=== PATIENT | male | born 1935 | race Caucasian/White ===

== ENCOUNTER 2018-09-03 15:44 | Inpatient (IN) ==
[2018-09-03] MEDS ORDERED: SODIUM CHLORIDE 0.9% 1000ML 1,000 ML IV SCH (16:30)
[2018-09-03 16:54] LABS: Albumin Level 2.4 gm/dl (3.4-5.0); Calcium 8.3 mg/dl (8.5-10.1); Creatinine Clr Calc Pharmacy 90.2 ml/min; Est GFR (African American) 100.7; Est GFR (Non-African American) 86.9; Potassium 3.5 mmol/L (3.5-5.1)
--- NOTE | 2018-09-03 16:54 | XRay Report ---
XR chest 1V portable CLINICAL HISTORY: Generalized weakness COMPARISON STUDY: 07/25/2014 FINDINGS: The heart is enlarged. There is elevation interstitium consistent with congestive failure/f luid overload. Small pleural effusions are suspected. Left basilar opacities while nonspecific are li adela atelectatic. The patient is listing to the right. There are old right-sided rib fractures.[ IMPRESSION: 1. Technically limited study 2. Radiographic evidence of congestive failure/fluid overload with suspected small pleural effusions. 3. Left basilar opacities, likely atelectatic Electronically signed by: Bridger Jerry M.D. 09/03/2018 4:53 PM
[2018-09-03 16:56] LABS: Hematocrit (blood only) 13.9 % (42-52); Hemoglobin 4.5 g/dL (14.0-18.0); Mean Corpuscular Hgb Conc 32.4 g/dL (32-36); Mean Corpuscular Volume 78.5 fL (80-100); Nucleated RBC # (auto) 0.11 K/uL (0-0); Nucleated RBC % (auto) 1.5 %; Platelet Count 20 K/uL (130-400); RDW Coefficient of Variation 19.5 % (11.5-14.5); RDW Standard Deviation 55.4 fL (36.4-46.3); Red Blood Count 1.77 M/uL (4.7-6.1); White Blood Count 7.32 K/uL (4.8-10.8)
[2018-09-03 17:00] LABS: Albumin Globulin Ratio 0.6 (0.9-2); Bilirubin,Total 0.4 mg/dl (0.2-1); Globulin 3.8 gm/dl (2.5-4.0); Total Protein 6.2 gm/dl (6.4-8.2); Troponin I 0.019 ng/ml (0-0.045)
[2018-09-03 17:04] LABS: Prothrombin Time 10.6 Seconds (9.0-12.0)
[2018-09-03] MEDS ORDERED: SODIUM CHLORIDE 0.9% 250 ML IV PRN ×3 (17:09→21:34)
[2018-09-03 17:10] LABS: ALC (manual) 1.17 K/uL (1.2-3.4); Lymphocytes # (manual) 1.17 K/uL (1.2-3.4); Monocytes # (manual) 0.44 K/uL (0.11-0.59)
[2018-09-03 17:14] LABS: Anisocytosis Present; Hypochromasia Present; Ovalocytes 1+; Polychromasia 1+
[2018-09-03 17:19] LABS: Magnesium 1.7 mg/dl (1.8-2.4)
[2018-09-03 17:25] LABS: Appearance Urine Clear (Clear); Bilirubin Urine Negative (Negative); Blood Urine Negative (Negative); Color Urine Yellow; Glucose Urine UA Negative (Negative); Ketones Urine Negative (Negative); Leukocyte Esterase Urine Negative (Negative); Nitrite Urine Negative (Negative); Protein Urine Negative (Negative); Specific Gravity Urine 1.024 (1.000-1.030); Urobilinogen Urine Negative (Negative)
[2018-09-03] MEDS ORDERED: PANTOprazole 80 MG in DEXTROSE 5% 100 ML IV ONE (17:30)
[2018-09-03] MEDS ORDERED: dilTIAZem HCl 125 MG in DEXTROSE 5% 100 ML IV SCH ×2 (18:00→18:35)
--- NOTE | 2018-09-03 18:21 | History & Physical Report ---
Date of Service September 03, 2018 Assessment & Plan (1) GI bleed: Stool is Hemoccult positive. Hemoglobin 4.5. Consult gastroenterology. Transfuse to get hemoglobin greater than 8. Serial H and H ordered. Protonix infusion ordered. Present on Admission?: Yes (2) Severe anemia: Hemoglobin 4.5. Transfuse to get hemoglobin greater than 8. Serial H&H Present on Admission?: Yes (3) Severe thrombocytopenia: Uncertain cause of the severe thrombocytopenia. We will transfuse platelets due to active GI bleeding. Consult hematology. Serial lab studies Present on Admission?: Yes (4) Atrial fibrillation with RVR: Diltiazem infusion will be started in the ED. Obtain cardiac echo. Consult cardiology. Telemetry Present on Admission?: Yes (5) Congestive heart failure: Administer intravenous Lasix. Yusuf catheter to monitor urine output. Cardiac echo. Cardiology consultation Present on Admission?: Yes (6) Dementia: Provide supportive care. Continue Aricept Present on Admission?: Yes History of Present Illness Chief Complaint: Weakness Primary Care Provider: Olvin Joseph III, [place] 82-year-old male who is brought to the ED by family members for weakness and inability to ambulate. He is markedly pale and very weak. Lab tests reveal hemoglobin of 4.5 and platelet count 20,000. The last lab that I could review was from 2016 and this severe anemia and thrombocytopenia appear to be new. He has Hemoccult positive stool and there may have been some recent melena. He also appears to be in congestive heart failure and has uncontrolled atrial fibrillation with rapid ventricular rate which appears to be new. He is acutely ill and will need to be admitted to the intensive care unit. Blood and platelet transfusion have been ordered. Yusuf catheter will be placed and intravenous Lasix administered. Diltiazem drip will be started. Consultation to gastro enterology, cardiology, hematology will be ordered. Lovenox and heparin will be avoided. SCDs have been ordered for DVT prophylaxis. The POA is not present and she will determine CODE STATUS. Allergies Allergy/AdvReac Type Severity Reaction Status Date / Time No Known Allergies Allergy Unknown Verified 09/03/18 17:19 Home Medications Home Medications Medication Instructions Recorded Confirmed Type donepezil 23 mg tablet 11.5 mg PO HS #15 tab 08/23/18 09/03/18 History acetaminophen [Tylenol Extra 1,000 mg PO TID 09/03/18 09/03/18 History Strength] food supplemt, lactose-reduced 1 ea PO BID 09/03/18 09/03/18 History [Boost] Past Med/Surg History Medical History Microhematuria (Acute) Iron deficiency anemia (Acute) Incontinence (Acute) Hearing loss (Acute) Dementia (Acute) Axillary neuropathy (Acute) Social History Feels Safe at Home: Yes Smoking Status: Never smoker Review of Systems Review of Systems: Unobtainable due to cognitive status Physical Exam Constitutional: Very pale. Very weak. Baseline dementia Eyes: PERRL, conjunctivae normal, anicteric sclerae ENMT: external ear and nose normal, oropharynx normal Neck: trachea midline, no thyromegaly Respiratory: Poor inspiratory effort but bibasilar inspiratory rales are audible. No rhonchi. No wheezing Cardiovascular: Uncontrolled rapid irregular rhythm consistent with atrial fibrillation. Grade 1/6 systolic murmur at the apex Gastrointestinal (Abdomen): normal bowel sounds, soft, nontender, no hepatosplenomegaly Musculoskeletal: No significant peripheral edema noted. He is markedly weak in a generalized fashion Skin: Market pallor noted Neurologic: Baseline dementia. No apparent focal motor deficits. Generalized weakness Results & Data Vital Signs (Past 12 Hours) Vital Signs Temp Pulse Pulse Resp BP BP Pulse Ox 09/03/18 17:12 130 H 22 95/61 L 94 09/03/18 16:03 37.0 C 102 H 20 98/65 L 94 Laboratory Results 09/03/18 16:14 09/03/18 16:44 (1) GI bleed GI bleed type/associated pathology: unspecified gastrointestinal hemorrhage type Qualified Code(s): K92.2 - Gastrointestinal hemorrhage, unspecified
[2018-09-03] MEDS: PANTOprazole 40 MG in DEXTROSE 5% 100 ML IV SCH ×2 (18:31→22:04)
[2018-09-03 18:59] LABS: Reticulocyte % 0.9 % (0.5-2.0); Reticulocytes # 0.02 10^6/uL (0.02-0.10)
[2018-09-03 19:28] LABS: Folate (Folic Acid) 19.11 ng/ml (>5.38)
[2018-09-03 19:29] LABS: Ferritin 649.8 ng/ml (8-388)
--- NOTE | 2018-09-03 19:58 | CT Scan Report ---
CT SCAN OF THE BRAIN WITHOUT IV CONTRAST CLINICAL HISTORY: Generalized weakness. COMPARISON STUDY: CT of the brain dated 06/06/2010. TECHNIQUE: Unenhanced axial CT scan of the brain is performed from the vertex to the skull base. A do se lowering technique was utilized adhering to the principles of ALARA. CT DOSE: 614.27 mGy.cm FINDINGS: Brain parenchyma: There are age-related involutional changes noting mild subcortical and periventric ular microangiopathic change. There is no hemorrhage, mass effect, or evidence of acute territorial i schemia by CT criteria. Miller-white matter differentiation is preserved. No extra-axial fluid collecti on is seen. Ventricles, sulci, cisterns: Prominent secondary to involutional change. Intracranial vasculature: There is mild atherosclerotic calcification of the cavernous carotid arteri es. Calvarium: Unremarkable. Sinuses and mastoids: There is trace mucosal thickening within the left maxillary antrum, the left sp henoid sinus, and the ethmoid sinuses. The mastoid air cells are well pneumatized. Orbits: The bony orbits are grossly intact. IMPRESSION: There is no hemorrhage, mass effect, or evidence of acute territorial ischemia by CT nick barrios. Electronically signed by: Demetrius Knox M.D. 09/03/2018 7:57 PM
[2018-09-03] MEDS ORDERED: ICU PROTOCOL FOR HYPERGLYCEMIA PRN (20:33)
--- NOTE | 2018-09-03 20:37 | Critical Care Consultation ---
Date of Consultation September 03, 2018 Assessment & Plan (1) Admitted to intensive care unit: Reason Critically Ill: 82-year-old male with acute severe symptomatic anemia with thrombocytopenia in the setting of questionable source of blood loss. Requiring aggressive transfusion and hemodynamic monitoring. NEURO - * CAM ICU: POSITIVE * Dementia: * Continue home medications as tolerated. CARDIAC/VASCULAR - * A. fib with RVR: * New diagnosis. Initially written for cardizem in the ED but held 2/2 BP lability. * Will hold on rate control at this time as the patient is likely more compensatory at this time in the setting of profound hypovolemia. * Will readdress after adequate transfusion. See Heme. * May consider Amio vs. Cardizem in the setting of persistent hypotension. * Consider addition of NeoSynephrine gtt if pressors necessary for reflexive bradycardia. * Hold on anticoagulation in the setting of profound anemia and ?? bleeding source. * Initial trop negative. Will repeat as anticipate rise in the setting of likely development of Type 2 IN. * CHF: * Initial CXR w/ co volume overload. * CTA w/o significant findings for pulmonary vascular congestion. * Initially received IV Lasix in the ED. * Will hold on further dosing as patient has diuresed well and we melanie need to attempt to keep up with volume in the form of blood products. * Will address need for further Lasix dosing. * Ascending Thoracic Aortic Aneurysm: * Initial CXR w/ c/o large amounts of pleural fluid and wide mediastinum. Will add CTA to assess all of the above. * ECHO (07/2014): EF 50-55%, Multiple wall motion abnormalities, MR, TR, Ascending Thoracic Aneurysm. * Monitor on telemetry. RESPIRATORY - * h/o PE - resolved. Not on anticoagulation. CT w/o findings of PE. * c/o CHF on CXR. No significant findings on CT. * Recently diuresed. * Will assess need for additional dosing. * Currently high 90s on room air. * Positive pressure as needed. GI/NUTRITION - * Hemoccult positive: * In the setting of profound anemia and thrombocytopenia, agree with continuing Protonix gtt at this juncture. * Monitor for any concerning GI bleeding. * w/ h/o Tubular Adenomas of the colon, anticipate some likely chronic GI losses. * Will add CT Abd/Pelvis to evaluate for possible source of blood losses. RENAL/LYTES - * No significant electrolyte abnormalities at this point. * Will monitor closely - replace as needed. * IVF: Hold on additional IVF while aggressive transfusion in process. - * Yusuf in place - Strict I&Os. ENDO - * No h/o DM or Thyroid Dz * BSGs per unit protocol. ISS --> gtt per unit policy. HEME - * Severe Symptomatic Anemia: * Only possible source currently was heme positive stools. * Will add CT Chest and Abd/Pelvis to evaluate for sources. * Will transfuse 4U PRBCs initially. * 2U Platelets ordered. * Transfuse to Hbg >8. * CT suggestive of LLE intramuscular hematoma as ?? source of bleeding. No intrathoracic or intraabdominal bleeding noted. ID - * No c/o infectious contribution at this time. * Trend fever curve. LINES/IV ACCESS - * PIVs x2 * LUE 18g Endurance catheter. * Yusuf DVT PROPHYLAXIS - * Will hold on chemoprophylaxis 2/2 above. * SCDs I have personally spent 80 minutes of critical care time in the direct management of this patient. This is a life/limb threatening event. This includes time spent evaluating patient, direct bedside care, chart review, placing orders, interpretation of diagnostic studies, discussion with consultants, patient, and family members, as well as other required patient management activities. This time is exclusive of all separately billable procedures, and teaching time and separate from and in addition to any other critical care service time. Thank you for allowing us to participate in the care of this patient. Please refer to my attending physician's documentation for any further recommendations. (2) Symptomatic anemia: (3) Severe thrombocytopenia: (4) Severe anemia: (5) Atrial fibrillation with RVR: (6) Dementia: (7) Thoracic aortic aneurysm without rupture: (8) Hematoma of left hip: (9) Intramuscular hematoma: History of Present Illness Attending Physician: Jose Angel Calderon MD History of present illness provided by family caretakers. Patient is an 82-year-old male with a significant past medical history of baseline dementia, prior pulmonary emboli treated with anticoagulation in the past, a sending aortic aneurysm, LEFT brachial plexus neuropathy, tubular adenoma of the colon, and prior history of GI bleeding who initially presented to the emergency department weak, lethargic and dyspneic over the past 3 to 4 days. Apparently, on Thursday the patient had increasing frequency of bowel movements. There is no report of blood or melanotic stools appreciated. He did seem to improve and on Thursday had a decrease in the amount of symptoms. On Thursday through Thursday, the patient had declining status with increasing weakness. Apparently, baseline, the patient does have some help with his activities of daily living, however this is been worsening over over the last 24 hours. He has had no recent falls. There is been no recent trauma otherwise. No vomiting or complaints of chest pain. Patient is currently not anticoagulated. On evaluation in the emergency department, the patient was found to be tachycardic and hypotensive. His hemoglobin was found to be 4.5 with a platelet count of 20. He received 1 unit PRBCs prior to arrival with an additional unit ordered. Patient was also ordered 2 units of platelets. He remained tachycardic, but blood pressures remained stable. Initially, he was ordered di ltiazem, however this was not provided secondary to lability of blood pressures. On arrival in the ICU, patient is awake and does answer simple questions with yes and no answers. He complains of pain to the LEFT upper extremity for which his caretakers reports is his normal. He denies any complaints of chest pain or abdominal pain. Allergies Allergy/AdvReac Type Severity Reaction Status Date / Time No Known Allergies Allergy Unknown Verified 09/03/18 17:19 Home Medications Home Medications Medication Instructions Recorded Confirmed Type donepezil 23 mg tablet 11.5 mg PO HS #15 tab 08/23/18 09/03/18 History acetaminophen [Tylenol Extra 1,000 mg PO TID 09/03/18 09/03/18 History Strength] food supplemt, lactose-reduced 1 ea PO BID 09/03/18 09/03/18 History [Boost] Patient History Medical History Congestive heart failure (Acute) Severe thrombocytopenia (Acute) Severe anemia (Acute) Microhematuria (Acute) Iron deficiency anemia (Acute) Incontinence (Acute) Hearing loss (Acute) Dementia (Acute) Axillary neuropathy (Acute) Social History Preferred Language: Dutch Communication Ability: Effective Composition Teacher Required: No Beliefs That Will Affect Care: None Current Living Situation: Family Other Information That Helps Us Care for You: No Feels Safe at Home: Yes Safety Concerns: Feels Safe At This Time Smoking Status: Never smoker Hx Alcohol Use: No Hx Substance Use: No Review of Systems Review of Systems: A complete 10 point review of systems was reviewed with the patient with pertinent positives and negatives as per history of present illness. All else were negative. Physical Exam Physical Exam: VITAL SIGNS - Vital signs and nursing notes were reviewed. GENERAL - 82-year-old male appearing his stated age who is in no acute distress. Pale appearing. SKIN - Pale appearing. Bruising noted to the LEFT lateral hip. HEAD - NC/AT. EYES - PERRL with EOMI bilaterally. Sclera anicteric. Palpebral conjunctiva pink and pale. EARS - No deformities of external structures noted on gross examination bilaterally. NOSE - Midline and without cyanosis. No epistaxis or purulent drainage noted. MOUTH/OROPHARYNX - Without perioral cyanosis. NECK - Neck with FROM. Supple to palpation. LUNGS - Chest wall symmetric without accessory muscle use, intercostals retractions, or central cyanosis. Normal vesicular breath sounds CTA B/L. No wheezes, rales, or rhonchi appreciated. CARDIAC - RRR with S1/S2. No murmur, rubs, or gallops appreciated. ABDOMEN - Abdominal contour flat without pulsations or visible masses. BS normoactive all four quadrants. No tenderness, palpable masses, hepatosplenomegaly, or ascites noted. EXTREMITIES - No clubbing or peripheral cyanosis. No pretibial edema present. +3/5 radial and dorsalis pedis pulses palpated throughout. Decreased strength with contracture noted of the LEFT upper extremity. NEUROLOGIC - Cranial nerves II through XII grossly intact. PSYCH -pleasantly demented. Results & Data Vital Signs (Past 12 Hours) Vital Signs Temp Pulse Pulse Resp BP BP Pulse Ox 09/03/18 19:54 36.4 C L 130 H 20 120/77 96 09/03/18 19:24 36.8 C 114 H 20 87/65 L 97 09/03/18 19:09 36.8 C 135 H 18 111/56 L 95 09/03/18 18:53 37.1 C 115 H 20 104/57 L 96 09/03/18 18:32 114 H 20 84/54 L 97 09/03/18 17:12 130 H 22 95/61 L 94 09/03/18 16:03 37.0 C 102 H 20 98/65 L 94
--- NOTE | 2018-09-03 20:38 | Procedure Note ---
Procedure Note Date of Service September 03, 2018 Procedure: Clinical Therapist Indwelling Peripherally Inserted IV Catheter Placement Attending: Dr. Greenfield APC: Ayaz Brar PA-C Indication: Need for IV Access, Poor Vascular Access Anesthesia: None A time-out was completed verifying correct patient, procedure, site, positioning, and implant(s) or special equipment if applicable. Utilizing bedside ultrasound, vascularity of the LEFT upper extremity was assessed. Vessel size was noted for appropriate catheter selection and skin was marked with gentle pressure. Patients LEFT upper extremity was prepped and draped in the usual sterile fashion utilizing chlorhexidine. Ultrasound guidance was used to aid needle placement. An 18 g Endurance Catheter was introduced into the LEFT Brachial vein under direct ultrasound guidance. Guide wire was easily deployed without resistance. Catheter was threaded over the guide wire without resistance and the entire apparatus was removed intact. Good venous blood return was noted in the catheter. The IV catheter was easily flushed with sterile saline flush. Sterile clave was attached to the end of the catheter and good blood return was again noted. Tourniquet was released. StatLock device and sterile dressing were applied. The patient tolerated the procedure well. Blood Loss: Minimal Complications: None Procedural Ultrasound Guidance: Procedure Date: 09/03/2018 Indication: Poor Vascular Access Attending: Dr. Greenfield APC: Ayaz Brar PA-C Artery/Veins Identified: YES Access confirmed in Vein with ultrasound: YES Complications: NONE Patient tolerated procedure: WELL Coding
[2018-09-03] MEDS ORDERED: OPTIRAY 320 125ml IV PRN (20:59)
[2018-09-03] MEDS ORDERED: FUROSEMIDE 40 MG in SYRINGE 0 ML IV SCH (21:00)
--- NOTE | 2018-09-03 21:41 | CT Scan Report ---
CT ANGIOGRAM OF THE CHEST COMBO; CT ANGIOGRAM OF THE ABDOMEN AND PELVIS CLINICAL HISTORY: Generalized weakness. Anemia. COMPARISON STUDY: Chest CT dated 07/25/2014. TECHNIQUE: Unenhanced CT scan of the chest is performed. Following the IV administration of 120 cc of Optiray 320, CT angiogram of the chest, abdomen, and pelvis was performed from the thoracic inlet to the proximal femora. Images are reviewed in the axial, sagittal, and coronal planes. 3-D MIPS images are created and assessed. IV contrast was administered without complication. A dose lowering techniq ue was utilized adhering to the principles of ALARA. The examination is degraded by streak artifact f rom the arms which could not be elevated above the chest or abdomen. There is also mild motion artifa ct. CT DOSE: 2390.25 mGy.cm FINDINGS: CHEST: Thyroid: Imaged portions of the thyroid gland are normal in size and attenuation. Thoracic aorta: No intramural hematoma is seen on the unenhanced series. There is aneurysmal dilatati on of the ascending thoracic aorta which measures up to 5.0 cm in diameter. The remainder of the thor acic aorta is normal in caliber. The mid arch measures up to 3.0 cm in diameter, and the descending t horacic aorta measures up to 3.1 cm. The aortic arch demonstrates standard 3-vessel anatomy. No aneur ysm or dissection is seen. Pulmonary vasculature: The pulmonary trunk is dilated measuring 3.9 cm in diameter. This suggests pul monary artery hypertension. There are no filling defects identified in the central pulmonary vessels to indicate pulmonary embolus. Note that this examination was not protocoled for evaluation of the pu lmonary arteries. Heart: The heart is enlarged and without pericardial effusion. There is diminished attenuation of the cardiac blood flow is compared to the myocardium suggesting anemia. Lungs and pleural spaces: Evaluation of lung parenchyma is degraded by motion artifact. There are sma ll pleural effusions with bibasilar atelectasis. No airspace consolidation is seen typical for pneumo cayetano. The trachea and central airways are clear. Mediastinum: There is no mediastinal lymphadenopathy. Caitlyn: Clear. Axillae: There is no axillary lymphadenopathy. Bony thorax: The skeletal structures are osteopenic. There is a moderate superior endplate compressio n deformity of T12. A large hemangioma seen in the body of T2. No lytic or blastic bony lesions are i dentified. Degenerative change is seen in the shoulders and thoracic spine. There are numerous healed bilateral rib fractures. ABDOMEN AND PELVIS: Liver: The contrast-enhanced liver is normal in size, contour, and attenuation. There is no intrahepa tic biliary ductal dilatation. A 2.1 cm cyst is noted in the left lobe. Gallbladder: There is a large calcified gallstone, with no CT evidence of acute cholecystitis. Spleen: Normal in size and attenuation comment noting heterogeneous arterial phase enhancement. Pancreas: The pancreas is atrophic. There is a 3.3 x 3.1 cm cystic lesion arising from the inferior a spect of the pancreatic head on image #[id number]. Adrenal glands: Unremarkable. Kidneys: The contrast enhanced kidneys are atrophic and without hydronephrosis. The kidneys enhance s ymmetrically. Numerous parapelvic cysts are seen bilaterally. Abdominal aorta and iliac arteries: The abdominal aorta is normal in course and caliber noting scatte red foci of atherosclerotic calcification. The iliac arteries are widely patent bilaterally. No disse ction is seen. Major branches of the abdominal aorta: The celiac trunk, superior mesenteric, and inferior mesenteric arteries are widely patent. Hepatic arterial anatomy is conventional. The splenic artery is patent. Single bilateral renal arteries are patent. Focal dissection is identified within the right renal ar benjamin, best seen on the coronal reformatted images. Stomach and bowel: There is a small hiatal hernia. The duodenum is normal in configuration. No bowel obstruction is seen. Mild colonic fecal retention is noted. The appendix is not identified. Peritoneum: There is no intraperitoneal free air or abdominal ascites. Lymphadenopathy: None. Pelvic viscera: The prostate gland is diminutive and heterogeneous. The bladder is decompressed aroun d a Yusuf catheter. Small foci of intraluminal gas are nonspecific and may be related to recent instr umentation. The bladder wall appears thickened and there is pericystic inflammation. Small bilateral fat-containing inguinal hernias are noted. The left adductor musculature appears thickened and hyperd ense and there are surrounding inflammatory stranding. This is only partially visualized and likely r epresents intramuscular hematoma within the left thigh. Skeletal structures: The skeletal structures are osteopenic. Moderate lumbosacral spondylosis is obse rved. Advanced arthritic change is seen in the hips. No lytic or blastic bony lesions are seen. IMPRESSION: 1. There is aneurysmal dilatation of the ascending thoracic aorta which measures up to 5 cm. This is unchanged from previous. 2. The remainder of the thoracic aorta and the abdominal aorta are normal in caliber. 3. There is no dissection seen involving the thoracic or abdominal aorta. 4. 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 5. Cardiomegaly with evidence of anemia and pulmonary artery hypertension. 6. Intramuscular hematoma is partially visualized within the left thigh involving the adductor muscul ature. 7. Small pleural effusions with bibasilar atelectasis. 8. Cholelithiasis. 9. There is a 3.3 cm ovoid cystic lesion identified in the pancreatic head. 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 Nonemergent GI follow-up is recommended. 10. Although decompressed around a Yusuf catheter, the bladder wall is thickened and there is pericys tic inflammation. Correlate clinically and with urinalysis for evidence of cystitis. 11. There is a moderate compression deformity of T12. This is age indeterminant but new from 2015. 12. Additional findings as above. Electronically signed by: Demetrius Knox M.D. 09/03/2018 9:39 PM
[2018-09-03] MEDS: SUCRALFATE 1 GM/10 ML UDC PO SCH (22:05)
--- NOTE | 2018-09-04 00:22 | Emergency Department Note ---
Entered by Gabby Rodriguez acting as a scribe for Mayco Green MD History of Present Illness General Chief complaint: Weakness Stated complaint: weakness Time Seen by Provider: 09/03/18 16:16 Source: family (son-in-law) History of Present Illness Onset (ago): day(s) (several) Location: left and right Pain Consistency: + other (worsening) Maximum Pain Intensity: 5 Quality: + other (weakness) Associated symptoms: + loss of appetite (now resolved) and + other (positive loose stool; positive right-sided rib pain); no nausea/vomiting The patient is a 82 year old white male w/ PMHx of dementia, PE, and CHF who presents to the ED w/ CC of worsening weakness beginning several days prior to arrival, per the patient's son-in-law. The patient's son-in-law states that the patient at the beginning of the week, the patient had a loss of appetite and several episodes of loose stool. The patient's son-in-law states that the patient's appetite has returned somewhat over past several days, but states that the patient is eating very little. The patient's son-in-law denies nausea and vomiting. The patient's son-in-law denies any recent travel and sick contacts at home. The patient's son-in-law states that the patient complained of right-sided rib pain today. The patient's son-in-law states that the patient was previously on Coumadin for PEs, but states that he is no longer taking this. Home Medications Home Medications Medication Instructions Recorded Confirmed Type donepezil 23 mg tablet 11.5 mg PO HS #15 tab 08/23/18 09/03/18 History acetaminophen [Tylenol Extra 1,000 mg PO TID 09/03/18 09/03/18 History Strength] food supplemt, lactose-reduced 1 ea PO BID 09/03/18 09/03/18 History [Boost] Allergies Allergy/AdvReac Type Severity Reaction Status Date / Time No Known Allergies Allergy Unknown Verified 09/03/18 17:19 Past Med/Surg History Medical History Congestive heart failure (Acute) Severe thrombocytopenia (Acute) Severe anemia (Acute) Microhematuria (Acute) Iron deficiency anemia (Acute) Incontinence (Acute) Hearing loss (Acute) Dementia (Acute) Axillary neuropathy (Acute) Social History Preferred Language: [place] Communication Ability: Effective Sales Program Coordinator Required: No Beliefs That Will Affect Care: None Current Living Situation: Family Other Information That Helps Us Care for You: No Feels Safe at Home: Yes Safety Concerns: Feels Safe At This Time Smoking Status: Never smoker Hx Alcohol Use: No Hx Substance Use: No Review of Systems See HPI for pertinent positives & negatives. and A total of 10 systems reviewed and were otherwise negative Physical Exam Vital Signs Vital Signs - 24 hr 09/03/18 16:03 09/03/18 17:12 Temperature 37.0 C Temperature Source Oral Sepsis Recent Fever Within 48 Hours No Sepsis New/Unexplained Change in Mental Status No Sepsis Action Taken by Nursing No Action Required Pulse Rate 102 H Pulse Rate [Apical] 130 H Pulse Rhythm Irregular Pulse Rhythm [Apical] Irregular Pulse Strength Normal Pulse Strength [Apical] Normal Respiratory Rate 20 22 Respiratory Effort / Characteristics Non-Labored Spontaneous Non-Labored Spontaneous Respiratory Depth Normal Normal Respiratory Pattern Regular Regular Blood Pressure 98/65 L Blood Pressure [Right Arm] 95/61 L Blood Pressure Mean 76 Blood Pressure Mean [Right Arm] 72 Blood Pressure Position Lying Blood Pressure Position [Right Arm] Lying Pulse Oximetry 94 94 Oxygen Delivery Method Room Air Room Air GENERAL: Well appearing, well nourished, NAD, non-toxic. EYE EXAM: Normal conjunctiva. PERRL, no anisocoria and EOM's grossly intact w/o pain. OROPHARYNX: Moist mucus membranes. Grossly normal dentition. NECK: Supple, no nuchal rigidity, no adenopathy, non-tender. no signs of meningismus. LUNGS: Clear to auscultation. Normal chest wall mechanics. HEART: NSR, no MRG. ABDOMEN: Abdomen soft, non-tender, normo-active bowel sounds, no masses, no rebound or guarding. RECTAL: No bright red blood. Heme positive stool. BACK: No CVA TTP. SKIN: No rashes and no bruising. UPPER EXTREMITIES: Upper extremities are grossly normal. LOWER EXTREMITIES: No pitting edema. No calf pain. Noted dryness to the bilateral feet. NEURO EXAM: A&O x3, cranial nerves II-XII grossly intact, normal speech. Does not move left upper extremity. Moves right upper and bilateral lower extremities. Course 1631: The patient was evaluated in room C12B, and a complete history and physical examination were performed. 1717: I checked on the patient and obtained his consent for a blood transfusion. 1738: [facility] for further evaluation. 1755: [facility] who states that the patient is now in Afib with RVR. He states that he wants to give the patient a Diltiazem drip and will talk to the ICU. 1805: I discussed the case with Dr. Amador GRIGGS who is aware of the patient and states that he will see the patient in the morning unless more aggressive interventions are required. 1947: I discussed the case with Ayaz Brar-Junior Linux Administrator ERIN Consultations Consultation #1: [facility] for further evaluation. Time: 17:38 Consultation #2: I discussed the case with Dr. Amador GRIGGS who is aware of the patient and states that he will see the patient in the morning unless more aggressive interventions are required. Time: 18:05 Administered Medications Pantoprazole Sodium 40 mg/ (Dextrose) 100 mls @ 20 mls/hr IV Q5H LORENA Stop: 10/03/18 17:44 Last Admin: 09/03/18 22:04 Dose: 20 mls/hr Documented by: [id number] Infusion: 09/03/18 22:04 Dose: 20 mls/hr Documented by: [id number] Admin: 09/03/18 18:31 Dose: 20 mls/hr Documented by: [id number] Furosemide 40 mg/ Syringe 4 mls @ 4 mls/min IV Q12H LORENA Stop: 10/03/18 20:59 Last Admin: 09/03/18 21:36 Dose: 4 mls/min Documented by: [id number] Ioversol (Optiray 320 125ml) 120 ml IV ONCE PRN PRN Reason: Interaction Checking Stop: 09/07/18 20:58 Last Admin: 09/03/18 21:00 Dose: 120 ml Documented by: [id number] Sucralfate (Carafate) 1 gm PO ACHS LORENA Stop: 10/03/18 20:59 Last Admin: 09/03/18 22:05 Dose: Not Given Documented by: [id number] Discontinued Medications Sodium Chloride (Nss 1000ml) 1,000 mls @ 999 mls/hr IV .Q1H1M LORENA Stop: 09/03/18 17:30 Last Infusion: 09/03/18 22:12 Dose: 0 mls/hr Documented by: [id number] Admin: 09/03/18 17:15 Dose: 999 mls/hr Documented by: [id number] Pantoprazole Sodium 80 mg/ (Dextrose) 120 mls @ 480 mls/hr IV ONE ONE Stop: 09/03/18 17:44 Last Infusion: 09/03/18 22:12 Dose: 0 mls/hr Documented by: [id number] Admin: 09/03/18 18:31 Dose: 480 mls/hr Documented by: [id number] Medical Decision Making Medical Records Attestation: I reviewed the patient's medical records. Home Medications Current Medication List: was personally reviewed by me Laboratory Data Attestation: I reviewed the patient's lab results. Result diagrams: 09/03/18 16:14 09/03/18 16:14 Lab Results 09/03/18 09/03/18 09/03/18 Range/Units 16:14 16:14 16:14 WBC 7.32 (4.8-10.8) K/uL RBC 1.77 L (4.7-6.1) M/uL Hgb 4.5 L* (14.0-18.0) g/dL Hct 13.9 L* (42-52) % MCV 78.5 L (80-100) fL MCH 25.4 (25-34) pg MCHC 32.4 (32-36) g/dL RDW Std Deviation 55.4 H (36.4-46.3) fL RDW Coeff of Eunice 19.5 H (11.5-14.5) % Plt Count 20 L* (130-400) K/uL Absolute Nucleated RBC 0.11 H (0-0) K/uL Nucleated RBC % (auto) 1.5 % Neutrophils % (Manual) 78.0 % Band Neutrophils % 0.0 % Lymphocytes % (Manual) 16.0 % Reactive Lymphs % (Man) 0.0 % Monocytes % (Manual) 6.0 % Neutrophils # (Manual) 5.71 (1.4-6.5) K/uL Total Absolute Neuts 5.71 (1.4-6.5) K/uL Lymphocytes # (Manual) 1.17 L (1.2-3.4) K/uL Total Abs Lymphocytes 1.17 L (1.2-3.4) K/uL Monocytes # (Manual) 0.44 (0.11-0.59) K/uL Large Granular Lymphs 0.0 % Polychromasia 1+ Hypochromasia Present Anisocytosis Present Ovalocytes 1+ PT 10.6 (9.0-12.0) Seconds INR 1.0 (0.9-1.1) Sodium 141 (136-145) mmol/L Potassium 3.5 (3.5-5.1) mmol/L Chloride 106 (98-107) mmol/L Carbon Dioxide 25 (21-32) mmol/L Anion Gap 9.0 (3-11) BUN 32 H (7-18) mg/dl Creatinine 0.72 (0.6-1.4) mg/dl Est Cr Clr Drug Dosing 90.2 ml/min Est GFR ( Amer) 100.7 Est GFR (Non-Af Amer) 86.9 BUN/Creatinine Ratio 44.0 H (10-20) Glucose 102 H (70-99) mg/dl Calcium 8.3 L (8.5-10.1) mg/dl Magnesium 1.7 L (1.8-2.4) mg/dl Total Bilirubin 0.4 (0.2-1) mg/dl AST 16 (15-37) U/L ALT 28 (12-78) U/L Alkaline Phosphatase 75 (45-117) U/L Troponin I 0.019 (0-0.045) ng/ml Total Protein 6.2 L (6.4-8.2) gm/dl Albumin 2.4 L (3.4-5.0) gm/dl Globulin 3.8 (2.5-4.0) gm/dl Albumin/Globulin Ratio 0.6 L (0.9-2) TSH 2.140 (0.300-4.500) uIu/ml Urine Color Urine Appearance (Clear) Urine pH (4.5-7.5) Ur Specific [place] (1.000-1.030) Urine Protein (Negative) Urine Glucose (UA) (Negative) Urine Ketones (Negative) Urine Blood (Negative) Urine Nitrite (Negative) Urine Bilirubin (Negative) Urine Urobilinogen (Negative) Ur Leukocyte Esterase (Negative) Blood Type Antibody Screen Crossmatch 09/03/18 09/03/18 09/03/18 Range/Units 16:44 17:17 17:29 WBC (4.8-10.8) K/uL RBC (4.7-6.1) M/uL Hgb (14.0-18.0) g/dL Hct (42-52) % MCV (80-100) fL MCH (25-34) pg MCHC (32-36) g/dL RDW Std Deviation (36.4-46.3) fL RDW Coeff of Eunice (11.5-14.5) % Plt Count (130-400) K/uL Absolute Nucleated RBC (0-0) K/uL Nucleated RBC % (auto) % Neutrophils % (Manual) % Band Neutrophils % % Lymphocytes % (Manual) % Reactive Lymphs % (Man) % Monocytes % (Manual) % Neutrophils # (Manual) (1.4-6.5) K/uL Total Absolute Neuts (1.4-6.5) K/uL Lymphocytes # (Manual) (1.2-3.4) K/uL Total Abs Lymphocytes (1.2-3.4) K/uL Monocytes # (Manual) (0.11-0.59) K/uL Large Granular Lymphs % Polychromasia Hypochromasia Anisocytosis Ovalocytes PT (9.0-12.0) Seconds INR (0.9-1.1) Sodium Cancelled (136-145) mmol/L Potassium Cancelled (3.5-5.1) mmol/L Chloride Cancelled (98-107) mmol/L Carbon Dioxide Cancelled (21-32) mmol/L Anion Gap Cancelled (3-11) BUN Cancelled (7-18) mg/dl Creatinine Cancelled (0.6-1.4) mg/dl Est Cr Clr Drug Dosing Cancelled ml/min Est GFR ( Amer) Cancelled Est GFR (Non-Af Amer) Cancelled BUN/Creatinine Ratio Cancelled (10-20) Glucose Cancelled (70-99) mg/dl Calcium Cancelled (8.5-10.1) mg/dl Magnesium Cancelled (1.8-2.4) mg/dl Total Bilirubin Cancelled (0.2-1) mg/dl AST Cancelled (15-37) U/L ALT Cancelled (12-78) U/L Alkaline Phosphatase Cancelled (45-117) U/L Troponin I (0-0.045) ng/ml Total Protein Cancelled (6.4-8.2) gm/dl Albumin Cancelled (3.4-5.0) gm/dl Globulin Cancelled (2.5-4.0) gm/dl Albumin/Globulin Ratio Cancelled (0.9-2) TSH Cancelled (0.300-4.500) uIu/ml Urine Color Yellow Urine Appearance Clear (Clear) Urine pH 5.0 (4.5-7.5) Ur Specific [place] 1.024 (1.000-1.030) Urine Protein Negative (Negative) Urine Glucose (UA) Negative (Negative) Urine Ketones Negative (Negative) Urine Blood Negative (Negative) Urine Nitrite Negative (Negative) Urine Bilirubin Negative (Negative) Urine Urobilinogen Negative (Negative) Ur Leukocyte Esterase Negative (Negative) Blood Type A Positive Antibody Screen NEGATIVE Crossmatch See Detail Imaging Data Radiologist's Impression: Radiology results as stated below per my review and the radiologist's interpretation: XR chest 1V portable CLINICAL HISTORY: Generalized weakness COMPARISON STUDY: 07/25/2014 FINDINGS: The heart is enlarged. There is elevation interstitium consistent with congestive failure/fluid overload. Small pleural effusions are suspected. Left basilar opacities while nonspecific are likely atelectatic. The patient is listing to the right. There are old right-sided rib fractures.[ IMPRESSION: 1. Technically limited study 2. Radiographic evidence of congestive failure/fluid overload with suspected small pleural effusions. 3. Left basilar opacities, likely atelectatic Electronically signed by: Bridger Jerry M.D. 09/03/2018 4:[address] SCAN OF THE BRAIN WITHOUT IV CONTRAST CLINICAL HISTORY: Generalized weakness. COMPARISON STUDY: CT of the brain dated 06/06/2010. TECHNIQUE: Unenhanced axial CT scan of the brain is performed from the vertex to the skull base. A dose lowering technique was utilized adhering to the principles of ALARA. CT DOSE: 614.27 mGy.cm FINDINGS: Brain parenchyma: There are age-related involutional changes noting mild subcortical and periventricular microangiopathic change. There is no hemorrhage, mass effect, or evidence of acute territorial ischemia by CT criteria. Miller- white matter differentiation is preserved. No extra-axial fluid collection is seen. Ventricles, sulci, cisterns: Prominent secondary to involutional change. Intracranial vasculature: There is mild atherosclerotic calcification of the cavernous carotid arteries. Calvarium: Unremarkable. Sinuses and mastoids: There is trace mucosal thickening within the left maxillary antrum, the left sphenoid sinus, and the ethmoid sinuses. The mastoid air cells are well pneumatized. Orbits: The bony orbits are grossly intact. IMPRESSION: There is no hemorrhage, mass effect, or evidence of acute territorial ischemia by CT criteria. Electronically signed by: Demetrius Knox M.D. 09/03/2018 7:[address] SCAN OF THE BRAIN WITHOUT IV CONTRAST CLINICAL HISTORY: Generalized weakness. COMPARISON STUDY: CT of the brain dated 06/06/2010. TECHNIQUE: Unenhanced axial CT scan of the brain is performed from the vertex to the skull base. A dose lowering technique was utilized adhering to the principles of ALARA. CT DOSE: 614.27 mGy.cm FINDINGS: Brain parenchyma: There are age-related involutional changes noting mild sub cortical and periventricular microangiopathic change. There is no hemorrhage, mass effect, or evidence of acute territorial ischemia by CT criteria. Miller- white matter differentiation is preserved. No extra-axial fluid collection is seen. Ventricles, sulci, cisterns: Prominent secondary to involutional change. Intracranial vasculature: There is mild atherosclerotic calcification of the cavernous carotid arteries. Calvarium: Unremarkable. Sinuses and mastoids: There is trace mucosal thickening within the left maxillary antrum, the left sphenoid sinus, and the ethmoid sinuses. The mastoid air cells are well pneumatized. Orbits: The bony orbits are grossly intact. IMPRESSION: There is no hemorrhage, mass effect, or evidence of acute territorial ischemia by CT criteria. Electronically signed by: Demetrius Konx M.D. 09/03/2018 7:57 PM ECG Data Attestation: I personally reviewed and interpreted this ECG as follows: Indication: weakness Rate (beats per minute): 125 Rhythm: atrial fibrillation (with RVR) Findings: + other (normal QRS duration; normal axis; slight depression in the lateral leads) and + PVC Comparison ECG Date: from (07/26/2014) Change: the following changes noted (Afib is new and the rate is faster) Blood Pressure Blood Pressure Findings: Low blood pressure Blood Pressure Disposition: further management by hospitalist MDM Narrative The patient is a 82 year old white male w/ PMHx of dementia, PE, and CHF who presents to the ED w/ CC of worsening weakness beginning several days prior to arrival, per the patient's son. Differential diagnosis: Etiologies such as metabolic, infection, hypo/hyperglycemia, electrolyte abnormalities, cardiac sources, intracerebral event, toxicologic, neurologic, as well as others were entertained. Patient was seen and evaluated the bedside. 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 Per the patient's son-in-law who is 1 of the primary caretakers the patient is to be more mobile active but has had an abrupt decompensation and generalized weakness over the last week. States it was probably the worst Thursday and it has only slightly improved but certainly not where it was last . The patient states that he feels okay with the son in law does relate that he will take this regardless given his history of dementia. Patient did have blood work completed EKG chest x-ray CT the brain and the patient did have IV fluids given. He was last given Tylenol at 130. The patient does suffer from some phantom pain of the left upper extremity. Patient does have v aracelis low hemoglobin. Hemoccult was positive. PPI bolus and drip ordered patient was consented at the bedside by the son-in-law as the patient is demented. 2 units were ordered. I did speak the on-call hospitalist. Will concern for A. fib with RVR after discussion with the hospitalist will start diltiazem drip to help with rate control and diastolic dysfunction which may help with her blood pressure. Patient was subsequently admitted to the ICU after the automation engineering technician spoke with the hospitalist. Impression & Plan GI bleed, Atrial fibrillation with RVR Critical Care Time I have personally spent 75 minutes of critical care time in the direct management of this patient. This includes bedside care, interpretation of diagnostic studies, and testing, discussion with consultants, patient, and family members, and other required patient management activities. This 75 minutes is in excess of all separately billable procedures. Critical Care Time: Yes Total Critical Care Time: 75 Discharge Plan Visit Data *Final* Discharge Date/Time: 09/03/18 19:27 Chief Complaint: Weakness Stated Complaint: weakness ED Provider: Mayco Green Discharge Problem: GI bleed, Atrial fibrillation with RVR Patient Disposition: Admitted As Inpatient Discharge Instructions Interventions: ED Discharge Assessment Last Done: 09/03/18 19:27 Discharge Problem: GI bleed Qualifiers: GI bleed type/associated pathology: unspecified gastrointestinal hemorrhage ty pe Qualified Code(s): K92.2 - Gastrointestinal hemorrhage, unspecified The scribe's documentation has been prepared under my direction and personally reviewed by me in its entirety. I confirm that the note above accurately reflects all work, treatment, procedures, and medical decision making performed by me.
[2018-09-04] MEDS: PANTOprazole 40 MG in DEXTROSE 5% 100 ML IV SCH ×5 (03:39→21:11)
[2018-09-04] MEDS ORDERED: AMIODARONE / D5W 150 MG/100 ML BAG IV STA (04:35)
[2018-09-04] MEDS ORDERED: AMIODARONE IV BOLUS / DRIP IV STA (04:35)
[2018-09-04] MEDS ORDERED: AMIODARONE / D5W 360 MG/200 ML BAG IV SCH (04:45)
[2018-09-04 05:19] LABS: BUN Creatinine Ratio 35.5 (10-20); Blood Urea Nitrogen 25 mg/dl (7-18); Calcium 7.9 mg/dl (8.5-10.1); Carbon Dioxide 26 mmol/L (21-32); Chloride 105 mmol/L (98-107); Est GFR (African American) 101.9; Est GFR (Non-African American) 87.9; Glucose 104 mg/dl (70-99); Phosphorus 3.3 mg/dl (2.5-4.9); Sodium 138 mmol/L (136-145); Troponin I < 0.015 ng/ml (0-0.045)
[2018-09-04 05:25] LABS: ALC (manual) 1.74 K/uL (1.2-3.4); Hematocrit (blood only) 27.1 % (42-52); Hemoglobin 8.8 g/dL (14.0-18.0); Hypochromasia Present; Hypogranular Neutrophils 1+; Lymphocytes # (manual) 1.74 K/uL (1.2-3.4); Lymphocytes % (manual) 18.4 %; Mean Corpuscular Hgb Conc 32.5 g/dL (32-36); Mean Corpuscular Volume 81.9 fL (80-100); Metamyelocytes # (manual) 0.83 K/uL (0-0); Metamyelocytes % (manual) 8.8 %; Monocytes # (manual) 0.25 K/uL (0.11-0.59); Monocytes % (manual) 2.6 %; Myelocytes # (manual) 0.09 K/uL (0-0); Myelocytes % (manual) 0.9 %; Neutrophils % (manual) 69.3 %; Nucleated RBC # (auto) 0.19 K/uL (0-0); Nucleated RBC % (auto) 2.1 %; Ovalocytes 1+; Platelet Count 72 K/uL (130-400); Platelet Estimate Decreased (Normal); RDW Coefficient of Variation 17.7 % (11.5-14.5); RDW Standard Deviation 52.6 fL (36.4-46.3); Red Blood Count 3.31 M/uL (4.7-6.1); Tear Drop Cells 1+; White Blood Count 9.45 K/uL (4.8-10.8)
[2018-09-04] MEDS ORDERED: CALCIUM GLUCONATE 10% 1,000 MG in SODIUM CHLORIDE 0.9% 50 ML IV STA (06:12)
[2018-09-04 06:20] LABS: Potassium 3.3 mmol/L (3.5-5.1)
[2018-09-04 06:28] LABS: Magnesium 1.4 mg/dl (1.8-2.4)
[2018-09-04] MEDS ORDERED: PERFLUTREN LIPID MICROSPHERE (DEFINITY) IV ONE (07:12)
[2018-09-04] MEDS: SUCRALFATE 1 GM/10 ML UDC PO SCH ×4 (07:27→21:12)
[2018-09-04] MEDS ORDERED: POTASSIUM CHLORIDE 20 MEQ TABCR PO STA (09:23)
[2018-09-04] MEDS: ACETAMINOPHEN 325 MG TAB PO PRN ×3 (09:44→21:12)
[2018-09-04] MEDS: AMIODARONE / D5W 360 MG/200 ML BAG IV SCH ×2 (09:53→22:01)
[2018-09-04] MEDS: MAGNESIUM SULFATE / D5W 1 GM/100 ML BAG IV SCH ×4 (10:23→16:02)
[2018-09-04] MEDS: POTASSIUM CHLORIDE / WTR 10 MEQ/100 ML PLCT IV SCH ×4 (10:23→13:25)
[2018-09-04 10:28] LABS: Hematocrit (blood only) 26.1 % (42-52); Hemoglobin 8.8 g/dL (14.0-18.0)
[2018-09-04] MEDS: METOPROLOL TARTRATE 1 MG/ML VIAL IV SCH ×3 (12:02→23:49)
--- NOTE | 2018-09-04 12:58 | Family Medicine Progress Note ---
Date of Service September 04, 2018 Assessment & Plan (1) Hematoma of left hip: (2) Thoracic aortic aneurysm without rupture: (3) Severe thrombocytopenia: (4) Severe anemia: 82-year-old male with history of dementia, ascending thoracic aortic aneurysm and previous PE presented with 4 days of lethargy and dyspnea. Found to have acute severe symptomatic anemia with thrombocytopenia. Severe anemia: Likely from acute on chronic GI bleed given history of recent diarrhea and heme positive melanotic stool in addition to intramuscular hematoma left thigh adductor muscles vs. possible bone marrow suppression Hemoglobin 4.5 on arrival --> improved to 8.9 this morning after receiving 4 units packed red blood cells Hemoccult-positive stool Coags wnl Iron studies: Iron 87, ferritin 649. Transferrin and TIBC ordered B12 503, folate 19.1 Corrected reticulocyte count 0.3 Per hematology: Pre-transfusion peripheral smear c/w hypochromasia, aniso and poikilocytosis and pencil forms which with MCV low MC consistent with iron def. anemia CT abdomen/CTA chest: Unchanged ascending thoracic aortic aneurysm 5 cm, cardiomegaly, focal dissection right renal artery, intramuscular hematoma left thigh adductor, cholelithiasis, possible cystitis, compression deformity T12 new from [address] negative On Protonix drip and Carafate Transfuse for Hgb < 8 GI consulted: no intervention at this time Thrombocytopenia likely consumptive given history of GI bleed versus possible bone marrow suppression from viral syndrome (given an history of diarrhea) On arrival 20 improved to 72 post 2 units of blood transfusion this morning; on repeat CBC this afternoon 58 Peripheral smear before transfusion no evidence of microangiopathy Responded well to transfusion unlikely to be ITP Peripheral smear today: Increased metamyelocytes and myelocytes with teardrop cells -consistent with increasing marrow activity Transfuse for platelets less than 20k or if concern for bleeding New onset A. fib with the RVR -improved rate control, normotensive now On amiodarone and metoprolol 2.5 IV every 6 hours Anticoagulation contraindicated in the setting of acute anemia Echo: EF 55 to 60%, dilated aortic root 3.9 cm and ascending aorta 4.5 cm, mild concentric left ventricular hypertrophy, mild mitral valve regurg, severe left atrial dilation, normal right atrial pressure Cardiology consulted: Recommended rate control to decrease heart rate and improve blood pressure by improving diastolic filling which should allow for additional AV blockers as blood pressure improves with hope of stopping amiodarone drip Stable ascending thoracic aortic aneurysm per chest CTA Hypomagnesemia Mag 1.4 Received 2 g mag sulfate Hypokalemia K3.3 Received 40 mEq IV KCl Dementia On home Aricept History of PE in the past - resolved Not on anticoagulation at baseline Code: DNR/DNI DVT prophylaxis: SCD only chemical contraindicated (5) Atrial fibrillation with RVR: (6) Dementia: Supervising Physician Co-Signing Physician Notes I personally examined the patient and verified all [place] points of history and exam, discussed case, and agree with decision making with Dr Engle. Patient has no complaints, wonders why he is here and was going on, but seems to be unable to comprehend the situation. He denies pain. Vitals noted, in general he is awake disoriented but no distress. Fatigue. Breathing unlabored no accessory muscle use cardio is regular no rubs murmurs gallops lungs are clear to auscultation no rales rhonchi or wheezes. Profound anemiaappears most likely to have been a GI bleed over the last week, his thigh hematoma likely contributes, but does not appear to be big enough or tender enough to account for all of the blood loss. He has no other areas that appear to be consistent with blood loss. Fortunately he is now stable and the bleeding appears to have stopped. Appreciate hematology, gastroenterology, and ICU input. Continue current care. Appears to be stabilizing. Subjective Limited due to patient's mental status (demented) oriented to person only. Denies any discomfort when asked if anything is bothering him. Per HPI presented with weakness, dyspnea and lethargy of 4 days duration. Patient was having frequent bowel movements on Thursday but was feeling better as of last Thursday. Thursday to Thursday was very fatigued Review of Systems Review of Systems: Limited due to patient's mental status Physical Exam Physical Exam: General: In no acute distress, resting in bed, very pale CV: Irregular rhythm regular rate no m/r/g appreciated Pulm: CTAB, equal breath sounds bilaterally Abdomen: +BS, nondistended, nontender to palpation all quadrants LE: No lower extremity edema, left thigh region bruising : Yusuf in place and draining yellow urine Results & Data Vital Signs (Past 12 Hours) Vital Signs Temp Pulse Resp BP Pulse Ox 09/04/18 12:06 36.8 C 102 H 31 H 106/69 98 09/04/18 11:01 108 H 25 H 110/67 97 09/04/18 10:01 36.7 C 116 H 29 H 117/78 97 09/04/18 09:01 129 H 24 117/78 87 L 09/04/18 08:01 36.7 C 110 H 26 H 105/71 95 09/04/18 07:01 127 H 26 H 126/70 96 09/04/18 06:00 118 H 20 123/61 96 09/04/18 05:00 130 H 29 H 124/73 94 09/04/18 04:00 126 H 20 142/92 H 94 09/04/18 03:25 36.7 C 119 H 24 107/72 93 09/04/18 02:56 36.9 C 121 H 24 126/66 95 09/04/18 02:45 37.0 C 125 H 20 124/84 96 09/04/18 02:32 36.3 C L 129 H 20 106/81 92 09/04/18 02:11 36.5 C 128 H 16 129/69 95 09/04/18 01:51 36.7 C 130 H 25 H 137/67 96 09/04/18 01:30 36.7 C 128 H 14 92/64 L 95 09/04/18 01:15 36.7 C 127 H 16 122/70 95 Laboratory Results Abnormal lab results 09/03/18 09/03/18 09/03/18 Range/Units 16:14 16:14 17:29 RBC 1.77 L (4.7-6.1) M/uL Hgb 4.5 L* (14.0-18.0) g/dL Hct 13.9 L* (42-52) % MCV 78.5 L (80-100) fL RDW Std Deviation 55.4 H (36.4-46.3) fL RDW Coeff of Eunice 19.5 H (11.5-14.5) % Plt Count 20 L* (130-400) K/uL Absolute Nucleated RBC 0.11 H (0-0) K/uL Neutrophils # (Manual) (1.4-6.5) K/uL Total Absolute Neuts (1.4-6.5) K/uL Lymphocytes # (Manual) 1.17 L (1.2-3.4) K/uL Total Abs Lymphocytes 1.17 L (1.2-3.4) K/uL Metamyelocytes # (Man) (0-0) K/uL Myelocytes # (Manual) (0-0) K/uL Platelet Estimate (Normal) Potassium (3.5-5.1) mmol/L BUN 32 H (7-18) mg/dl BUN/Creatinine Ratio 44.0 H (10-20) Glucose 102 H (70-99) mg/dl POC Glucose (70-99) Calcium 8.3 L (8.5-10.1) mg/dl Magnesium 1.7 L (1.8-2.4) mg/dl Ferritin (8-388) ng/ml Lactate Dehydrogenase (87-241) U/L Total Creatine Kinase (39-308) U/L Total Protein 6.2 L (6.4-8.2) gm/dl Albumin 2.4 L (3.4-5.0) gm/dl Albumin/Globulin Ratio 0.6 L (0.9-2) Crossmatch See Detail 09/03/18 09/03/18 09/04/18 Range/Units 18:39 18:39 04:10 RBC 3.31 L (4.7-6.1) M/uL Hgb 8.8 L D (14.0-18.0) g/dL Hct 27.1 L (42-52) % MCV (80-100) fL RDW Std Deviation 52.6 H (36.4-46.3) fL RDW Coeff of Eunice 17.7 H (11.5-14.5) % Plt Count 72 L D (130-400) K/uL Absolute Nucleated RBC 0.19 H (0-0) K/uL Neutrophils # (Manual) 6.55 H (1.4-6.5) K/uL Total Absolute Neuts 6.55 H (1.4-6.5) K/uL Lymphocytes # (Manual) (1.2-3.4) K/uL Total Abs Lymphocytes (1.2-3.4) K/uL Metamyelocytes # (Man) 0.83 H (0-0) K/uL Myelocytes # (Manual) 0.09 H (0-0) K/uL Platelet Estimate Decreased L (Normal) Potassium (3.5-5.1) mmol/L BUN (7-18) mg/dl BUN/Creatinine Ratio (10-20) Glucose (70-99) mg/dl POC Glucose (70-99) Calcium (8.5-10.1) mg/dl Magnesium (1.8-2.4) mg/dl Ferritin 649.8 H (8-388) ng/ml Lactate Dehydrogenase 347 H (87-241) U/L Total Creatine Kinase (39-308) U/L Total Protein (6.4-8.2) gm/dl Albumin (3.4-5.0) gm/dl Albumin/Globulin Ratio (0.9-2) Crossmatch 09/04/18 09/04/18 09/04/18 Range/Units 04:10 05:34 10:05 RBC (4.7-6.1) M/uL Hgb 8.8 L (14.0-18.0) g/dL Hct 26.1 L (42-52) % MCV (80-100) fL RDW Std Deviation (36.4-46.3) fL RDW Coeff of Eunice (11.5-14.5) % Plt Count (130-400) K/uL Absolute Nucleated RBC (0-0) K/uL Neutrophils # (Manual) (1.4-6.5) K/uL Total Absolute Neuts (1.4-6.5) K/uL Lymphocytes # (Manual) (1.2-3.4) K/uL Total Abs Lymphocytes (1.2-3.4) K/uL Metamyelocytes # (Man) (0-0) K/uL Myelocytes # (Manual) (0-0) K/uL Platelet Estimate (Normal) Potassium 3.3 L (3.5-5.1) mmol/L BUN 25 H (7-18) mg/dl BUN/Creatinine Ratio 35.5 H (10-20) Glucose 104 H (70-99) mg/dl POC Glucose (70-99) Calcium 7.9 L (8.5-10.1) mg/dl Magnesium 1.4 L (1.8-2.4) mg/dl Ferritin (8-388) ng/ml Lactate Dehydrogenase (87-241) U/L Total Creatine Kinase 328 H (39-308) U/L Total Protein (6.4-8.2) gm/dl Albumin (3.4-5.0) gm/dl Albumin/Globulin Ratio (0.9-2) Crossmatch 09/04/18 Range/Units 11:38 RBC (4.7-6.1) M/uL Hgb (14.0-18.0) g/dL Hct (42-52) % MCV (80-100) fL RDW Std Deviation (36.4-46.3) fL RDW Coeff of Eunice (11.5-14.5) % Plt Count (130-400) K/uL Absolute Nucleated RBC (0-0) K/uL Neutrophils # (Manual) (1.4-6.5) K/uL Total Absolute Neuts (1.4-6.5) K/uL Lymphocytes # (Manual) (1.2-3.4) K/uL Total Abs Lymphocytes (1.2-3.4) K/uL Metamyelocytes # (Man) (0-0) K/uL Myelocytes # (Manual) (0-0) K/uL Platelet Estimate (Normal) Potassium (3.5-5.1) mmol/L BUN (7-18) mg/dl BUN/Creatinine Ratio (10-20) Glucose (70-99) mg/dl POC Glucose 137 H (70-99) Calcium (8.5-10.1) mg/dl Magnesium (1.8-2.4) mg/dl Ferritin (8-388) ng/ml Lactate Dehydrogenase (87-241) U/L Total Creatine Kinase (39-308) U/L Total Protein (6.4-8.2) gm/dl Albumin (3.4-5.0) gm/dl Albumin/Globulin Ratio (0.9-2) Crossmatch Diagnostic Findings CT ANGIOGRAM OF THE CHEST COMBO; CT ANGIOGRAM OF THE ABDOMEN AND PELVIS CLINICAL HISTORY: Generalized weakness. Anemia. COMPARISON STUDY: Chest CT dated 07/25/2014. TECHNIQUE: Unenhanced CT scan of the chest is performed. Following the IV administration of 120 cc of Optiray 320, CT angiogram of the chest, abdomen, and pelvis was performed from the thoracic inlet to the proximal femora. Images are reviewed in the axial, sagittal, and coronal planes. 3-D MIPS images are created and assessed. IV contrast was administered without complication. A dose lowering technique was utilized adhering to the principles of ALARA. The examination is degraded by streak artifact from the arms which could not be elevated above the chest or abdomen. There is also mild motion artifact. CT DOSE: 2390.25 mGy.cm FINDINGS: CHEST: Thyroid: Imaged portions of the thyroid gland are normal in size and attenuation. Thoracic aorta: No intramural hematoma is seen on the unenhanced series. There is aneurysmal dilatation of the ascending thoracic aorta which measures up to 5.0 cm in diameter. The remainder of the thoracic aorta is normal in caliber. The mid arch measures up to 3.0 cm in diameter, and the descending thoracic aorta measures up to 3.1 cm. The aortic arch demonstrates standard 3-vessel anatomy. No aneurysm or dissection is seen. Pulmonary vasculature: The pulmonary trunk is dilated measuring 3.9 cm in diameter. This suggests pulmonary artery hypertension. There are no filling defects identified in the central pulmonary vessels to indicate pulmonary embolus. Note that this examination was not protocoled for evaluation of the pulmonary arteries. Heart: The heart is enlarged and without pericardial effusion. There is diminished attenuation of the cardiac blood flow is compared to the myocardium suggesting anemia. Lungs and pleural spaces: Evaluation of lung parenchyma is degraded by motion artifact. There are small pleural effusions with bibasilar atelectasis. No airspace consolidation is seen typical for pneumonia. The trachea and central airways are clear. Mediastinum: There is no mediastinal lymphadenopathy. Caitlyn: Clear. Axillae: There is no axillary lymphadenopathy. Bony thorax: The skeletal structures are osteopenic. There is a moderate superior endplate compression deformity of T12. A large hemangioma seen in the body of T2. No lytic or blastic bony lesions are identified. Degenerative change is seen in the shoulders and thoracic spine. There are numerous healed bilateral rib fractures. ABDOMEN AND PELVIS: Liver: The contrast-enhanced liver is normal in size, contour, and attenuation. There is no intrahepatic biliary ductal dilatation. A 2.1 cm cyst is noted in the left lobe. Gallbladder: There is a large calcified gallstone, with no CT evidence of acute cholecystitis. Spleen: Normal in size and attenuation comment noting heterogeneous arterial phase enhancement. Pancreas: The pancreas is atrophic. There is a 3.3 x 3.1 cm cystic lesion arising from the inferior aspect of the pancreatic head on image #186. Adrenal glands: Unremarkable. Kidneys: The contrast enhanced kidneys are atrophic and without hydronephrosis. The kidneys enhance symmetrically. Numerous parapelvic cysts are seen bilaterally. Abdominal aorta and iliac arteries: The abdominal aorta is normal in course and caliber noting scattered foci of atherosclerotic calcification. The iliac arteries are widely patent bilaterally. No dissection is seen. Major branches of the abdominal aorta: The celiac trunk, superior mesenteric, and inferior mesenteric arteries are widely patent. Hepatic arterial anatomy is conventional. The splenic artery is patent. Single bilateral renal arteries are patent. Focal dissection is identified within the right renal artery, best seen on the coronal reformatted images. Stomach and bowel: There is a small hiatal hernia. The duodenum is normal in configuration. No bowel obstruction is seen. Mild colonic fecal retention is noted. The appendix is not identified. Peritoneum: There is no intraperitoneal free air or abdominal ascites. Lymphadenopathy: None. Pelvic viscera: The prostate gland is diminutive and heterogeneous. The bladder is decompressed around a Yusuf catheter. Small foci of intraluminal gas are nonspecific and may be related to recent instrumentation. The bladder wall appears thickened and there is pericystic inflammation. Small bilateral fat- containing inguinal hernias are noted. The left adductor musculature appears thickened and hyperdense and there are surrounding inflammatory stranding. This is only partially visualized and likely represents intramuscular hematoma within the left thigh. Skeletal structures: The skeletal structures are osteopenic. Moderate lumbosacral spondylosis is observed. Advanced arthritic change is seen in the hips. No lytic or blastic bony lesions are seen. IMPRESSION: 1. There is aneurysmal dilatation of the ascending thoracic aorta which measures up to 5 cm. This is unchanged from previous. 2. The remainder of the thoracic aorta and the abdominal aorta are normal in caliber. 3. There is no dissection seen involving the thoracic or abdominal aorta. 4. 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 5. Cardiomegaly with evidence of anemia and pulmonary artery hypertension. 6. Intramuscular hematoma is partially visualized within the left thigh involving the adductor musculature. 7. Small pleural effusions with bibasilar atelectasis. 8. Cholelithiasis. 9. There is a 3.3 cm ovoid cystic lesion identified in the pancreatic head. 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 Nonemergent GI follow-up is recommended. 10. Although decompressed around a Yusuf catheter, the bladder wall is thickened and there is pericystic inflammation. Correlate clinically and with urinalysis for evidence of cystitis. 11. There is a moderate compression deformity of T12. This is age indeterminant but new from 2015. 12. Additional findings as above. CT SCAN OF THE BRAIN WITHOUT IV CONTRAST CLINICAL HISTORY: Generalized weakness. COMPARISON STUDY: CT of the brain dated 06/06/2010. TECHNIQUE: Unenhanced axial CT scan of the brain is performed from the vertex to the skull base. A dose lowering technique was utilized adhering to the principles of ALARA. CT DOSE: 614.27 mGy.cm FINDINGS: Brain parenchyma: There are age-related involutional changes noting mild subcortical and periventricular microangiopathic change. There is no hemorrhage, mass effect, or evidence of acute territorial ischemia by CT criteria. Miller- white matter differentiation is preserved. No extra-axial fluid collection is seen. Ventricles, sulci, cisterns: Prominent secondary to involutional change. Intracranial vasculature: There is mild atherosclerotic calcification of the cavernous carotid arteries. Calvarium: Unremarkable. Sinuses and mastoids: There is trace mucosal thickening within the left maxillary antrum, the left sphenoid sinus, and the ethmoid sinuses. The mastoid air cells are well pneumatized. Orbits: The bony orbits are grossly intact. IMPRESSION: There is no hemorrhage, mass effect, or evidence of acute territorial ischemia by CT criteria. Resident Activity Tracking Resident Involvement: Resident Care Provided Care Provided: Adult [facility] Medicine
--- NOTE | 2018-09-04 13:31 | Consultation Report ---
DATE OF CONSULTATION: 09/04/2018 GASTROENTEROLOGY CONSULT NOTE REFERRED BY: Jose Angel Calderon MD HISTORY OF PRESENT ILLNESS: I was asked by Dr. Jose Angel Calderon to consult on this gentleman for evaluation of severe anemia and GI bleeding. The patient is an 82-year-old gentleman who was brought in to the Emergency Room because of severe weakness. He was brought in by family members. He has a history of falling repeatedly at home. Upon presentation, he was found to be severely anemic and thrombocytopenic. Since admission, he was transfused, he has had no bowel movements today. He has had no hematemesis. Currently, he is slightly confused, though he is trying to communicate and is engaging, but not the best historian. His only complaint is leg pain. PAST MEDICAL HISTORY: I reviewed his medical records and his past medical history and his past medical history is significant for chronic iron deficiency anemia, incontinence, hearing loss, dementia. ALLERGIES: He denies any drug allergies. SOCIAL HISTORY: Not significant for smoking or drinking. OUTPATIENT MEDICATIONS: Only Include Tylenol, Boost and donepezil. FAMILY HISTORY: Negative for gastrointestinal disease by his report. REVIEW OF SYSTEMS: As above, otherwise he denies any change in vision or hearing. He has had some weakness. He has had some falls. He feels that he has trouble with balance. He denies any seizures. He denies any productive cough, though he states that he occasionally gets short of breath. He denies any acute chest pain. He denies any trouble urinating or pain urinating. He has had no nausea or vomiting. He states that he has soreness in his left and right leg. He does state he gets confused. He denies any heat or cold intolerance, rigors icterus, pruritus or jaundice. PHYSICAL EXAMINATION: GENERAL: Reveals an elderly gentleman in the intensive care unit, nurse at the bedside. VITAL SIGNS: Most recent vitals show a blood pressure of 117/78, pulse of 116, temperature is 36.7. SKIN: Anicteric. HEENT: Eyes show anicteric sclerae. Mouth has poor dentition. It is dry, but is otherwise clear of lesions. NECK: Supple. CHEST: Has scattered diffuse rhonchi, but no wheezing. HEART: Tachycardic, but regular. ABDOMEN: Soft with good bowel sounds. There is no organomegaly, masses, rebound tenderness noted. EXTREMITIES: Warm with fair distal pulses. He has a hematoma in the left side. NEUROLOGIC: He is alert, knows he is in the hospital, but has some confusion and is poor with details. LABORATORY DATA: Labs show a hemoglobin on presentation to the Emergency Room of 4.5 and with transfusion 8.8 this morning. Platelet count is 72,000. CAT scan of the abdomen and pelvis did not show any sinister gastrointestinal disease, but there was a large intramuscular hematoma in the left thigh. He had a colonoscopy by Dr. Soriano in 2006 and another one in 2009 and a repeat in 2011 because of his chronic anemia. He has also had upper endoscopies at that time as well for this chronic anemia. The last colonoscopy revealed no sinister pathology except for left-sided diverticular disease. IMPRESSION: An 82-year-old gentleman with dementia and anemia with some heme-positive stool noted, but no melena and no bowel movements since his time in the ICU. This does not appear to be an aggressive or high-risk GI bleed. I am sure he has some chronic low-grade GI bleeding and he has had that over the years. I see no indication for colonoscopy. I would keep him on a proton pump inhibitor. I would slowly advance his diet and follow him clinically from a GI perspective. I am sure some of this anemia is related to the hematoma in addition to his chronic iron deficiency anemia. I do not think he needs an upper endoscopy either at this point, but depending on how he does clinically, this could be readdressed during his hospitalization if things change. MARYAM
--- NOTE | 2018-09-04 14:26 | Oncology Consultation ---
Date of Consultation September 04, 2018 Assessment & Plan (1) Severe thrombocytopenia: Mr. Gale had a severe thrombocytopenia on admission. The explanation is not entirely clear at this time. He is not taking any new medications and did not take any in the last few weeks. His peripheral smear prior to the transfusion did not show any evidence of microangiopathy. The fact that he responded so dramatically to platelet transfusion makes ITP very unlikely, as patients with ITP are generally refractory to transfusion. Some of the thrombocytopenia is likely related to consumption from his bleeding, as below. He also may have had an infection of some sort early last week. The symptoms his son-in-law reports are a little non-specific, but a viral syndrome could definitely have suppressed his marrow some. He doesn't have any serious nutrient deficiencies. He doesn't take any platelet-toxic drugs. It is possible he has a primary marrow issue, but the immature WBCs, teardrop cells, and nucleated RBCs in his periphery on today's CBC weren't present on the CBC yesterday, prior to his transfusion. They most likely are the result of increased marrow activity in response to his bleeding. That being said, if his counts don't recover as expected, I would suspect some component of a marrow disorder. However, establishing such a diagnosis would be difficult, as it will be very hard to get a bone marrow biopsy on this patient. I would continue with supportive care and trend his counts daily, with a plan to transfuse platelets again for a count <20K or for bleeding. Present on Admission?: Yes (2) Severe anemia: He had a severe anemia on admission. He certainly has been bleeding, both in his GI tract (based on the heme positive stools) and into his left thigh. I don't really know what his recent baseline hemoglobin is, but prior to February,, he was mostly in the 10-12 range, with occasional values in the normal range. His peripheral smear prior to transfusion revealed some hypochromia, aniso- and poikilo-cytosis, and pencil forms, all of which point to iron deficiency. His MCV was slightly low as well. His ferritin is high, but it is an acute phase reactant and so could be misleading. I would check his TIBC and transferrin, along with the serum iron, to get a sense of his iron saturation. His vitamins and TSH are normal. His total protein and albumin are low, making symptomatic myeloma unlikely. His creatinine is normal. For now, I would continue management as per GI. He doesn't seem to have any evidence of compartment syndrome in his thigh, but if he keeps bleeding there, that could be an issue in the future. Otherwise, I would continue with supportive care. I would probably not transfuse him further unless he drops below 8. Present on Admission?: Yes History of Present Illness Reason for Consultation: Severe anemia and thrombocytopenia Attending Physician: Herve Shen DO History of Present Illness Mr. Gale is an 82 year old man with a history of dementia, CHF, and an aortic aneurysm. He is demented and can answer some questions appropriately, though he could not provide a history. His son-in-law, who cares for him, mostly provided the history. For the last week or so, he has not been himself. Last weekend, he was clammy and weak and began having diarrhea. His son-in-law noted that he had some chills but didn't check a temperature. Since then, he's been weak. He can normally assist with transfers, but has not been able to do so for the last few days. He also has been eating less than usual this week, showing little interest in food. Prior to this week, he was generally doing well. He sees a doctor twice a year and was due this month. He has not started any new medications or supplements. He has not had any sick contacts. I do not have any recent prior labs, though his counts were largely normal as recently as February,. In the ER, he had heme positive stools and a CT revealed an intramuscular hematoma in his left thigh. His son-in-law doesn't recall any specific trauma to his leg, though he notes he sometimes hits his leg during transfers. Allergies Allergy/AdvReac Type Severity Reaction Status Date / Time No Known Allergies Allergy Unknown Verified 09/03/18 17:19 Home Medications Home Medications Medication Instructions Recorded Confirmed Type acetaminophen [Tylenol Extra 1,000 mg PO TID 09/03/18 09/03/18 History Strength] food supplemt, lactose-reduced 1 ea PO BID 09/03/18 09/03/18 History [Boost] donepezil 10 mg PO HS 09/04/18 09/04/18 History Patient History Medical History Congestive heart failure (Acute) Severe thrombocytopenia (Acute) Severe anemia (Acute) Microhematuria (Acute) Iron deficiency anemia (Acute) Incontinence (Acute) Hearing loss (Acute) Dementia (Acute) Axillary neuropathy (Acute) Social History Preferred Language: Togolese Communication Ability: dementia [facility] Required: No Beliefs That Will Affect Care: None Current Living Situation: Family Other Information That Helps Us Care for You: No Feels Safe at Home: Yes Safety Concerns: Feels Safe At This Time Smoking Status: Never smoker Hx Alcohol Use: No Hx Substance Use: No Review of Systems Review of Systems: Unobtainable due to cognitive status (pleasantly demented) Physical Exam Constitutional: + obese and + frail appearing; no acute distress Eyes: + anicteric sclerae and + alignment abnormality (He 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, which is chronic) ENMT: external ear and nose normal, oropharynx normal Respiratory: normal respiratory effort, lungs clear to auscultation Cardiovascular: RRR, no murmur, no edema Gastrointestinal (Abdomen): normal bowel sounds, soft, nontender, no hepatosplenomegaly Skin: no rashes, warm and dry Lymphatic: no cervical or axillary lymphadenopathy Results & Data Vital Signs (Past 12 Hours) Vital Signs Temp Pulse Resp BP Pulse Ox 09/04/18 13:01 91 H 23 105/63 98 09/04/18 12:06 36.8 C 102 H 31 H 106/69 98 09/04/18 11:01 108 H 25 H 110/67 97 09/04/18 10:01 36.7 C 116 H 29 H 117/78 97 09/04/18 09:01 129 H 24 117/78 87 L 09/04/18 08:01 36.7 C 110 H 26 H 105/71 95 09/04/18 07:01 127 H 26 H 126/70 96 09/04/18 06:00 118 H 20 123/61 96 09/04/18 05:00 130 H 29 H 124/73 94 09/04/18 04:00 126 H 20 142/92 H 94 09/04/18 03:25 36.7 C 119 H 24 107/72 93 09/04/18 02:56 36.9 C 121 H 24 126/66 95 09/04/18 02:45 37.0 C 125 H 20 124/84 96 09/04/18 02:32 36.3 C L 129 H 20 106/81 92 Laboratory Results Abnormal lab results 09/03/18 09/03/18 09/03/18 Range/Units 16:14 16:14 17:29 RBC 1.77 L (4.7-6.1) M/uL Hgb 4.5 L* (14.0-18.0) g/dL Hct 13.9 L* (42-52) % MCV 78.5 L (80-100) fL RDW Std Deviation 55.4 H (36.4-46.3) fL RDW Coeff of Eunice 19.5 H (11.5-14.5) % Plt Count 20 L* (130-400) K/uL Absolute Nucleated RBC 0.11 H (0-0) K/uL Neutrophils # (Manual) (1.4-6.5) K/uL Total Absolute Neuts (1.4-6.5) K/uL Lymphocytes # (Manual) 1.17 L (1.2-3.4) K/uL Total Abs Lymphocytes 1.17 L (1.2-3.4) K/uL Metamyelocytes # (Man) (0-0) K/uL Myelocytes # (Manual) (0-0) K/uL Platelet Estimate (Normal) Potassium (3.5-5.1) mmol/L BUN 32 H (7-18) mg/dl BUN/Creatinine Ratio 44.0 H (10-20) Glucose 102 H (70-99) mg/dl POC Glucose (70-99) Calcium 8.3 L (8.5-10.1) mg/dl Magnesium 1.7 L (1.8-2.4) mg/dl Ferritin (8-388) ng/ml Lactate Dehydrogenase (87-241) U/L Total Creatine Kinase (39-308) U/L Total Protein 6.2 L (6.4-8.2) gm/dl Albumin 2.4 L (3.4-5.0) gm/dl Albumin/Globulin Ratio 0.6 L (0.9-2) Crossmatch See Detail 09/03/18 09/03/18 09/04/18 Range/Units 18:39 18:39 04:10 RBC 3.31 L (4.7-6.1) M/uL Hgb 8.8 L D (14.0-18.0) g/dL Hct 27.1 L (42-52) % MCV (80-100) fL RDW Std Deviation 52.6 H (36.4-46.3) fL RDW Coeff of Eunice 17.7 H (11.5-14.5) % Plt Count 72 L D (130-400) K/uL Absolute Nucleated RBC 0.19 H (0-0) K/uL Neutrophils # (Manual) 6.55 H (1.4-6.5) K/uL Total Absolute Neuts 6.55 H (1.4-6.5) K/uL Lymphocytes # (Manual) (1.2-3.4) K/uL Total Abs Lymphocytes (1.2-3.4) K/uL Metamyelocytes # (Man) 0.83 H (0-0) K/uL Myelocytes # (Manual) 0.09 H (0-0) K/uL Platelet Estimate Decreased L (Normal) Potassium (3.5-5.1) mmol/L BUN (7-18) mg/dl BUN/Creatinine Ratio (10-20) Glucose (70-99) mg/dl POC Glucose (70-99) Calcium (8.5-10.1) mg/dl Magnesium (1.8-2.4) mg/dl Ferritin 649.8 H (8-388) ng/ml Lactate Dehydrogenase 347 H (87-241) U/L Total Creatine Kinase (39-308) U/L Total Protein (6.4-8.2) gm/dl Albumin (3.4-5.0) gm/dl Albumin/Globulin Ratio (0.9-2) Crossmatch 09/04/18 09/04/18 09/04/18 Range/Units 04:10 05:34 10:05 RBC (4.7-6.1) M/uL Hgb 8.8 L (14.0-18.0) g/dL Hct 26.1 L (42-52) % MCV (80-100) fL RDW Std Deviation (36.4-46.3) fL RDW Coeff of Eunice (11.5-14.5) % Plt Count (130-400) K/uL Absolute Nucleated RBC (0-0) K/uL Neutrophils # (Manual) (1.4-6.5) K/uL Total Absolute Neuts (1.4-6.5) K/uL Lymphocytes # (Manual) (1.2-3.4) K/uL Total Abs Lymphocytes (1.2-3.4) K/uL Metamyelocytes # (Man) (0-0) K/uL Myelocytes # (Manual) (0-0) K/uL Platelet Estimate (Normal) Potassium 3.3 L (3.5-5.1) mmol/L BUN 25 H (7-18) mg/dl BUN/Creatinine Ratio 35.5 H (10-20) Glucose 104 H (70-99) mg/dl POC Glucose (70-99) Calcium 7.9 L (8.5-10.1) mg/dl Magnesium 1.4 L (1.8-2.4) mg/dl Ferritin (8-388) ng/ml Lactate Dehydrogenase (87-241) U/L Total Creatine Kinase 328 H (39-308) U/L Total Protein (6.4-8.2) gm/dl Albumin (3.4-5.0) gm/dl Albumin/Globulin Ratio (0.9-2) Crossmatch 09/04/18 Range/Units 11:38 RBC (4.7-6.1) M/uL Hgb (14.0-18.0) g/dL Hct (42-52) % MCV (80-100) fL RDW Std Deviation (36.4-46.3) fL RDW Coeff of Eunice (11.5-14.5) % Plt Count (130-400) K/uL Absolute Nucleated RBC (0-0) K/uL Neutrophils # (Manual) (1.4-6.5) K/uL Total Absolute Neuts (1.4-6.5) K/uL Lymphocytes # (Manual) (1.2-3.4) K/uL Total Abs Lymphocytes (1.2-3.4) K/uL Metamyelocytes # (Man) (0-0) K/uL Myelocytes # (Manual) (0-0) K/uL Platelet Estimate (Normal) Potassium (3.5-5.1) mmol/L BUN (7-18) mg/dl BUN/Creatinine Ratio (10-20) Glucose (70-99) mg/dl POC Glucose 137 H (70-99) Calcium (8.5-10.1) mg/dl Magnesium (1.8-2.4) mg/dl Ferritin (8-388) ng/ml Lactate Dehydrogenase (87-241) U/L Total Creatine Kinase (39-308) U/L Total Protein (6.4-8.2) gm/dl Albumin (3.4-5.0) gm/dl Albumin/Globulin Ratio (0.9-2) Crossmatch Diagnostic Findings CT CAP with contrast, 09/03/18: IMPRESSION: 1. There is aneurysmal dilatation of the ascending thoracic aorta which measures up to 5 cm. This is unchanged from previous. 2. The remainder of the thoracic aorta and the abdominal aorta are normal in caliber. 3. There is no dissection seen involving the thoracic or abdominal aorta. 4. 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 5. Cardiomegaly with evidence of anemia and pulmonary artery hypertension. 6. Intramuscular hematoma is partially visualized within the left thigh involving the adductor musculature. 7. Small pleural effusions with bibasilar atelectasis. 8. Cholelithiasis. 9. There is a 3.3 cm ovoid cystic lesion identified in the pancreatic head. 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 Nonemergent GI follow-up is recommended. 10. Although decompressed around a Yusuf catheter, the bladder wall is thickened and there is pericystic inflammation. Correlate clinically and with urinalysis for evidence of cystitis. 11. There is a moderate compression deformity of T12. This is age indeterminant but new from 2015. 12. Additional findings as above.
--- NOTE | 2018-09-04 14:31 | Consultation Report ---
DATE OF CONSULTATION: 09/04/2018 REQUESTING: Jose Angel Calderon MD PERSONAL SERVICE WORKERS: Fabian Quintanilla DO, [facility] for [facility]. REASON FOR CONSULTATION: Atrial fibrillation with rapid ventricular response, severe anemia and thrombocytopenia. The history is obtained from the chart as well as the nursing staff as the patient is severely demented and unable to give any assessment. He was brought to the hospital by his family due to worsening weakness. He had a loss of appetite and several episodes of loose stool. He denied any nausea or vomiting. He denied any sick contacts. He lives with his family and 3 young children. He has advanced dementia. The rest and complete review of systems is otherwise unobtainable. In the hospital, he was found to have severe anemia with a hemoglobin of 4.5 and platelet count of 20,000. He was hypokalemic. He was found to be in atrial fibrillation with a rapid ventricular response. He was initially placed on diltiazem, but due to hypotension was switched to amiodarone for rate control. He has received 4 units of blood and 2 units of platelets. His hemoglobin is now 8.8 and his platelet count is 72,000. With that, his heart rate is slowly improved and his blood pressure is stabilizing. PAST MEDICAL HISTORY: 1. Dilated aortic root and ascending aorta at [address] scan and unchanged. 2. Severe symptomatic anemia. 3. Severe thrombocytopenia: 4. Atrial fibrillation with rapid ventricular response, not on anticoagulation as an outpatient. 5. Severe dementia. 6. History of intramuscular hematoma. 7. 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 SOCIAL HISTORY: He lives with his family, who provide a total care for him. He is a lifetime nonsmoker. FAMILY HISTORY: Noncontributory. ALLERGIES: No known drug allergies. MEDICATIONS: Reviewed. PHYSICAL EXAMINATION: He is severely demented in the ICU. He has no idea where he is. VITAL SIGNS: His heart rate is 110. His blood pressure is in the one-teen systolic at 117/78, his respiratory rate is 29, his sats 97% on room air. HEENT: Mildly reduced carotid upstrokes. No evidence of carotid bruits. His sclerae was anicteric. LUNGS: Globally decreased breath sounds, but no rales, rhonchi or wheezing. HEART: Irregular rate and rhythm (tachycardic). No appreciable murmurs or rubs. ABDOMEN: Soft, nontender, nondistended. Positive bowel sounds. EXTREMITIES: Contracted. He has no significant lower extremity edema. DIAGNOSTIC STUDIES: As discussed above. IMPRESSION: 1. Atrial fibrillation with rapid ventricular response. 2. Severe symptomatic anemia which is now improved, status post 4 units of blood. 3. Advanced dementia. 4. Low normal left ventricular systolic function. 5. Dilated aortic root at 3.9 cm with an ascending aorta measuring 5 cm. I would continue with the amiodarone for now for rate control with no intent of converting him back to sinus rhythm. He cannot be on anticoagulation as His stools were heme positive and due to his thrombocytopenia and severe anemia on admission. I would start to add beta blockers to his medical regimen hopefully by slowing his heart rate down we improve his diastolic filling. This will allow his blood pressure will come up which will allow us to give him additional AV samia blockers and eventually stop his amiodarone. The other option would be digoxin, but given his risk of acute renal failure, given all of his comorbidities, I would try to avoid this if at all possible snf. This was all discussed with the nursing staff. Thank you for allowing us to participate in his care. MARYAM
[2018-09-04 14:54] LABS: Hematocrit (blood only) 26.3 % (42-52); Hemoglobin 8.9 g/dL (14.0-18.0); Mean Corpuscular Hgb Conc 33.8 g/dL (32-36); Mean Corpuscular Volume 80.9 fL (80-100); Nucleated RBC # (auto) 0.09 K/uL (0-0); RDW Coefficient of Variation 17.3 % (11.5-14.5); RDW Standard Deviation 51.1 fL (36.4-46.3); Red Blood Count 3.25 M/uL (4.7-6.1); White Blood Count 8.46 K/uL (4.8-10.8)
[2018-09-04 15:05] LABS: Partial Thromboplastin Ratio 1.1; Prothrombin Time 10.5 Seconds (9.0-12.0)
[2018-09-04 15:38] LABS: Mean Platelet Volume 8.9 fL (7.4-10.4); Platelet Count 58 K/uL (130-400)
[2018-09-04 15:39] LABS: ALC (manual) 1.68 K/uL (1.2-3.4); Basophils # (manual) 0.08 K/uL (0-0.2); Basophils % (manual) 0.9 %; Lymphocytes # (manual) 1.68 K/uL (1.2-3.4); Lymphocytes % (manual) 19.8 %; Metamyelocytes # (manual) 0.29 K/uL (0-0); Metamyelocytes % (manual) 3.4 %; Monocytes # (manual) 0.14 K/uL (0.11-0.59); Monocytes % (manual) 1.7 %; Neutrophils % (manual) 74.2 %; Ovalocytes 1+; Platelet Estimate Decreased (Normal); Schistocytes 1+
--- NOTE | 2018-09-04 15:40 | Critical Care Progress Note ---
Date of Service September 04, 2018 Assessment & Plan (1) Admitted to intensive care unit: Reason Critically Ill: 82-year-old male with acute severe symptomatic anemia with thrombocytopenia. The differential includes GI bleed given the color or the stools and the guaiac + test. In addition there is apartially visualized L THIGH HEMATOMA. CT thigh ordered NEURO - * Dementia: * Continue home medications as tolerated. CARDIAC/VASCULAR - * A. fib with RVR: * Started amiodarone instead of cardizem for better hemodynamics. Currently Rate 100s * Hold anticoagulation. * CHF: * Initial CXR w/ co volume overload. But no eema on CTA chest. He received 4 U PRBC will repeat CXR * Ascending Thoracic Aortic Aneurysm: * CTA no bleed no significant effusions * ECHO (07/2014): EF 50-55%, Multiple wall motion abnormalities, MR, TR, Ascending Thoracic Aneurysm. * Monitor on telemetry. RESPIRATORY - * h/o PE - resolved. Not on anticoagulation. CT w/o findings of PE. * Saturates well on RA. GI/NUTRITION - * Hemoccult positive: * Protonix gtt for 24 hours then shift to BID for 3 days. Hb is stable on 3 reads * Monitor for any concerning GI bleeding. * w/ h/o Tubular Adenomas of the colon, possible chronic GI losses. Appreciate GI input RENAL/LYTES - * Urine output adequate. FU lyes and replete * Tiday he got K and Mg - * Yusuf in place - Strict I&Os. ENDO - * No h/o DM or Thyroid Dz * BSGs per unit protocol. ISS --> gtt per unit policy. HEME - * Severe Symptomatic Anemia: * transfused 4U PRBCs with adequate Hb response to 8-9 range. 2 platelets units transfused with adequate response. Hb stable Platelets fluctate a bit. ID - * No c/o infectious contribution at this time. * Trend fever curve. LINES/IV ACCESS - * PIVs x2 * LUE 18g Endurance catheter. * Yusuf DVT PROPHYLAXIS - * Will hold on chemoprophylaxis 2/2 above. If Hb is stable for 48-72 hours will start chemical DVT prophylaxis * SCDs I have personally spent 50 minutes of critical care time in the direct management of this patient.. (2) Symptomatic anemia: (3) Severe thrombocytopenia: (4) Severe anemia: (5) Atrial fibrillation with RVR: (6) Dementia: (7) Thoracic aortic aneurysm without rupture: (8) Hematoma of left hip: (9) Intramuscular hematoma: Subjective Patient is more alert today and conversive denies pain except in the LUE. Appreciate GI and oncology consults. Hb so far stable and he does not report pain the left extremity. There seems to be no obvious swelling and peripheral pulses are palpable +1. However, feet are cold with poor hygiene Hid platelets remain >50. His stools were dark this am maroon color and consistency. Physical Exam Constitutional: Not in acute distress Eyes: PERRL, conjunctivae normal, anicteric sclerae Neck: trachea midline, no thyromegaly Poor oral hygeine Respiratory: normal respiratory effort, lungs clear to auscultation Cardiovascular: Rate/Rhythm: + irregularly irregular Heart Sounds: no murmur and no cardiac rub Gastrointestinal (Abdomen): normal bowel sounds, soft, nontender, no hepatosplenomegaly scaphoid abdomen Musculoskeletal: Poor hygiene both LE. but pulses felt no edema. LUE fracture malaligne chronic RUE no clubbing cyanosis Results & Data Vital Signs (Past 12 Hours) Vital Signs Temp Pulse Resp BP Pulse Ox 09/04/18 15:35 96 H 09/04/18 15:01 106 H 17 133/96 97 09/04/18 14:01 36.8 C 100 H 17 129/90 95 09/04/18 13:01 91 H 23 105/63 98 09/04/18 12:06 36.8 C 102 H 31 H 106/69 98 09/04/18 11:01 108 H 25 H 110/67 97 09/04/18 10:01 36.7 C 116 H 29 H 117/78 97 09/04/18 09:01 129 H 24 117/78 87 L 09/04/18 08:01 36.7 C 110 H 26 H 105/71 95 09/04/18 07:01 127 H 26 H 126/70 96 09/04/18 06:00 118 H 20 123/61 96 09/04/18 05:00 130 H 29 H 124/73 94 09/04/18 04:00 126 H 20 142/92 H 94 Critical Care Time Total Critical Care Time: 50 50 minutes
--- NOTE | 2018-09-04 16:38 | XRay Report ---
XR chest 1V portable CLINICAL HISTORY: pulm edema COMPARISON STUDY: 09/03/2018 FINDINGS: The heart remains enlarged. The study is rotated. There is mild mediastinal widening. There is persistent but improving pulmonary vascular congestion.[ There is a small left pleural effusion. There are basilar atelectatic changes. IMPRESSION: 1. Cardiomegaly and improving pulmonary vascular congestion 2. Small left pleural effusion with basilar atelectatic change 3. Mediastinal widening, likely secondary to the patient's thoracic aortic aneurysm Electronically signed by: Bridger Jerry M.D. 09/04/2018 4:37 PM
--- NOTE | 2018-09-04 17:20 | CT Scan Report ---
CT femur LT wo con CT DOSE: 454.88 mGy.cm CLINICAL HISTORY: Anemia. Intramuscular hematoma. TECHNIQUE: Helical images were acquired from the level of the inferior SI joint through the knee with out intravenous contrast. Soft tissue and bone windows were reviewed. Axial and coronal reformatted i mages were acquired. A dose lowering technique was utilized adhering to the principles of ALARA. COMPARISON STUDY: CT angiography dated 09/03/2018 FINDINGS: No acute fractures are visualized. There is indwelling Yusuf catheter. There is a moderate amount of stool present within the rectum and sigmoid. No bony destructive lesions are delineated. There are osteoarthritic changes present within the knee. There is enlargement and increased density of the left abductor longus and brevis muscles. The findin gs are consistent with intramuscular hematoma. This measures 4 x 4 x 10 cm. IMPRESSION: 1. 10 x 10 x 4 cm intramuscular hematoma involving the left abductor musculature 2. No evidence of fracture 3. Osteoarthritic changes within the knee Electronically signed by: Bridger Jerry M.D. 09/04/2018 5:18 PM
--- NOTE | 2018-09-04 17:40 | Family Medicine Progress Note ---
Date of Service September 04, 2018 Subjective Please see separate documentation from the same date for actual clinical information. Today the EMR was changed to allow for in-EMR coding entry, and unfortunately residency documentation was on the older notes. This note was generated simply to allow entry of the proper codes, but the separate note/same date contains the actual clinical information. This should be a one-time issue, and I apologize for any confusion. Results & Data Vital Signs (Past 12 Hours) Vital Signs Temp Pulse Resp BP Pulse Ox 09/04/18 17:15 94 H 109/82 09/04/18 15:35 96 H 09/04/18 15:01 106 H 17 133/96 97 09/04/18 14:01 36.8 C 100 H 17 129/90 95 09/04/18 13:01 91 H 23 105/63 98 09/04/18 12:06 36.8 C 102 H 31 H 106/69 98 09/04/18 11:01 108 H 25 H 110/67 97 09/04/18 10:01 36.7 C 116 H 29 H 117/78 97 09/04/18 09:01 129 H 24 117/78 87 L 09/04/18 08:01 36.7 C 110 H 26 H 105/71 95 09/04/18 07:01 127 H 26 H 126/70 96 09/04/18 06:00 118 H 20 123/61 96
[2018-09-04] MEDS: DONEPEZIL HCL 10 MG TAB PO SCH (21:12)
[2018-09-04 21:59] LABS: Hematocrit (blood only) 25.7 % (42-52); Hemoglobin 8.6 g/dL (14.0-18.0)
[2018-09-05] MEDS: PANTOprazole 40 MG in DEXTROSE 5% 100 ML IV SCH ×2 (02:39→07:45)
[2018-09-05] MEDS: ACETAMINOPHEN 325 MG TAB PO PRN (03:46)
[2018-09-05 04:32] LABS: Hematocrit (blood only) 25.8 % (42-52); Hemoglobin 8.7 g/dL (14.0-18.0); Mean Corpuscular Hgb Conc 33.7 g/dL (32-36); Mean Corpuscular Volume 80.6 fL (80-100); Nucleated RBC # (auto) 0.06 K/uL (0-0); Nucleated RBC % (auto) 0.9 %; RDW Coefficient of Variation 17.5 % (11.5-14.5); RDW Standard Deviation 51.5 fL (36.4-46.3); White Blood Count 6.52 K/uL (4.8-10.8)
[2018-09-05 04:52] LABS: BUN Creatinine Ratio 34.2 (10-20); Calcium 7.6 mg/dl (8.5-10.1); Creatinine Clr Calc Pharmacy 117.1 ml/min; Est GFR (African American) 111.6; Est GFR (Non-African American) 96.3; Magnesium 2.2 mg/dl (1.8-2.4); Potassium 3.5 mmol/L (3.5-5.1)
[2018-09-05 04:55] LABS: Phosphorus 3.3 mg/dl (2.5-4.9)
[2018-09-05 05:09] LABS: Mean Platelet Volume 9.5 fL (7.4-10.4); Platelet Count 51 K/uL (130-400)
[2018-09-05 05:10] LABS: ALC (manual) 0.96 K/uL (1.2-3.4); Basophils # (manual) 0.06 K/uL (0-0.2); Basophils % (manual) 0.9 %; Lymphocytes # (manual) 0.96 K/uL (1.2-3.4); Lymphocytes % (manual) 14.8 %; Metamyelocytes # (manual) 0.23 K/uL (0-0); Metamyelocytes % (manual) 3.5 %; Monocytes # (manual) 0.23 K/uL (0.11-0.59); Monocytes % (manual) 3.5 %; Myelocytes # (manual) 0.23 K/uL (0-0); Myelocytes % (manual) 3.5 %; Neutrophils % (manual) 73.8 %; Platelet Estimate Decreased (Normal)
[2018-09-05] MEDS: METOPROLOL TARTRATE 1 MG/ML VIAL IV SCH ×3 (05:34→17:46)
[2018-09-05] MEDS: SUCRALFATE 1 GM/10 ML UDC PO SCH ×4 (07:14→22:02)
[2018-09-05] MEDS: AMIODARONE / D5W 360 MG/200 ML BAG IV SCH (10:10)
--- NOTE | 2018-09-05 10:53 | Cardiology Progress Note ---
Date of Service September 05, 2018 Subjective He is sleeping comfortably and pleasantly demented. He is unable to answer questions appropriately. Results & Data Vital Signs (Past 12 Hours) Vital Signs Temp Pulse Pulse Resp BP BP Pulse Ox 09/05/18 10:00 107 H 31 H 124/88 96 09/05/18 08:00 36.7 C 103 H 103 H 24 115/82 09/05/18 06:00 107 H 18 105/82 96 09/05/18 05:00 107 H 28 H 125/82 96 09/05/18 04:00 36.5 C 100 H 24 95 09/05/18 03:00 102 H 29 H 117/80 96 09/05/18 02:00 103 H 26 H 122/75 96 09/05/18 01:00 104 H 24 127/87 97 09/05/18 00:00 36.7 C 97 H 28 H 105/73 96 09/04/18 23:49 100 H 103/69 09/04/18 23:00 102 H 20 107/65 95 PHYSICAL EXAMINATION: He is severely demented in the ICU. He has no idea where he is. HEENT: Mildly reduced carotid upstrokes. No evidence of carotid bruits. His sclerae was anicteric. LUNGS: Globally decreased breath sounds, but no rales, rhonchi or wheezing. HEART: Irregular rate and rhythm (tachycardic). No appreciable murmurs or rubs. ABDOMEN: Soft, nontender, nondistended. Positive bowel sounds. EXTREMITIES:. He has no significant lower extremity edema. IMPRESSION: 1. Atrial fibrillation with rapid ventricular response. 2. Severe symptomatic anemia which is now improved, status post 4 units of blood. 3. Advanced dementia. 4. Low normal left ventricular systolic function. 5. Dilated aortic root at 3.9 cm with an ascending aorta measuring 5 cm. Discussed with the hospitalist service this morning. His metoprolol been increased to 5 mg IV every 6 hours. He has no blood pressure room to continue to increase his beta-blockers. The plan will be to switch him over to oral beta-blockers. As far as we know he should be able to absorb oral medications. I agree that his amiodarone can be stopped later this evening or tomorrow morning. There is no plan for a rhythm control strategy and amiodarone was used acutely to try to control his rate while he was hypotensive.. He cannot be anticoagulated due to his GI bleed. I would avoid digoxin if at all possible given the fact that he is at high risk for acute kidney injury which would lead to dig toxicity.
--- NOTE | 2018-09-05 11:28 | Critical Care Progress Note ---
Date of Service September 05, 2018 Assessment & Plan (1) Admitted to intensive care unit: Reason Critically Ill: 82-year-old male with acute severe symptomatic anemia with thrombocytopenia. The differential includes GI bleed given the color or the stools and the guaiac + test. No further drop in Hb and Hct. Thigh hematoma on the left stable no compromize of distal limb. The only problem is platelets not rising. He may have a bone marrow problem. NEURO - * Dementia: * Continue home medications as tolerated. CARDIAC/VASCULAR - * A. fib and RVR resolved * Amiodarone changed to PO. Currently Rate 100s * Hold anticoagulation for 24 more hours * Ascending Thoracic Aortic Aneurysm: * CTA no bleed no significant effusions * ECHO (07/2014): EF 50-55%, Multiple wall motion abnormalities, MR, TR, Ascending Thoracic Aneurysm. * Monitor on telemetry. RESPIRATORY - * h/o PE - resolved. Not on anticoagulation. CT w/o findings of PE. * Saturates well on RA. GI/NUTRITION - * Hemoccult positive: * Pantoprazole PO BID at this point * Monitor for any concerning GI bleeding. * w/ h/o Tubular Adenomas of the colon, possible chronic GI losses. Appreciate GI input RENAL/LYTES - * Urine output adequate. FU lyes and replete - * Yusuf in place - Strict I&Os. ENDO - * No h/o DM or Thyroid Dz * BSGs per unit protocol. ISS --> gtt per unit policy. HEME - * Severe Symptomatic Anemia: * transfused 4U PRBCs with adequate Hb response to 8-9 range. 2 platelets units transfused with adequate response. Hb stable Platelets fluctate a bit. ID - * No c/o infectious contribution at this time. * Trend fever curve. LINES/IV ACCESS - * PIVs x2 * LUE 18g Endurance catheter. * Yusuf DVT PROPHYLAXIS - * Will start SC heparin 5000 Q12 tomorrow. * SCDs I have personally spent 35 minutes of critical care time in the direct management of this patient. He is ready to move to [facility] (2) Symptomatic anemia: (3) Severe thrombocytopenia: (4) Severe anemia: (5) Atrial fibrillation with RVR: (6) Dementia: (7) Thoracic aortic aneurysm without rupture: (8) Hematoma of left hip: (9) Intramuscular hematoma: Subjective Patient is sleeping comfortably and has no complaints when aroused.He has no increase in the LLLE hematoma (it is not palpable) pulses distally are OK. His iron studies reveal no deficiency but he has received transfusion for 1/2 of his blood volume. His Hb and HCt are stable. Will transition his meds to PO. His HR is controlled 90-100 with amiodarone PO and metoprolol now. Review of Systems Review of Systems: All systems reviewed & are unremarkable except as noted in HPI & below Physical Exam Eyes: PERRL, conjunctivae normal, anicteric sclerae Neck: trachea midline, no thyromegaly Respiratory: normal respiratory effort, lungs clear to auscultation Cardiovascular: Rate/Rhythm: + irregularly irregular Heart Sounds: no murmur and no cardiac rub Gastrointestinal (Abdomen): normal bowel sounds, soft, nontender, no hepatosplenomegaly Results & Data Vital Signs (Past 12 Hours) Vital Signs Temp Pulse Pulse Resp BP BP Pulse Ox 09/05/18 10:00 107 H 31 H 124/88 96 09/05/18 08:00 36.7 C 103 H 103 H 24 115/82 09/05/18 06:00 107 H 18 105/82 96 09/05/18 05:00 107 H 28 H 125/82 96 09/05/18 04:00 36.5 C 100 H 24 95 09/05/18 03:00 102 H 29 H 117/80 96 09/05/18 02:00 103 H 26 H 122/75 96 09/05/18 01:00 104 H 24 127/87 97 09/05/18 00:00 36.7 C 97 H 28 H 105/73 96 09/04/18 23:49 100 H 103/69 Critical Care Time Critical Care Time: Yes Total Critical Care Time: 35 35 min
[2018-09-05] MEDS: AMIODARONE 200 MG TAB PO SCH ×2 (12:00→22:01)
[2018-09-05] MEDS: PANTOprazole 40 MG TAB PO SCH ×2 (12:00→22:01)
[2018-09-05] MEDS: FERROUS SULFATE 325 MG/7.4 ML UDP PO SCH (12:01)
--- NOTE | 2018-09-05 13:08 | Family Medicine Progress Note ---
Date of Service September 05, 2018 Assessment & Plan (1) Hematoma of left hip: (2) Thoracic aortic aneurysm without rupture: (3) Severe thrombocytopenia: (4) Severe anemia: 82-year-old male with history of dementia, ascending thoracic aortic aneurysm and previous PE presented with 4 days of lethargy and dyspnea. Found to have acute severe symptomatic anemia with thrombocytopenia. Severe anemia: Likely from acute on chronic GI bleed given history of recent diarrhea and heme positive melanotic stool in addition to intramuscular hematoma left thigh abductor muscles vs. possible bone marrow suppression Hemoglobin 4.5 on arrival --> stable at 8.7 this morning after receiving 4 units packed red blood cells on admission Hemoccult-positive stool Coags wnl Iron studies: Iron 87, ferritin 649. Transferrin 192 and TIBC 304 B12 503, folate 19.1 Corrected reticulocyte count 0.3 Per hematology: Pre-transfusion peripheral smear c/w hypochromasia, aniso and poikilocytosis and pencil forms which with MCV consistent with iron def. anemia CT abdomen/CTA chest: Unchanged ascending thoracic aortic aneurysm 5 cm, cardiomegaly, focal dissection right renal artery, intramuscular hematoma left thigh adductor, cholelithiasis, possible cystitis, compression deformity T12 new from [address] negative On Protonix p.o. and Carafate Started on ferrous sulfate 325 mg every morning Transfuse for Hgb < 8 GI consulted: no intervention at this time Thrombocytopenia likely consumptive given history of GI bleed versus possible bone marrow suppression from viral syndrome (given an history of diarrhea) On arrival 20 improved to 72 post 2 units of blood transfusion, this morning 50 Peripheral smear before transfusion no evidence of microangiopathy Peripheral smear today: Increased metamyelocytes and myelocytes with teardrop cells -consistent with increasing marrow activity Transfuse for platelets less than 20k or if concern for bleeding New onset A. fib with the RVR -improved rate control, normotensive now Transition to amiodarone p.o. 200 mg twice daily and metoprolol increased to 5 from 2.5 IV every 6 hours then transition to p.o. metoprolol Anticoagulation contraindicated in the setting of acute anemia Echo: EF 55 to 60%, dilated aortic root 3.9 cm and ascending aorta 4.5 cm, mild concentric left ventricular hypertrophy, mild mitral valve regurg, severe left atrial dilation, normal right atrial pressure Cardiology consulted: Increase beta-sandra and transition to p.o. once rate better controlled stop amiodarone. Avoid digoxin as at risk for renal injury Stable ascending thoracic aortic aneurysm per chest CTA Hypomagnesemia, related- improved Mag 2.2 Hypokalemia, repleted-improved K3.5 Dementia On home Aricept History of PE in the past - resolved Not on anticoagulation at baseline Code: DNR/DNI DVT prophylaxis: SCD only chemical contraindicated (5) Atrial fibrillation with RVR: (6) Dementia: Supervising Physician Co-Signing Physician Notes I personally examined the patient and verified all [place] points of history and exam, discussed case, and agree with decision making with Dr Engle. No pain no chest pain no shortness of breath no abdominal pain no further bleeding. Vitals noted, in general he is awake disoriented but no distress. Appears fatigued. Breathing unlabored no accessory muscle use good effort. Abdomen is soft nondistended nontender no masses organomegaly. Skin shows no rashes no pallor or icterus. Profound anemiaappears most likely to have been a GI bleed over the last week, his thigh hematoma likely contributes, but does not appear to be big enough or tender enough to account for all of the blood loss. He has no other areas that appear to be consistent with blood loss. Now stable for transfer to telemetry. Bleeding apperas to have stopped. otherwise as above Subjective Patient is resting comfortably and has no complaints when aroused. Wondering when he can go home. A. fib with RVR improved rate now in the 90s to 100s on metoprolol IV and amiodarone. Amiodarone switched to p.o.. Hemoglobin stable at 8.7. Transition from Protonix gtt. to p.o. platelet count dropped from 58-50. Left extremity hematoma stable and still not palpable. Review of Systems Review of Systems: Admitted due to patient's mental status (demented) Physical Exam Physical Exam: General: In no acute distress, resting in bed, very pale CV: Irregular rhythm regular rate no m/r/g appreciated Pulm: CTAB, equal breath sounds bilaterally Abdomen: +BS, nondistended, nontender to palpation all quadrants LE: No lower extremity edema, left thigh region bruising but no palpable hematoma in the left upper thigh : Yusuf in place and draining yellow urine Results & Data Vital Signs (Past 12 Hours) Vital Signs Temp Pulse Pulse Resp BP BP Pulse Ox 09/05/18 12:02 111 H 103/82 09/05/18 10:00 107 H 31 H 124/88 96 09/05/18 08:00 36.7 C 103 H 103 H 24 115/82 09/05/18 06:00 107 H 18 105/82 96 09/05/18 05:00 107 H 28 H 125/82 96 09/05/18 04:00 36.5 C 100 H 24 95 09/05/18 03:00 102 H 29 H 117/80 96 09/05/18 02:00 103 H 26 H 122/75 96 Laboratory Results Abnormal lab results 09/03/18 09/04/18 09/04/18 Range/Units 17:29 14:47 17:23 RBC 3.25 L (4.7-6.1) M/uL Hgb 8.9 L (14.0-18.0) g/dL Hct 26.3 L (42-52) % RDW Std Deviation 51.1 H (36.4-46.3) fL RDW Coeff of Eunice 17.3 H (11.5-14.5) % Plt Count 58 L (130-400) K/uL Absolute Nucleated RBC 0.09 H (0-0) K/uL Lymphocytes # (Manual) (1.2-3.4) K/uL Total Abs Lymphocytes (1.2-3.4) K/uL Metamyelocytes # (Man) 0.29 H (0-0) K/uL Myelocytes # (Manual) (0-0) K/uL Platelet Estimate Decreased L (Normal) Sodium (136-145) mmol/L BUN (7-18) mg/dl Creatinine (0.6-1.4) mg/dl BUN/Creatinine Ratio (10-20) Glucose (70-99) mg/dl POC Glucose 145 H (70-99) Calcium (8.5-10.1) mg/dl Transferrin (200-360) mg/dl Crossmatch See Detail 09/04/18 09/04/18 09/05/18 Range/Units 21:53 23:57 04:06 RBC 3.20 L (4.7-6.1) M/uL Hgb 8.6 L 8.7 L (14.0-18.0) g/dL Hct 25.7 L 25.8 L (42-52) % RDW Std Deviation 51.5 H (36.4-46.3) fL RDW Coeff of Eunice 17.5 H (11.5-14.5) % Plt Count 51 L (130-400) K/uL Absolute Nucleated RBC 0.06 H (0-0) K/uL Lymphocytes # (Manual) 0.96 L (1.2-3.4) K/uL Total Abs Lymphocytes 0.96 L (1.2-3.4) K/uL Metamyelocytes # (Man) 0.23 H (0-0) K/uL Myelocytes # (Manual) 0.23 H (0-0) K/uL Platelet Estimate Decreased L (Normal) Sodium (136-145) mmol/L BUN (7-18) mg/dl Creatinine (0.6-1.4) mg/dl BUN/Creatinine Ratio (10-20) Glucose (70-99) mg/dl POC Glucose 127 H (70-99) Calcium (8.5-10.1) mg/dl Transferrin (200-360) mg/dl Crossmatch 09/05/18 Range/Units 04:06 RBC (4.7-6.1) M/uL Hgb (14.0-18.0) g/dL Hct (42-52) % RDW Std Deviation (36.4-46.3) fL RDW Coeff of Eunice (11.5-14.5) % Plt Count (130-400) K/uL Absolute Nucleated RBC (0-0) K/uL Lymphocytes # (Manual) (1.2-3.4) K/uL Total Abs Lymphocytes (1.2-3.4) K/uL Metamyelocytes # (Man) (0-0) K/uL Myelocytes # (Manual) (0-0) K/uL Platelet Estimate (Normal) Sodium 135 L (136-145) mmol/L BUN 19 H (7-18) mg/dl Creatinine 0.56 L (0.6-1.4) mg/dl BUN/Creatinine Ratio 34.2 H (10-20) Glucose 109 H (70-99) mg/dl POC Glucose (70-99) Calcium 7.6 L (8.5-10.1) mg/dl Transferrin 192 L (200-360) mg/dl Crossmatch Diagnostic Findings CT femur LT wo con CT DOSE: 454.88 mGy.cm CLINICAL HISTORY: Anemia. Intramuscular hematoma. TECHNIQUE: Helical images were acquired from the level of the inferior SI joint through the knee without intravenous contrast. Soft tissue and bone windows were reviewed. Axial and coronal reformatted images were acquired. A dose lowering technique was utilized adhering to the principles of ALARA. COMPARISON STUDY: CT angiography dated 09/03/2018 FINDINGS: No acute fractures are visualized. There is indwelling Yusuf catheter. There is a moderate amount of stool present within the rectum and sigmoid. No bony destructive lesions are delineated. There are osteoarthritic changes present within the knee. There is enlargement and increased density of the left abductor longus and brevis muscles. The findings are consistent with intramuscular hematoma. This measures 4 x 4 x 10 cm. IMPRESSION: 1. 10 x 10 x 4 cm intramuscular hematoma involving the left abductor musculature 2. No evidence of fracture 3. Osteoarthritic changes within the knee Medications Administered Current Inpatient Medications Acetaminophen (Tylenol) 650 mg PO Q4H PRN PRN Reason: Pain Stop: 10/04/18 09:22 Last Admin: 09/05/18 03:46 Dose: 650 mg Documented by: Amiodarone HCl (Cordarone) 200 mg PO BID [facility] Stop: 10/05/18 10:59 Last Admin: 09/05/18 12:00 Dose: 200 mg Documented by: Donepezil HCl (Aricept) 10 mg PO HS [facility]; Protocol Stop: 10/04/18 20:59 Last Admin: 09/04/18 21:12 Dose: 10 mg Documented by: Ferrous Sulfate (Feosol) 325 mg PO QAM [facility] Stop: 10/05/18 11:14 Last Admin: 09/05/18 12:01 Dose: 325 mg Documented by: Sodium Chloride (Nss) 250 mls @ 15 mls/hr IV .[id number] PRN PRN Reason: For Transfusion Stop: 10/03/18 20:32 Furosemide 40 mg/ Syringe 4 mls @ 4 mls/min IV Q12H [facility] Stop: 10/03/18 20:59 Last Admin: 09/03/18 21:36 Dose: 4 mls/min Documented by: Sodium Chloride (Nss) 250 mls @ 15 mls/hr IV .[id number] PRN PRN Reason: For Transfusion Stop: 10/03/18 21:33 Ioversol (Optiray 320 125ml) 120 ml IV ONCE PRN PRN Reason: Interaction Checking Stop: 09/07/18 20:58 Last Admin: 09/03/18 21:00 Dose: 120 ml Documented by: Metoprolol Tartrate (Lopressor) 5 mg IV Q6 [facility] Stop: 10/05/18 11:59 Last Admin: 09/05/18 12:02 Dose: 5 mg Documented by: Miscellaneous (Icu Protocol For Hyperglycemia) 1 ea N/A PRN PRN; Protocol PRN Reason: Hyperglycemia Protocol Stop: 09/05/18 20:32 Pantoprazole Sodium (Protonix) 40 mg PO BID [facility] Stop: 10/05/18 11:14 Last Admin: 09/05/18 12:00 Dose: 40 mg Documented by: Sucralfate (Carafate) 1 gm PO ACHS [facility] Stop: 10/03/18 20:59 Last Admin: 09/05/18 11:46 Dose: 1 gm Documented by: Resident Activity Tracking Resident Involvement: Resident Care Provided Care Provided: Adult Hospital Medicine
[2018-09-05] MEDS ORDERED: NON-FORMULARY MEDICATION (Food Supplemt, Lactose-Reduced [Boost] 1 EA) PO SCH (13:52)
--- NOTE | 2018-09-05 18:25 | Hospitalist Progress Note ---
Date of Service September 05, 2018 Subjective Please see separate documentation from the same date for actual clinical information. Today the EMR was changed to allow for in-EMR coding entry, and unfortunately residency documentation was on the older notes. This note was generated simply to allow entry of the proper codes, but the separate note/same date contains the actual clinical information. I apologize for any confusion. Results & Data Vital Signs (Past 12 Hours) Vital Signs Temp Pulse Pulse Resp BP BP Pulse Ox 09/05/18 17:46 79 126/81 09/05/18 15:16 36.8 C 121 H 20 124/90 95 09/05/18 14:53 107 H 09/05/18 13:53 37 C 111 H 18 114/79 96 09/05/18 13:50 119 H 09/05/18 12:02 111 H 103/82 09/05/18 10:00 107 H 31 H 124/88 96 09/05/18 08:00 36.7 C 103 H 103 H 24 115/82
[2018-09-05] MEDS: DONEPEZIL HCL 10 MG TAB PO SCH (22:02)
[2018-09-06] MEDS: METOPROLOL TARTRATE 1 MG/ML VIAL IV SCH ×2 (00:13→05:57)
[2018-09-06 05:53] LABS: Mean Corpuscular Hgb Conc 33.5 g/dL (32-36); Nucleated RBC # (auto) 0.04 K/uL (0-0); Nucleated RBC % (auto) 0.7 %
[2018-09-06 06:01] LABS: Hematocrit (blood only) 26.3 % (42-52); Hemoglobin 8.8 g/dL (14.0-18.0); Mean Corpuscular Volume 81.4 fL (80-100); RDW Coefficient of Variation 17.8 % (11.5-14.5); RDW Standard Deviation 53.5 fL (36.4-46.3); Red Blood Count 3.23 M/uL (4.7-6.1); White Blood Count 5.96 K/uL (4.8-10.8)
[2018-09-06 06:27] LABS: BUN Creatinine Ratio 34.6 (10-20); Calcium 7.9 mg/dl (8.5-10.1); Creatinine Clr Calc Pharmacy 106.4 ml/min; Est GFR (African American) 110.8; Est GFR (Non-African American) 95.6; Magnesium 2.1 mg/dl (1.8-2.4); Potassium 3.5 mmol/L (3.5-5.1)
[2018-09-06 06:28] LABS: Platelet Count 41 K/uL (130-400)
[2018-09-06 06:34] LABS: ALC (manual) 1.29 K/uL (1.2-3.4); Lymphocytes # (manual) 1.29 K/uL (1.2-3.4); Lymphocytes % (manual) 21.7 %; Metamyelocytes # (manual) 0.21 K/uL (0-0); Metamyelocytes % (manual) 3.5 %; Monocytes # (manual) 0.15 K/uL (0.11-0.59); Monocytes % (manual) 2.6 %; Neutrophils % (manual) 72.2 %; Ovalocytes 1+; Platelet Estimate SIGNIFIC DECREASED (Normal)
[2018-09-06 07:45] LABS: Hypogranular Neutrophils 1+
[2018-09-06] MEDS ORDERED: METOPROLOL TARTRATE 25 MG TAB PO SCH (08:55)
--- NOTE | 2018-09-06 08:56 | Cardiology Progress Note ---
Date of Service September 06, 2018 Subjective He is pleasantly demented. He is in no acute distress. He denies any complaints. He was actually sleeping and when aroused had no complaints. And immediately went back to sleep. Results & Data Vital Signs (Past 12 Hours) Vital Signs Temp Pulse Pulse Pulse Resp BP Pulse Ox 09/06/18 07:34 36.5 C 83 19 106/70 96 09/06/18 04:14 36.6 C 83 16 128/84 93 09/05/18 23:32 36.5 C 75 18 118/81 94 09/05/18 23:03 93 H PHYSICAL EXAMINATION: He is severely demented HEENT: Normal carotid upstrokes. No evidence of carotid bruits. His sclerae was anicteric. LUNGS: Globally decreased breath sounds, but no rales, rhonchi or wheezing. HEART: Irregular rate and rhythm. No appreciable murmurs or rubs. ABDOMEN: Soft, nontender, nondistended. Positive bowel sounds. EXTREMITIES:. He has no significant lower extremity edema. IMPRESSION: 1. Atrial fibrillation with rapid ventricular response. 2. Severe symptomatic anemia which is now improved, status post 4 units of blood. 3. Advanced dementia. 4. Low normal left ventricular systolic function. 5. Dilated aortic root at 3.9 cm with an ascending aorta measuring 5 cm. 6. Leg hematoma I would switch his metoprolol to 25 mg p.o. every 6 hours and discontinue his IV metoprolol. My hope is that we can increase his beta-blockers enough that he does not need amiodarone just for rate. There is no plan to get him back into sinus rhythm with the use of amiodarone as he cannot be anticoagulated. In addition he is asymptomatic with his atrial fibrillation is unaware that he is in A. fib. Given his advanced dementia and hematoma and profound anemia on admission he is not an anticoagulation candidate. Clinically he does not appear to be in heart failure at this time.
[2018-09-06] MEDS ORDERED: HEPARIN SOD 5,000 UNIT/0.5 ML VIAL SQ SCH (09:00)
[2018-09-06] MEDS: PANTOprazole 40 MG TAB PO SCH ×2 (10:34→21:11)
[2018-09-06] MEDS: METOPROLOL TARTRATE 25 MG TAB PO SCH ×3 (10:35→21:11)
[2018-09-06] MEDS: FERROUS SULFATE 325 MG/7.4 ML UDP PO SCH (10:35)
[2018-09-06] MEDS: AMIODARONE 200 MG TAB PO SCH ×2 (10:35→21:11)
[2018-09-06] MEDS: SUCRALFATE 1 GM/10 ML UDC PO SCH ×4 (10:35→21:41)
--- NOTE | 2018-09-06 10:39 | Gastroenterology Progress Note ---
Date of Service September 06, 2018 Assessment & Plan (1) Severe anemia: 82 year old male w/ history of dementia, afib w/ RVR, w/ history of anemia w/o obvious GI etiology. There has been no report of [place] bloody emesis/bowel movements. He does not wish to undergo endoscopic evaluation, which I find reasonable. His HGB has remained stable s/p transfusion. GI to sign off. No current indication/plan for endoscopy. Would recommend to follow his HGB, transfuse PRN and monitor his stools. Thank you for allowing us to participate in the care of this patient. Please call with any acute changes, questions or concerns. Please see addendum below with additional recommendation from my supervising physician. Present on Admission?: Yes Supervising Physician Co-Signing Physician Notes I have seen and examined the patient with PEYTON Stevenson whose note reflects our findings and plan. Subjective Pt was seen and evaluated, chart reviewed. Pleasantly confused. Awoken to name. Reports a headache this AM. Denies any abd symptoms. No abdominal pain. No appetite. No nausea, vomiting. Moving bowels. Review of Systems Review of Systems: Unobtainable due to cognitive status Physical Exam Constitutional: no acute distress Neck: trachea midline Respiratory: normal respiratory effort; no respiratory distress Cardiovascular: Rate/Rhythm: regular rate; + abnormal rhythm Heart Sounds: no murmur Gastrointestinal (Abdomen): normal bowel sounds, soft, nontender, no hepatosplenomegaly Results & Data Vital Signs (Past 12 Hours) Vital Signs Temp Pulse Pulse Pulse Resp BP Pulse Ox 09/06/18 07:34 36.5 C 83 19 106/70 96 09/06/18 04:14 36.6 C 83 16 128/84 93 09/05/18 23:32 36.5 C 75 18 118/81 94 09/05/18 23:03 93 H Laboratory Results 09/06/18 09/06/18 Range/Units 05:27 05:27 WBC 5.96 (4.8-10.8) K/uL RBC 3.23 L (4.7-6.1) M/uL Hgb 8.8 L (14.0-18.0) g/dL Hct 26.3 L (42-52) % MCV 81.4 (80-100) fL MCH 27.2 (25-34) pg MCHC 33.5 (32-36) g/dL RDW Std Deviation 53.5 H (36.4-46.3) fL RDW Coeff of Eunice 17.8 H (11.5-14.5) % Plt Count 41 L (130-400) K/uL Absolute Nucleated RBC 0.04 H (0-0) K/uL Nucleated RBC % (auto) 0.7 % Neutrophils % (Manual) 72.2 % Lymphocytes % (Manual) 21.7 % Monocytes % (Manual) 2.6 % Metamyelocytes % (Man) 3.5 % Neutrophils # (Manual) 4.30 (1.4-6.5) K/uL Total Absolute Neuts 4.30 (1.4-6.5) K/uL Lymphocytes # (Manual) 1.29 (1.2-3.4) K/uL Total Abs Lymphocytes 1.29 (1.2-3.4) K/uL Monocytes # (Manual) 0.15 (0.11-0.59) K/uL Metamyelocytes # (Man) 0.21 H (0-0) K/uL Hypogranular Neuts 1+ Platelet Estimate SIGNIFIC DECREASED (Normal) Ovalocytes 1+ Sodium 137 (136-145) mmol/L Potassium 3.5 (3.5-5.1) mmol/L Chloride 103 (98-107) mmol/L Carbon Dioxide 27 (21-32) mmol/L Anion Gap 7.0 (3-11) BUN 20 H (7-18) mg/dl Creatinine 0.57 L (0.6-1.4) mg/dl Est Cr Clr Drug Dosing 106.4 ml/min Est GFR ( Amer) 110.8 Est GFR (Non-Af Amer) 95.6 BUN/Creatinine Ratio 34.6 H (10-20) Glucose 95 (70-99) mg/dl Calcium 7.9 L (8.5-10.1) mg/dl Magnesium 2.1 (1.8-2.4) mg/dl
[2018-09-06] MEDS ORDERED: ACETAMINOPHEN 325 MG TAB PO ONE (11:26)
[2018-09-06] MEDS: ACETAMINOPHEN 325 MG TAB PO PRN (11:40)
--- NOTE | 2018-09-06 14:44 | Family Medicine Progress Note ---
Date of Service September 06, 2018 Assessment & Plan (1) Severe anemia: Mr. Gale is an 82-year-old male with a past medical history of dementia, ascending thoracic aortic aneurysm, left brachial plexus neuropathy, prior GI bleeding, hx of tubular adenoma of colon, and previous PE (not currently on anticoagulation), who presented with 4 days of lethargy and dyspnea. He was found to have acute severe symptomatic anemia with thrombocytopenia. Acute blood loss anemia anemia: - Likely from chronic GI bleed given heme positive melanotic stool in addition to intramuscular hematoma left thigh abductor muscles. as well as possible bone marrow suppression - Hemoglobin 4.5 on arrival --> received 4 units of prbcs on admission - Coags wnl - Iron studies: Iron 87, ferritin 649. Transferrin 192 and TIBC 304 - B12 503, folate 19.1 - Per hematology: Pre-transfusion peripheral smear c/w hypochromasia, aniso and poikilocytosis and pencil forms which with MCV consistent with iron def. anemia - On Protonix p.o. and Carafate - Started on ferrous sulfate 325 mg every morning - Transfuse for Hgb < 8. Hgb stable at 8.8 this AM - GI consulted: no intervention at this time. Pt has not had any melena/hematemesis, and does not wish to undergo endoscopic evaluation. Thrombocytopenia - likely consumptive given history of GI bleed versus possible bone marrow suppression from viral syndrome (given an history of diarrhea) - On arrival 20 improved to 72 post 2 units of blood transfusion, this morning 41 - peripheral smear before transfusion no evidence of microangiopathy - Peripheral smear today: Increased metamyelocytes and myelocytes with teardrop cells -consistent with increasing marrow activity - Transfuse for platelets less than 20k or if concern for bleeding New onset A. fib with the RVR - improved rate control, normotensive - converted to NSR this AM - Thank you to cardiology for consult -> IV metoprolol transitioned to oral -> planning to discontinue amiodarone and d/c home on metoprolol - ECHO: EF 55 to 60%, dilated aortic root 3.9 cm and ascending aorta 4.5 cm, mild concentric left ventricular hypertrophy, mild mitral valve regurg, severe left atrial dilation, normal right atrial pressure Left leg pain -pt complaining of severe left leg pain -> unable to tell us where in his leg it is located -likely secondary to L leg hematoma, but will order x-ray of foot and doppler u/s of left leg given hx of PE Stable ascending thoracic aortic aneurysm per chest CTA Dementia On home Aricept History of PE in the past - resolved - Not on anticoagulation Code: DNR/DNI DVT prophylaxis: SCD only, chemical contraindicated Disposition: pt currently stays at home with multimedia developer caregiver. Pt's daughter/POA interested in potentially transitioning to detention care at [facility]. Referral placed. Will order PT/OT evals and discuss possibility of palliative involvement with daughter. (2) Hematoma of left hip: (3) Thoracic aortic aneurysm without rupture: (4) Severe thrombocytopenia: (5) Atrial fibrillation with RVR: (6) Dementia: Supervising Physician Co-Signing Physician Notes Resident Physician Supervision Note: I independently interviewed and examined the patient and verified the [place] history and physical, reviewed labs and image studies, discussed the case with the resident Dr. Patel and agree with the findings and care plan. Subjective Mr. Gale repeatedly complains of left leg pain. He reports difficulty localizing the pain, but notes that his leg is quite sore. He denies any other symptoms at this time, and is pleasantly demented. Review of Systems Review of Systems: Unobtainable due to cognitive status Physical Exam Constitutional: + frail appearing; no acute distress Respiratory: normal respiratory effort, lungs clear to auscultation Cardiovascular: Rate/Rhythm: regular rate and + irregularly irregular Heart Sounds: no murmur Gastrointestinal (Abdomen): Inspection/Auscultation: abdomen normal to inspection Percussion/Palpation: abdomen soft; abdomen nontender Musculoskeletal: patient complains of pain w/movement of left foot and tenderness w/palpation of left calf and thigh Skin: no rashes, warm and dry Neurologic: Unable to move left arm Results & Data Vital Signs (Past 12 Hours) Vital Signs Temp Pulse Pulse Pulse Resp BP Pulse Ox 09/06/18 12:32 93 H 09/06/18 11:42 36.5 C 88 21 126/73 94 09/06/18 07:34 36.5 C 83 19 106/70 96 09/06/18 04:14 36.6 C 83 16 128/84 93
--- NOTE | 2018-09-06 19:48 | XRay Report ---
LEFT FOOT 2 VIEWS HISTORY: left foot pain COMPARISON: None. FINDINGS: There is no fracture or dislocation. No radiopaque foreign bodies. The bones are osteop enic. The Lisfranc joint is intact. Tiny plantar heel spur. There is suggestion of a focal skin ulcer ation at the distal tip of the first toe measuring 5 mm. No underlying bony destruction. IMPRESSION: 1. No fracture or dislocation within the left foot. 2. A 5 mm focal skin ulceration at the distal tip of the first toe. No underlying bony destruction to suggest osteomyelitis. Electronically signed by: Finesse Ríos M.D. 09/06/2018 7:46 PM
[2018-09-06] MEDS: DONEPEZIL HCL 10 MG TAB PO SCH (21:11)
[2018-09-07] MEDS: METOPROLOL TARTRATE 25 MG TAB PO SCH ×2 (02:44→08:14)
[2018-09-07] MEDS: ACETAMINOPHEN 325 MG TAB PO PRN ×3 (02:49→18:39)
[2018-09-07 06:30] LABS: Mean Corpuscular Hgb Conc 33.7 g/dL (32-36); Nucleated RBC # (auto) 0.04 K/uL (0-0); Nucleated RBC % (auto) 0.8 %
--- NOTE | 2018-09-07 06:30 | Ultrasound Report ---
US venous doppler LE LT HISTORY: 82 years-old Male left calf pain, hx pe acute left leg pain with reported pulmonary emboli COMPARISON: CTA 09/03/2018 TECHNIQUE: Multiple real-time sonographic images of the left lower extremity were obtained assessing grayscale appearance, color and spectral flow FINDINGS: Within the upper left thigh there is a mixed echogenicity collection without internal flow identified which measures 9.8 x 2.9 x 5.1 cm, peripherally hypoechoic and centrally hyperechoic. Normal flow, compressibility, phasicity and augmentation of the left lower extremity deep venous stru ctures. IMPRESSION: 1. No sonographic evidence of deep venous thrombosis. 2. Hypoechoic lesion about the left upper thigh likely correlates with the previously described hemat jn described on study from 09/03/2018. The above report was generated using voice recognition software. It may contain grammatical, syntax o r spelling errors. Electronically signed by: Epi Ott M.D. 09/07/2018 6:29 AM
[2018-09-07 06:52] LABS: Hematocrit (blood only) 25.5 % (42-52); Hemoglobin 8.6 g/dL (14.0-18.0); RDW Standard Deviation 54.3 fL (36.4-46.3); Red Blood Count 3.11 M/uL (4.7-6.1); White Blood Count 5.02 K/uL (4.8-10.8)
[2018-09-07 06:59] LABS: Platelet Count 27 K/uL (130-400)
[2018-09-07 07:00] LABS: ALC (manual) 0.74 K/uL (1.2-3.4); Anisocytosis Present; Basophils # (manual) 0.18 K/uL (0-0.2); Basophils % (manual) 3.5 %; Hypochromasia Present; Lymphocytes # (manual) 0.74 K/uL (1.2-3.4); Lymphocytes % (manual) 14.8 %; Metamyelocytes # (manual) 0.22 K/uL (0-0); Metamyelocytes % (manual) 4.3 %; Monocytes # (manual) 0.22 K/uL (0.11-0.59); Monocytes % (manual) 4.3 %; Myelocytes # (manual) 0.05 K/uL (0-0); Myelocytes % (manual) 0.9 %; Neutrophils % (manual) 72.2 %; Platelet Estimate Decreased (Normal)
[2018-09-07] MEDS: PANTOprazole 40 MG TAB PO SCH ×2 (08:14→20:59)
[2018-09-07] MEDS: AMIODARONE 200 MG TAB PO SCH ×2 (08:15→20:58)
[2018-09-07] MEDS: FERROUS SULFATE 325 MG/7.4 ML UDP PO SCH (08:15)
[2018-09-07] MEDS: SUCRALFATE 1 GM/10 ML UDC PO SCH ×4 (08:15→20:59)
--- NOTE | 2018-09-07 09:12 | Cardiology Progress Note ---
Date of Service September 07, 2018 Subjective Pleasantly demented this morning with no complaints Results & Data Vital Signs (Past 12 Hours) Vital Signs Temp Pulse Resp BP Pulse Ox 09/07/18 07:18 36.3 C L 75 19 102/68 96 09/07/18 02:44 36.7 C 79 20 111/75 95 09/06/18 23:30 36.6 C 69 16 114/73 96 PHYSICAL EXAMINATION: He is severely demented HEENT: Normal carotid upstrokes. No evidence of carotid bruits. His sclerae was anicteric. LUNGS: Globally decreased breath sounds, but no rales, rhonchi or wheezing. HEART: Regular rate and rhythm. No appreciable murmurs or rubs. ABDOMEN: Soft, nontender, nondistended. Positive bowel sounds. EXTREMITIES:. He has no significant lower extremity edema. IMPRESSION: 1. Atrial fibrillation with rapid ventricular response. 2. Severe symptomatic anemia which is now improved, status post 4 units of blood. 3. Advanced dementia. 4. Low normal left ventricular systolic function. 5. Dilated aortic root at 3.9 cm with an ascending aorta measuring 5 cm. 6. Leg hematoma He converted to sinus rhythm. His heart rates have been in the 70s. His blood pressure is controlled. his beta-blockers can be switched to 50 mg of metoprolol twice daily. The long-term question is the use of amiodarone. This is more of a palliative care issue. My concern is if we stop the amiodarone and he goes back into atrial fibrillation while at a [facility] with a fast heart rate they will send him back to the hospital. Therefore, I would leave him on amiodarone 200 Mg twice daily for 2 weeks and then transition him to 200 mg daily. His outpatient physician will need to closely monitor his heart rate and if there is any concern for bradycardia while on amiodarone reduce his metoprolol dose. Anticoagulation is contraindicated given his GI bleeding.
--- NOTE | 2018-09-07 11:10 | Family Medicine Progress Note ---
Date of Service September 07, 2018 Assessment & Plan (1) Severe anemia: Mr. Gale is an 82-year-old male with a past medical history of dementia, ascending thoracic aortic aneurysm, left brachial plexus neuropathy, prior GI bleeding, hx of tubular adenoma of colon, and previous PE (not currently on anticoagulation), who presented with 4 days of lethargy and dyspnea. He was found to have acute severe symptomatic anemia with thrombocytopenia. Acute blood loss anemia: - Likely from chronic GI bleed given heme positive melanotic stool in addition to intramuscular hematoma left thigh abductor muscles. - Hemoglobin 4.5 on arrival --> received 4 units of prbcs on admission (09/03) - Iron studies: Iron 87, ferritin 649. Transferrin 192 and TIBC 304 - B12 and folate normal - Per hematology: Pre-transfusion peripheral smear c/w hypochromasia, aniso and poikilocytosis and pencil forms which with MCV consistent with iron def. anemia - continue Protonix p.o. and Carafate - continue ferrous sulfate 325 mg every morning. Will also give IV iron while in hospital to replete stores. - Transfuse for Hgb < 8. Hgb stable at 8.6 this AM, pt has not required transfusion since his admission - GI consulted: no intervention at this time. Pt has not had any melena/hematemesis since admission, and does not wish to undergo endoscopic evaluation. Thrombocytopenia - initially felt to be consumptive given history of GI bleed versus possible bone marrow suppression from viral syndrome (given an history of diarrhea) - On arrival 20 improved to 72 post 2 units of blood transfusion. 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 Will consult heme/onc again - Transfuse for platelets less than 20k or if concern for bleeding New onset A. fib with the RVR Acute diastolic CHF secondary to AF with RVR, POA, resolved. - remains in NSR - Thank you to cardiology for consult -> beta blockers can be switched to 50mg of metoprolol BID. Concern regarding pt going back into afib once off amiodarone - continue 200mg BID x 2 weeks and then transition to 200mg daily. - ECHO: EF 55 to 60%, dilated aortic root 3.9 cm and ascending aorta 4.5 cm, mild concentric left ventricular hypertrophy, mild mitral valve regurg, severe left atrial dilation, normal right atrial pressure Left leg pain -pt intermittently complaining of severe left leg pain -> unable to tell us where in his leg it is located -likely secondary to L leg hematoma, given this has been a chronic complaint -doppler U/S of left leg negative -XR of left foot showed 5mm focal skin ulceration at distal tip of first toe - no suggestion of osteomyelitis Stable ascending thoracic aortic aneurysm per chest CTA Dementia - On home Aricept History of PE in the past - resolved - Not on anticoagulation due to GI bleed Code: DNR/DNI DVT prophylaxis: SCD only, chemical contraindicated Disposition: pt currently stays at home with athletic shoe designer caregiver (son-in-law, Fabian). Pt's daughter/POA interested in short term rehab at [facility]. Referral placed. Palliative consult ordered as well. Pt's family open to home health after stay at [facility]. (2) Hematoma of left hip: (3) Thoracic aortic aneurysm without rupture: (4) Severe thrombocytopenia: (5) Atrial fibrillation with RVR: (6) Dementia: (7) GI bleed: (8) Iron deficiency anemia: Supervising Physician Co-Signing Physician Notes Resident Physician Supervision Note: I independently interviewed and examined the patient and verified the [place] history and physical, reviewed labs and image studies, discussed the case with the resident Dr. Patel and agree with the findings and care plan. Subjective Mr. Gale is pleasantly demented, and reports no complaints at this time. He denies left leg pain. Review of Systems Review of Systems: Unable to obtain due to patient's mental status (demented) Physical Exam Constitutional: well developed and well nourished; no acute distress Respiratory: normal respiratory effort, lungs clear to auscultation Cardiovascular: Rate/Rhythm: regular rate and regular rhythm Heart Sounds: no murmur Gastrointestinal (Abdomen): Inspection/Auscultation: abdomen normal to inspection Percussion/Palpation: abdomen soft; abdomen nontender Musculoskeletal: L arm paralyzed Results & Data Vital Signs (Past 12 Hours) Vital Signs Temp Pulse Resp BP Pulse Ox 09/07/18 07:18 36.3 C L 75 19 102/68 96 09/07/18 02:44 36.7 C 79 20 111/75 95 09/06/18 23:30 36.6 C 69 16 114/73 96 Resident Activity Tracking Resident Involvement: Resident Care Provided Care Provided: Adult Hospital Medicine (1) GI bleed GI bleed type/associated pathology: unspecified gastrointestinal hemorrhage type Qualified Code(s): K92.2 - Gastrointestinal hemorrhage, unspecified
[2018-09-07] MEDS ORDERED: IRON SUCROSE 100 MG in 0.9 % SODIUM CHLORIDE 100 ML IV ONE (12:00)
--- NOTE | 2018-09-07 13:26 | Palliative Care Consultation ---
Date of Consultation September 07, 2018 Assessment & Plan (1) Goals of care, counseling/discussion: -82 year old male with PMH advanced dementia, prior pulmonary emboli treated with anticoagulation in the past, a sending aortic aneurysm, LEFT brachial plexus neuropathy, tubular adenoma of the colon, and prior history of GI bleeding who initially presented to the ED with weakness and dyspnea 2/2 severe anemia. His hgb was 4.5, stool positive for occult blood. He was admitted to the ICU, GI was consulted. Patient and family deferred invasive testing such as scope. He was transfused and monitored. He continues to have issues with thrombocytopenia, hematology is following. He is now in the PCU, hgb >8 today, plt 27. At baseline, patient has advanced dementia, has a full-time caregiver at home. Patient's daughter was wondering about resources available for after patient's rehab stay at [facility] post-hospitalization. Palliative care consulted to discuss goals of care. -Met with patient in room 221 this morning. He is easily awakened to verbal stimuli but is still quite weak and debilitated from being in bed. He could tell me his name, but could not tell me where he was or the date. He did state that he lived in [place]. He could not participate in meaningful conversation re: [facility]. -Called patient's daughter, Dunia. Dunia stated that at baseline, her father is able to walk with a cane and uses a wheelchair for longer distances. He needs help with all ADLs and has some urinary incontinence. Baseline FAST score 6d indicating moderately severe dementia. -We discussed the progression of dementia and some complications that can arise such as swallowing issues, aspiration, pneumonia, UTIs, dehydration, etc. So far, she says her father has not had trouble with this. -Hgb does remain rather low, uncertain of patient's rehab potential at this time. Dunia states that it will depend on how patient does in rehab of whether or not he will go back home with his caregiver or if he will need to stay at SNF [facility] [employer] [facility]. We discussed the options of home health vs. hospice for the future as well, depending on the goals of care. Dunia is familiar with hospice as they did use it for her mother. She is aware that hospice would be available whether patient was at home or in a facility. -For now, continue current treatment. Again, goal is to get patient to rehab. -FAST Score 6d, PPS 40%. -Will follow periodically throughout hospitalization. Please contact us with any palliative care needs. (2) Symptomatic anemia: (3) GI bleed: GI bleed type/associated pathology: unspecified gastrointestinal hemorrhage type Qualified Code(s): K92.2 - Gastrointestinal hemorrhage, unspecified (4) Dementia: Supervising Physician Co-Signing Physician Notes Chart reviewed, patient seen and examined-no family or friends at bedside. Collaborated with PEYTON Joshi PE: Patient lying in bed, no acute distress HEENT: EOMI, mild [place]. Poor dentition Respirations: Unlabored, no rhonchi or rales CV: Rate controlled, no pitting edema Abdomen: Soft, nontender on palpation Neuro: Alert to person Agree with above note, assessment and plan as per PEYTON Joshi. Family's goals is to have patient undergo some rehab with the goal of returning home if possible with caregivers. Will continue to follow and assist with medical decision making as needed. History of Present Illness Attending Physician: Shayna Kaminski MD History of Present Illness This 82 year old male with PMH advanced dementia, prior pulmonary emboli treated with anticoagulation in the past, a sending aortic aneurysm, LEFT brachial plexus neuropathy, tubular adenoma of the colon, and prior history of GI bleeding who initially presented to the ED with weakness and dyspnea 2/2 severe anemia. His hgb was 4.5, stool positive for occult blood. He was admitted to the ICU, GI was consulted. Patient and family deferred invasive testing such as scope. He was transfused and monitored. He continues to have issues with thr ombocytopenia, hematology is following. He is now in the PCU, hgb >8 today, plt 27. At baseline, patient has advanced dementia, has a full-time caregiver at home. Patient's daughter was wondering about resources available for after patient's rehab stay at [facility] post-hospitalization. Palliative care consulted to discuss goals of care. Thank you kindly for this consult. I will follow as needed. Allergies Allergy/AdvReac Type Severity Reaction Status Date / Time No Known Allergies Allergy Unknown Verified 09/03/18 17:19 Home Medications Home Medications Medication Instructions Recorded Confirmed Type acetaminophen [Tylenol Extra 1,000 mg PO TID 09/03/18 09/03/18 History Strength] food supplemt, lactose-reduced 1 ea PO BID 09/03/18 09/03/18 History [Boost] donepezil 10 mg PO HS 09/04/18 09/04/18 History Patient History Medical History Congestive heart failure (Acute) Severe thrombocytopenia (Acute) Severe anemia (Acute) Microhematuria (Acute) Iron deficiency anemia (Acute) Incontinence (Acute) Hearing loss (Acute) Dementia (Acute) Axillary neuropathy (Acute) Social History Preferred Language: Yi Communication Ability: dementia Beliefs That Will Affect Care: None Current Living Situation: Family Feels Safe at Home: Yes Smoking Status: Never smoker Hx Alcohol Use: No Hx Substance Use: No Review of Systems Constitutional: + weakness Ear, Nose, Mouth, Throat: no dysphagia Respiratory: no cough and no dyspnea Cardiovascular: no chest pain Gastrointestinal: no nausea and no vomiting Physical Exam Constitutional: average body habitus; no acute distress ENMT: external ear and nose normal, oropharynx normal Neck: normal visual inspection Respiratory: normal respiratory effort, lungs clear to auscultation Cardiovascular: RRR, no murmur, no edema Gastrointestinal (Abdomen): Inspection/Auscultation: abdomen normal to inspection and normal bowel sounds; abdomen not distended Percussion/Palp ation: abdomen soft; abdomen nontender Skin: dry, flaking skin on BL feet Neurologic: moves all extremities (except left arm which is flaccid/paralyzed at baseline), awake and + confused Psychiatric: Orientation: oriented to person and oriented to place; + not oriented to time Results & Data Vital Signs (Past 12 Hours) Vital Signs Temp Pulse Resp BP Pulse Ox 09/07/18 11:41 36.4 C L 74 19 117/68 96 09/07/18 07:18 36.3 C L 75 19 102/68 96 09/07/18 02:44 36.7 C 79 20 111/75 95 Time Spent Midlevel 70 minutes with >50% of the time spent at bedside with patient and family discussing condition and GOC.
[2018-09-07] MEDS ORDERED: MoRPHine SULFATE 4 MG/ML 1 ML CARP\\VIAL IV STA (17:25)
[2018-09-07] MEDS: DONEPEZIL HCL 10 MG TAB PO SCH (20:59)
[2018-09-07] MEDS: METOPROLOL TARTRATE 50 MG TAB PO SCH (20:59)
[2018-09-08] MEDS: ACETAMINOPHEN 325 MG TAB PO PRN ×2 (00:04→10:44)
[2018-09-08] MEDS: TRAMADOL HCL 50 MG TABLET PO PRN (04:49)
[2018-09-08] MEDS ORDERED: MoRPHine SULFATE 2 MG/ML CARP IV STA (05:15)
[2018-09-08 09:05] LABS: Basophils # (manual) 0.05 K/uL (0-0.2); Basophils % (manual) 0.9 %; Eosinophils # (manual) 0.05 K/uL (0-0.5); Eosinophils % (manual) 0.9 %; Hematocrit (blood only) 26.4 % (42-52); Hemoglobin 8.7 g/dL (14.0-18.0); Lymphocytes % (manual) 12.3 %; Mean Corpuscular Volume 82.8 fL (80-100); Metamyelocytes % (manual) 3.5 %; Monocytes % (manual) 1.8 %; Myelocytes % (manual) 1.8 %; Neutrophils % (manual) 78.8 %; Platelet Count 19 K/uL (130-400); Platelet Estimate SIGNIFIC DECREASED (Normal); RDW Coefficient of Variation 17.7 % (11.5-14.5); RDW Standard Deviation 53.6 fL (36.4-46.3); Red Blood Count 3.19 M/uL (4.7-6.1); Schistocytes 1+
--- NOTE | 2018-09-08 10:34 | Family Medicine Progress Note ---
Date of Service September 08, 2018 Assessment & Plan (1) Severe anemia: Mr. Gale is an 82-year-old male with a past medical history of dementia, ascending thoracic aortic aneurysm, left brachial plexus neuropathy, prior GI bleeding, hx of tubular adenoma of colon, and previous PE (not currently on anticoagulation), who presented with 4 days of lethargy and dyspnea. He was found to have acute severe symptomatic anemia with thrombocytopenia. Acute Blood Loss Anemia: - Likely from chronic GI bleed given heme positive melanotic stool, as well as intramuscular hematoma in left thigh abductor muscles. - Hemoglobin 4.5 on arrival --> received 4 units of prbcs on admission (09/03) - Iron studies: Iron 87, ferritin 649. Transferrin 192 and TIBC 304 - B12 and folate normal - continue Protonix p.o. and Carafate - continue ferrous sulfate 325 mg every morning. Given a dose of 100mg of IV Venofer on 09/07. - Transfuse for Hgb < 8. Hgb has remained stable around 8.7. Pt has not required transfusion since his admission - GI consulted: no intervention at this time. Pt has not had any melena/hematemesis since admission, and does not wish to undergo endoscopic evaluation. Thrombocytopenia - initially felt to be consumptive given history of GI bleed - On arrival, platelet level was 20. Improved to 72 post 2 units of blood transfusion. Dropped again on 09/07 to 27, and again this AM to 19. No evidence of acute bleeding, Hgb has been stable. ? ITP vs. vs bone marrow suppression. -heme/onc reconsulted: -> will transfuse platelets x1 again today - Fabian (primary caregiver) updated. He states daughter (Dunia) will make decisions about how aggressive she wants to be in terms of investigation - called Dunia, was unable to leave . Will try again later today to discuss how she wishes to proceed - monitor daily CBC New onset A. fib with the RVR Acute diastolic CHF secondary to AF with RVR, POA, resolved. - present on admit, currently in NSR - Thank you to cardiology for consult -> continue 50mg of metoprolol BID. Concern regarding pt going back into afib once off amiodarone - continue 200mg BID x 2 weeks and then transition to 200mg daily. - ECHO: EF 55 to 60%, dilated aortic root 3.9 cm and ascending aorta 4.5 cm, mild concentric left ventricular hypertrophy, mild mitral valve regurg, severe left atrial dilation, normal right atrial pressure Left leg pain -pt intermittently complaining of severe left leg pain -> unable to tell us where in his leg it is located -likely secondary to L leg hematoma, given this has been a chronic complaint -doppler U/S of left leg negative -XR of left foot showed 5mm focal skin ulceration at distal tip of first toe - no suggestion of osteomyelitis Stable ascending thoracic aortic aneurysm per chest CTA Dementia - On home Aricept History of PE in the past - resolved - Not on anticoagulation due to GI bleed Code: DNR/DNI DVT prophylaxis: SCD only, chemical contraindicated Disposition: Remains on med/surg. Pt currently stays at home with anodic treater caregiver (Fabian). Pt's daughter/POA interested in short term rehab at [facility] [place]. Referral placed. Appreciate palliative input. Pt's family open to home health after stay at [facility] [place]. (2) Hematoma of left hip: (3) Thoracic aortic aneurysm without rupture: (4) Severe thrombocytopenia: (5) Atrial fibrillation with RVR: (6) Dementia: (7) GI bleed: (8) Iron deficiency anemia: Supervising Physician Co-Signing Physician Notes Resident Physician Supervision Note: I independently interviewed and examined the patient and verified the [place] history and physical, reviewed labs and image studies, discussed the case with the resident Dr. Mckeon and agree with the findings and care plan. Subjective Mr. Gale reports no complaints today. Per nursing, he was complaining of severe right leg pain overnight, however he fell asleep before he received his pain medication and has not complained of any leg pain since. Review of Systems Review of Systems: Unobtainable due to cognitive status (hx of dementia) Physical Exam Constitutional: well developed, well nourished and + frail appearing; no acute distress Respiratory: normal respiratory effort, lungs clear to auscultation Cardiovascular: Rate/Rhythm: regular rate and regular rhythm Heart Sounds: no murmur Gastrointestinal (Abdomen): Percussion/Palpation: abdomen soft; abdomen nontender Skin: no rashes, warm and dry Psychiatric: Orientation: alert and oriented to person; + not oriented to place and + not oriented to time Results & Data Vital Signs (Past 12 Hours) Vital Signs Temp Pulse Resp BP Pulse Ox 09/08/18 06:20 36.1 C L 78 20 124/81 95 09/07/18 23:25 36.6 C 77 20 125/84 93 Resident Activity Tracking Resident Involvement: Resident Care Provided Care Provided: Adult Hospital Medicine (1) GI bleed GI bleed type/associated pathology: unspecified gastrointestinal hemorrhage type Qualified Code(s): K92.2 - Gastrointestinal hemorrhage, unspecified
[2018-09-08] MEDS: PANTOprazole 40 MG TAB PO SCH ×2 (10:44→21:24)
[2018-09-08] MEDS: AMIODARONE 200 MG TAB PO SCH ×2 (10:45→21:24)
[2018-09-08] MEDS: METOPROLOL TARTRATE 50 MG TAB PO SCH ×2 (10:45→21:25)
[2018-09-08] MEDS: FERROUS SULFATE 325 MG/7.4 ML UDP PO SCH (10:45)
[2018-09-08] MEDS: SUCRALFATE 1 GM/10 ML UDC PO SCH ×4 (10:47→21:24)
--- NOTE | 2018-09-08 17:27 | Progress Note ---
DATE: 09/08/2018 The patient is a pleasant 82-year-old gentleman originally seen by Dr. Cleaning earlier this week with severe anemia and thrombocytopenia, etiology unclear. Dr. Cleaning's assessment on the situation was possible intrinsic bone marrow disorder versus immune mediated thrombocytopenia. The patient had received platelet transfusion earlier this week, resulting in a nice bump of counts, which is not consistent with an immune mediated thrombocytopenia. Generally speaking, when platelets are transfused in the setting of ITP, there is no significant increase in number attributable to consumption. Additionally, the patient's peripheral counts have demonstrated the presence of nucleated red blood cells as well as other immature forms suggesting of a myelophthisic type picture or perhaps an underlying myelodysplasia. Ultimately, I believe bone marrow biopsy would be necessary to confirm diagnosis. I went to the patient's bedside this afternoon and engaged a relative, I believe son-in-law, sitting at his bedside and explained the situation with him. Additionally, I contacted the patient's power of welfare eligibility interviewer and engaged in discussion on how we proceed with Rafa's hematologic issue. Expressed my reluctance to pursue any aggressive diagnostics, particularly bone marrow biopsy and aspiration as it would not necessarily change my management in the patient's case. 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 He has a relatively poor comorbid status and performance status and therefore would not entertain cytotoxic chemotherapy. The power of welfare eligibility interviewer agreed with this recommendation. Again, the patient presented with a platelet count of 20,000 and improved at 72 with single donor plateletpheresis. Platelets have once again dropped to 19,000 today prompting the resident to contact me by phone. Instructed resident to proceed with transfusion of single donor platelets. Palliative consultation has already been ordered and certainly warranted. I would go a step further at this point to engage hospice if POA agrees. I briefly discussed the hospice concept with the power of welfare eligibility interviewer. Ultimately, I left the door open. If she wants procedure done on the patient to at least establish a diagnosis, we can make arrangements to do so even in the outpatient setting. From what I was told by the resident, I believe the plan moving forward is to have the patient placed at [facility]. Again, I would be more than happy to have him transported over to [facility] as an outpatient to perform bone marrow biopsy should the power of welfare eligibility interviewer change her mind. Thank you very much for allowing us to participate in his care. I spent approximately 25 minutes in counseling both the patient and his son-in-law. Physical examination was not performed. MARYAM
[2018-09-08] MEDS: DONEPEZIL HCL 10 MG TAB PO SCH (21:24)
[2018-09-09] MEDS: TRAMADOL HCL 50 MG TABLET PO PRN (06:43)
[2018-09-09 07:04] LABS: BUN Creatinine Ratio 47.3 (10-20); Calcium 8.1 mg/dl (8.5-10.1); Creatinine Clr Calc Pharmacy 87.9 ml/min; Est GFR (African American) 102.5; Est GFR (Non-African American) 88.4; Potassium 3.1 mmol/L (3.5-5.1)
[2018-09-09 07:10] LABS: Mean Corpuscular Hgb Conc 33.9 g/dL (32-36)
[2018-09-09 07:21] LABS: ALC (manual) 1.02 K/uL (1.2-3.4); Basophils % (manual) 1.7 %; Hematocrit (blood only) 25.1 % (42-52); Hemoglobin 8.5 g/dL (14.0-18.0); Hypogranular Neutrophils 1+; Lymphocytes # (manual) 1.02 K/uL (1.2-3.4); Lymphocytes % (manual) 17.2 %; Mean Corpuscular Volume 82.3 fL (80-100); Metamyelocytes # (manual) 0.15 K/uL (0-0); Metamyelocytes % (manual) 2.6 %; Monocytes # (manual) 0.31 K/uL (0.11-0.59); Monocytes % (manual) 5.2 %; Myelocytes # (manual) 0.25 K/uL (0-0); Myelocytes % (manual) 4.3 %; Platelet Count 27 K/uL (130-400); Platelet Estimate SIGNIFIC DECREASED (Normal); RDW Coefficient of Variation 17.8 % (11.5-14.5); RDW Standard Deviation 53.6 fL (36.4-46.3); Red Blood Count 3.05 M/uL (4.7-6.1); White Blood Count 5.92 K/uL (4.8-10.8)
[2018-09-09] MEDS ORDERED: POTASSIUM CHLORIDE 20 MEQ TABCR PO STA (07:47)
[2018-09-09] MEDS: AMIODARONE 200 MG TAB PO SCH (08:11)
[2018-09-09] MEDS: SUCRALFATE 1 GM/10 ML UDC PO SCH ×2 (08:11→12:25)
[2018-09-09] MEDS: METOPROLOL TARTRATE 50 MG TAB PO SCH (08:11)
[2018-09-09] MEDS: PANTOprazole 40 MG TAB PO SCH (08:11)
[2018-09-09] MEDS: FERROUS SULFATE 325 MG/7.4 ML UDP PO SCH (08:12)
--- NOTE | 2018-09-09 11:40 | Discharge Summary ---
Date of Service September 09, 2018 Admission HPI Per Admitting Provider 82-year-old male who is brought to the ED by family members for weakness and inability to ambulate. He is markedly pale and very weak. Lab tests reveal hemoglobin of 4.5 and platelet count 20,000. The last lab that I could review was from 2016 and this severe anemia and thrombocytopenia appear to be new. He has Hemoccult positive stool and there may have been some recent melena. He also appears to be in congestive heart failure and has uncontrolled atrial fibrillation with rapid ventricular rate which appears to be new. He is acutely ill and will need to be admitted to the intensive care unit. Blood and platelet transfusion have been ordered. Yusuf catheter will be placed and intravenous Lasix administered. Diltiazem drip will be started. Consultation to gastroenterology, cardiology, hematology will be ordered. Lovenox and heparin will be avoided. SCDs have been ordered for DVT prophylaxis. The POA is not present and she will determine CODE STATUS. Admission Exam Per Admitting Provider Constitutional: Very pale. Very weak. Baseline dementia Eyes: PERRL, conjunctivae normal, anicteric sclerae ENMT: external ear and nose normal, oropharynx normal Neck: trachea midline, no thyromegaly Respiratory: Poor inspiratory effort but bibasilar inspiratory rales are audible. No rhonchi. No wheezing Cardiovascular: Uncontrolled rapid irregular rhythm consistent with atrial fibrillation. Grade 1/6 systolic murmur at the apex Gastrointestinal (Abdomen): normal bowel sounds, soft, nontender, no hepatosplenomegaly Musculoskeletal: No significant peripheral edema noted. He is markedly weak in a generalized fashion Skin: Market pallor noted Neurologic: Baseline dementia. No apparent focal motor deficits. Generalized weakness Principal Diagnosis Acute Blood Loss Anemia, Thrombocytopenia, Atrial Fibrillation Discharge Exam Constitutional well developed and well nourished; no acute distress Respiratory normal respiratory effort, lungs clear to auscultation Cardiovascular Rate/Rhythm: regular rate and regular rhythm Heart Sounds: no murmur Gastrointestinal (Abdomen) Inspection/Auscultation: abdomen normal to inspection Percussion/Palpation: abdomen soft; abdomen nontender Psychiatric Orientation: alert and oriented to person; + not oriented to place and + not oriented to time Discharge Data Allergies Allergy/AdvReac Type Severity Reaction Status Date / Time No Known Allergies Allergy Unknown Verified 09/03/18 17:19 Consultations 09/03/18 17:38 ED Decision to Admit Stat 09/03/18 20:33 Consult Cardiology Routine Consult Case Management - Discharge Planning Routine Consult Gastroenterology Routine Consult Hematology Routine Consult [employer] Converter Routine 09/06/18 18:32 Consult Palliative Care Routine Ordered Studies 09/03/18 16:39 CT head/brain wo con Stat 09/03/18 19:59 CT angio chest dissec wo/w con Urgent 09/03/18 20:06 CT angio abdomen pelvis w con Urgent 09/04/18 16:34 CT femur LT wo con Stat 09/06/18 11:27 US venous doppler LE LT Urgent Hospital Course (1) Severe anemia: Mr. 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 He was found to have acute severe symptomatic anemia with thrombocytopenia. Acute Blood Loss Anemia: - Likely from chronic GI bleed given heme positive melanotic stool, as well as intramuscular hematoma (10 x 10 x 4cm) in left thigh abductor muscles. - B12 and folate normal - continue Protonix p.o - continue ferrous sulfate 325 mg every morning. Given a dose of 100mg of IV Venofer on 09/07. - Transfuse for Hgb < 8. Hgb has remained stable around 8.5 since transfusion - GI consulted: no intervention warranted. Pt did not had any melena/hematemesis since admission, and does not wish to undergo endoscopic evaluation. Thrombocytopenia - initially felt to be consumptive given history of GI bleed - On arrival, platelet level was 20. Improved to 72 post 2 units of blood transfusion. Dropped again on 09/08 to 19 and was transfused another unit of platelets. Platelet count 27 on discharge - heme/onc consulted: -> not consistent with ITP given improvement in counts post transfusion -> concerning for underlying myelodysplasia. This was discussed with his daughter/POA who stated she did not want him to undergo invasive testing such as a bone marrow biopsy to definitively diagnose this. Mr. Gale will likely be transfusion dependent for the rest of his life - continue checking CBC in outpatient setting - transfuse platelets for a count <20k or if any evidence of bleeding - he has not shown any signs/symptoms of bleeding since admission New onset A. fib with the RVR Acute diastolic CHF secondary to AF with RVR, POA, resolved. - present on admit, currently in NSR - cardiology consulted -> he was started on 50mg of metoprolol BID and amiodarone -> concern regarding pt going back into afib once off amiodarone. Decision made to continue 200mg BID of amiodarone x 2 weeks and then transition to 200mg daily. - ECHO: EF 55 to 60%, dilated aortic root 3.9 cm and ascending aorta 4.5 cm, mild concentric left ventricular hypertrophy, mild mitral valve regurg, severe left atrial dilation, normal right atrial pressure Left leg pain -likely secondary to L leg hematoma, given this has been a chronic complaint -doppler U/S of left leg negative -XR of left foot showed 5mm focal skin ulceration at distal tip of first toe - no suggestion of osteomyelitis Urinary Incontinence -per caregiver, pt is generally incontinent of urine and wears adult diapers Stable ascending thoracic aortic aneurysm per chest CTA Dementia - On home Aricept History of PE in the past - resolved - Not on anticoagulation due to GI bleed Patient was discharged to [place] w/the goal of returning home afterwards 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 (2) Hematoma of left hip: (3) Thoracic aortic aneurysm without rupture: (4) Severe thrombocytopenia: (5) Atrial fibrillation with RVR: (6) Dementia: (7) GI bleed: (8) Iron deficiency anemia: Total Time Total Time Spent Total Time Spent (In Minutes): 35 Discharge Plan Discharge Items Patient Disposition: Transfer Long Term Fac Reason For Visit: SEVERE ANEMIA, ATRIAL FIBRILLATION WITH RVR, CHF, Discharge Diagnosis: Anemia, Thrombocytopenia, GI Bleed, Afib Discharge Goals: Decrease discomfort, Improve disease control and Improve function Activity: Resume your previous activity Non-emergency contact: Primary Care Provider Call non-emergency contact if: you have any medication questions Follow-up/Referrals: Olvin Joseph III, CRNP [Primary Care Provider] - Diet: Regular Addtl Provider Instructions: follow up with providers per SNF recommendation Prescriptions: New amiodarone 200 mg Tablet 200 mg PO BID 30 Days Qty: 60 RF: 0 pantoprazole 40 mg Tablet,Delayed Release (Dr/Ec) 40 mg PO BID 30 Days Qty: 60 RF: 0 metoprolol tartrate 50 mg Tablet 50 mg PO Q12H 30 Days Qty: 60 RF: 0 ferrous sulfate 325 mg (65 mg iron) tablet,delayed release (DR/EC) 325 mg PO DAILY Qty: 30 RF: 0 Continued acetaminophen [Tylenol Extra Strength] 500 mg Tablet 1,000 mg PO TID RF: 0 Boost 0.04 gram- 1 kcal/mL Liquid 1 ea PO BID RF: 0 donepezil 10 mg tablet 10 mg PO HS RF: 0 Stand-Alone Forms: [facility] Discharge Orders: Discharge Order (Routine); Ordered 09/09/18 Ordered By: Nishi Patel Admission Data Admit Date/Time: 09/03/18 18:12 Attending Provider: Shayna Kaminski Admit Provider: Jose Angel Calderon Primary Care Provider: Olvin Joseph III Other Providers: Herve Shen ; Jose Angel Calderon ; Adiel Worrell ; Bryan Brown ; Shaan Ling ; Kendall Blanc ; Oscar Abrams Jr ; Javier Zazueta ; Natasha Patel ; Radha Crawford ; Yimi Rodríguez ; Yimi Priest ; Cristobal Gallagher ; Jose Angel Mendoza ; Razia Vanegas ; My Saucedo ; Taqueria Tilley ; Sweetie Estrada ; Alcira Roach ; Adria Nash V ; Terrance Greenfield ; Sherry Holloway Service: Medical Other Interventions: Discharge Summary Assessment (RN) Last Done: 09/09/18 12:41 DC Date/Time DO NOT enter until pt leaves facility: 09/09/18 14:00 Supervising Physician Co-Signing Physician Notes Resident Physician Supervision Note: I independently interviewed and examined the patient and verified the [place] history and physical, reviewed labs and image studies, discussed the case with the resident Dr. Patel and agree with the findings and care plan. Time spent in discharge 35 min Resident Activity Tracking Resident Involvement: Resident Care Provided Care Provided: Adult Hospital Medicine
== END 2018-09-09 14:00 | DRG 377 ==
LOC: ED 15:44 → SUATTDRO 18:12 → 1E 18:12 → 2S 09-05 12:29 → 4W 09-07 18:30
DX: S70.02XA Contusion of left hip, initial encounter; R32 Unspecified urinary incontinence; Z66 Do not resuscitate; I50.31 Acute diastolic (congestive) heart failure; I71.2 Thoracic aortic aneurysm, without rupture; D62 Acute posthemorrhagic anemia; X58.XXXA Exposure to other specified factors, initial encounter; E83.42 Hypomagnesemia; D69.6 Thrombocytopenia, unspecified; E87.6 Hypokalemia; I48.91 Unspecified atrial fibrillation; F03.90 Unspecified dementia, unspecified severity, without behavioral disturbance, psychotic disturbance, mood disturbance, and anxiety; Z86.711 Personal history of pulmonary embolism; K92.2 Gastrointestinal hemorrhage, unspecified

== ENCOUNTER 2018-10-04 13:46 | Inpatient (IN) ==
[2018-10-04] MEDS ORDERED: SODIUM CHLORIDE 0.9% 250 ML IV PRN ×2 (14:15→14:47)
[2018-10-04] MEDS ORDERED: SODIUM CHLORIDE 0.9% 1000ML 1,000 ML IV SCH (14:15)
--- NOTE | 2018-10-04 14:28 | XRay Report ---
XR chest 1V portable CLINICAL HISTORY: Weakness COMPARISON STUDY: 09/04/2018 FINDINGS: Study is rotated. The heart is borderline enlarged. There are old rib deformities..[There a re persistent left basilar airspace opacities with ill-definition left hemidiaphragm. There is mild m ediastinal prominence, likely secondary to the patient's known thoracic aortic aneurysm. IMPRESSION: Persistent left basilar airspace opacities. Possible associated left pleural fluid. Electronically signed by: Bridger Jerry M.D. 10/04/2018 2:27 PM
[2018-10-04 14:36] LABS: Partial Thromboplastin Ratio 0.9; Partial Thromboplastin Time 23.7 Seconds (21.0-31.0); Prothrombin Time 10.6 Seconds (9.0-12.0)
[2018-10-04 14:40] LABS: Hemoglobin 4.5 g/dL (14.0-18.0); Mean Corpuscular Volume 84.3 fL (80-100); Platelet Count 9 K/uL (130-400); RDW Coefficient of Variation 18.1 % (11.5-14.5); RDW Standard Deviation 55.2 fL (36.4-46.3); Red Blood Count 1.66 M/uL (4.7-6.1); White Blood Count 10.64 K/uL (4.8-10.8)
[2018-10-04 14:44] LABS: Albumin Level 2.6 gm/dl (3.4-5.0); BUN Creatinine Ratio 28.7 (10-20); Calcium 7.8 mg/dl (8.5-10.1); Creatinine Clr Calc Pharmacy 57.9 ml/min; Est GFR (African American) 80.9; Est GFR (Non-African American) 69.8; Potassium 2.7 mmol/L (3.5-5.1)
[2018-10-04] MEDS ORDERED: PANTOprazole 80 MG in DEXTROSE 5% 100 ML IV STA (14:48)
[2018-10-04 14:49] LABS: Albumin Globulin Ratio 0.7 (0.9-2); Bilirubin,Total 0.5 mg/dl (0.2-1); Globulin 3.6 gm/dl (2.5-4.0); Total Protein 6.2 gm/dl (6.4-8.2); Troponin I 0.024 ng/ml (0-0.045)
[2018-10-04 14:50] LABS: Mean Corpuscular Hgb Conc 32.1 g/dL (32-36)
[2018-10-04 14:51] LABS: Hypogranular Neutrophils 1+; Platelet Estimate SIGNIFIC DECREASED (Normal); Tear Drop Cells 1+
[2018-10-04 14:53] LABS: ALC (manual) 1.76 K/uL (1.2-3.4); Basophils % (manual) 0.9 %; Blast Cells % (manual) 0.9 %; Lymphocytes # (manual) 1.76 K/uL (1.2-3.4); Lymphocytes % (manual) 16.5 %; Metamyelocytes # (manual) 0.55 K/uL (0-0); Metamyelocytes % (manual) 5.2 %; Monocytes # (manual) 0.46 K/uL (0.11-0.59); Monocytes % (manual) 4.3 %; Myelocytes # (manual) 0.28 K/uL (0-0); Myelocytes % (manual) 2.6 %; Neutrophils % (manual) 68.7 %; Nucleated RBC # (auto) 0.22 K/uL (0-0); Nucleated RBC % (auto) 2.1 %; Promyelocytes % (manual) 0.9 %
[2018-10-04] MEDS ORDERED: MAGNESIUM SULFATE / D5W 1 GM/100 ML BAG IV ONE (14:55)
[2018-10-04] MEDS ORDERED: POTASSIUM CHLORIDE 20 MEQ TABCR PO STA (14:55)
[2018-10-04] MEDS: PANTOprazole 40 MG in DEXTROSE 5% 100 ML IV SCH ×2 (15:40→21:00)
--- NOTE | 2018-10-04 16:15 | History & Physical Report ---
Date of Service October 04, 2018 Assessment & Plan (1) Severe anemia: - Admit to tele -blood consent, type and screen obtained in the ER. Patient ordered platelets and 4 unit PRBC by ER - discussed with them and they will order 3 U and hold the last one. Ordered Lasix for after first 2 bags of blood with hx of CHF - recheck cbc at 2000 or after transfusion. -Hematology consulted, possible myelodysplasia, upon previous admission the patient's family did not want him to undergo invasive testing like bone marrow biopsy to definitively diagnose him. To my knowledge there has been plans for outpatient transfusions weekly. -Transfuse platelets for a count of greater than 20 K or if any evidence of bleed -Continue p.o. Protonix -Continue iron supplementation -Consider GI consultation- although last admission no intervention was warranted as the patient did not have any melena, hematemesis, family did not want to undergo endoscopic eval. (2) Severe thrombocytopenia: -Platelet transfusion ordered -Follow with evening labs, daily PRP -Attempt to maintain platelet count above 20,000 (3) Iron deficiency anemia: -As above, can continue iron supplementation -consider IV Venofer, received 100 mg IV on 09/07/2018 (4) Dementia: -Severe, noted -Will ask palliative medicine to consult for goals of care (5) Thoracic aortic aneurysm without rupture: -Noted, stable (6) Hematoma of left hip: -Noted, left leg, bleed causing chronic pain, no peripheral edema or erythema (7) Congestive heart failure: -Monitor volume status, will order Lasix x1 dose after second unit of blood (8) Incontinence: (9) Hearing loss: (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 I discussed the above plan with the patients daughter, Dunia, over the phone and all her questions and concerns were answered. She is very sick so does not plan to come in today. She is agreeable to having palliative meet with her and her father tomorrow possibly. History of Present Illness Primary Care Provider: Cindy Mendoza at [place] This is an 82-year-old male with past medical history of severe dementia, a scending thoracic AA, left brachial plexus neuropathy, left arm paralyzation, history of GI bleeds, tubular adenoma of the colon, previous PE not on anticoagulation, who was recently admitted to our facility from 09/03/2018 to 09/08/2018 with acute blood loss anemia, thrombocytopenia, new onset A. fib with RVR. At that point in time the patient required hospitalization in the critical care unit. Hematology was consulted and they felt the thrombocytopenia and anemia was concerning for underlying myelodysplastic syndrome. 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 Patient represents today from [facility]. Patient is found to have hemoglobin of 4.5, platelet of 9, potassium of 2.7. He appears to be in NSR. There is no family at bedside with the patient, and due to his severe dementia history is essentially unobtainable. Allergies Allergy/AdvReac Type Severity Reaction Status Date / Time No Known Allergies Allergy Unknown Verified 10/04/18 14:34 Home Medications Home Medications Medication Instructions Recorded Confirmed Type acetaminophen [Tylenol Extra 1,000 mg PO TID 09/03/18 10/04/18 History Strength] donepezil 10 mg PO HS 09/04/18 10/04/18 History collagenase clostridium histo. 1 applic TOPICAL BID PRN 09/23/18 10/04/18 History [Santyl] amiodarone 200 mg PO BID 10/04/18 10/04/18 History ferrous sulfate 325 mg PO DAILY 10/04/18 10/04/18 History metoprolol tartrate 50 mg PO BID 10/04/18 10/04/18 History pantoprazole 40 mg PO BID 10/04/18 10/04/18 History Past Med/Surg History Medical History Congestive heart failure (Acute) Severe thrombocytopenia (Acute) Severe anemia (Acute) Microhematuria (Acute) Iron deficiency anemia (Acute) Incontinence (Acute) Hearing loss (Acute) Dementia (Acute) Axillary neuropathy (Acute) Anemia (Acute) Chronic obstructive pulmonary disease (COPD) (Acute) Gastro-esophageal reflux disease without esophagitis (Acute) Muscle weakness (generalized) Paroxysmal atrial fibrillation Thrombocytopenia Unspecified abnormalities of gait and mobility Unspecified dementia without behavioral disturbance Family History Other Family history non-contributory Social History Preferred Language: Andorran Communication Ability: dementia 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 Head: Normocephalic, atraumatic ENT: PERRL, EOMI, no pharyngeal exudate, mucous membranes slightly dry, + multiple broken teeth Chest: Diminished throughout to auscultation, on 2L via NC. Cardiac: Regular rate and rhythm, normal peripheral pulses Abdominal: NABS x 4 quadrants, soft, nontender to palpation, no rebound, guarding or tenderness Extremities: + flaccid Left arm. Normal inspection, no peripheral edema or erythema, calfs nontender to palpation Psych: Normal mood and affect Neuro: Not oriented to time, date or place, unable to tell me why he is here. Speech is clear Constitutional: WD/WN, vitals as above Eyes: normal visual singletary by confrontation and + anicteric sclerae Neck: normal visual inspection and trachea midline Respiratory: normal respiratory effort, lungs clear to auscultation Cardiovascular: Rate/Rhythm: regular rate and regular rhythm Gastrointestinal (Abdomen): Inspection/Auscultation: abdomen not distended Percussion/Palpation: abdomen soft; abdomen nontender Musculoskeletal: Head/Neck/Chest: normocephalic and head atraumatic Neg for peripheral LE edema, + pedal pulses Skin: no rashes, warm and dry Neurologic: awake and + confused Speech / Cognition: normal speech Psychiatric: Orientation: oriented to person; + not oriented to place and + not oriented to time Lymphatic: Exam as done by Jaimee Mccrary DO Results & Data Vital Signs (Past 12 Hours) Vital Signs Temp Pulse Pulse Resp BP BP Pulse Ox 10/04/18 16:09 36.5 C 61 26 H 110/60 94 10/04/18 16:04 36.5 C 61 26 H 110/60 94 10/04/18 15:54 36.6 C 63 24 81/43 L 92 10/04/18 15:42 36.5 C 66 25 H 86/53 L 95 07/01/19 15:36 36.6 C 63 24 91/51 L 97 10/04/18 15:27 36.7 C 62 22 90/51 L 97 10/04/18 15:20 64 23 97 10/04/18 15:15 63 28 H 90/51 L 99 10/04/18 15:11 63 24 98 10/04/18 15:09 36.7 C 62 21 96/58 L 96 10/04/18 15:05 61 20 90/55 L 96 10/04/18 15:00 62 17 96 10/04/18 14:53 60 21 88/51 L 95 10/04/18 14:50 62 23 10/04/18 14:40 61 21 96 10/04/18 14:32 63 90/51 L 97 10/04/18 14:30 66 23 97 10/04/18 14:25 66 25 H 90/51 L 95 10/04/18 14:20 68 26 H 96 10/04/18 14:10 69 32 H 10/04/18 14:00 65 26 H 10/04/18 13:59 36.7 C 64 16 86/55 L 95 10/04/18 13:57 65 27 H 10/04/18 13:51 66 25 H 86/55 L Diagnostic Findings XR chest 1V portable CLINICAL HISTORY: Weakness COMPARISON STUDY: 09/04/2018 FINDINGS: Study is rotated. The heart is borderline enlarged. There are old rib deformities..[There are persistent left basilar airspace opacities with ill- definition left hemidiaphragm. There is mild mediastinal prominence, likely secondary to the patient's known thoracic aortic aneurysm. IMPRESSION: Persistent left basilar airspace opacities. Possible associated left pleural fluid. ECG Additional Comments: 04-OCT-2018 13:53:32 [facility]-EDSTAT ROUTINE RETRIEVAL Sinus rhythm with sinus arrhythmia with 1st degree A-V block Low voltage QRS Nonspecific T wave abnormality Prolonged QT Abnormal ECG When compared with ECG of 04-SEP-2018 04:56, Sinus rhythm has replaced Atrial fibrillation Vent. rate has decreased BY 68 BPM Nonspecific T wave abnormality now evident in Anterior leads 25mm/s 10mm/mV 150Hz 9.0.8 12SL 241 GAVI: 3 Referred by: REFERRED SELF Unconfirmed Vent. rate 66 BPM MS interval 220 ms QRS duration 80 ms QT/QTc 444/465 ms P-R-T axes 70 9 0 Code Status & VTE Plan Code Status DNR Supervising Physician Co-Signing Physician Notes Pt seen and examined by me. Denies chest pain or SOB. Tolerating PO without issue. Family is not present during my discussion with pt. Agree with HPI/ROS as noted by PA See above for my exam in PE section Agree with plan as outlined above Pt with hx of MDS requiring regular transfusions PRBC, platelets in the ED Heme + PG Care Time/CCT Total # of Minutes Spent Total Time Spent with Patient: Total time spent is greater than 50% in coordination of care (as documented) at patient's floor/unit and/or counseling patient:
[2018-10-04] MEDS ORDERED: FUROSEMIDE 40 MG in SYRINGE 0 ML IV ONE (18:23)
[2018-10-04] MEDS ORDERED: ONDANSETRON INJ 2 MG/ML 2 ML VIAL IV PRN (18:23)
--- NOTE | 2018-10-04 19:54 | Emergency Department Note ---
Entered by Heidy Patel acting as a scribe for History of Present Illness General Chief complaint: Abnormal Labs/Diagnostic Testing Source: patient and other (nursing staff) Limitations: other (dementia) History of Present Illness Onset (ago): day(s) (today) Severity: severe (hemoglobin 5) Pain Consistency: + other (episode) Maximum Pain Intensity: 0 Quality: + other (abnormal labs) Associated symptoms: + denies other symptoms (abdominal pain, melena, hematochezia); no chest pain The patient is an 82 year old male who presents to the ED with complaints of an episode of abnormal labs starting today. Per nursing staff, the patient is coming from [facility] and is reported to have a hemoglobin of 5. They report that his pressure is in the 80s. They note that he had been admitted with a GI bleed and was transfused at the beginning of September. They note that he is alert to person and place at baseline. The patient denies chest pain, abdominal pain, melena, and hematochezia. HPI and ROS are limited secondary to dementia. Home Medications Home Medications Medication Instructions Recorded Confirmed Type acetaminophen [Tylenol Extra 1,000 mg PO TID 09/03/18 10/04/18 History Strength] donepezil 10 mg PO HS 09/04/18 10/04/18 History collagenase clostridium histo. 1 applic TOPICAL BID PRN 09/23/18 10/04/18 Hist ory [Santyl] amiodarone 200 mg PO BID 10/04/18 10/04/18 History ferrous sulfate 325 mg PO DAILY 10/04/18 10/04/18 History metoprolol tartrate 50 mg PO BID 10/04/18 10/04/18 History pantoprazole 40 mg PO BID 10/04/18 10/04/18 History Allergies Allergy/AdvReac Type Severity Reaction Status Date / Time No Known Allergies Allergy Unknown Verified 10/04/18 14:34 Past Med/Surg History Medical History Congestive heart failure (Acute) Severe thrombocytopenia (Acute) Severe anemia (Acute) Microhematuria (Acute) Iron deficiency anemia (Acute) Incontinence (Acute) Hearing loss (Acute) Dementia (Acute) Axillary neuropathy (Acute) Anemia (Acute) Chronic obstructive pulmonary disease (COPD) (Acute) Gastro-esophageal reflux disease without esophagitis (Acute) Muscle weakness (generalized) Paroxysmal atrial fibrillation Thrombocytopenia Unspecified abnormalities of gait and mobility Unspecified dementia without behavioral disturbance Family History Other Family history non-contributory Social History Preferred Language: Japanese Communication Ability: dementia Educational Advisor Required: No Beliefs That Will Affect Care: None Current Living Situation: [facility] Current Living Situation Comment: [facility] Feels Safe at Home: Yes Smoking Status: Never smoker Do You Dip or Chew Tobacco: No Hx Alcohol Use: No Hx Substance Use: No Review of Systems HPI and ROS are limited secondary to dementia. Physical Exam Vital Signs Vital Signs - 24 hr 10/04/18 13:51 10/04/18 13:57 10/04/18 13:59 Temperature 36.7 C Temperature Source Oral Sepsis Recent Fever Within 48 Hours No Sepsis New/Unexplained Change in Mental Status No Sepsis Action Taken by Nursing No Action Required Pulse Rate 66 65 64 Pulse Rate [Apical] Pulse Rate from SpO2 Sensor Pulse Rhythm Pulse Strength Respiratory Rate 25 H 27 H 16 Blood Pressure 86/55 L 86/55 L Blood Pressure [Right Arm] Blood Pressure Mean 65 65 Blood Pressure Mean [Right Arm] Blood Pressure Position Pulse Oximetry 95 Oxygen Delivery Method Room Air Room Air Room Air 10/04/18 14:00 10/04/18 14:10 10/04/18 14:20 Temperature Temperature Source Sepsis Recent Fever Within 48 Hours Sepsis New/Unexplained Change in Mental Status Sepsis Action Taken by Nursing Pulse Rate 65 69 68 Pulse Rate [Apical] Pulse Rate from SpO2 Sensor 66 Pulse Rhythm Pulse Strength Respiratory Rate 26 H 32 H 26 H Blood Pressure Blood Pressure [Right Arm] Blood Pressure Mean Blood Pressure Mean [Right Arm] Blood Pressure Position Pulse Oximetry 96 Oxygen Delivery Method Room Air Room Air Room Air 10/04/18 14:25 10/04/18 14:30 10/04/18 14:32 Temperature Temperature Source Sepsis Recent Fever Within 48 Hours Sepsis New/Unexplained Change in Mental Status Sepsis Action Taken by Nursing Pulse Rate 66 66 Pulse Rate [Apical] 63 Pulse Rate from SpO2 Sensor 66 66 Pulse Rhythm Pulse Strength Respiratory Rate 25 H 23 Blood Pressure 90/51 L Blood Pressure [Right Arm] 90/51 L Blood Pressure Mean 64 Blood Pressure Mean [Right Arm] 64 Blood Pressure Position Pulse Oximetry 95 97 97 Oxygen Delivery Method Room Air Room Air Room Air 10/04/18 14:40 10/04/18 14:50 10/04/18 14:53 Temperature Temperature Source Sepsis Recent Fever Within 48 Hours Sepsis New/Unexplained Change in Mental Status Sepsis Action Taken by Nursing Pulse Rate 61 62 60 Pulse Rate [Apical] Pulse Rate from SpO2 Sensor 61 60 Pulse Rhythm Pulse Strength Respiratory Rate 21 23 21 Blood Pressure 88/51 L Blood Pressure [Right Arm] Blood Pressure Mean 63 Blood Pressure Mean [Right Arm] Blood Pressure Position Pulse Oximetry 96 95 Oxygen Delivery Method Room Air Room Air Room Air 10/04/18 15:00 10/04/18 15:05 10/04/18 15:09 Temperature 36.7 C Temperature Source Oral Sepsis Recent Fever Within 48 Hours Sepsis New/Unexplained Change in Mental Status Sepsis Action Taken by Nursing Pulse Rate 62 61 62 Pulse Rate [Apical] Pulse Rate from SpO2 Sensor 61 61 62 Pulse Rhythm Pulse Strength Respiratory Rate 17 20 21 Blood Pressure 90/55 L 96/58 L Blood Pressure [Right Arm] Blood Pressure Mean 66 70 Blood Pressure Mean [Right Arm] Blood Pressure Position Pulse Oximetry 96 96 96 Oxygen Delivery Method Room Air Room Air Room Air 10/04/18 15:11 10/04/18 15:15 10/04/18 15:20 Temperature Temperature Source Sepsis Recent Fever Within 48 Hours Sepsis New/Unexplained Change in Mental Status Sepsis Action Taken by Nursing Pulse Rate 63 63 64 Pulse Rate [Apical] Pulse Rate from SpO2 Sensor 62 62 64 Pulse Rhythm Pulse Strength Respiratory Rate 24 28 H 23 Blood Pressure 90/51 L Blood Pressure [Right Arm] Blood Pressure Mean 64 Blood Pressure Mean [Right Arm] Blood Pressure Position Pulse Oximetry 98 99 97 Oxygen Delivery Method Room Air Room Air Room Air 10/04/18 15:27 10/04/18 15:30 10/04/18 15:36 Temperature 36.7 C 36.6 C Temperature Source Oral Oral Sepsis Recent Fever Within 48 Hours Sepsis New/Unexplained Change in Mental Status Sepsis Action Taken by Nursing Pulse Rate 62 63 63 Pulse Rate [Apical] Pulse Rate from SpO2 Sensor 63 Pulse Rhythm Regular Pulse Strength Normal Respiratory Rate 22 17 24 Blood Pressure 90/51 L 92/52 L 91/51 L Blood Pressure [Right Arm] Blood Pressure Mean 64 65 64 Blood Pressure Mean [Right Arm] Blood Pressure Position Semi-fowlers Pulse Oximetry 97 96 97 Oxygen Delivery Method Room Air 10/04/18 15:37 10/04/18 15:40 10/04/18 15:42 Temperature 36.5 C Temperature Source Oral Sepsis Recent Fever Within 48 Hours Sepsis New/Unexplained Change in Mental Status Sepsis Action Taken by Nursing Pulse Rate 62 62 66 Pulse Rate [Apical] Pulse Rate from SpO2 Sensor 63 62 Pulse Rhythm Pulse Strength Respiratory Rate 22 21 25 H Blood Pressure 91/51 L 86/53 L 86/53 L Blood Pressure [Right Arm] Blood Pressure Mean 64 64 64 Blood Pressure Mean [Right Arm] Blood Pressure Position Pulse Oximetry 96 96 95 Oxygen Delivery Method Room Air Room Air 10/04/18 15:46 10/04/18 15:50 10/04/18 15:52 Temperature Temperature Source Sepsis Recent Fever Within 48 Hours Sepsis New/Unexplained Change in Mental Status Sepsis Action Taken by Nursing Pulse Rate 64 64 66 Pulse Rate [Apical] Pulse Rate from SpO2 Sensor 64 63 Pulse Rhythm Pulse Strength Respiratory Rate 9 L 29 H 25 H Blood Pressure 80/43 L 81/43 L Blood Pressure [Right Arm] Blood Pressure Mean 55 55 Blood Pressure Mean [Right Arm] Blood Pressure Position Pulse Oximetry 95 92 Oxygen Delivery Method Room Air Room Air Room Air 10/04/18 15:54 10/04/18 15:55 10/04/18 16:00 Temperature 36.6 C Temperature Source Oral Sepsis Recent Fever Within 48 Hours Sepsis New/Unexplained Change in Mental Status Sepsis Action Taken by Nursing Pulse Rate 63 59 L 65 Pulse Rate [Apical] Pulse Rate from SpO2 Sensor 60 64 Pulse Rhythm Pulse Strength Respiratory Rate 24 17 21 Blood Pressure 81/43 L 87/55 L Blood Pressure [Right Arm] Blood Pressure Mean 55 65 Blood Pressure Mean [Right Arm] Blood Pressure Position Pulse Oximetry 92 91 96 Oxygen Delivery Method Room Air Room Air 10/04/18 16:03 10/04/18 16:04 10/04/18 16:07 Temperature 36.5 C Temperature Source Oral Sepsis Recent Fever Within 48 Hours Sepsis New/Unexplained Change in Mental Status Sepsis Action Taken by Nursing Pulse Rate 60 61 62 Pulse Rate [Apical] Pulse Rate from SpO2 Sensor Pulse Rhythm Regular Pulse Strength Respiratory Rate 23 26 H 33 H Blood Pressure 93/52 L 110/60 110/60 Blood Pressure [Right Arm] Blood Pressure Mean 65 76 76 Blood Pressure Mean [Right Arm] Blood Pressure Position Pulse Oximetry 94 Oxygen Delivery Method Room Air Room Air 10/04/18 16:09 10/04/18 16:10 10/04/18 16:11 Temperature 36.5 C Temperature Source Oral Sepsis Recent Fever Within 48 Hours Sepsis New/Unexplained Change in Mental Status Sepsis Action Taken by Nursing Pulse Rate 61 60 62 Pulse Rate [Apical] Pulse Rate from SpO2 Sensor 62 Pulse Rhythm Regular Pulse Strength Normal Respiratory Rate 26 H 27 H 23 Blood Pressure 110/60 104/56 L Blood Pressure [Right Arm] Blood Pressure Mean 76 72 Blood Pressure Mean [Right Arm] Blood Pressure Position Semi-fowlers Pulse Oximetry 94 94 Oxygen Delivery Method Room Air Room Air 10/04/18 16:16 10/04/18 16:17 10/04/18 16:19 Temperature 36.5 C Temperature Source Oral Oral Sepsis Recent Fever Within 48 Hours Sepsis New/Unexplained Change in Mental Status Sepsis Action Taken by Nursing Pulse Rate 60 60 Pulse Rate [Apical] Pulse Rate from SpO2 Sensor 61 Pulse Rhythm Pulse Strength Respiratory Rate 26 H 23 Blood Pressure 108/61 108/61 Blood Pressure [Right Arm] Blood Pressure Mean 76 76 Blood Pressure Mean [Right Arm] Blood Pressure Position Pulse Oximetry 90 95 Oxygen Delivery Method Room Air 10/04/18 16:20 Temperature Temperature Source Sepsis Recent Fever Within 48 Hours Sepsis New/Unexplained Change in Mental Status Sepsis Action Taken by Nursing Pulse Rate 61 Pulse Rate [Apical] Pulse Rate from SpO2 Sensor 61 Pulse Rhythm Pulse Strength Respiratory Rate 21 Blood Pressure 101/56 L Blood Pressure [Right Arm] Blood Pressure Mean 71 Blood Pressure Mean [Right Arm] Blood Pressure Position Pulse Oximetry 96 Oxygen Delivery Method Room Air GENERAL: sitting up in bed, ill appearing, disheveled EYE EXAM: normal conjunctiva OROPHARYNX: no exudate, dry mucous membranes, blood on the roof of the mouth NECK: supple, no nuchal rigidity, no adenopathy, non-tender LUNGS: Clear to auscultation. Normal chest wall mechanics HEART: systolic ejection murmur, S1 normal and S2 normal ABDOMEN: abdomen soft, non-tender, normo-active bowel sounds, no masses, no rebound or guarding. RECTAL: Dark, tarry stool faint hem +. BACK: Back is symmetrical on inspection and there is no deformity, no midline tenderness, no CVA tenderness. SKIN: no rashes and no bruising UPPER EXTREMITIES: upper extremities are grossly normal with the exception of left upper extremity contracture. LOWER EXTREMITIES: No pitting edema. NEURO EXAM: Awake, alert, oriented to person and place, but not year. Contracture of left upper extremity. Course ED COURSE: Vital signs were reviewed and showed that he is hypotensive and bradycardic. The patients medical record was reviewed The above diagnostic studies were performed and reviewed. ED treatments and interventions as stated above. 1411: The patient was evaluated in room A9B. A complete history and physical examination was performed. 1421: I reevaluated the patient and he has 2 IVs now. I touched base with the custodial. They report he has a limb restriction on the left secondary to a contracture. 1446: I performed a rectal exam at this time. 1450: I spoke with Fabian Ritter, the boyfriend of the POA. He is the only one we can get in contact with at this time. He gave consent for the blood transfusion. 1452: I reevaluated the patient and they are going to start the blood. 1551: Upon reevaluation, the patient's blood pressure is dropping again. I discussed my findings with the patient and he understands and agrees with the treatment plan. Based on the patients age, coexisting illnesses, exam and lab findings the decision to treat as an inpatient was made. The patient remained stable while under my care. The patient will be evaluated for further management. 1555: I discussed the patient's case with Dr. Allyn CORONADO Hospitalist. She will evaluate the patient for further management. 1558: I spoke to the patient's POA, Delma. She states that the patient is a DNR and DNI. She reports that he wouldn't want a central line. Consultations Consultation #1: I discussed the patient's case with Dr. Allyn CORONADO [facility]. She will evaluate the patient for further management. Time: 15:55 Administered Medications Sodium Chloride (Nss 1000ml) 1,000 mls @ 100 mls/hr IV .Q10H LORENA Stop: 10/05/18 00:14 Last Infusion: 10/04/18 17:23 Dose: 0 mls/hr Documented by: [id number] Admin: 10/04/18 14:32 Dose: 100 mls/hr Documented by: [id number] Pantoprazole Sodium 40 mg/ (Dextrose) 100 mls @ 20 mls/hr IV Q5H LORENA Stop: 11/03/18 14:59 Last Admin: 10/04/18 15:40 Dose: 20 mls/hr Documented by: [id number] Discontinued Medications Pantoprazole Sodium 80 mg/ (Dextrose) 120 mls @ 480 mls/hr IV NOW STA Stop: 10/04/18 15:02 Last Infusion: 10/04/18 15:40 Dose: 0 mls/hr Documented by: [id number] Admin: 10/04/18 15:13 Dose: 480 mls/hr Documented by: [id number] Magnesium Sulfate/Dextrose (Magnesium Sulfate / D5w) 1 gm in 100 mls @ 100 mls/hr IV ONE ONE Stop: 10/04/18 15:54 Last Infusion: 10/04/18 17:23 Dose: 0 mls/hr Documented by: [id number] Admin: 10/04/18 16:21 Dose: 100 mls/hr Documented by: [id number] Furosemide 40 mg/ Syringe 4 mls @ 4 mls/min IV ONE ONE Stop: 10/04/18 18:24 Last Admin: 10/04/18 18:59 Dose: 4 mls/min Documented by: [id number] Potassium Chloride (Klor-Con M20) 40 meq PO NOW STA Stop: 10/04/18 14:56 Last Admin: 10/04/18 17:09 Dose: Not Given Documented by: [id number] Medical Decision Making Differential Diagnosis Differential diagnosis includes etiologies such as diverticulosis, AVM, coagulopathy, colitis, inflammatory bowel disease, malignancy, Mel-Linda tear, esophagitis, peptic ulcer disease, variceal bleed, gastritis, epistaxis, fissure, hemorrhoids, as well as others were entertained. Medical Records Attestation: I reviewed the patient's medical records. Home Medications Current Medication List: was personally reviewed by me Laboratory Data Attestation: I reviewed the patient's lab results. Result diagrams: 10/04/18 14:10 10/04/18 14:10 Lab Results 10/04/18 10/04/18 10/04/18 Range/Units 14:10 14:10 14:10 WBC 10.64 (4.8-10.8) K/uL RBC 1.66 L (4.7-6.1) M/uL Hgb 4.5 L* (14.0-18.0) g/dL Hct 14.0 L* (42-52) % MCV 84.3 (80-100) fL MCH 27.1 (25-34) pg MCHC 32.1 (32-36) g/dL RDW Std Deviation 55.2 H (36.4-46.3) fL RDW Coeff of Eunice 18.1 H (11.5-14.5) % Plt Count 9 L* (130-400) K/uL Absolute Nucleated RBC 0.22 H (0-0) K/uL Nucleated RBC % (auto) 2.1 % Neutrophils % (Manual) 68.7 % Lymphocytes % (Manual) 16.5 % Monocytes % (Manual) 4.3 % Basophils % (Manual) 0.9 % Metamyelocytes % (Man) 5.2 % Myelocytes % (Man) 2.6 % Promyelocytes % (Man) 0.9 % Blast Cells % (Manual) 0.9 % Neutrophils # (Manual) 7.31 H (1.4-6.5) K/uL Total Absolute Neuts 7.31 H (1.4-6.5) K/uL Lymphocytes # (Manual) 1.76 (1.2-3.4) K/uL Total Abs Lymphocytes 1.76 (1.2-3.4) K/uL Monocytes # (Manual) 0.46 (0.11-0.59) K/uL Basophils # (Manual) 0.10 (0-0.2) K/uL Metamyelocytes # (Man) 0.55 H (0-0) K/uL Myelocytes # (Manual) 0.28 H (0-0) K/uL Promyelocytes # (Man) 0.10 H (0-0) K/uL Blast Cells # (Man) 0.10 H (0-0) K/uL Hypogranular Neuts 1+ Blood Smear Review Platelet Estimate SIGNIFIC DECREASED (Normal) Tear Drop Cells 1+ PT 10.6 (9.0-12.0) Seconds INR 1.0 (0.9-1.1) APTT 23.7 (21.0-31.0) Seconds PTT Ratio 0.9 Sodium 142 (136-145) mmol/L Potassium 2.7 L (3.5-5.1) mmol/L Chloride 105 (98-107) mmol/L Carbon Dioxide 30 (21-32) mmol/L Anion Gap 7.0 (3-11) BUN 29 H (7-18) mg/dl Creatinine 1.00 (0.6-1.4) mg/dl Est Cr Clr Drug Dosing 57.9 ml/min Est GFR ( Amer) 80.9 Est GFR (Non-Af Amer) 69.8 BUN/Creatinine Ratio 28.7 H (10-20) Glucose 114 H (70-99) mg/dl Calcium 7.8 L (8.5-10.1) mg/dl Total Bilirubin 0.5 (0.2-1) mg/dl AST 9 L (15-37) U/L ALT 10 L (12-78) U/L Alkaline Phosphatase 83 (45-117) U/L Troponin I 0.024 (0-0.045) ng/ml Total Protein 6.2 L (6.4-8.2) gm/dl Albumin 2.6 L (3.4-5.0) gm/dl Globulin 3.6 (2.5-4.0) gm/dl Albumin/Globulin Ratio 0.7 L (0.9-2) Blood Type Antibody Screen Crossmatch 10/04/18 Range/Units 14:10 WBC (4.8-10.8) K/uL RBC (4.7-6.1) M/uL Hgb (14.0-18.0) g/dL Hct (42-52) % MCV (80-100) fL MCH (25-34) pg MCHC (32-36) g/dL RDW Std Deviation (36.4-46.3) fL RDW Coeff of Eunice (11.5-14.5) % Plt Count (130-400) K/uL Absolute Nucleated RBC (0-0) K/uL Nucleated RBC % (auto) % Neutrophils % (Manual) % Lymphocytes % (Manual) % Monocytes % (Manual) % Basophils % (Manual) % Metamyelocytes % (Man) % Myelocytes % (Man) % Promyelocytes % (Man) % Blast Cells % (Manual) % Neutrophils # (Manual) (1.4-6.5) K/uL Total Absolute Neuts (1.4-6.5) K/uL Lymphocytes # (Manual) (1.2-3.4) K/uL Total Abs Lymphocytes (1.2-3.4) K/uL Monocytes # (Manual) (0.11-0.59) K/uL Basophils # (Manual) (0-0.2) K/uL Metamyelocytes # (Man) (0-0) K/uL Myelocytes # (Manual) (0-0) K/uL Promyelocytes # (Man) (0-0) K/uL Blast Cells # (Man) (0-0) K/uL Hypogranular Neuts Blood Smear Review Platelet Estimate (Normal) Tear Drop Cells PT (9.0-12.0) Seconds INR (0.9-1.1) APTT (21.0-31.0) Seconds PTT Ratio Sodium (136-145) mmol/L Potassium (3.5-5.1) mmol/L Chloride (98-107) mmol/L Carbon Dioxide (21-32) mmol/L Anion Gap (3-11) BUN (7-18) mg/dl Creatinine (0.6-1.4) mg/dl Est Cr Clr Drug Dosing ml/min Est GFR ( Amer) Est GFR (Non-Af Amer) BUN/Creatinine Ratio (10-20) Glucose (70-99) mg/dl Calcium (8.5-10.1) mg/dl Total Bilirubin (0.2-1) mg/dl AST (15-37) U/L ALT (12-78) U/L Alkaline Phosphatase (45-117) U/L Troponin I (0-0.045) ng/ml Total Protein (6.4-8.2) gm/dl Albumin (3.4-5.0) gm/dl Globulin (2.5-4.0) gm/dl Albumin/Globulin Ratio (0.9-2) Blood Type A Positive Antibody Screen NEGATIVE Crossmatch See Detail Imaging Data Radiologist's Impression: Radiology results as stated below per my review and the radiologist's interpretation: XR chest 1V portable CLINICAL HISTORY: Weakness COMPARISON STUDY: 09/04/2018 FINDINGS: Study is rotated. The heart is borderline enlarged. There are old rib deformities..[There are persistent left basilar airspace opacities with ill- definition left hemidiaphragm. There is mild mediastinal prominence, likely secondary to the patient's known thoracic aortic aneurysm. IMPRESSION: Persistent left basilar airspace opacities. Possible associated left pleural fluid. Electronically signed by: Bridger Jerry M.D. 10/04/2018 2:27 PM ECG Data Attestation: I personally reviewed and interpreted this ECG as follows: Indication: other (hypotension) Rate (beats per minute): 66 Rhythm: sinus with SA Findings: + other (normal axis) and + nonspecific-ST abn (lateral leads) Blood Pressure Blood Pressure Findings: Low blood pressure Blood Pressure Disposition: further management by hospitalist DAYNA Narrative Patient is an 82-year-old male with past medical history of dementia presents the ER for low hemoglobin. Upon arrival he is found to be hypotensive with systolic pressures in the 80s and they were intermittently dropping into the 70s. IV was established blood work was obtained. Reviewed chart which showed a history of a GI bleed and myelodysplastic disorder. Rectal showed dark tarry stools but was faintly heme positive. On exam patient did have a small amount of blood dried in the oropharynx. No blood thinners. No abdominal pain. She was typed and crossed for 4 units. He was given 3 units of PRBCs in the ER. Fourth unit was to be held. He was given platelets as well. Hemoglobin initially was 4.5. Platelets were 9. INR was unremarkable. BMP with mild hypokalemia. Creatinine was unremarkable. No significant transaminitis. Patient was monitored closely in the ER. Obtain blood consent over the phone and discussion with the daughter and son-in-law. Daughter is power of title attorney. She notes no significant invasive procedures and that his wishes would be to be a DNR/DNI. Offered central line but she declined. Patient has 2 20-gauge IVs 1 of which is on the left side and is contracted left upper extremity but as they do not want a central line. This was the best approach. Systolic pressures improved to the low 100s/high 90s after platelets and 3 units of PRBCs. Patient was admitted to the hospital for further work-up. Impression & Plan Symptomatic anemia, Hypotension, Hypokalemia Critical Care Time Critical Care Time: Yes Total Critical Care Time: 75 I have personally spent 75 minutes of critical care time in the direct management of this patient. This includes bedside care, interpretation of diagnostic studies, and testing, discussion with consultants, patient, and family members, and other required patient management activities. This 75 minutes is in excess of all separately billable procedures. Discharge Plan Visit Data *Final* Discharge Date/Time: 10/04/18 17:20 Chief Complaint: Abnormal Labs/Diagnostic Testing ED Provider: Herve Flowers Discharge Problem: Symptomatic anemia, Hypotension, Hypokalemia Patient Disposition: Admitted As Inpatient Discharge Instructions Interventions: ED Discharge Assessment Last Done: 10/04/18 17:20 Discharge Problem: Hypotension Qualifiers: Hypotension type: unspecified hypotension type Qualified Code(s): I95.9 - Hypotension, unspecified The scribe's documentation has been prepared under my direction and personally reviewed by me in its entirety. I confirm that the note above accurately reflects all work, treatment, procedures, and medical decision making performed by me.
[2018-10-04] MEDS: POTASSIUM CHLORIDE / WTR 10 MEQ/100 ML PLCT IV SCH ×2 (20:33→21:40)
[2018-10-04] MEDS ORDERED: ACETAMINOPHEN 500 MG TAB PO SCH (21:00)
[2018-10-04] MEDS: AMIODARONE 200 MG TAB PO SCH (21:01)
[2018-10-04] MEDS: DONEPEZIL HCL 10 MG TAB PO SCH (21:01)
[2018-10-04] MEDS: METOPROLOL TARTRATE 50 MG TAB PO SCH (21:01)
[2018-10-04 21:21] LABS: Hemoglobin 8.7 g/dL (14.0-18.0); Mean Corpuscular Hgb Conc 33.5 g/dL (32-36); Mean Corpuscular Volume 84.1 fL (80-100); Mean Platelet Volume 10.1 fL (7.4-10.4); Nucleated RBC # (auto) 0.33 K/uL (0-0); Nucleated RBC % (auto) 2.8 %; Platelet Count 29 K/uL (130-400); RDW Coefficient of Variation 15.5 % (11.5-14.5); Red Blood Count 3.09 M/uL (4.7-6.1); White Blood Count 11.79 K/uL (4.8-10.8)
[2018-10-04 21:23] LABS: Platelet Estimate SIGNIFIC DECREASED (Normal)
[2018-10-05] MEDS: PANTOprazole 40 MG in DEXTROSE 5% 100 ML IV SCH ×3 (01:53→11:26)
[2018-10-05 02:52] LABS: Mean Corpuscular Hgb Conc 32.3 g/dL (32-36); Nucleated RBC # (auto) 0.25 K/uL (0-0); Nucleated RBC % (auto) 2.4 %
[2018-10-05 03:05] LABS: Hematocrit (blood only) 26.3 % (42-52); Hemoglobin 8.5 g/dL (14.0-18.0); Mean Corpuscular Volume 83.5 fL (80-100); RDW Coefficient of Variation 15.5 % (11.5-14.5); RDW Standard Deviation 47.1 fL (36.4-46.3); Red Blood Count 3.15 M/uL (4.7-6.1); White Blood Count 10.42 K/uL (4.8-10.8)
[2018-10-05 03:15] LABS: Albumin Level 2.6 gm/dl (3.4-5.0); Calcium 7.5 mg/dl (8.5-10.1); Creatinine Clr Calc Pharmacy 86.2 ml/min; Est GFR (African American) 103.6; Est GFR (Non-African American) 89.4; Potassium 2.8 mmol/L (3.5-5.1)
[2018-10-05 03:19] LABS: Platelet Count 28 K/uL (130-400)
[2018-10-05 03:20] LABS: Albumin Globulin Ratio 0.7 (0.9-2); Bilirubin,Total 0.9 mg/dl (0.2-1); Globulin 3.5 gm/dl (2.5-4.0); Phosphorus 2.7 mg/dl (2.5-4.9); Platelet Estimate SIGNIFIC DECREASED (Normal); Total Protein 6.1 gm/dl (6.4-8.2); Troponin I 0.022 ng/ml (0-0.045)
[2018-10-05] MEDS: AMIODARONE 200 MG TAB PO SCH ×2 (08:28→20:44)
[2018-10-05] MEDS: FERROUS SULFATE 325 MG TAB PO SCH (08:29)
[2018-10-05] MEDS: METOPROLOL TARTRATE 50 MG TAB PO SCH ×2 (09:00→20:44)
[2018-10-05] MEDS ORDERED: POTASSIUM CHLORIDE 10 MEQ TABCR PO STA (09:09)
[2018-10-05] MEDS: POTASSIUM CHLORIDE / WTR 10 MEQ/100 ML PLCT IV SCH ×2 (09:36→10:42)
--- NOTE | 2018-10-05 13:22 | Palliative Care Consultation ---
Date of Consultation October 05, 2018 Assessment & Plan (1) Goals of care, counseling/discussion: -82 year old male with PMH advanced dementia, prior pulmonary emboli treated with anticoagulation in the past, a sending aortic aneurysm, LEFT brachial plexus neuropathy, tubular adenoma of the colon, and prior history of GI bleeding who initially presented to the ED from [facility] with severe anemia. His hgb was 4.5 on admission, received several units of PRBCs, hgb is >8 today. He has no obvious signs of bleeding. There is question of myelodysplastic syndrome. Patient was admitted with similar issues at the beginning of September with weakness and SOB 2/2 severe anemia, and declined any invasive workup. Palliative care was consulted at that time to discuss goals of care with patient and his daughter/POA, Dunia. Decision was made that he would not undergo invasive workup but he would go to [facility] for some rehab rather than going back home where he lives with a 24-hour caregiver, sandra. At that time, we did discuss the possibility of hospice in the future which Dunia was open to. This admission, palliative care is reconsulted as patient has been transfusion dependent since leaving the hospital and his overall condition continues to decline. -Met with patient this morning in room 244. He is awake and oriented to person, place and somewhat event. He does recall that he is in the hospital and "hooked up to a machine (the IV pole)," but couldn't given details about his health conditions. We talked about how he is transfusion dependent which requires him to keep coming to the hospital. Patient stated that he doesn't want to "give up," but also does not want to keep going through hospitalizations if he is not getting better. he did give me permission to call his daughter/POA, Dunia, to discuss goals and planning. -Spoke at length with patient's daughter Dunia on the phone. She is currently ill and unable to come to the hospital. Dunia is familiar with hospice as she had it for her mother. Dunia states that her goal is for the patient to return to [facility] on hospice care and avoid further hospitalizations. -Today is the patient's birthday, so Dunia plans to video-call her father this evening and talk to him about hospice/goals of care. I will then follow up with patient and daughter tomorrow to confirm plan and complete a POLST form. -For now, continue current conservative measures and avoid invasive testing/procedures. -Patient and Dunia confirmed patient's DNR/DNI status. This should continue when patient leaves the hospital. Again, I will complete and POLST form with them. (2) Severe anemia: (3) Severe thrombocytopenia: (4) Dementia: Supervising Physician Co-Signing Physician Notes Chart reviewed, pt seen and examined - friend at bedside. Pt awake and alert, was able to give his age after much thought, oriented to person and place. HEENT: EOMI, slight dysconjugate gaze Resp: unlabored, clear BS anteriorly CV: RR, no edema Abd: soft, NT Neuro: A&O X 2 Psych appropriate Agree with above note, assessment and plan as per PEYTON Joshi - will cont to follow and assist daughter with medical decision making History of Present Illness Reason for Consultation: Goals of care Requesting Physician: Mohan Manning PA-C Attending Physician: Jean Claude Ndiaye History of Present Illness This 82 year old male with PMH advanced dementia, prior pulmonary emboli treated with anticoagulation in the past, a sending aortic aneurysm, LEFT brachial plexus neuropathy, tubular adenoma of the colon, and prior history of GI bleeding who initially presented to the ED from [facility] with severe anemia. His hgb was 4.5 on admission, received several units of PRBCs, hgb is >8 today. He has no obvious signs of bleeding. There is question of myelodysplastic syndrome. Patient was admitted with similar issues at the beginning of September with weakness and SOB 2/2 severe anemia, and declined any invasive workup. Palliative care was consulted at that time to discuss goals of care with patient and his daughter/POA, Dunia. Decision was made that he would not undergo invasive workup but he would go to [facility] for some rehab rather than going back home where he lives with a 24-hour caregiver, sandra. At that time, we did discuss the possibility of hospice in the future which Dunia was open to. This admission, palliative care is reconsulted as patient has been transfusion dependent since leaving the hospital and his overall condition continues to decline. Thank you kindly for this consult. I will follow as needed. Allergies Allergy/AdvReac Type Severity Reaction Status Date / Time No Known Allergies Allergy Unknown Verified 10/04/18 14:34 Home Medications Home Medications Medication Instructions Recorded Confirmed Type acetaminophen [Tylenol Extra 1,000 mg PO TID 09/03/18 10/04/18 History Strength] donepezil 10 mg PO HS 09/04/18 10/04/18 History collagenase clostridium histo. 1 applic TOPICAL BID PRN 09/23/18 10/04/18 History [Santyl] amiodarone 200 mg PO BID 10/04/18 10/04/18 History ferrous sulfate 325 mg PO DAILY 10/04/18 10/04/18 History metoprolol tartrate 50 mg PO BID 10/04/18 10/04/18 History pantoprazole 40 mg PO BID 10/04/18 10/04/18 History Patient History Medical History Congestive heart failure (Acute) Severe thrombocytopenia (Acute) Severe anemia (Acute) Microhematuria (Acute) Iron deficiency anemia (Acute) Incontinence (Acute) Hearing loss (Acute) Dementia (Acute) Axillary neuropathy (Acute) Anemia (Acute) Chronic obstructive pulmonary disease (COPD) (Acute) Gastro-esophageal reflux disease without esophagitis (Acute) Muscle weakness (generalized) Paroxysmal atrial fibrillation Thrombocytopenia Unspecified abnormalities of gait and mobility Unspecified dementia without behavioral disturbance Family History Other Family history non-contributory Social History Preferred Language: Micronesian Communication Ability: dementia Hand Coke Drawer Required: No Beliefs That Will Affect Care: None Current Living Situation: Longterm Current Living Situation Comment: [facility] Feels Safe at Home: Yes Smoking Status: Never smoker Do You Dip or Chew Tobacco: No Hx Alcohol Use: No Hx Substance Use: No Review of Systems Review of Systems: + weakness no dysphagia no cough and no dyspnea no chest pain no nausea and no vomiting Physical Exam Constitutional: + ill appearing (chronically); no acute distress Eyes: strabismus ENMT: Mouth: + poor dentition Neck: normal visual inspection Respiratory: normal respiratory effort, lungs clear to auscultation Cardiovascular: Rate/Rhythm: regular rate and regular rhythm Extremities: no edema Gastrointestinal (Abdomen): Inspection/Auscultation: abdomen not distended Percussion/Palpation: abdomen soft; abdomen nontender Neurologic: awake; + does not move all extremities (left brachial plexus injury/neuropathy- arm flaccid) Psychiatric: Orientation: oriented to person and oriented to place (somewhat oriented to event); + not oriented to time Results & Data Vital Signs (Past 12 Hours) Vital Signs Temp Pulse Pulse Resp BP Pulse Ox 10/05/18 12:09 36.5 C 76 20 125/76 95 10/05/18 08:00 68 10/05/18 07:18 36.5 C 64 18 117/72 96 10/05/18 03:25 36.9 C 60 16 99/59 L 93 PG Care Time/CCT Total # of Minutes Spent Total Time Spent with Patient: Total time spent is greater than 50% in coordination of care (as documented) at patient's floor/unit and/or counseling patient: Time Spent Midlevel 80 minutes with >50% of the time spent at bedside with patient and family discussing condition and GOC.
--- NOTE | 2018-10-05 13:54 | Consultation Report ---
DATE OF CONSULTATION: 10/05/2018 HEMATOLOGY CONSULTATION REASON FOR CONSULTATION: Severe anemia and thrombocytopenia. HISTORY OF PRESENT ILLNESS: Rafa is a pleasant 83-year-old gentleman with multiple comorbid issues admitted to [facility] yesterday with severe anemia and thrombocytopenia. Odin was previously hospitalized for a multitude of issues including his ongoing hematologic problems. I had seen him in consultation in early September along with Dr. Cleaning. The patient was seen by the gastroenterology service for suspected active gastrointestinal bleeding, which may help to explain his precipitous drop in hemoglobin; however, his platelets have been refractory to transfusion as well. In my opinion, I believe Odin most likely suffers from underlying myelodysplasia and because of his comorbid issues, decided not to proceed with formal workup including bone marrow biopsy and aspiration which would be necessary to confirm MDS. I subsequently recommended transfusional support moving forward. Odin was discharged to [facility] and unfortunately his hemoglobin and platelet count dropped precipitously, thus the rationale to have him return to [facility]. Because of progressive dementia, Rafa himself is somewhat unreliable regarding his clinical status. He was awake and alert at bedside this morning and was answering questions relatively appropriately, but clearly is disoriented. Engaged in discussion with family members during his last admission, again explaining my rationale for not wanting to move forward formally with aggressive diagnostics. He has received single donor platelet pheresis and approximately 3 units of packed RBCs since admission. Primary service is requesting formal recommendations for monitoring peripheral blood counts and establishing a transfusion regimen. PAST MEDICAL HISTORY: Again, significant for CHF, severe thrombocytopenia, severe anemia, microhematuria, iron deficiency anemia, incontinence, hearing loss, dementia, COPD, thoracic abdominal aortic aneurysm, paroxysmal atrial fibrillation. CURRENT MEDICATIONS: Prior to admission include Tylenol 1000 mg p.o. t.i.d. p.r.n., donepezil 10 mg p.o. at bedtime, amiodarone 200 mg p.o. b.i.d., ferrous sulfate 325 mg p.o. daily, metoprolol 50 mg p.o. b.i.d., Protonix 40 mg p.o. b.i.d. ALLERGIES: No known drug allergies. SOCIAL HISTORY: Rafa is retired. He is currently at [facility], negative for alcohol or tobacco. FAMILY HISTORY: Noncontributory. REVIEW OF SYSTEMS: Unreliable because of Rafa's mental status. PHYSICAL EXAMINATION: GENERAL: An 83-year-old elderly gentleman, awake and alert, in no acute distress. VITAL SIGNS: Temperature 36.5, pulse 64, respiratory rate 18, blood pressure 117/72. SKIN: Without rash or lesion. No evidence of petechiae or ecchymosis otherwise. HEENT: Atraumatic, normocephalic. Eyes: PERRLA. EOMI. No scleral icterus noted. Nares are patent without rhinorrhea or discharge. Throat is clear. Dentation in poor repair. No buccal lesions or ulcerations. NECK: Supple. Trachea midline. HEART: Regular rate and rhythm. LUNGS: Clear to auscultation bilaterally. ABDOMEN: Soft, nontender, nondistended. EXTREMITIES: No clubbing, cyanosis, or edema. Strength testing not done. NEUROLOGICALLY: He is awake, alert. Clearly disoriented. LABORATORY DATA: WBC count 10,420, hemoglobin 8.5, platelet count 28,000. Metamyelocytes, myelocytes, promyelocytes, and blasts cells are all present. Coags are within normal limits. Sodium 143, potassium 2.8, chloride 108, carbon dioxide 29, BUN 21, creatinine 0.66, albumin 2.6. IMPRESSION: 1. Refractory anemia, 2. Refractory thrombocytopenia. 3. Dementia. 4. Hypoalbuminemia. 5. Hypokalemia. 6. Chronic obstructive pulmonary disease by history. 7. Thoracic aortic aneurysm. PLAN: In summary, Rafa is a very pleasant 83-year-old gentleman with progressing myelodysplasia. 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 As stated in my note authored on 09/08/2018, I was not in favor of pursuing a bone marrow biopsy and aspiration in this gentleman's case because of his ongoing comorbid issues. Equally gastroenterology appropriately has been reluctant to pursue diagnostics for similar reasons. Rafa was subsequently discharged to [facility] and unfortunately developed refractory anemia and thrombocytopenia necessitating readmission to [facility]. My recommendation has not changed and moving forward, I think it would be reasonable to establish weekly monitoring of his peripheral counts and establishing guidelines for transfusional support. Rafa is not terribly active and feels he should not receive packed RBCs unless his hemoglobin falls below 7.5 grams per deciliter. To avoid spontaneous bleeding, platelet count should be maintained above 15,000. Transfusion of a single donor platelet pheresis for severe thrombocytopenia (less than 15,000) along with 2 units of packed RBCs should transfusional threshold be met. At this juncture, palliative consult and perhaps hospice is a reasonable moving forward. I suspect his survival is measured in weeks to maybe a month or two at this point. I would be more than happy to engage the patient's power of state attorney again to further discuss Rafa's circumstance. If you have any further questions regarding today's consultation, feel free to contact me at any time.
[2018-10-05] MEDS: ACETAMINOPHEN 325 MG TAB PO PRN (14:37)
[2018-10-05 14:58] LABS: Mean Corpuscular Hgb Conc 32.8 g/dL (32-36); Nucleated RBC # (auto) 0.22 K/uL (0-0); Nucleated RBC % (auto) 1.7 %
[2018-10-05 15:54] LABS: Hematocrit (blood only) 26.8 % (42-52); Hemoglobin 8.8 g/dL (14.0-18.0); Mean Corpuscular Volume 83.2 fL (80-100); RDW Coefficient of Variation 15.9 % (11.5-14.5); RDW Standard Deviation 48.2 fL (36.4-46.3); Red Blood Count 3.22 M/uL (4.7-6.1); White Blood Count 12.82 K/uL (4.8-10.8)
[2018-10-05 16:07] LABS: Platelet Count 30 K/uL (130-400)
[2018-10-05 16:10] LABS: Platelet Estimate SIGNIFIC DECREASED (Normal)
[2018-10-05] MEDS: PANTOprazole 40 MG TAB PO SCH ×2 (19:09→20:54)
[2018-10-05] MEDS: DONEPEZIL HCL 10 MG TAB PO SCH (20:44)
--- NOTE | 2018-10-05 21:06 | Hospitalist Progress Note ---
Date of Service October 05, 2018 Assessment & Plan (1) Severe anemia: s/p 3 units PRBCs yesterday along with 1 unit of platelets. There is high concern that the patient has MDS. Seen by heme/onc Dr Nash this admission; also seen by heme/onc last admission. No plans for bone marrow biopsy, etc. Supportive care w/ transfusions, if desired by family. Very poor prognosis in light of severe dementia. Present on Admission?: Yes (2) Severe thrombocytopenia: Likely 2nd to MDS. s/p 1 unit of platelets yesterday. Will transfuse periodically to maintain level >20,000. No evidence of any spontaneous bleeding. (3) Iron deficiency anemia: s/p IV Venofer 100mg IV on 09/07/2018 Last ferritin was high in the 600s No Fe at this time (4) Dementia: Severe; on aricept No superimposed delirium or behavioral issues at this time (5) Thoracic aortic aneurysm without rupture: Noted, stable (6) Hematoma of left hip: As discovered during previous admission. 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 - with resulting limb dysfunction no Rx (11) DVT prophylaxis: SCDs only; chemical means contraindicated due to severe thrombocytopenia (12) Hypokalemia: s/p IV/PO supplementation and now normal presume it is 2nd to very poor oral intake, lasix, etc BMP am (13) Atrial fibrillation with RVR: NSR this admission had PAF prior admission (14) Acute kidney failure: Cr was 1, now 0.5 likely volume depletion resolved (15) Poor prognosis: appreciate palliative care consult probable dispo- back to [facility] w/ hospice spoke with daughter by phone this evening - gave update; she confirmed details of discussion w/ Felicia from palliative care she was quite ill and thus the discussion was brief d/c tele move to med/surg Subjective patient resting in bed during my visit he could not provide any meaningful history or ROS he awakens to name being called and denied any obvious source of pain tele stable overnight tolerated PRBCs staff report very poor appetite had large bowel movement today per staff Review of Systems Review of Systems: Unobtainable due to cognitive status Physical Exam Constitutional: + ill appearing and + altered mental status; no acute distress ENMT: Mouth: + dry oral mucous membranes Respiratory: normal respiratory effort, lungs clear to auscultation Cardiovascular: Rate/Rhythm: regular rate and regular rhythm Heart Sounds: normal S1 and normal S2; no murmur Vessels: posterior tibial pulses present and dorsalis pedis pulses present; no JVD Extremities: no edema Gastrointestinal (Abdomen): normal bowel sounds, soft, nontender, no hepatosplenomegaly Musculoskeletal: Knee: + effusion (minimal - left; but no tenderness) Skin: + pallor Psychiatric: Orientation: alert and oriented to person; + not oriented to place and + not oriented to time Results & Data Vital Signs (Past 12 Hours) Vital Signs Temp Pulse Pulse Resp BP Pulse Ox 10/05/18 20:44 75 123/73 10/05/18 16:00 36.5 C 70 16 111/73 97 10/05/18 12:09 36.5 C 76 20 125/76 95 Laboratory Results Laboratory Results - last 24 hr 10/04/18 10/04/18 10/04/18 14:10 20:32 20:32 WBC 11.79 H RBC 3.09 L Hgb 8.7 L D Hct 26.0 L MCV 84.1 MCH 28.2 MCHC 33.5 RDW Std Deviation 47.0 H RDW Coeff of Eunice 15.5 H Plt Count 29 L* D MPV 10.1 Absolute Nucleated RBC 0.33 H Nucleated RBC % (auto) 2.8 Platelet Estimate SIGNIFIC DECREASED Sodium Potassium Chloride Carbon Dioxide Anion Gap BUN Creatinine Est Cr Clr Drug Dosing Est GFR ( Amer) Est GFR (Non-Af Amer) BUN/Creatinine Ratio Glucose Calcium Phosphorus Magnesium Total Bilirubin AST ALT Alkaline Phosphatase Troponin I 0.018 Total Protein Albumin Globulin Albumin/Globulin Ratio Crossmatch See Detail 10/05/18 10/05/18 10/05/18 02:28 02:28 14:36 WBC 10.42 12.82 H RBC 3.15 L 3.22 L Hgb 8.5 L 8.8 L Hct 26.3 L 26.8 L MCV 83.5 83.2 MCH 27.0 27.3 MCHC 32.3 32.8 RDW Std Deviation 47.1 H 48.2 H RDW Coeff of Eunice 15.5 H 15.9 H Plt Count 28 L* 30 L MPV Absolute Nucleated RBC 0.25 H 0.22 H Nucleated RBC % (auto) 2.4 1.7 Platelet Estimate SIGNIFIC DECREASED SIGNIFIC DECREASED Sodium 143 Potassium 2.8 L Chloride 108 H Carbon Dioxide 29 Anion Gap 6.0 BUN 21 H Creatinine 0.66 D Est Cr Clr Drug Dosing 86.2 Est GFR ( Amer) 103.6 Est GFR (Non-Af Amer) 89.4 BUN/Creatinine Ratio 32.0 H Glucose 89 Calcium 7.5 L Phosphorus 2.7 Magnesium 2.0 Total Bilirubin 0.9 AST 11 L ALT 11 L Alkaline Phosphatase 82 Troponin I 0.022 Total Protein 6.1 L Albumin 2.6 L Globulin 3.5 Albumin/Globulin Ratio 0.7 L Crossmatch 10/05/18 14:36 WBC RBC Hgb Hct MCV MCH MCHC RDW Std Deviation RDW Coeff of Eunice Plt Count MPV Absolute Nucleated RBC Nucleated RBC % (auto) Platelet Estimate Sodium Potassium 3.7 D Chloride Carbon Dioxide Anion Gap BUN Creatinine Est Cr Clr Drug Dosing Est GFR ( Amer) Est GFR (Non-Af Amer) BUN/Creatinine Ratio Glucose Calcium Phosphorus Magnesium Total Bilirubin AST ALT Alkaline Phosphatase Troponin I Total Protein Albumin Globulin Albumin/Globulin Ratio Crossmatch PG Care Time/CCT Total # of Minutes Spent Total Time Spent with Patient: Total time spent is greater than 50% in coordination of care (as documented) at patient's floor/unit and/or counseling patient: (1) Hearing loss Hearing loss type: unspecified Laterality: unspecified laterality Qualified Code(s): H91.90 - Unspecified hearing loss, unspecified ear (2) Congestive heart failure Heart failure type: diastolic Heart failure chronicity: chronic Qualified Code(s): I50.32 - Chronic diastolic (congestive) heart failure (3) Dementia Dementia type: unspecified type Dementia behavioral disturbance: without behavioral disturbance Qualified Code(s): F03.90 - Unspecified dementia without behavioral disturbance (4) Incontinence Incontinence type: urinary Urinary Incontinence type: other incontinence Qualified Code(s): N39.498 - Other specified urinary incontinence (5) Iron deficiency anemia Iron deficiency anemia type: unspecified iron deficiency Qualified Code(s): D50.9 - Iron deficiency anemia, unspecified (6) Hematoma of left hip Encounter type: sequela Qualified Code(s): S70.02XS - Contusion of left hip, sequela (7) Acute kidney failure Acute renal failure type: unspecified Qualified Code(s): N17.9 - Acute kidney failure, unspecified
[2018-10-06 03:27] LABS: BUN Creatinine Ratio 28.5 (10-20); Calcium 7.9 mg/dl (8.5-10.1); Creatinine Clr Calc Pharmacy 96.4 ml/min; Est GFR (African American) 108.5; Est GFR (Non-African American) 93.6
[2018-10-06 03:36] LABS: Potassium 3.4 mmol/L (3.5-5.1)
[2018-10-06 03:50] LABS: Hematocrit (blood only) 27.7 % (42-52); Hemoglobin 9.1 g/dL (14.0-18.0); Mean Corpuscular Hgb Conc 32.9 g/dL (32-36); Mean Corpuscular Volume 84.5 fL (80-100); Nucleated RBC # (auto) 0.13 K/uL (0-0); Nucleated RBC % (auto) 1.1 %; Platelet Count 24 K/uL (130-400); Platelet Estimate Decreased (Normal); RDW Standard Deviation 48.7 fL (36.4-46.3); Red Blood Count 3.28 M/uL (4.7-6.1); White Blood Count 12.25 K/uL (4.8-10.8)
[2018-10-06] MEDS: AMIODARONE 200 MG TAB PO SCH ×2 (07:55→21:06)
[2018-10-06] MEDS: PANTOprazole 40 MG TAB PO SCH ×2 (07:55→21:06)
[2018-10-06] MEDS: FERROUS SULFATE 325 MG TAB PO SCH (07:56)
[2018-10-06] MEDS: METOPROLOL TARTRATE 50 MG TAB PO SCH ×2 (07:56→21:06)
[2018-10-06] MEDS: ACETAMINOPHEN 325 MG TAB PO PRN (07:57)
[2018-10-06] MEDS: POTASSIUM CHLORIDE 20 MEQ TABCR PO SCH (09:25)
--- NOTE | 2018-10-06 13:38 | Palliative Care Progress Note ---
Date of Service October 06, 2018 Assessment & Plan (1) Goals of care, counseling/discussion: -Patient was transferred to room 402. He remains about the same today-- still awake but mostly confused/forgetful. Is able to state that he is in no pain or discomfort. -Discussed with patient today about him returning to [facility] on comfort measures/hospice care and patient is agreeable. Stated, "Yea I guess that sounds fine." Clearly, he cannot make these decisions by himself. -Called patient's daughter, Dunia, back. She did not get a chance to speak with her father last night and she remains extremely ill. She doesn't know when she's going to make it into the hospital. Dunia stated that if patient is ready for discharge before she is able to speak with him about goals/hospice/etc, he can return to [facility] and they can set up hospice once he is there. -We discussed the POLST form more. She requested that I send her the form via text message, which I did. She is to call me when she's ready to fill it out over the phone, then she can sign it at her earliest convenience. -Will continue to follow as needed. For now, continue conservative supportive management. If patient needs another transfusion prior to discharge, Dunia is fine with that. However, his hgb is 9.1 today. (2) Severe anemia: (3) Severe thrombocytopenia: (4) Dementia: Subjective Patient is feeling okay today. He is confused/forgetful. Was transferred to room 402 yesterday afternoon. Review of Systems Review of Systems: + weakness no dysphagia no cough and no dyspnea no chest pain no nausea and no vomiting Physical Exam Constitutional: + ill appearing (chronically); no acute distress ENMT: Mouth: + poor dentition Neck: normal visual inspection Respiratory: normal respiratory effort, lungs clear to auscultation Cardiovascular: Rate/Rhythm: regular rate and regular rhythm Extremities: no edema Gastrointestinal (Abdomen): Inspection/Auscultation: abdomen not distended Percussion/Palpation: abdomen soft; abdomen nontender Skin: + pallor Neurologic: awake; + does not move all extremities (left brachial plexus injury/neuropathy- arm flaccid) Psychiatric: Orientation: oriented to person and oriented to place (somewhat oriented to event); + not oriented to time Results & Data Vital Signs (Past 12 Hours) Vital Signs Temp Pulse Resp BP Pulse Ox 10/06/18 07:30 36.5 C 74 16 109/93 96 PG Care Time/CCT Total # of Minutes Spent Total Time Spent with Patient: Total time spent is greater than 50% in coordination of care (as documented) at patient's floor/unit and/or counseling patient: Time Spent Midlevel 35 minutes with >50% of the time spent at bedside with patient and family discussing condition and GOC. (1) Dementia Dementia type: unspecified type Dementia behavioral disturbance: without behavioral disturbance Qualified Code(s): F03.90 - Unspecified dementia without behavioral disturbance
--- NOTE | 2018-10-06 21:04 | Hospitalist Progress Note ---
Date of Service October 06, 2018 Assessment & Plan (1) Severe anemia: s/p 3 units PRBCs along with 1 unit of platelets since admission. H/H acceptable today. Platelets acceptable today. There is high concern that the patient has MDS. Seen by heme/onc Dr Nash this admission; also seen by heme/onc last admission. No plans for bone marrow biopsy, etc. Supportive care w/ transfusions, if desired by family/patient. Very poor prognosis in light of dementia. CBC in am. (2) Severe thrombocytopenia: Likely 2nd to MDS. s/p 1 unit of platelets this admission. Will transfuse periodically to maintain level >20,000. No evidence of any spontaneous bleeding. CBC am. (3) Iron deficiency anemia: s/p IV Venofer 100mg IV on 09/07/2018 Last ferritin was high in the 600s No Fe at this time (4) Encephalopathy: improved markedly today cause?? (5) Dementia: Mod-Severe by history; on aricept (6) Thoracic aortic aneurysm without rupture: Noted, stable (7) Hematoma of left hip: As discovered during previous admission. 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 no Rx present since teenage years per patient (12) DVT prophylaxis: SCDs only; chemical means contraindicated due to severe thrombocytopenia (13) Hypokalemia: s/p IV/PO supplementation K 3.4 today presume it is 2nd to very poor oral intake, lasix, etc cont daily K supplement BMP am (14) Atrial fibrillation with RVR: NSR this admission had PAF prior admission (15) Acute kidney failure: Cr was 1, now 0.5 likely volume depletion resolved (16) Poor prognosis: appreciate palliative care consult probable dispo- back to [facility] w/ hospice spoke with daughter by phone yesterday - gave update; she confirmed details of discussion w/ Felicia from palliative care she was quite ill and thus the discussion was brief Felicia spoke with pt's daughter again re: POLST form hopefully back to SNF next 24 hours Subjective patient much more awake, alert and conversant today than yesterday he stated "I feel better" he asks numerous questions about his anemia and blood condition he asked "can I get those transfusions?" (once outside the hospital) he asks if the anemia will "ever go away" staff report good bowel movement this am ate better today they also report waxing/waning mental status Review of Systems Respiratory: no dyspnea Cardiovascular: no chest pain Gastrointestinal: no abdominal pain Physical Exam Constitutional: no acute distress ENMT: external ear and nose normal, oropharynx normal Mouth: oral mucous membranes not dry Respiratory: normal respiratory effort, lungs clear to auscultation Cardiovascular: Rate/Rhythm: regular rate and regular rhythm Heart Sounds: normal S1 and normal S2; no murmur Vessels: posterior tibial pulses present and dorsalis pedis pulses present; no JVD Extremities: no edema Gastrointestinal (Abdomen): normal bowel sounds, soft, nontender, no hepatosplenomegaly Musculoskeletal: no obvious hematoma of left thigh/hip or deformity Skin: + pallor Psychiatric: Orientation: alert, oriented to person, oriented to place (knew he was at [facility]) and oriented to time (could get month but not year) Results & Data Vital Signs (Past 12 Hours) Vital Signs Temp Pulse Resp BP Pulse Ox 10/06/18 16:00 36.4 C L 64 16 127/80 96 Laboratory Results Laboratory Results - last 24 hr 10/06/18 10/06/18 10/06/18 02:42 02:42 Unknown WBC 12.25 H RBC 3.28 L Hgb 9.1 L Hct 27.7 L MCV 84.5 MCH 27.7 MCHC 32.9 RDW Std Deviation 48.7 H RDW Coeff of Eunice 16.0 H Plt Count 24 L* Absolute Nucleated RBC 0.13 H Nucleated RBC % (auto) 1.1 Platelet Estimate Decreased L Sodium 145 Potassium 3.4 L Chloride 108 H Carbon Dioxide 32 Anion Gap 5.0 BUN 17 Creatinine 0.59 L Est Cr Clr Drug Dosing 96.4 Est GFR ( Amer) 108.5 Est GFR (Non-Af Amer) 93.6 BUN/Creatinine Ratio 28.5 H Glucose 89 Calcium 7.9 L Stool Occult Bld Scrn Negative (1) Hearing loss Hearing loss type: unspecified Laterality: unspecified laterality Qualified Code(s): H91.90 - Unspecified hearing loss, unspecified ear (2) Acute kidney failure Acute renal failure type: unspecified Qualified Code(s): N17.9 - Acute kidney failure, unspecified (3) Congestive heart failure Heart failure chronicity: chronic Heart failure type: diastolic Qualified Code(s): I50.32 - Chronic diastolic (congestive) heart failure (4) Dementia Dementia behavioral disturbance: without behavioral disturbance Dementia type: unspecified type Qualified Code(s): F03.90 - Unspecified dementia without behavioral disturbance (5) Incontinence Incontinence type: urinary Urinary Incontinence type: other incontinence Qualified Code(s): N39.498 - Other specified urinary incontinence (6) Iron deficiency anemia Iron deficiency anemia type: unspecified iron deficiency Qualified Code(s): D50.9 - Iron deficiency anemia, unspecified (7) Hematoma of left hip Encounter type: sequela Qualified Code(s): S70.02XS - Contusion of left hip, sequela
[2018-10-06] MEDS: DONEPEZIL HCL 10 MG TAB PO SCH (21:06)
[2018-10-07] MEDS: ACETAMINOPHEN 325 MG TAB PO PRN ×3 (00:25→17:37)
[2018-10-07 06:43] LABS: Hematocrit (blood only) 26.6 % (42-52); Hemoglobin 8.6 g/dL (14.0-18.0); Mean Corpuscular Hgb Conc 32.3 g/dL (32-36); Mean Corpuscular Volume 86.6 fL (80-100); Nucleated RBC # (auto) 0.14 K/uL (0-0); Nucleated RBC % (auto) 1.2 %; Platelet Count 16 K/uL (130-400); RDW Coefficient of Variation 16.4 % (11.5-14.5); RDW Standard Deviation 51.6 fL (36.4-46.3); Red Blood Count 3.07 M/uL (4.7-6.1); White Blood Count 12.14 K/uL (4.8-10.8)
[2018-10-07 06:50] LABS: Platelet Estimate SIGNIFIC DECREASED (Normal)
[2018-10-07] MEDS: PANTOprazole 40 MG TAB PO SCH ×2 (08:26→20:20)
[2018-10-07] MEDS: FERROUS SULFATE 325 MG TAB PO SCH (08:26)
[2018-10-07] MEDS: POTASSIUM CHLORIDE 20 MEQ TABCR PO SCH (08:26)
[2018-10-07] MEDS: METOPROLOL TARTRATE 50 MG TAB PO SCH ×2 (08:26→20:20)
[2018-10-07] MEDS: AMIODARONE 200 MG TAB PO SCH ×2 (08:26→20:18)
[2018-10-07] MEDS: DONEPEZIL HCL 10 MG TAB PO SCH (20:18)
--- NOTE | 2018-10-07 20:29 | Hospitalist Progress Note ---
Date of Service October 07, 2018 Assessment & Plan (1) Severe anemia: s/p 3 units PRBCs since admission. H/H again acceptable today. There is high concern that the patient has MDS. Seen by heme/onc Dr Nash this admission; also seen by heme/onc last admission. No plans for bone marrow biopsy, etc. Supportive care w/ transfusions only. Very poor prognosis in light of dementia. CBC in am for stability. (2) Severe thrombocytopenia: Likely 2nd to MDS. s/p 1 unit of platelets this admission. Platelets today 16,000 -- will give another unit of apheresed platelets. CBC in am. No signs of bleeding on exam today. (3) Iron deficiency anemia: s/p IV Venofer 100mg IV on 09/07/2018 Last ferritin was high in the 600s Defer on Fe at this time (4) Encephalopathy: ongoing likely encephalopathy/delirium in setting of dementia (5) Dementia: Mod-Severe by history; on aricept (6) Thoracic aortic aneurysm without rupture: Noted, stable (7) Hematoma of left hip: As discovered during previous admission. 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 no Rx present since teenage years per patient (12) DVT prophylaxis: SCDs only; chemical means contraindicated due to severe thrombocytopenia (13) Hypokalemia: resolved BMP in am for stability 2nd to poor oral intake (14) Atrial fibrillation with RVR: rhythm regular on exam today had PAF during the prior admission but none this hospitalization monitor (15) Acute kidney failure: resolved (16) Poor prognosis: appreciate palliative care consult probable dispo- back to [facility] w/ hospice anticipate d/c back to SNF on 10/08/18 Subjective staff report he has slept most of the day. poor appetite. during my visit he slept most of it. awoke at end of visit and stated "I think I'm going to go back to sleep now." He denied any pain in any location. More confused today than yesterday. Review of Systems Review of Systems: Unobtainable due to cognitive status Physical Exam Constitutional: no acute distress ENMT: external ear and nose normal, oropharynx normal Respiratory: normal respiratory effort, lungs clear to auscultation Cardiovascular: Rate/Rhythm: regular rate and regular rhythm Heart Sounds: normal S1 and normal S2; no murmur Vessels: posterior tibial pulses present and dorsalis pedis pulses present; no JVD Extremities: no edema Gastrointestinal (Abdomen): normal bowel sounds, soft, nontender, no hepatosplenomegaly Skin: + pallor Results & Data Vital Signs (Past 12 Hours) Vital Signs Temp Pulse Pulse Resp BP BP Pulse Ox 10/07/18 15:32 37.1 C 69 20 125/85 96 10/07/18 09:15 36.3 C L 70 107/63 10/07/18 08:45 36.7 C 75 101/60 10/07/18 08:30 36.3 C L 68 102/69 Laboratory Results Laboratory Results - last 24 hr 10/04/18 10/07/18 10/07/18 14:10 05:44 05:44 WBC 12.14 H RBC 3.07 L Hgb 8.6 L Hct 26.6 L MCV 86.6 MCH 28.0 MCHC 32.3 RDW Std Deviation 51.6 H RDW Coeff of Eunice 16.4 H Plt Count 16 L* Absolute Nucleated RBC 0.14 H Nucleated RBC % (auto) 1.2 Platelet Estimate SIGNIFIC DECREASED Potassium 3.5 Crossmatch See Detail PG Care Time/CCT Total # of Minutes Spent Total Time Spent with Patient: Total time spent is greater than 50% in coordination of care (as documented) at patient's floor/unit and/or counseling p atient: (1) Iron deficiency anemia Iron deficiency anemia type: unspecified iron deficiency Qualified Code(s): D50.9 - Iron deficiency anemia, unspecified (2) Dementia Dementia type: unspecified type Dementia behavioral disturbance: without behavioral disturbance Qualified Code(s): F03.90 - Unspecified dementia without behavioral disturbance (3) Hematoma of left hip Encounter type: sequela Qualified Code(s): S70.02XS - Contusion of left hip, sequela (4) Congestive heart failure Heart failure type: diastolic Heart failure chronicity: chronic Qualified Code(s): I50.32 - Chronic diastolic (congestive) heart failure (5) Incontinence Incontinence type: urinary Urinary Incontinence type: other incontinence Qualified Code(s): N39.498 - Other specified urinary incontinence (6) Hearing loss Hearing loss type: unspecified Laterality: unspecified laterality Qualified Code(s): H91.90 - Unspecified hearing loss, unspecified ear (7) Acute kidney failure Acute renal failure type: unspecified Qualified Code(s): N17.9 - Acute kidney failure, unspecified
[2018-10-08 05:40] LABS: Nucleated RBC # (auto) 0.09 K/uL (0-0); Nucleated RBC % (auto) 0.7 %
[2018-10-08 05:44] LABS: Hematocrit (blood only) 25.3 % (42-52); Hemoglobin 8.2 g/dL (14.0-18.0); Mean Corpuscular Hgb Conc 32.4 g/dL (32-36); Mean Corpuscular Volume 87.2 fL (80-100); Mean Platelet Volume 9.8 fL (7.4-10.4); Platelet Count 33 K/uL (130-400); RDW Coefficient of Variation 16.2 % (11.5-14.5); RDW Standard Deviation 51.4 fL (36.4-46.3)
[2018-10-08 06:09] LABS: BUN Creatinine Ratio 31.6 (10-20); Calcium 7.8 mg/dl (8.5-10.1); Creatinine Clr Calc Pharmacy 129.3 ml/min; Est GFR (African American) 122.4; Est GFR (Non-African American) 105.6; Potassium 3.6 mmol/L (3.5-5.1)
[2018-10-08] MEDS: PANTOprazole 40 MG TAB PO SCH (07:57)
[2018-10-08] MEDS: METOPROLOL TARTRATE 50 MG TAB PO SCH (07:57)
[2018-10-08] MEDS: AMIODARONE 200 MG TAB PO SCH (07:57)
[2018-10-08] MEDS: FERROUS SULFATE 325 MG TAB PO SCH (07:58)
[2018-10-08] MEDS: POTASSIUM CHLORIDE 20 MEQ TABCR PO SCH (07:58)
[2018-10-08] MEDS ORDERED: POLYETHYLENE (MIRALAX) 17 GM PACK PO SCH (09:00)
--- NOTE | 2018-10-08 13:43 | Discharge Summary ---
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 fib with RVR. At that point in time the patient required hospitalization in the critical care unit. Hematology was consulted and they felt the thrombocytopenia and anemia was concerning for underlying myelodysplastic syndrome. 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 Patient re-presents today from [facility]. Patient is found to have hemoglobin of 4.5, platelet of 9, potassium of 2.7. He appears to be in NSR. There is no family at bedside with the patient, and due to his severe dementia history is essentially unobtainable. Principal Diagnosis symptomatic anemia 2nd to suspected myelodysplastic syndrome Discharge Exam Constitutional no acute distress ENMT external ear and nose normal, oropharynx normal Mouth: oral mucous membranes not dry Respiratory normal respiratory effort, lungs clear to auscultation Cardiovascular Rate/Rhythm: regular rate and regular rhythm Heart Sounds: normal S1 and normal S2; no murmur Vessels: posterior tibial pulses present and dorsalis pedis pulses present; no JVD Extremities: no edema Gastrointestinal (Abdomen) normal bowel sounds, soft, nontender, no hepatosplenomegaly Musculoskeletal Knee: + effusion (minimal - left; but no tenderness) Skin + pallor Neurologic atrophy of left arm and left hand; palsy of left arm Psychiatric Orientation: alert, oriented to person, oriented to place (knew he was at [facility]) and oriented to time (could get month but not year) Discharge Data Allergies Allergy/AdvReac Type Severity Reaction Status Date / Time No Known Allergies Allergy Unknown Verified 10/04/18 14:34 Consultations 1. oncology - Adria Nash DO 2. palliative care Procedures Performed 3 units PRBCs 2 units platelets Hospital Course (1) Severe anemia: s/p 3 units PRBCs this admission. Discharge hemoglobin was 8.2. There is high concern that the patient has MDS. Seen by heme/onc Dr Nash this admission; also seen by heme/onc last admission. No plans for bone marrow biopsy, etc. Supportive care w/ transfusions only and once patient transitions to full hospice transfusional support will likely stop. Very poor prognosis in light of dementia. Until hospice is initiated transfusions can be done as outpatient. Would transfuse Mr Gale only for hemoglobin less than 7. (2) Severe thrombocytopenia: Likely 2nd to MDS. s/p 2 units of platelets this admission. Stool was heme negative and he had no evidence of spontaneous bleeding while here. Discharge platelet count was 33. Would only transfuse platelets for platelet count less than 15,000. Again this can be done as outpatient. (3) Iron deficiency anemia: s/p IV Venofer 100mg IV on 09/07/2018 Last ferritin was high in the 600s Defer on Fe at this time (4) Encephalopathy: ongoing likely encephalopathy/delirium in setting of dementia (5) Dementia: Mod-Severe by history; on aricept (6) Thoracic aortic aneurysm without rupture: No Rx in light of poor prognosis, advanced dementia, etc. (7) Hematoma of left hip: As discovered during previous admission. No issues during this admission. (8) Congestive heart failure: remained compensated during this stay. 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 palliative discussions were held with patient's daughter and, to a limited degree, the patient himself. the patient, however, appears to lack capacity due to his dementia. thus, end of life care will be dictated by his daughter and family. POLST form was given to daughter but not completed. daughter had expressed interest in hospice but hospice was NOT formally set up for him at discharge. he likely will transition to hospice soon, however. palliative care discussions will need to be continued shortly after he gets back to [facility] in light of very poor prognosis. Total Time Total Time Spent Total Time Spent (In Minutes): 40 Total Time Includes: Examination of the Patient, Discharge Planning, Medication Reconciliation and Communication With Other Providers (certified medical aide at SNF) Discharge Plan Discharge Items Patient Disposition: Transfer [facility] Reason For Visit: THROMBOCYTOPENIA,ANEMIA Discharge Diagnosis: Anemia s/p 3 units of blood. Thrombocytopenia s/p 2 units of platelets. Suspected MDS (myelodysplastic syndrome). Discharge Goals: Diagnostic testing and Therapeutic intervention Activity: Resume your previous activity Non-emergency contact: Primary Care Provider Call non-emergency contact if: you have any medication questions, your pain is not controlled, your pain is worsening, your pain is unusual for you, your pain is concerning for you and your temperature is above 100.5 Follow-up/Referrals: Adria Nash DO [Physician] - (see Dr Nash or Dr Cleaning on an as needed basis for transfusions of blood and/or platelets if desired by patient or his family) Kelly [facility] [place] [Primary Care Provider] - Diet: Regular Addtl Provider Instructions: Mr Gale was admitted due to severe anemia and severe thrombocytopenia (low platelets). In total he received 3 units of blood and 2 units of platelets. His hemoglobin on day of discharge is 8.2 and platelet count is 33. His stool was heme negative for blood. We anticipate his counts will drift downward over the next 1-2 weeks. He likely has a condition called "MDS" (Myelodysplastic syndrome). Palliative care saw the patient and spoke with his daughter. There are tentative plans to transition to hospice soon. POLST discussion was held but POLST form was not completed. He is a DNR. At this time the near-term plans are - 1. transfusional support for anemia and thrombocytopenia. * would transfuse Mr Gale if hemoglobin is less than 7 * would transfuse platelets if platelet count drops to less than 15 to avoid spontaneous bleeding * these can be done at the [facility]; he will not require full admission to the hospital for these 2. attempts should be made to avoid re-hospitalization in light of likely transition to hospice 3. patient has had ongoing poor appetite likely related to dementia and MDS; diet as tolerated/desired 4. formal POLST form should be completed valery with pt's daughter 5. additional discussions should be held with pt's daughter regarding hospice valery Prescriptions: New polyethylene glycol 3350 [Miralax] 17 gram Powder In Packet 17 g PO DAILY Qty: 1 RF: 0 potassium chloride 10 mEq capsule, extended release 10 meq PO DAILY Qty: 30 RF: 2 Continued acetaminophen [Tylenol Extra Strength] 500 mg Tablet 1,000 mg PO TID RF: 0 donepezil 10 mg tablet 10 mg PO HS RF: 0 Santyl 250 unit/gram Ointment 1 applic TOPICAL BID PRN (Reason: decubitus on coccyx) RF: 0 amiodarone 200 mg tablet 200 mg PO BID RF: 0 pantoprazole 40 mg tablet,delayed release (DR/EC) 40 mg PO BID RF: 0 metoprolol tartrate 50 mg tablet 50 mg PO BID RF: 0 ferrous sulfate 325 mg (65 mg iron) tablet,delayed release (DR/EC) 325 mg PO DAILY RF: 0 Stand-Alone Forms: [facility] Discharge Orders: Discharge Order (Routine); Ordered 10/08/18 Ordered By: Jean Claude Ndiaye Skilled Items Patient informed of condition?: Yes DNR: Yes Discharge Level of Care: Skilled Communicable Disease: No Discharge Prognosis: Deteriorating Admission Data Admit Date/Time: 10/04/18 16:21 Attending Provider: Jean Claude Ndiaye Admit Provider: Jaimee Mccrary Primary Care Provider: [facility] [place] Other Providers: Jaimee Mccrary ; Adria Nash V ; Sherry Holloway Service: Medical Other Interventions: Discharge Summary Assessment (RN) Last Done: 10/08/18 16:55 Pending Studies at Discharge: No DC Date/Time DO NOT enter until pt leaves facility: 10/08/18 16:55
== END 2018-10-08 16:55 | DRG 812 ==
LOC: ED 13:46 → 2S 16:21 → SUATTDRO 16:21 → 2S 17:20 → 4E 10-05 14:26
DX: F03.90 Unspecified dementia, unspecified severity, without behavioral disturbance, psychotic disturbance, mood disturbance, and anxiety; D46.9 Myelodysplastic syndrome, unspecified; E88.09 Other disorders of plasma-protein metabolism, not elsewhere classified; I50.9 Heart failure, unspecified; I48.91 Unspecified atrial fibrillation; E87.6 Hypokalemia; R32 Unspecified urinary incontinence; I95.9 Hypotension, unspecified; I71.6 Thoracoabdominal aortic aneurysm, without rupture; G54.0 Brachial plexus disorders; D50.9 Iron deficiency anemia, unspecified; J44.9 Chronic obstructive pulmonary disease, unspecified; N17.9 Acute kidney failure, unspecified; G93.40 Encephalopathy, unspecified

== ENCOUNTER 2018-12-29 07:38 | Inpatient (IN) ==
[2018-12-29] MEDS ORDERED: SODIUM CHLORIDE 0.9% 500 ML IV SCH (08:00)
--- NOTE | 2018-12-29 08:18 | XRay Report ---
XR chest 1V portable CLINICAL HISTORY: Hypotension. COMPARISON STUDY: Chest CT September 03, 2018. Chest radiograph October 04, 2018. FINDINGS: Lung volumes are mildly diminished. There is no pneumothorax. Left pleural effusion left ba silar opacity have improved. No consolidation is identified and there is no evidence for pulmonary ed ela. A few old bilateral rib fractures are present. Cardiomediastinal silhouette is stable. IMPRESSION: Low lung volumes. No acute cardiopulmonary findings identified. Electronically signed by: Arsh Herrera M.D. 12/29/2018 8:17 AM
[2018-12-29 08:47] LABS: INR 1.1 (0.9-1.1); Partial Thromboplastin Time 26.1 Seconds (21.0-31.0); Prothrombin Time 11.6 Seconds (9.0-12.0)
[2018-12-29 08:48] LABS: Alanine Aminotransferase < 6 U/L (12-78); Albumin Level 2.7 gm/dl (3.4-5.0); Aspartate Aminotransferase 6 U/L (15-37); Blood Urea Nitrogen 54 mg/dl (7-18); Calcium 7.8 mg/dl (8.5-10.1); Carbon Dioxide 20 mmol/L (21-32); Chloride 108 mmol/L (98-107); Est GFR (African American) 34.7; Glucose 101 mg/dl (70-99); Potassium 3.4 mmol/L (3.5-5.1); Sodium 139 mmol/L (136-145)
[2018-12-29 08:52] LABS: Albumin Globulin Ratio 0.7 (0.9-2); Alkaline Phosphatase 61 U/L (45-117); Bilirubin,Total 0.7 mg/dl (0.2-1); Creatine Kinase 59 U/L (39-308); Creatine Kinase MB < 1.0 ng/ml (0.5-3.6); Globulin 4.1 gm/dl (2.5-4.0); Total Protein 6.8 gm/dl (6.4-8.2); Troponin I 0.017 ng/ml (0-0.045)
[2018-12-29] MEDS ORDERED: SODIUM CHLORIDE 0.9% 1000ML 1,000 ML IV ONE ×3 (08:53→13:30)
[2018-12-29 09:02] LABS: Hematocrit (blood only) 22.8 % (42-52); Hemoglobin 7.1 g/dL (14.0-18.0); Mean Corpuscular Hemoglobin 28.5 pg (25-34); Mean Corpuscular Hgb Conc 31.1 g/dL (32-36); Mean Corpuscular Volume 91.6 fL (80-100); Nucleated RBC # (auto) 0.11 K/uL (0-0); Nucleated RBC % (auto) 0.5 %; Platelet Count 10 K/uL (130-400); RDW Standard Deviation 56.1 fL (36.4-46.3); Red Blood Count 2.49 M/uL (4.7-6.1); White Blood Count 19.48 K/uL (4.8-10.8)
[2018-12-29 09:03] LABS: ALC (manual) 2.24 K/uL (1.2-3.4); ANC (manual) 14.82 K/uL (1.4-6.5); Basophils # (manual) 0.18 K/uL (0-0.2); Basophils % (manual) 0.9 %; Dohle Bodies 1+; Hypochromasia Present; Lymphocytes # (manual) 2.24 K/uL (1.2-3.4); Lymphocytes % (manual) 11.5 %; Metamyelocytes # (manual) 1.03 K/uL (0-0); Metamyelocytes % (manual) 5.3 %; Monocytes # (manual) 1.21 K/uL (0.11-0.59); Monocytes % (manual) 6.2 %; Neutrophils # (manual) 14.82 K/uL (1.4-6.5); Neutrophils % (manual) 76.1 %; Platelet Estimate SIGNIFIC DECREASED (Normal); Tear Drop Cells 1+
[2018-12-29] MEDS ORDERED: MoRPHine SULF/NSS 250 MG/250 ML BTL IV PRN (09:15)
[2018-12-29] MEDS: POTASSIUM CHLORIDE / WTR 10 MEQ/100 ML PLCT IV SCH ×2 (09:41→11:48)
[2018-12-29] MEDS ORDERED: POTASSIUM CHLORIDE 20 MEQ TABCR PO ONE (10:13)
--- NOTE | 2018-12-29 10:40 | History & Physical Report ---
Date of Service December 29, 2018 Assessment & Plan (1) Hypotension: - Presented with hypotension -- SBP 70's. - Possibly related to underlying infection vs. dehydration in setting of poor PO intake. - Discussed transitioning to comfort measures; his daughter would like to attempt IV fluid resuscitation prior to converting to comfort measures. - NS 1L bolus followed by NS at 200 cc/hr. - Admit to telemetry, monitor vital signs frequently along with oil burner. - U/a and BC are pending to evaluate for underlying infection; family would like not like aggressive infectious work up. (2) Acute kidney failure: - Creatinine increased to 2.0; baseline ~0.4-0.5. - NS bolus followed by NS at 200 cc/hr as noted above. - Repeat BMP this afternoon at 2 pm to evaluate for improvement. - Hold nephrotoxic meds. (3) MDS (myelodysplastic syndrome): - Transfusion dependent MDS; has not received recent chemotherapy for MDS. - Will transition to comfort measures if no improvement in renal failure/hypoten crow with IV fluids. (4) Symptomatic anemia: - Transfusion dependent, in setting of MDS. - Hgb 7.1 -- will discuss blood transfusion with daughter if BP responds to IV fluids. - Repeat CBC at 2 pm. (5) Severe thrombocytopenia: - In setting of transfusion dependent MDS. - Plt count 10 -- was scheduled to receive infusion this morning, held due to hypotension. - Will discuss transfusion if he responds to IV fluids. (6) Leukocytosis: - In setting of MDS. (7) Chronic diastolic HF (heart failure): - Most recent echo in September 2018 showed preserved EF, mild LVH and valvular abnormalities. - On aggressive IV fluids as noted above. - Monitor I/Os and daily weights. - Holding home beta sandra. (8) Atrial fibrillation with RVR: - Admit to tele; continue home Amiodarone as prescribed. - Holding beta sandra in setting of hypotension. - Not on anticoagulation due to thrombocytopenia. (9) Iron deficiency anemia: - Hold home ferrous sulfate. (10) Dementia: - Continue home Aricept as prescribed. (11) Thoracic aortic aneurysm without rupture: - Noted on previous CTA, measures up to 5 cm. - Monitored as outpatient. (12) Pancreatic lesion: - CT A/P in August showed cystic lesion at pancreatic head; has not been evaluated -- consider IPMN vs. neoplasm. 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 (14) GERD (gastroesophageal reflux disease): - Holding home PPI. (15) Hypokalemia: - K level 3.4 -- ordered K 20 mEq PO. (16) DVT prophylaxis: - SCDs; hold pharmacologic ppx due to thrombocytopenia. Dispo: Med/surg with tele; will attempt IV fluid resuscitation, transition to comfort if no improvement. Discussed plan of care with his daughter. History of Present Illness Chief Complaint: Hypotension Primary Care Provider: Rosy Moore DO Mr. Gale is an 83 year old male with past medical history of transfusion dependent MDS, dementia, A. fib, iron deficiency anemia, HTN who presented from [facility] with hypotension. Pt. has been receiving frequent transfusions at [facility] for MDS; he was scheduled to receive a platelet transfusion this morning. BP was noted to be low and he was transferred to the ER. Pt. complains of pain with movement but is otherwise comfortable. Denies chest pain, SOB, headache, URI symptoms, nausea/vomiting, abd pain, constipation or diarrhea, nausea or vomiting. He was hypotensive at presentation in the ER; BP slightly responded to 750 cc IV fluids -- increased to SBP 80's. Lab work showed acute renal failure with Cr of 2.0 (baseline ~0.4-0.5); Plt count 10K and Hgb 7.1. His daughter was present at bedside and requested comfort care measures; Morphine drip was started. During our discussion, the daughter voiced her concerns that he is likely dehydrated due to very limited PO intake at [facility] and would like to attempt further IV fluid resuscitation prior to transitioning to comfort measures. Pt. will be DNR/DNI; no aggressive measures will be completed but she would like to monitor response to IV fluid resuscitation. Morphine drip was discontinued in the ER and NS 1L bolus was initiated. Will continue to address goals of care as inpatient. Allergies Allergy/AdvReac Type Severity Reaction Status Date / Time No Known Allergies Allergy Unknown Verified 12/29/18 08:34 Home Medications Home Medications Medication Instructions Recorded Confirmed Type acetaminophen [Tylenol Extra 1,000 mg PO TID 09/03/18 12/29/18 History Strength] donepezil 10 mg PO HS 09/04/18 12/29/18 History Santyl 1 applic TOPICAL BID PRN 09/23/18 12/29/18 History amiodarone 200 mg PO BID 10/04/18 12/29/18 History ferrous sulfate 325 mg PO DAILY 10/04/18 12/29/18 History metoprolol tartrate 50 mg PO BID 10/04/18 12/29/18 History pantoprazole 40 mg PO BID 10/04/18 12/29/18 History polyethylene glycol 3350 [Miralax] 17 g PO DAILY #1 btl 10/08/18 12/29/18 Rx potassium chloride 10 meq PO DAILY #30 cap 10/08/18 12/29/18 Rx menthol-zinc oxide [Calmoseptine] 1 applic TOPICAL DAILY PRN 11/11/18 12/29/18 History hydrocodone-acetaminophen 1 tab PO Q6H PRN 12/15/18 12/29/18 History mirtazapine 7.5 mg PO DIRECTED 12/29/18 12/29/18 History Past Med/Surg History Medical History Congestive heart failure (Acute) Severe thrombocytopenia (Acute) Severe anemia (Acute) Microhematuria (Acute) Iron deficiency anemia (Acute) Incontinence (Acute) Hearing loss (Acute) Dementia (Acute) Axillary neuropathy (Acute) Anemia (Acute) Chronic obstructive pulmonary disease (COPD) (Acute) Gastro-esophageal reflux disease without esophagitis (Acute) Muscle weakness (generalized) Paroxysmal atrial fibrillation Thrombocytopenia Unspecified abnormalities of gait and mobility Unspecified dementia without behavioral disturbance Family History Other Family history non-contributory Social History Preferred Language: [place] Communication Ability: Unable Blueprint Trimmer Required: No Beliefs That Will Affect Care: None Current Living Situation: Personal Care Facility Current Living Situation Comment: [facility] Other Information That Helps Us Care for You: No Feels Safe at Home: Yes Safety Concerns: Feels Safe At This Time Smoking Status: Former smoker Do You Dip or Chew Tobacco: No ; Second Hand Exposure: No ; Tobacco Cessation Education Requested by Patient: No Hx Alcohol Use: No Hx Substance Use: No Review of Systems Review of Systems: All systems reviewed & are unremarkable except as noted in HPI & below Constitutional: + fatigue, + weakness, + anorexia and + weight loss; no fever and no chills Respiratory: no cough, no dyspnea, no dyspnea on exertion and no wheezing Cardiovascular: no chest pain, no palpitations, no lightheadedness and no edema Gastrointestinal: no abdominal pain, no nausea, no vomiting and no constipation Genitourinary: no difficulty urinating Musculoskeletal: + myalgia and + body aches; no back pain and no joint pain Integumentary: no non-healing lesions Physical Exam Physical Exam: General: Chronically ill appearing male, no acute distress. HEENT: NC/AT; PERRLA with EOMI; [place] conjunctiva, MMM. No erythema of posterior pharynx Neck: Supple and nontender Cardiac: RRR Lungs: CTA bilaterally Abdomen: Bowel normoactive X 4; Nontender to palpation Extremities: Warm. No edema present. Neuro: No focal weakness Skin: No rash Results & Data Vital Signs (Past 12 Hours) Vital Signs Temp Pulse Resp BP Pulse Ox 12/29/18 08:46 67 24 77/51 L 97 12/29/18 08:30 68 23 75/48 L 95 12/29/18 08:23 69 21 68/47 L 97 12/29/18 08:06 71 24 73/45 L 98 12/29/18 08:01 77 28 H 100 12/29/18 08:00 76 30 H 98 12/29/18 07:58 37.1 C 76 20 81/61 L 97 12/29/18 07:55 75 27 H 100 12/29/18 07:53 78 23 81/61 L 100 Laboratory Results 12/29/18 12/29/18 12/29/18 Range/Units Unknown 08:20 08:20 WBC (4.8-10.8) K/uL RBC (4.7-6.1) M/uL Hgb (14.0-18.0) g/dL Hct (42-52) % MCV (80-100) fL MCH (25-34) pg MCHC (32-36) g/dL RDW Std Deviation (36.4-46.3) fL RDW Coeff of Eunice (11.5-14.5) % Plt Count (130-400) K/uL Absolute Nucleated RBC (0-0) K/uL Nucleated RBC % (auto) % Neutrophils % (Manual) % Lymphocytes % (Manual) % Monocytes % (Manual) % Basophils % (Manual) % Metamyelocytes % (Man) % Neutrophils # (Manual) (1.4-6.5) K/uL Total Absolute Neuts (1.4-6.5) K/uL Lymphocytes # (Manual) (1.2-3.4) K/uL Total Abs Lymphocytes (1.2-3.4) K/uL Monocytes # (Manual) (0.11-0.59) K/uL Basophils # (Manual) (0-0.2) K/uL Metamyelocytes # (Man) (0-0) K/uL Dohle Bodies Platelet Estimate (Normal) Hypochromasia Tear Drop Cells PT (9.0-12.0) Seconds INR (0.9-1.1) APTT (21.0-31.0) Seconds PTT Ratio Sodium 139 (136-145) mmol/L Potassium 3.4 L (3.5-5.1) mmol/L Chloride 108 H (98-107) mmol/L Carbon Dioxide 20 L (21-32) mmol/L Anion Gap 11.0 (3-11) BUN 54 H (7-18) mg/dl Creatinine 2.00 H (0.6-1.4) mg/dl Est Cr Clr Drug Dosing Not Reportable Est GFR ( Amer) 34.7 Est GFR (Non-Af Amer) 30.0 BUN/Creatinine Ratio 27.0 H (10-20) Glucose 101 H (70-99) mg/dl Calcium 7.8 L (8.5-10.1) mg/dl Total Bilirubin 0.7 (0.2-1) mg/dl AST 6 L (15-37) U/L ALT < 6 L (12-78) U/L Alkaline Phosphatase 61 (45-117) U/L Total Creatine Kinase 59 CK-MB (CK-2) < 1.0 CK/CKMB % Calc TNP Troponin I 0.017 Total Protein 6.8 (6.4-8.2) gm/dl Albumin 2.7 L (3.4-5.0) gm/dl Globulin 4.1 H (2.5-4.0) gm/dl Albumin/Globulin Ratio 0.7 L (0.9-2) POC Stool Occult Blood Negative (Negative) Blood Type A Positive Antibody Screen NEGATIVE 12/29/18 12/29/18 12/29/18 Range/Units 08:20 08:20 08:20 WBC 19.48 H (4.8-10.8) K/uL RBC 2.49 L (4.7-6.1) M/uL Hgb 7.1 L (14.0-18.0) g/dL Hct 22.8 L (42-52) % MCV 91.6 (80-100) fL MCH 28.5 (25-34) pg MCHC 31.1 L (32-36) g/dL RDW Std Deviation 56.1 H (36.4-46.3) fL RDW Coeff of Eunice 17.0 H (11.5-14.5) % Plt Count 10 L* (130-400) K/uL Absolute Nucleated RBC 0.11 H (0-0) K/uL Nucleated RBC % (auto) 0.5 % Neutrophils % (Manual) 76.1 % Lymphocytes % (Manual) 11.5 % Monocytes % (Manual) 6.2 % Basophils % (Manual) 0.9 % Metamyelocytes % (Man) 5.3 % Neutrophils # (Manual) 14.82 H (1.4-6.5) K/uL Total Absolute Neuts 14.82 H (1.4-6.5) K/uL Lymphocytes # (Manual) 2.24 (1.2-3.4) K/uL Total Abs Lymphocytes 2.24 (1.2-3.4) K/uL Monocytes # (Manual) 1.21 H (0.11-0.59) K/uL Basophils # (Manual) 0.18 (0-0.2) K/uL Metamyelocytes # (Man) 1.03 H (0-0) K/uL Dohle Bodies 1+ Platelet Estimate SIGNIFIC DECREASED (Normal) Hypochromasia Present Tear Drop Cells 1+ PT 11.6 (9.0-12.0) Seconds INR 1.1 (0.9-1.1) APTT 26.1 (21.0-31.0) Seconds PTT Ratio 1.0 Sodium (136-145) mmol/L Potassium (3.5-5.1) mmol/L Chloride (98-107) mmol/L Carbon Dioxide (21-32) mmol/L Anion Gap (3-11) BUN (7-18) mg/dl Creatinine (0.6-1.4) mg/dl Est Cr Clr Drug Dosing Est GFR ( Amer) Est GFR (Non-Af Amer) BUN/Creatinine Ratio (10-20) Glucose (70-99) mg/dl Calcium (8.5-10.1) mg/dl Total Bilirubin (0.2-1) mg/dl AST (15-37) U/L ALT (12-78) U/L Alkaline Phosphatase (45-117) U/L Total Creatine Kinase Cancelled CK-MB (CK-2) Cancelled CK/CKMB % Calc Cancelled Troponin I Cancelled Total Protein (6.4-8.2) gm/dl Albumin (3.4-5.0) gm/dl Globulin (2.5-4.0) gm/dl Albumin/Globulin Ratio (0.9-2) POC Stool Occult Blood (Negative) Blood Type Antibody Screen Code Status & VTE Plan VTE Prophylaxis Plan VTE Prophylaxis will be ordered: Yes Supervising Physician Co-Signing Physician Notes I personally examined the patient and verified all [place] points of history and exam, discussed case, and agree with decision making with Giuseppe Kendall PAC Fairly limited HPI and review of systems, but generally noted feeling weak. Daughter noted that he did not eat or drink much over the last few days. He loosely related one episode of diarrhea, but the daughter was unaware of this and certainly it does not seem to have been a recurrent or ongoing problem. Denies fevers chills or sweats, denies dysuria, denies any chest pain shortness of breath cough or sputum. In general when I first examined him he is very pale, appears quite fatigued, does not move much but does converse, does not appear to be in pain type distress. Later on revisit his better color he is moving his good arm better, in general he looks brighter. Otherwise exam as above. Hypovolemic shockseems to have been from his myelodysplastic syndrome compounded by dehydration from poor oral intake. Was given approximately 3 L of isotonic fluid between the ER and admission, pressures were still low (when I saw him right before we started blood he was as low as about 50/30). Ms Kendall as well as myself had discussions with patient and family on goals of care, and right now while they would not want ICU/pressors etc., they did want fluids and transfusions, but were well aware that his situation was quite dire. Later on revisit after a unit of blood in, his pressures had risen to about 89/52 with a mean arterial pressure of slightly more than 64, and he was looking much better. Continue blood for 2 units, follow closely. Acute renal failurehopefully all just prerenal from the low perfusion, but discussed with daughter that the possibility of ATN certainly would be there; hopefully with blood and fluids his kidneys will show improvement. Thrombocytopeniahe was actually coming over for transfusion of platelets, once we have hemodynamic stability, the platelets should be transfused as well. PG Care Time/CCT Total # of Minutes Spent Total Time Spent with Patient: Total time spent is greater than 50% in coordination of care (as documented) at patient's floor/unit and/or counseling patient: (1) Acute kidney failure Acute renal failure type: unspecified Qualified Code(s): N17.9 - Acute kidney failure, unspecified (2) Dementia Dementia behavioral disturbance: without behavioral disturbance Dementia type: unspecified type Qualified Code(s): F03.90 - Unspecified dementia without behavioral disturbance (3) Iron deficiency anemia Iron deficiency anemia type: unspecified iron deficiency Qualified Code(s): D50.9 - Iron deficiency anemia, unspecified (4) Hypotension Hypotension type: unspecified hypotension type Qualified Code(s): I95.9 - Hypotension, unspecified
[2018-12-29] MEDS ORDERED: ONDANSETRON INJ 2 MG/ML 2 ML VIAL IV PRN (11:27)
[2018-12-29] MEDS ORDERED: POLYETHYLENE (MIRALAX) 17 GM PACK PO PRN (11:27)
[2018-12-29] MEDS: SODIUM CHLORIDE 0.9% 1000ML 1,000 ML IV SCH ×2 (12:04→17:41)
[2018-12-29] MEDS ORDERED: SODIUM CHLORIDE 0.9% 250 ML IV PRN ×2 (12:37→14:09)
[2018-12-29 14:44] LABS: Hematocrit (blood only) 20.2 % (42-52); Hemoglobin 6.4 g/dL (14.0-18.0); Mean Corpuscular Hemoglobin 29.2 pg (25-34); Mean Corpuscular Hgb Conc 31.7 g/dL (32-36); Mean Corpuscular Volume 92.2 fL (80-100); Nucleated RBC # (auto) 0.06 K/uL (0-0); Nucleated RBC % (auto) 0.4 %; Platelet Count 9 K/uL (130-400); RDW Coefficient of Variation 16.9 % (11.5-14.5); RDW Standard Deviation 56.2 fL (36.4-46.3); Red Blood Count 2.19 M/uL (4.7-6.1); White Blood Count 17.54 K/uL (4.8-10.8)
[2018-12-29 15:02] LABS: BUN Creatinine Ratio 27.8 (10-20); C Reactive Protein 2.96 mg/dl (0-0.29); Calcium 7.1 mg/dl (8.5-10.1); Creatinine Clr Calc Pharmacy 28.4 ml/min; Est GFR (Non-African American) 34.5; Potassium 3.3 mmol/L (3.5-5.1)
--- NOTE | 2018-12-29 15:58 | Emergency Department Note ---
Entered by Reji Parkinson acting as a scribe for Justin Wen MD History of Present Illness General Chief complaint: Illness Stated complaint: ILLNESS Time Seen by Provider: 12/29/18 07:39 Source: RN notes reviewed Limitations: altered mental status (dementia) History of Present Illness Onset (ago): minute(s) (prior to arrival) Location: chest Pain Consistency: + other (episode) Quality: + other (low blood pressure) The patient is an 83 year old male with past medical history of GI bleed and dementia who presents to the Emergency Room with complaints of an episode of low blood pressure prior to arrival, per the RN. The RN states the patient is from [facility] and that the patient comes in regularly for blood work and blood platelets. The RN states the patient's blood pressure reached 60s/40s, and the RN states the PCP referred the patient to the ED. The HPI and ROS are limited due to the patient's altered mental status. Home Medications Home Medications Medication Instructions Recorded Confirmed Type acetaminophen [Tylenol Extra 1,000 mg PO TID 09/03/18 12/29/18 History Strength] donepezil 10 mg PO HS 09/04/18 12/29/18 History Santyl 1 applic TOPICAL BID PRN 09/23/18 12/29/18 History amiodarone 200 mg PO BID 10/04/18 12/29/18 History ferrous sulfate 325 mg PO DAILY 10/04/18 12/29/18 History metoprolol tartrate 50 mg PO BID 10/04/18 12/29/18 History pantoprazole 40 mg PO BID 10/04/18 12/29/18 History polyethylene glycol 3350 [Miralax] 17 g PO DAILY #1 btl 10/08/18 12/29/18 Rx potassium chloride 10 meq PO DAILY #30 cap 10/08/18 12/29/18 Rx menthol-zinc oxide [Calmoseptine] 1 applic TOPICAL DAILY PRN 11/11/18 12/29/18 History hydrocodone-acetaminophen 1 tab PO Q6H PRN 12/15/18 12/29/18 History mirtazapine 7.5 mg PO DIRECTED 12/29/18 12/29/18 History Allergies Allergy/AdvReac Type Severity Reaction Status Date / Time No Known Allergies Allergy Unknown Verified 12/29/18 08:34 Past Med/Surg History Medical History Congestive heart failure (Acute) Severe thrombocytopenia (Acute) Severe anemia (Acute) Microhematuria (Acute) Iron deficiency anemia (Acute) Incontinence (Acute) Hearing loss (Acute) Dementia (Acute) Axillary neuropathy (Acute) Anemia (Acute) Chronic obstructive pulmonary disease (COPD) (Acute) Gastro-esophageal reflux disease without esophagitis (Acute) Muscle weakness (generalized) Paroxysmal atrial fibrillation Thrombocytopenia Unspecified abnormalities of gait and mobility Unspecified dementia without behavioral disturbance Family History Other Family history non-contributory Social History Preferred Language: [place] Communication Ability: Unable 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 Unobtainable due to cognitive status Physical Exam Vital Signs Vital Signs - 24 hr 12/29/18 07:53 12/29/18 07:55 12/29/18 07:58 Temperature 37.1 C Temperature Source Oral Sepsis Recent Fever Within 48 Hours No Sepsis Action Taken by Nursing No Action Required Pulse Rate 78 75 76 Pulse Rate from SpO2 Sensor 78 80 Pulse Rhythm Regular Pulse Strength Normal Respiratory Rate 23 27 H 20 Respiratory Effort / Characteristics Non-Labored Spontaneous Respiratory Depth Normal Respiratory Pattern Blood Pressure 81/61 L 81/61 L Blood Pressure Mean 67 67 Pulse Oximetry 100 100 97 Oxygen Delivery Method Room Air 12/29/18 08:00 12/29/18 08:01 12/29/18 08:06 Temperature Temperature Source Sepsis Recent Fever Within 48 Hours Sepsis Action Taken by Nursing Pulse Rate 76 77 71 Pulse Rate from SpO2 Sensor 76 76 72 Pulse Rhythm Pulse Strength Respiratory Rate 30 H 28 H 24 Respiratory Effort / Characteristics Respiratory Depth Respiratory Pattern Blood Pressure 73/45 L Blood Pressure Mean 73 54 Pulse Oximetry 98 100 98 Oxygen Delivery Method 12/29/18 08:23 12/29/18 08:30 12/29/18 08:46 Temperature Temperature Source Sepsis Recent Fever Within 48 Hours Sepsis Action Taken by Nursing Pulse Rate 69 68 67 Pulse Rate from SpO2 Sensor 69 69 67 Pulse Rhythm Pulse Strength Respiratory Rate 21 23 24 Respiratory Effort / Characteristics Respiratory Depth Respiratory Pattern Blood Pressure 68/47 L 75/48 L 77/51 L Blood Pressure Mean 54 57 59 Pulse Oximetry 97 95 97 Oxygen Delivery Method 12/29/18 08:47 12/29/18 08:48 12/29/18 09:00 Temperature Temperature Source Sepsis Recent Fever Within 48 Hours Sepsis Action Taken by Nursing Pulse Rate 67 66 66 Pulse Rate from SpO2 Sensor 67 67 74 Pulse Rhythm Pulse Strength Respiratory Rate 18 24 27 H Respiratory Effort / Characteristics Respiratory Depth Respiratory Pattern Blood Pressure 79/56 L Blood Pressure Mean 63 Pulse Oximetry 98 99 Oxygen Delivery Method 12/29/18 09:01 12/29/18 09:15 12/29/18 09:30 Temperature Temperature Source Sepsis Recent Fever Within 48 Hours Sepsis Action Taken by Nursing Pulse Rate 69 69 Pulse Rate from SpO2 Sensor 66 69 63 Pulse Rhythm Pulse Strength Respiratory Rate 20 24 Respiratory Effort / Characteristics Respiratory Depth Respiratory Pattern Blood Pressure 79/50 L 87/63 L 74/50 L Blood Pressure Mean 59 71 58 Pulse Oximetry 100 95 Oxygen Delivery Method 12/29/18 10:00 12/29/18 10:09 12/29/18 10:12 Temperature Temperature Source Sepsis Recent Fever Within 48 Hours Sepsis Action Taken by Nursing Pulse Rate Pulse Rate from SpO2 Sensor 62 62 Pulse Rhythm Pulse Strength Respiratory Rate Respiratory Effort / Characteristics Respiratory Depth Respiratory Pattern Blood Pressure 63/46 L 67/47 L 71/47 L Blood Pressure Mean 51 53 55 Pulse Oximetry 99 100 Oxygen Delivery Method 12/29/18 10:24 12/29/18 10:27 12/29/18 10:30 Temperature Temperature Source Sepsis Recent Fever Within 48 Hours Sepsis Action Taken by Nursing Pulse Rate Pulse Rate from SpO2 Sensor 62 61 Pulse Rhythm Pulse Strength Respiratory Rate Respiratory Effort / Characteristics Non-Labored Spontaneous Respiratory Depth Normal Respiratory Pattern Regular Blood Pressure 72/47 L Blood Pressure Mean 55 Pulse Oximetry 97 99 Oxygen Delivery Method Room Air 12/29/18 10:43 12/29/18 10:46 Temperature Temperature Source Sepsis Recent Fever Within 48 Hours Sepsis Action Taken by Nursing Pulse Rate Pulse Rate from SpO2 Sensor Pulse Rhythm Pulse Strength Respiratory Rate Respiratory Effort / Characteristics Respiratory Depth Respiratory Pattern Blood Pressure 65/42 L Blood Pressure Mean 49 Pulse Oximetry Oxygen Delivery Method Room Air GENERAL: Contractured, moans to painful stimuli HENT: Normocephalic, atraumatic. Oropharynx unremarkable. EYES: Normal conjunctiva. Sclera non-icteric. NECK: Supple. No nuchal rigidity. FROM. No JVD. RESPIRATORY: Clear to auscultation. CARDIAC: Regular rate, normal rhythm. Extremities warm and well perfused. Pulses equal. ABDOMEN: Soft, non-distended. No tenderness to palpation. No rebound or guarding. No masses. RECTAL: Deferred. MUSCULOSKELETAL: Chest examination reveals no tenderness. The back is symmetrical on inspection without obvious abnormality. There is no CVA tenderness to palpation. No joint edema. LOWER EXTREMITIES: Calves are equal size bilaterally and non-tender. No edema. No discoloration. RECTAL: Black, tarry stool. Heme negative. NEURO: Normal sensorium. No sensory or motor deficits noted. SKIN: No rash or jaundice noted. Course 0740: Past medical records reviewed. The patient was evaluated in room B11B. A complete history and physical exam was performed. 0910: I talked to the patient's daughter about the patient's kidney failure and hypotension. The daughter notes they wanted the patient to be put on hospice following the patient's last hospital visit. The daughter believes we are just delaying the inevitable with blood and fluids. 1030: I reviewed the patient's case with Dr. Ndiaye-[facility] Hospitalist. Dr. Ndiaye will evaluate the patient for further management. Consultations Consultation #1: I reviewed the patient's case with Dr. Nidaye-[facility] Hospitalist. Dr. Ndiaye will evaluate the patient for further management. Time: 10:30 Administered Medications Sodium Chloride (Nss 1000ml) 1,000 mls @ 200 mls/hr IV .Q5H LORENA Stop: 01/28/19 11:26 Last Infusion: 12/29/18 13:41 Dose: 0 mls/hr Documented by: [id number] Admin: 12/29/18 12:04 Dose: 200 mls/hr Documented by: [id number] Discontinued Medications Sodium Chloride (Nss) 500 mls @ 999 mls/hr IV .Q31M LORENA Stop: 12/29/18 08:30 Last Infusion: 12/29/18 08:55 Dose: 0 mls/hr Documented by: [id number] Admin: 12/29/18 08:08 Dose: 999 mls/hr Documented by: [id number] Sodium Chloride (Nss 1000ml) 1,000 mls @ 999 mls/hr IV .Q1H1M ONE Stop: 12/29/18 09:53 Last Infusion: 12/29/18 09:40 Dose: 0 mls/hr Documented by: [id number] Admin: 12/29/18 08:55 Dose: 999 mls/hr Documented by: [id number] Potassium Chloride (K Sanchez / Wtr) 10 meq in 100 mls @ 100 mls/hr IV Q1H LORENA Stop: 12/29/18 10:59 Last Admin: 12/29/18 11:48 Dose: Not Given Documented by: [id number] Admin: 12/29/18 09:41 Dose: Not Given Documented by: [id number] Morphine Sulfate (Morphine Sulf/Nss) 250 mg in 250 mls @ 1 mls/hr IV .Q24H PRN; Protocol PRN Reason: Pain Stop: 01/12/19 09:14 Last Titration: 12/29/18 10:52 Dose: 0 mg/hr, 0 mls/hr Documented by: [id number] Titration: 12/29/18 10:22 Dose: 0 mg/hr, 0 mls/hr Documented by: [id number] Admin: 12/29/18 09:34 Dose: 1 mg/hr, 1 mls/hr Documented by: [id number] Cosigned by: [id number] Sodium Chloride (Nss 1000ml) 1,000 mls @ 999 mls/hr IV .Q1H1M ONE Stop: 12/29/18 11:09 Last Infusion: 12/29/18 12:15 Dose: 0 mls/hr Documented by: [id number] Admin: 12/29/18 10:14 Dose: 999 mls/hr Documented by: [id number] Sodium Chloride (Nss 1000ml) 1,000 mls @ 999 mls/hr IV .Q1H1M ONE Stop: 12/29/18 14:30 Last Infusion: 12/29/18 14:18 Dose: 0 mls/hr Documented by: [id number] Infusion: 12/29/18 14:18 Dose: 999 mls/hr Documented by: [id number] Infusion: 12/29/18 14:00 Dose: 0 mls/hr Documented by: [id number] Admin: 12/29/18 13:39 Dose: 999 mls/hr Documented by: [id number] Potassium Chloride (Klor-Con M20) 20 meq PO NOW ONE Stop: 12/29/18 10:14 Last Admin: 12/29/18 10:45 Dose: 20 meq Documented by: [id number] Medical Decision Making Differential Diagnosis Differential diagnosis: Etiologies such as diverticulosis, AVM, coagulopathy, colitis, inflammatory bowel disease, malignancy, Mel-Linda tear, esophagitis, peptic ulcer disease, variceal bleed, gastritis, epistaxis, fissure, hemorrhoids, aswell as others were entertained. Medical Records Attestation: I reviewed the patient's medical records. Home Medications Current Medication List: was personally reviewed by me Laboratory Data Attestation: I reviewed the patient's lab results. Result diagrams: 12/29/18 13:46 12/29/18 13:46 Lab Results 12/29/18 12/29/18 12/29/18 Range/Units 08:20 08:20 08:20 WBC 19.48 H (4.8-10.8) K/uL RBC 2.49 L (4.7-6.1) M/uL Hgb 7.1 L (14.0-18.0) g/dL Hct 22.8 L (42-52) % MCV 91.6 (80-100) fL MCH 28.5 (25-34) pg MCHC 31.1 L (32-36) g/dL RDW Std Deviation 56.1 H (36.4-46.3) fL RDW Coeff of Eunice 17.0 H (11.5-14.5) % Plt Count 10 L* (130-400) K/uL Absolute Nucleated RBC 0.11 H (0-0) K/uL Nucleated RBC % (auto) 0.5 % Neutrophils % (Manual) 76.1 % Lymphocytes % (Manual) 11.5 % Monocytes % (Manual) 6.2 % Basophils % (Manual) 0.9 % Metamyelocytes % (Man) 5.3 % Neutrophils # (Manual) 14.82 H (1.4-6.5) K/uL Total Absolute Neuts 14.82 H (1.4-6.5) K/uL Lymphocytes # (Manual) 2.24 (1.2-3.4) K/uL Total Abs Lymphocytes 2.24 (1.2-3.4) K/uL Monocytes # (Manual) 1.21 H (0.11-0.59) K/uL Basophils # (Manual) 0.18 (0-0.2) K/uL Metamyelocytes # (Man) 1.03 H (0-0) K/uL Dohle Bodies 1+ Platelet Estimate SIGNIFIC DECREASED (Normal) Hypochromasia Present Tear Drop Cells 1+ PT 11.6 (9.0-12.0) Seconds INR 1.1 (0.9-1.1) APTT 26.1 (21.0-31.0) Seconds PTT Ratio 1.0 Sodium (136-145) mmol/L Potassium (3.5-5.1) mmol/L Chloride (98-107) mmol/L Carbon Dioxide (21-32) mmol/L Anion Gap (3-11) BUN (7-18) mg/dl Creatinine (0.6-1.4) mg/dl Est Cr Clr Drug Dosing Est GFR ( Amer) Est GFR (Non-Af Amer) BUN/Creatinine Ratio (10-20) Glucose (70-99) mg/dl Calcium (8.5-10.1) mg/dl Total Bilirubin (0.2-1) mg/dl AST (15-37) U/L ALT (12-78) U/L Alkaline Phosphatase (45-117) U/L Total Creatine Kinase Cancelled CK-MB (CK-2) Cancelled CK/CKMB % Calc Cancelled Troponin I Cancelled Total Protein (6.4-8.2) gm/dl Albumin (3.4-5.0) gm/dl Globulin (2.5-4.0) gm/dl Albumin/Globulin Ratio (0.9-2) Blood Type Antibody Screen Crossmatch 12/29/18 12/29/18 Range/Units 08:20 08:20 WBC (4.8-10.8) K/uL RBC (4.7-6.1) M/uL Hgb (14.0-18.0) g/dL Hct (42-52) % MCV (80-100) fL MCH (25-34) pg MCHC (32-36) g/dL RDW Std Deviation (36.4-46.3) fL RDW Coeff of Eunice (11.5-14.5) % Plt Count (130-400) K/uL Absolute Nucleated RBC (0-0) K/uL Nucleated RBC % (auto) % Neutrophils % (Manual) % Lymphocytes % (Manual) % Monocytes % (Manual) % Basophils % (Manual) % Metamyelocytes % (Man) % Neutrophils # (Manual) (1.4-6.5) K/uL Total Absolute Neuts (1.4-6.5) K/uL Lymphocytes # (Manual) (1.2-3.4) K/uL Total Abs Lymphocytes (1.2-3.4) K/uL Monocytes # (Manual) (0.11-0.59) K/uL Basophils # (Manual) (0-0.2) K/uL Metamyelocytes # (Man) (0-0) K/uL Dohle Bodies Platelet Estimate (Normal) Hypochromasia Tear Drop Cells PT (9.0-12.0) Seconds INR (0.9-1.1) APTT (21.0-31.0) Seconds PTT Ratio Sodium 139 (136-145) mmol/L Potassium 3.4 L (3.5-5.1) mmol/L Chloride 108 H (98-107) mmol/L Carbon Dioxide 20 L (21-32) mmol/L Anion Gap 11.0 (3-11) BUN 54 H (7-18) mg/dl Creatinine 2.00 H (0.6-1.4) mg/dl Est Cr Clr Drug Dosing Not Reportable Est GFR ( Amer) 34.7 Est GFR (Non-Af Amer) 30.0 BUN/Creatinine Ratio 27.0 H (10-20) Glucose 101 H (70-99) mg/dl Calcium 7.8 L (8.5-10.1) mg/dl Total Bilirubin 0.7 (0.2-1) mg/dl AST 6 L (15-37) U/L ALT < 6 L (12-78) U/L Alkaline Phosphatase 61 (45-117) U/L Total Creatine Kinase 59 CK-MB (CK-2) < 1.0 CK/CKMB % Calc TNP Troponin I 0.017 Total Protein 6.8 (6.4-8.2) gm/dl Albumin 2.7 L (3.4-5.0) gm/dl Globulin 4.1 H (2.5-4.0) gm/dl Albumin/Globulin Ratio 0.7 L (0.9-2) Blood Type A Positive Antibody Screen NEGATIVE Crossmatch See Detail Imaging Data Radiologist's Impression: Radiology results as stated below per my review and the radiologist's interpretation: XR chest 1V portable CLINICAL HISTORY: Hypotension. COMPARISON STUDY: Chest CT September 03, 2018. Chest radiograph October 04, 2018. FINDINGS: Lung volumes are mildly diminished. There is no pneumothorax. Left pleural effusion left basilar opacity have improved. No consolidation is identified and there is no evidence for pulmonary edema. A few old bilateral rib fractures are present. Cardiomediastinal silhouette is stable. IMPRESSION: Low lung volumes. No acute cardiopulmonary findings identified. Electronically signed by: Arsh Herrera M.D. 12/29/2018 8:17 AM ECG Data Attestation: I personally reviewed and interpreted this ECG as follows: Indication: other (low blood pressure) Rate (beats per minute): 76 Rhythm: sinus rhythm Findings: + 1st degree AV block Blood Pressure Blood Pressure Findings: Low blood pressure Blood Pressure Disposition: further management by hospitalist MDM Narrative This is an 83-year-old male who presents emergency department hypotensive. The patient is listed as a DNR/DNI. I did discuss my findings with the patient's daughter including the fact that patient appears to be in acute renal failure and needs a blood transfusion. We had a lengthy discussion however she does not wish to be aggressive with this patient's findings. I did discuss the case with the hospitalist service who agreed to admit the patient. Patient family were in agreement with the treatment plan. Impression & Plan Severe anemia, Severe thrombocytopenia, Hypotension, Acute kidney failure Discharge Plan Visit Data *Final* Discharge Date/Time: 12/29/18 10:46 Chief Complaint: Illness Stated Complaint: ILLNESS ED Provider: Justin Wen Discharge Problem: Severe anemia, Severe thrombocytopenia, Hypotension, Acute kidney failure Patient Disposition: Being Evaluated by Hospitalist Discharge Instructions Interventions: ED Discharge Assessment Last Done: 12/29/18 10:46 Discharge Problem: Hypotension Qualifiers: Hypotension type: unspecified hypotension type Qualified Code(s): I95.9 - Hypotension, unspecified Acute kidney failure Qualifiers: Acute renal failure type: unspecified Qualified Code(s): N17.9 - Acute kidney failure, unspecified The scribe's documentation has been prepared under my direction and personally reviewed by me in its entirety. I confirm that the note above accurately reflects all work, treatment, procedures, and medical decision making performed by me.
[2018-12-29] MEDS: ACETAMINOPHEN 325 MG TAB PO PRN (19:33)
[2018-12-29] MEDS: POTASSIUM CHLORIDE 40 MEQ in SODIUM CHLORIDE 0.9% 1000ML 1,000 ML IV SCH (19:46)
[2018-12-29] MEDS ORDERED: DONEPEZIL HCL 10 MG TAB PO SCH (21:00)
[2018-12-29] MEDS ORDERED: AMIODARONE 200 MG TAB PO SCH (21:00)
[2018-12-29 21:09] LABS: Hematocrit (blood only) 26.8 % (42-52); Hemoglobin 8.8 g/dL (14.0-18.0)
[2018-12-30] MEDS ORDERED: Nursing to Pharmacy Communication ONE ×3 (00:37→19:00)
[2018-12-30] MEDS: POTASSIUM CHLORIDE 40 MEQ in SODIUM CHLORIDE 0.9% 1000ML 1,000 ML IV SCH ×3 (01:17→13:02)
[2018-12-30 03:34] LABS: Appearance Urine Cloudy (Clear); Bacteria Urine Automated 3+ (Negative); Bilirubin Urine Negative (Negative); Blood Urine 2+ (Negative); Color Urine Yellow; Epithelial Cell Urine Auto 0-5 /lpf (0-5); Glucose Urine UA Negative (Negative); Ketones Urine Negative (Negative); Leukocyte Esterase Urine 2+ (Negative); Nitrite Urine Negative (Negative); Protein Urine Trace (Negative); Specific Gravity Urine 1.019 (1.000-1.030); Urobilinogen Urine Negative (Negative); WBC Urine Automated >30 /hpf (0-5)
[2018-12-30] MEDS: ACETAMINOPHEN 325 MG TAB PO PRN (06:44)
[2018-12-30 07:43] LABS: Albumin Globulin Ratio 0.6 (0.9-2); Albumin Level 2.3 gm/dl (3.4-5.0); Bilirubin,Total 0.8 mg/dl (0.2-1); Calcium 6.9 mg/dl (8.5-10.1); Creatinine Clr Calc Pharmacy 43.5 ml/min; Est GFR (African American) 56.9; Est GFR (Non-African American) 49.1; Globulin 3.7 gm/dl (2.5-4.0)
[2018-12-30 08:16] LABS: Potassium 4.6 mmol/L (3.5-5.1)
[2018-12-30 08:18] LABS: Magnesium 1.3 mg/dl (1.8-2.4)
[2018-12-30 08:30] LABS: Hematocrit (blood only) 27.4 % (42-52); Hemoglobin 8.9 g/dL (14.0-18.0); Mean Corpuscular Hemoglobin 28.9 pg (25-34); Mean Corpuscular Hgb Conc 32.5 g/dL (32-36); Nucleated RBC # (auto) 0.07 K/uL (0-0); Nucleated RBC % (auto) 0.4 %; Platelet Count 7 K/uL (130-400); Platelet Estimate SIGNIFIC DECREASED (Normal); RDW Coefficient of Variation 16.9 % (11.5-14.5); RDW Standard Deviation 54.1 fL (36.4-46.3); Red Blood Count 3.08 M/uL (4.7-6.1); White Blood Count 17.82 K/uL (4.8-10.8)
[2018-12-30] MEDS ORDERED: SODIUM CHLORIDE 0.9% 250 ML IV PRN (08:41)
[2018-12-30] MEDS: AMIODARONE 200 MG TAB PO SCH ×2 (09:07→16:41)
[2018-12-30] MEDS: MAGNESIUM SULFATE / D5W 1 GM/100 ML BAG IV SCH ×2 (10:50→11:59)
[2018-12-30] MEDS: cefTRIAXone SODIUM 1,000 MG in DEXTROSE 5% 50 ML IV SCH (13:02)
[2018-12-30] MEDS: LACTATED RINGER'S 1,000 ML IV SCH (13:54)
--- NOTE | 2018-12-30 14:02 | Hospitalist Progress Note ---
Date of Service December 30, 2018 Assessment & Plan (1) Hypotension: - Presented with severe hypotension; is now improved with very aggressive IV fluid hydration, SBP 80-90's. - Possibly related to hypovolemic shock vs. related to underlying infection. - Continue IV fluids at 200 cc/hr. - Palliative consulted to discuss goals of care. - U/a positive, on IV abx (see below); CXR negative for PNA; 1/2 blood cultures were positive (?contaminant) (2) Acute kidney failure: - Creatinine increased to 2.0 on admission; baseline ~0.4-0.5. - Creatinine trending down with IV fluids. - Hold nephrotoxic meds. (3) MDS (myelodysplastic syndrome): - Transfusion dependent MDS; has not received recent chemotherapy for MDS. - Palliative consulted; family has considered transitioning to comfort measures if necessary. (4) Positive blood culture: - 1/2 blood cultures positive for gram positive cocci -- may be contaminant. - Continue to follow 2nd blood culture -- will need to add Vancomycin IV if 2nd culture is positive. - Continue to address goals of care with family in regards to treatment. (5) UTI (urinary tract infection): - U/a positive, UC is pending. - Did have low grade fevers over last 12 hours, leukocytosis noted; he is not alert and oriented to c/o urinary symptoms during rounds. - Started Ceftriaxone IV for empiric coverage. (6) Symptomatic anemia: - Transfusion dependent, in setting of MDS. Has been receiving frequent PRBCs and Plt transfusions, every 1-2 weeks. - Hgb 7.1 on admission, responded well to 2 units pRBCs. - Monitor CBC daily. (7) Severe thrombocytopenia: - In setting of transfusion dependent MDS. - Plt count <10 -- transfused 1 unit plt this morning. (8) Leukocytosis: - In setting of MDS; may be acutely elevated in setting of ?infection. - Monitor CBC daily. (9) Metabolic acidosis: - May be related to NS infusion over last 24 hours vs. acute renal failure. - Will convert NS to lactated ringers. - Repeat labs qAM. (10) Chronic diastolic HF (heart failure): - Most recent echo in September 2018 showed preserved EF, mild LVH and valvular abnormalities. - On aggressive IV fluids as noted above. - Monitor I/Os and daily weights. - Hold home beta sandra. (11) Atrial fibrillation with RVR: - Currently in SR with 1st degree AV block on monitor; continue home Amiodarone as prescribed. - Hold beta sandra in setting of hypotension. - Not on anticoagulation due to thrombocytopenia. (12) Iron deficiency anemia: - Hold home ferrous sulfate. (13) Metabolic encephalopathy: - Has developed increased confusion and agitation over last 12 hours -- related to hospital delirium vs. infection vs. other. - Haldol 1 mg PO 6hr prn agitation. - Frequently re-orient patient as needed; consider 1:1 monitoring if necessary. (14) Dementia: - Holding home Aricept. - Acute confusion as noted above. (15) Thoracic aortic aneurysm without rupture: - Noted on previous CTA, measures up to 5 cm. - Monitored as outpatient. (16) Pancreatic lesion: - CT A/P in August showed cystic lesion at pancreatic head; has not been evaluated -- consider IPMN vs. neoplasm. 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 (18) GERD (gastroesophageal reflux disease): - Holding home PPI. (19) Electrolyte abnormality: - Mag level 1.3 -- ordered mag sulfate 2 gm IV. - Monitor levels daily. (20) DVT prophylaxis: - SCDs; hold pharmacologic ppx due to thrombocytopenia. Dispo: Continue to address goals of care with his family. Palliative consulted. Supervising Physician Co-Signing Physician Notes Chart reviewed, case discussed with Delma ALVAREZ. Agree with decision making and plan. Care as above. Subjective Pt. is very agitated, confused this morning. Cannot obtain accurate history from him due to confusion. He does not appear to be uncomfortable or in acute pain. Review of Systems Review of Systems: Unobtainable due to cognitive status Physical Exam Physical Exam: General: Chronically ill appearing male. HEENT: NC/AT; PERRLA with EOMI; [place] conjunctiva, MMM. No erythema of posterior pharynx Neck: Supple and nontender Cardiac: RRR Lungs: CTA bilaterally Abdomen: Bowel normoactive X 4; Nontender to palpation Extremities: Warm. No edema present. Neuro: Not alert to person or place, cannot complete full neuro exam. Skin: No rash Results & Data Vital Signs (Past 12 Hours) Vital Signs Temp Pulse Pulse Resp BP BP Pulse Ox 12/30/18 11:17 36.6 C 78 20 88/59 L 96 12/30/18 10:25 37.6 C H 66 20 101/62 95 12/30/18 10:19 37.6 C H 83 18 92/63 L 96 12/30/18 09:49 37.4 C 80 20 96/67 L 96 12/30/18 09:34 37.6 C H 81 18 91/59 L 95 12/30/18 09:17 37.6 C H 68 18 128/62 12/30/18 07:38 85 12/30/18 07:00 36.7 C 78 16 90/61 L 94 12/30/18 04:24 36.4 C L 72 20 97/61 L 96 Laboratory Results 12/30/18 12/30/18 12/30/18 Range/Units 07:45 07:39 06:54 WBC 17.82 H (4.8-10.8) K/uL RBC 3.08 L (4.7-6.1) M/uL Hgb 8.9 L (14.0-18.0) g/dL Hct 27.4 L (42-52) % MCV 89.0 (80-100) fL MCH 28.9 (25-34) pg MCHC 32.5 (32-36) g/dL RDW Std Deviation 54.1 H (36.4-46.3) fL RDW Coeff of Eunice 16.9 H (11.5-14.5) % Plt Count 7 L* (130-400) K/uL MPV Absolute Nucleated RBC 0.07 H (0-0) K/uL Nucleated RBC % (auto) 0.4 % Platelet Estimate SIGNIFIC DECREASED Sodium 140 (136-145) mmol/L Potassium 4.6 D (3.5-5.1) mmol/L Chloride 115 H (98-107) mmol/L Carbon Dioxide 17 L (21-32) mmol/L Anion Gap 8.0 (3-11) BUN 43 H (7-18) mg/dl Creatinine 1.33 D (0.6-1.4) mg/dl Est Cr Clr Drug Dosing 43.5 ml/min Est GFR ( Amer) 56.9 Est GFR (Non-Af Amer) 49.1 BUN/Creatinine Ratio 32.0 H (10-20) Glucose 73 (70-99) mg/dl Calcium 6.9 L (8.5-10.1) mg/dl Magnesium 1.3 L (1.8-2.4) mg/dl Total Bilirubin 0.8 (0.2-1) mg/dl AST 5 L (15-37) U/L ALT 6 L (12-78) U/L Alkaline Phosphatase 61 (45-117) U/L C-Reactive Protein (0-0.29) mg/dl Total Protein 6.0 L (6.4-8.2) gm/dl Albumin 2.3 L (3.4-5.0) gm/dl Globulin 3.7 (2.5-4.0) gm/dl Albumin/Globulin Ratio 0.6 L (0.9-2) Procalcitonin (0-0.5) ng/ml Urine Color Urine Appearance (Clear) Urine pH (4.5-7.5) Ur Specific [place] (1.000-1.030) Urine Protein (Negative) Urine Glucose (UA) (Negative) Urine Ketones (Negative) Urine Blood (Negative) Urine Nitrite (Negative) Urine Bilirubin (Negative) Urine Urobilinogen (Negative) Ur Leukocyte Esterase (Negative) Urine WBC (Auto) (0-5) /hpf Urine RBC (Auto) (0-4) /hpf U Hyaline Cast (Auto) (0-5) /lpf U Epithel Cells (Auto) (0-5) /lpf Urine Bacteria (Auto) (Negative) Bld Cult Staph aureus PCR (Negative) Blood Culture MRSA PCR (Negative) Blood Type Antibody Screen Crossmatch 12/30/18 12/30/18 12/29/18 Range/Units 06:54 03:22 20:55 WBC Cancelled (4.8-10.8) K/uL RBC Cancelled (4.7-6.1) M/uL Hgb Cancelled 8.8 L (14.0-18.0) g/dL Hct Cancelled 26.8 L (42-52) % MCV Cancelled (80-100) fL MCH Cancelled (25-34) pg MCHC Cancelled (32-36) g/dL RDW Std Deviation Cancelled (36.4-46.3) fL RDW Coeff of Eunice Cancelled (11.5-14.5) % Plt Count Cancelled (130-400) K/uL MPV Cancelled Absolute Nucleated RBC Cancelled (0-0) K/uL Nucleated RBC % (auto) Cancelled % Platelet Estimate Cancelled Sodium (136-145) mmol/L Potassium (3.5-5.1) mmol/L Chloride (98-107) mmol/L Carbon Dioxide (21-32) mmol/L Anion Gap (3-11) BUN (7-18) mg/dl Creatinine (0.6-1.4) mg/dl Est Cr Clr Drug Dosing ml/min Est GFR ( Amer) Est GFR (Non-Af Amer) BUN/Creatinine Ratio (10-20) Glucose (70-99) mg/dl Calcium (8.5-10.1) mg/dl Magnesium (1.8-2.4) mg/dl Total Bilirubin (0.2-1) mg/dl AST (15-37) U/L ALT (12-78) U/L Alkaline Phosphatase (45-117) U/L C-Reactive Protein (0-0.29) mg/dl Total Protein (6.4-8.2) gm/dl Albumin (3.4-5.0) gm/dl Globulin (2.5-4.0) gm/dl Albumin/Globulin Ratio (0.9-2) Procalcitonin (0-0.5) ng/ml Urine Color Yellow Urine Appearance Cloudy A (Clear) Urine pH 5.0 (4.5-7.5) Ur Specific [place] 1.019 (1.000-1.030) Urine Protein Trace H (Negative) Urine Glucose (UA) Negative (Negative) Urine Ketones Negative (Negative) Urine Blood 2+ H (Negative) Urine Nitrite Negative (Negative) Urine Bilirubin Negative (Negative) Urine Urobilinogen Negative (Negative) Ur Leukocyte Esterase 2+ H (Negative) Urine WBC (Auto) >30 H (0-5) /hpf Urine RBC (Auto) 5-10 H (0-4) /hpf U Hyaline Cast (Auto) 10-30 H (0-5) /lpf U Epithel Cells (Auto) 0-5 (0-5) /lpf Urine Bacteria (Auto) 3+ H (Negative) Bld Cult Staph aureus PCR (Negative) Blood Culture MRSA PCR (Negative) Blood Type Antibody Screen Crossmatch 12/29/18 12/29/18 12/29/18 Range/Units 14:21 13:46 13:46 WBC 17.54 H (4.8-10.8) K/uL RBC 2.19 L (4.7-6.1) M/uL Hgb 6.4 L* (14.0-18.0) g/dL Hct 20.2 L* (42-52) % MCV 92.2 (80-100) fL MCH 29.2 (25-34) pg MCHC 31.7 L (32-36) g/dL RDW Std Deviation 56.2 H (36.4-46.3) fL RDW Coeff of Eunice 16.9 H (11.5-14.5) % Plt Count 9 L* (130-400) K/uL MPV Absolute Nucleated RBC 0.06 H (0-0) K/uL Nucleated RBC % (auto) 0.4 % Platelet Estimate Sodium (136-145) mmol/L Potassium (3.5-5.1) mmol/L Chloride (98-107) mmol/L Carbon Dioxide (21-32) mmol/L Anion Gap (3-11) BUN (7-18) mg/dl Creatinine (0.6-1.4) mg/dl Est Cr Clr Drug Dosing ml/min Est GFR ( Amer) Est GFR (Non-Af Amer) BUN/Creatinine Ratio (10-20) Glucose (70-99) mg/dl Calcium (8.5-10.1) mg/dl Magnesium (1.8-2.4) mg/dl Total Bilirubin (0.2-1) mg/dl AST (15-37) U/L ALT (12-78) U/L Alkaline Phosphatase (45-117) U/L C-Reactive Protein (0-0.29) mg/dl Total Protein (6.4-8.2) gm/dl Albumin (3.4-5.0) gm/dl Globulin (2.5-4.0) gm/dl Albumin/Globulin Ratio (0.9-2) Procalcitonin 0.59 H (0-0.5) ng/ml Urine Color Urine Appearance (Clear) Urine pH (4.5-7.5) Ur Specific [place] (1.000-1.030) Urine Protein (Negative) Urine Glucose (UA) (Negative) Urine Ketones (Negative) Urine Blood (Negative) Urine Nitrite (Negative) Urine Bilirubin (Negative) Urine Urobilinogen (Negative) Ur Leukocyte Esterase (Negative) Urine WBC (Auto) (0-5) /hpf Urine RBC (Auto) (0-4) /hpf U Hyaline Cast (Auto) (0-5) /lpf U Epithel Cells (Auto) (0-5) /lpf Urine Bacteria (Auto) (Negative) Bld Cult Staph aureus PCR Negative (Negative) Blood Culture MRSA PCR Negative (Negative) Blood Type Antibody Screen Crossmatch 12/29/18 12/29/18 Range/Units 13:46 08:20 WBC (4.8-10.8) K/uL RBC (4.7-6.1) M/uL Hgb (14.0-18.0) g/dL Hct (42-52) % MCV (80-100) fL MCH (25-34) pg MCHC (32-36) g/dL RDW Std Deviation (36.4-46.3) fL RDW Coeff of Eunice (11.5-14.5) % Plt Count (130-400) K/uL MPV Absolute Nucleated RBC (0-0) K/uL Nucleated RBC % (auto) % Platelet Estimate Sodium 139 (136-145) mmol/L Potassium 3.3 L (3.5-5.1) mmol/L Chloride 110 H (98-107) mmol/L Carbon Dioxide 21 (21-32) mmol/L Anion Gap 8.0 (3-11) BUN 50 H (7-18) mg/dl Creatinine 1.78 H (0.6-1.4) mg/dl Est Cr Clr Drug Dosing 28.4 ml/min Est GFR ( Amer) 40.0 Est GFR (Non-Af Amer) 34.5 BUN/Creatinine Ratio 27.8 H (10-20) Glucose 82 (70-99) mg/dl Calcium 7.1 L (8.5-10.1) mg/dl Magnesium (1.8-2.4) mg/dl Total Bilirubin (0.2-1) mg/dl AST (15-37) U/L ALT (12-78) U/L Alkaline Phosphatase (45-117) U/L C-Reactive Protein 2.96 H (0-0.29) mg/dl Total Protein (6.4-8.2) gm/dl Albumin (3.4-5.0) gm/dl Globulin (2.5-4.0) gm/dl Albumin/Globulin Ratio (0.9-2) Procalcitonin (0-0.5) ng/ml Urine Color Urine Appearance (Clear) Urine pH (4.5-7.5) Ur Specific [place] (1.000-1.030) Urine Protein (Negative) Urine Glucose (UA) (Negative) Urine Ketones (Negative) Urine Blood (Negative) Urine Nitrite (Negative) Urine Bilirubin (Negative) Urine Urobilinogen (Negative) Ur Leukocyte Esterase (Negative) Urine WBC (Auto) (0-5) /hpf Urine RBC (Auto) (0-4) /hpf U Hyaline Cast (Auto) (0-5) /lpf U Epithel Cells (Auto) (0-5) /lpf Urine Bacteria (Auto) (Negative) Bld Cult Staph aureus PCR (Negative) Blood Culture MRSA PCR (Negative) Blood Type A Positive Antibody Screen NEGATIVE Crossmatch See Detail PG Care Time/CCT Total # of Minutes Spent Total Time Spent with Patient: Total time spent is greater than 50% in coordination of care (as documented) at patient's floor/unit and/or counseling patient: (1) Acute kidney failure Acute renal failure type: unspecified Qualified Code(s): N17.9 - Acute kidney failure, unspecified (2) Dementia Dementia behavioral disturbance: without behavioral disturbance Dementia type: unspecified type Qualified Code(s): F03.90 - Unspecified dementia without behavioral disturbance (3) Iron deficiency anemia Iron deficiency anemia type: unspecified iron deficiency Qualified Code(s): D50.9 - Iron deficiency anemia, unspecified (4) Hypotension Hypotension type: unspecified hypotension type Qualified Code(s): I95.9 - Hypotension, unspecified
--- NOTE | 2018-12-30 15:39 | Palliative Care Consultation ---
Date of Consultation December 30, 2018 Assessment & Plan (1) Goals of care, counseling/discussion: Patient is an 83-year-old male previously known to our service from an admission from 10/04-10/08. Past medical history is significant for MDS-clinically diagnosed in September of this year, CHF, dementia, COPD, and paroxysmal A. fib. Patient has been transfusion dependent since August of this year. Since his discharge from the hospital on 10/08 he has required 10 units of platelets and 10 units of packed cells. Patient was sent to the emergency room on 12/29 from [facility] for hypotension. Blood pressures were 60s/40s. Patient was given a fluid bolus in the emergency room and again on the floor-he has IV fluids running at 200 cc an hour. Patient has received approximately 3 L of fluid and continues to remain hypotensive. Patient with an equivocal QA-is now on Rocephin for possible UTI. He was transfused 2 units of blood and a unit of platelets on this admission. Patient is having increased confusion-this may be multifactorial-patient has a history of dementia, possible UTI as well as hyper tension contributing. Met with patient's daughter, Dunia and her significant other. PEBBLES Trujillo was present for part of the visit. Patient's daughter stated she was leaning towards comfort care and no further transfusions-however she would like to try to speak with her father when he is more alert and oriented. Patient was offered transfusion while still at [facility] and he refused, however in the emergency room he stated he was "not ready to go yet" and consented to transfusion. Daughter has a good understanding of his disease and disease progression. She would like to see how he is doing tomorrow after continued fluid hydration as well as antibiotics for possible UTI to see if he recovers. She stated that if he was still confused despite his current treatment, it would make her decision easier. On exam patient is pale and lethargic. He did awaken briefly-when asked if he would like to return to [facility] be comfortable he replied yes, when asked if it would be okay if we did not do any more transfusions he replied yes. Daughter was present when he responded to questions-he has changed his mind in the past and would like to give him the chance to become more alert. -Hypotension-minimal improvement with aggressive fluid resuscitation. Along with patient's wishes there is no plan for pressors or further aggressive treatment -MDS-transfusion dependent. Patient requiring blood and platelets every 2 weeks with minimal improvement in hemoglobin and platelet count -CHF-patient is so far tolerating aggressive fluid resuscitation-no lower extremity edema, no rales on exam -Encephalopathy-multifactorial, equivocal UA, hypotension, and history of dementia all contributing -A. fib-rate controlled with amiodarone Collaborated with attending team,. Will follow up with daughter tomorrow-daughter given my cell phone number to reach me if she makes a decision between now and follow-up visit tomorrow. Will continue current treatment, may need to decrease IV fluid rate if patient starts having edema or rales. Continue IV Rocephin and follow-up urine cultures. (2) Hypotension: Hypotension type: unspecified hypotension type Qualified Code(s): I95.9 - Hypotension, unspecified (3) MDS (myelodysplastic syndrome): (4) Chronic diastolic HF (heart failure): (5) Encephalopathy: (6) Atrial fibrillation with RVR: History of Present Illness Reason for Consultation: Address goals of care Requesting Physician: Delma Kendall PA-C Attending Physician: Herve Shen DO History of Present Illness Patient is an 83-year-old male previously known to our service from an admission from 10/04-10/08. Past medical history is significant for MDS-clinically diagnosed in September of this year, CHF, dementia, COPD, and paroxysmal A. fib. Patient has been transfusion dependent since August of this year. Since his discharge from the hospital on 10/08 he has required 10 units of platelets and 10 units of packed cells. Patient was sent to the emergency room on 12/29 from [facility] for hypotension. Blood pressures were 60s/40s. Patient was given a fluid bolus in the emergency room and again on the floor-he has IV fluids running at 200 cc an hour. Patient has received approximately 3 L of fluid and continues to remain hypotensive. Patient with an equivocal QA-is now on Rocephin for possible UTI. He was transfused 2 units of blood and a unit of platelets on this admission. Patient is having increased confusion-this may be multifactorial-patient has a history of dementia, possible UTI as well as hyper tension contributing. Met with patient's daughter, Dunia and her significant other. PEBBLES Trujillo was present for part of the visit. Patient's daughter stated she was leaning towards comfort care and no further transfusions-however she would like to try to speak with her father when he is more alert and oriented. Patient was offered transfusion while still at [facility] and he refused, however in the emergency room he stated he was "not ready to go yet" and consented to transfusion. Daughter has a good understanding of his disease and disease progression. She would like to see how he is doing tomorrow after continued fluid hydration as well as antibiotics for possible UTI to see if he recovers. She stated that if he was still confused despite his current treatment, it would make her decision easier. On exam patient is pale and lethargic. He did awaken briefly-when asked if he would like to return to [facility] be comfortable he replied yes, when asked if it would be okay if we did not do any more transfusions he replied yes. Daughter was present when he responded to questions-he has changed his mind in the past and would like to give him the chance to become more alert. Allergies Allergy/AdvReac Type Severity Reaction Status Date / Time No Known Allergies Allergy Unknown Verified 12/29/18 08:34 Home Medications Home Medications Medication Instructions Recorded Confirmed Type acetaminophen [Tylenol Extra 1,000 mg PO TID 09/03/18 12/29/18 History Strength] donepezil 10 mg PO HS 09/04/18 12/29/18 History Santyl 1 applic TOPICAL BID PRN 09/23/18 12/29/18 History amiodarone 200 mg PO BID 10/04/18 12/29/18 History ferrous sulfate 325 mg PO DAILY 10/04/18 12/29/18 History metoprolol tartrate 50 mg PO BID 10/04/18 12/29/18 History pantoprazole 40 mg PO BID 10/04/18 12/29/18 History polyethylene glycol 3350 [Miralax] 17 g PO DAILY #1 btl 10/08/18 12/29/18 Rx potassium chloride 10 meq PO DAILY #30 cap 10/08/18 12/29/18 Rx menthol-zinc oxide [Calmoseptine] 1 applic TOPICAL DAILY PRN 11/11/18 12/29/18 History hydrocodone-acetaminophen 1 tab PO Q6H PRN 09/11/19 09/25/19 History mirtazapine 7.5 mg PO DIRECTED 12/29/18 12/29/18 History Patient History Medical History Congestive heart failure (Acute) Severe thrombocytopenia (Acute) Severe anemia (Acute) Microhematuria (Acute) Iron deficiency anemia (Acute) Incontinence (Acute) Hearing loss (Acute) Dementia (Acute) Axillary neuropathy (Acute) Anemia (Acute) Chronic obstructive pulmonary disease (COPD) (Acute) Gastro-esophageal reflux disease without esophagitis (Acute) Muscle weakness (generalized) Paroxysmal atrial fibrillation Thrombocytopenia Unspecified abnormalities of gait and mobility Unspecified dementia without behavioral disturbance Family History Other Family history non-contributory Social History Preferred Language: [place] Communication Ability: Unable Foreign Exchange Services Manager Required: No Beliefs That Will Affect Care: None Current Living Situation: Personal Care Facility Current Living Situation Comment: [facility] Other Information That Helps Us Care for You: No Feels Safe at Home: Yes Safety Concerns: Feels Safe At This Time Smoking Status: Former smoker Do You Dip or Chew Tobacco: No ; Second Hand Exposure: No ; Tobacco Cessation Education Requested by Patient: No Hx Alcohol Use: No Hx Substance Use: No Review of Systems Review of Systems: Unobtainable due to cognitive status Total time spent 70 minutes with greater than 50% of time spent at bedside discussing goals of care with patient's daughter. Results & Data Vital Signs (Past 12 Hours) Vital Signs Temp Pulse Pulse Resp BP BP Pulse Ox 12/30/18 15:34 98.2 F 74 17 96/62 L 95 12/30/18 11:17 97.9 F 78 20 88/59 L 96 12/30/18 10:25 99.7 F H 66 20 101/62 95 12/30/18 10:19 99.7 F H 83 18 92/63 L 96 12/30/18 09:49 99.3 F 80 20 96/67 L 96 12/30/18 09:34 99.7 F H 81 18 91/59 L 95 12/30/18 09:17 99.7 F H 68 18 128/62 12/30/18 07:38 85 12/30/18 07:00 98.1 F 78 16 90/61 L 94 12/30/18 04:24 97.5 F L 72 20 97/61 L 96 PG Care Time/CCT Total # of Minutes Spent Total Time Spent with Patient: Total time spent is greater than 50% in coordination of care (as documented) at patient's floor/unit and/or counseling patient:
[2018-12-31] MEDS: LACTATED RINGER'S 1,000 ML IV SCH ×4 (00:08→22:31)
[2018-12-31 06:38] LABS: BUN Creatinine Ratio 35.5 (10-20); Creatinine Clr Calc Pharmacy 74.1 ml/min; Est GFR (African American) 96.7; Est GFR (Non-African American) 83.5; Magnesium 1.6 mg/dl (1.8-2.4); Potassium 4.1 mmol/L (3.5-5.1)
[2018-12-31 06:53] LABS: Hematocrit (blood only) 23.6 % (42-52); Hemoglobin 7.7 g/dL (14.0-18.0); Mean Corpuscular Hemoglobin 29.4 pg (25-34); Mean Corpuscular Hgb Conc 32.6 g/dL (32-36); Mean Corpuscular Volume 90.1 fL (80-100); Mean Platelet Volume 9.9 fL (7.4-10.4); Nucleated RBC # (auto) 0.06 K/uL (0-0); Nucleated RBC % (auto) 0.4 %; Platelet Count 10 K/uL (130-400); Platelet Estimate SIGNIFIC DECREASED (Normal); RDW Standard Deviation 55.5 fL (36.4-46.3); Red Blood Count 2.62 M/uL (4.7-6.1); White Blood Count 14.28 K/uL (4.8-10.8)
[2018-12-31] MEDS: AMIODARONE 200 MG TAB PO SCH ×2 (09:29→18:17)
[2018-12-31] MEDS ORDERED: MAGNESIUM SULFATE / D5W 1 GM/100 ML BAG IV ONE (09:30)
[2018-12-31] MEDS: cefTRIAXone SODIUM 1,000 MG in DEXTROSE 5% 50 ML IV SCH (11:02)
--- NOTE | 2018-12-31 11:17 | Hospitalist Progress Note ---
Date of Service December 31, 2018 Assessment & Plan (1) Hypotension: - Presented with severe hypotension; SBP has been 80-90's following aggressive IV fluid hydration. - Possibly related to hypovolemic shock vs. underlying infection. - Continue IV fluids - decrease to 100 ml/hr. - Palliative consulted, appreciate input. Will re-address goals of care this afternoon. - UC positive, on IV abx (see below); CXR negative for PNA; 1/2 blood cultures were positive (? likely contaminant) (2) Acute kidney failure: - Creatinine increased to 2.0 on admission; baseline ~0.4-0.5. - Creatinine now improving back to baseline with IV fluids. - Holding nephrotoxic meds. - Continue IV fluids at 100 cc/hr. (3) MDS (myelodysplastic syndrome): - Transfusion dependent MDS; has not received recent chemotherapy for MDS. - Palliative consulted; family will consider transitioning to comfort measures if necessary. (4) Positive blood culture: - 1/2 blood cultures positive for gram positive cocci -- is likely a contaminant. - Continue to follow cultures -- will need to add Vancomycin IV if 2nd culture is positive. (5) UTI (urinary tract infection): - U/a positive, UC +E. coli. - Did have low grade fevers & leukocytosis noted; he is not oriented to report urinary symptoms. - Continue Ceftriaxone IV for empiric coverage, follow sensitivities. (6) Symptomatic anemia: - Transfusion dependent, in setting of MDS. Has been receiving frequent PRBCs and Plt transfusions, every 1-2 weeks. - Hgb 7.1 on admission, responded well to 2 units pRBCs. - Monitor CBC daily -- trending down following transfusion, likely partially dilutional related to IV fluids. (7) Severe thrombocytopenia: - In setting of transfusion dependent MDS. - Plt count improved following 1 unit on 12/30. (8) Leukocytosis: - In setting of MDS; may be acutely elevated in setting of ?infection. - Monitor CBC daily - has been trending down after starting IV abx. (9) Metabolic acidosis: - May be related to acute renal failure vs. normal saline infusion. - CO2 trending up after converting to lactated ringers solution. - Monitor labs qAM. (10) Chronic diastolic HF (heart failure): - Most recent echo in September 2018 showed preserved EF, mild LVH and valvular abnormalities. - Monitor I/Os and daily weights. - Caution with volume overload in setting of IV fluids. - Hold home beta sandra. (11) Atrial fibrillation with RVR: - Currently in SR with 1st degree AV block on monitor; will hold home Amiodarone. - Hold beta sandra in setting of hypotension. - Not on anticoagulation due to thrombocytopenia. (12) Iron deficiency anemia: - Hold home ferrous sulfate. (13) Metabolic encephalopathy: - Has developed increased confusion and agitation over last 36 hours -- related to hospital delirium vs. infection. - Haldol 1 mg PO 6hr prn agitation. - Frequently re-orient patient as needed; consider 1:1 monitoring. (14) Dementia: - Holding home Aricept. - Acute confusion as noted above. (15) Thoracic aortic aneurysm without rupture: - Noted on previous CTA, measures up to 5 cm. - Monitored as outpatient. (16) Pancreatic lesion: - CT A/P in August showed cystic lesion at pancreatic head; has not been evaluated -- consider IPMN vs. neoplasm. 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 (18) GERD (gastroesophageal reflux disease): - Holding home PPI. (19) Electrolyte abnormality: - Mag level 1.6 -- ordered mag sulfate 1 gm IV. - Monitor levels daily. (20) DVT prophylaxis: - SCDs; hold pharmacologic ppx due to thrombocytopenia. Dispo: Continue to address goals of care with his family. Subjective Pt. is agitated, not alert to person or place this morning. Bedside nurse reports that patient was yelling out throughout most of the night, has been pressing call merrill frequently. Will discuss goals of care with family this afternoon. Review of Systems Review of Systems: Unobtainable due to cognitive status Physical Exam Physical Exam: General: Chronically ill appearing male, no acute distress. HEENT: NC/AT; PERRLA with EOMI; [place] conjunctiva, MMM. No erythema of posterior pharynx Neck: Supple and nontender Cardiac: RRR Lungs: CTA bilaterally Abdomen: Bowel normoactive X 4; Nontender to palpation Extremities: Warm. No edema present. Neuro: Is confused, speech is garbled. Cannot complete full neuro exam. Skin: No rash Results & Data Vital Signs (Past 12 Hours) Vital Signs Temp Pulse Pulse Resp BP Pulse Ox 12/31/18 09:30 100/68 12/31/18 07:00 36.1 C L 77 18 96/65 L 97 12/31/18 05:19 74 99/66 L 12/31/18 04:00 36.7 C 76 24 88/54 L 95 12/31/18 00:15 84 12/30/18 23:28 36.7 C 77 26 H 99/65 L 96 Laboratory Results 12/31/18 12/31/18 12/29/18 Range/Units 05:50 05:50 14:21 WBC 14.28 H (4.8-10.8) K/uL RBC 2.62 L (4.7-6.1) M/uL Hgb 7.7 L (14.0-18.0) g/dL Hct 23.6 L (42-52) % MCV 90.1 (80-100) fL MCH 29.4 (25-34) pg MCHC 32.6 (32-36) g/dL RDW Std Deviation 55.5 H (36.4-46.3) fL RDW Coeff of Eunice 17.0 H (11.5-14.5) % Plt Count 10 L* (130-400) K/uL MPV 9.9 (7.4-10.4) fL Absolute Nucleated RBC 0.06 H (0-0) K/uL Nucleated RBC % (auto) 0.4 % Platelet Estimate SIGNIFIC DECREASED (Normal) Sodium 144 (136-145) mmol/L Potassium 4.1 (3.5-5.1) mmol/L Chloride 119 H (98-107) mmol/L Carbon Dioxide 20 L (21-32) mmol/L Anion Gap 5.0 (3-11) BUN 28 H (7-18) mg/dl Creatinine 0.78 D (0.6-1.4) mg/dl Est Cr Clr Drug Dosing 74.1 ml/min Est GFR ( Amer) 96.7 Est GFR (Non-Af Amer) 83.5 BUN/Creatinine Ratio 35.5 H (10-20) Glucose 82 (70-99) mg/dl Calcium 7.0 L (8.5-10.1) mg/dl Magnesium 1.6 L (1.8-2.4) mg/dl Bld Cult Staph aureus PCR Negative (Negative) Blood Culture MRSA PCR Negative (Negative) PG Care Time/CCT Total # of Minutes Spent Total Time Spent with Patient: Total time spent is greater than 50% in coordination of care (as documented) at patient's floor/unit and/or counseling patient: (1) Acute kidney failure Acute renal failure type: unspecified Qualified Code(s): N17.9 - Acute kidney failure, unspecified (2) Dementia Dementia behavioral disturbance: without behavioral disturbance Dementia type: unspecified type Qualified Code(s): F03.90 - Unspecified dementia without behavioral disturbance (3) Iron deficiency anemia Iron deficiency anemia type: unspecified iron deficiency Qualified Code(s): D50.9 - Iron deficiency anemia, unspecified (4) Hypotension Hypotension type: unspecified hypotension type Qualified Code(s): I95.9 - Hypotension, unspecified
[2018-12-31] MEDS: haloperidoL 1 MG TAB PO PRN ×2 (11:22→20:21)
--- NOTE | 2018-12-31 13:48 | Palliative Care Progress Note ---
Date of Service December 31, 2018 Assessment & Plan (1) Goals of care, counseling/discussion: Patient is an 83-year-old male previously known to our service from an admission from 10/04-10/08. Past medical history is significant for MDS-clinically diagnosed in September of this year, CHF, dementia, COPD, and paroxysmal A. fib. Patient has been transfusion dependent since August of this year. Since his discharge from the hospital on 10/08 he has required 10 units of platelets and 10 units of packed cells. Patient was sent to the emergency room on 12/29 from [facility] for hypotension. Blood pressures were 60s/40s. Patient was given a fluid bolus in the emergency room and again on the floor-he had IV fluids running at 200 cc an hour for approximately 48 hours. Now at 100 cc an hour. Patient has received approximately 3 L of fluid and continues to remain hypotensive. Patient on Rocephin for UTI-culture identification is E. coli, sensitivities pending. He was transfused 2 units of blood and a unit of platelets on this admission. Patient is having increased confusion-this may be multifactorial-patient has a history of dementia, MDS, UTI as well as hypo tension contributing. Have not heard back from patient's daughter-she has my cell phone number to call me when they make a decision. There is no family at bedside during today's visit On exam patient is pale and lethargic. He did awaken briefly-initially was able to answer to her 3 simple questions then became very agitated. -Hypotension-minimal improvement with aggressive fluid resuscitation. Along with patient's wishes there is no plan for pressors or further aggressive treatment -MDS-transfusion dependent. Patient requiring blood and platelets every 2 weeks with minimal improvement in hemoglobin and platelet count-daughter leaning towards no further transfusions. Awaiting to hear her final decision -CHF-patient is so far tolerating aggressive fluid resuscitation-no lower extremity edema, no rales on exam -Encephalopathy-multifactorial -MDS, thrombocytopenia, UTI, hypotension, and history of dementia all contributing -A. fib-rate controlled with amiodarone Collaborated with attending team,. Awaiting decision from daughter on whether to transition to comfort care. (2) Hypotension: (3) MDS (myelodysplastic syndrome): (4) Chronic diastolic HF (heart failure): (5) Encephalopathy: (6) Atrial fibrillation with RVR: Subjective Patient financially comfortable on exam-was able to answer a few simple questions. Patient did appear more confused. Shortly into visit patient became agitated yelling and stating he did not want to prolong this, he does want to be comfortable. No family at bedside. Patient's hemoglobin slowly dropping from 8.9 to 7.7, platelets only 10K after transfusion. Review of Systems Review of Systems: Unobtainable due to cognitive status Physical Exam Physical Exam: PE: Patient initially, no acute acute distress. HEENT: EOMI, hearing within normal limits Respirations: Unlabored CV: Regular rate Abdomen: Not distended Skin: Patient pale Neuro: Confused, unable to make medical decisions. Results & Data Vital Signs (Past 12 Hours) Vital Signs Temp Pulse Resp BP Pulse Ox 12/31/18 09:30 100/68 12/31/18 07:00 97.0 F L 77 18 96/65 L 97 12/31/18 05:19 74 99/66 L 12/31/18 04:00 98.1 F 76 24 88/54 L 95 PG Care Time/CCT Total # of Minutes Spent Total Time Spent with Patient: Total time spent is greater than 50% in coordination of care (as documented) at patient's floor/unit and/or counseling patient: Time Spent Attending Total time spent 25 minutes with greater than 50% of the time spent at bedside assessing patient's current status and collaborating with attending provider team. (1) Hypotension Hypotension type: unspecified hypotension type Qualified Code(s): I95.9 - Hypotension, unspecified
[2018-12-31] MEDS ORDERED: ACETAMINOPHEN 325 MG TAB ONE (19:08)
[2018-12-31] MEDS: ACETAMINOPHEN 325 MG TAB PO SCH (20:07)
[2019-01-01] MEDS: ACETAMINOPHEN 325 MG TAB PO SCH (03:56)
[2019-01-01] MEDS: ACETAMINOPHEN 65 ML IV SCH ×3 (04:08→20:49)
[2019-01-01 06:36] LABS: Hematocrit (blood only) 23.9 % (42-52); Hemoglobin 7.8 g/dL (14.0-18.0); Mean Corpuscular Hemoglobin 29.2 pg (25-34); Mean Corpuscular Hgb Conc 32.6 g/dL (32-36); Mean Corpuscular Volume 89.5 fL (80-100); Mean Platelet Volume 8.7 fL (7.4-10.4); Platelet Count 7 K/uL (130-400); RDW Standard Deviation 55.5 fL (36.4-46.3); Red Blood Count 2.67 M/uL (4.7-6.1)
[2019-01-01 06:51] LABS: BUN Creatinine Ratio 31.9 (10-20); Calcium 7.6 mg/dl (8.5-10.1); Creatinine Clr Calc Pharmacy 99.6 ml/min; Est GFR (African American) 109.3; Est GFR (Non-African American) 94.3; Magnesium 1.8 mg/dl (1.8-2.4); Potassium 3.6 mmol/L (3.5-5.1)
[2019-01-01 07:03] LABS: Platelet Estimate SIGNIFIC DECREASED (Normal)
[2019-01-01] MEDS: LACTATED RINGER'S 1,000 ML IV SCH (07:39)
--- NOTE | 2019-01-01 11:03 | Hospitalist Progress Note ---
Date of Service January 01, 2019 Assessment & Plan (1) Hypotension: - Presented with severe hypotension; SBP is now stabilized to 100's following aggressive IV fluids. - Likely related to hypovolemic shock vs. underlying infection. - Will d/c IV fluids to evaluate if BP remains stable - received multiple boluses on day of admission followed by IV fluids at 200 cc/hr x 2 days then 100 cc/hr. - Palliative consulted, appreciate input. - UC positive, on IV abx (see below); CXR negative for PNA; 1/2 blood cultures were positive (likely contaminant) (2) Acute kidney failure: - Creatinine increased to 2.0 on admission; baseline ~0.4-0.5. - Creatinine improved to baseline with IV fluids. - Hold nephrotoxic meds. - D/c IV fluids. (3) MDS (myelodysplastic syndrome): - Transfusion dependent MDS; has not received recent chemotherapy for MDS. - Palliative consulted; will continue to discuss transitioning to comfort care with his daughter -- pt. has developed increased agitation over last 48 hours, has diffuse pain. - Tylenol 650 mg IV q8hr scheduled for pain; avoid narcotics in setting of hypotension, will start if pt. is transitioned to comfort care. (4) Positive blood culture: - 1/2 blood cultures positive for gram positive cocci -- is likely a contaminant. - No indication for gram positive coverage. (5) UTI (urinary tract infection): - U/a positive, UC +E. coli. - Did have low grade fevers & leukocytosis noted on day 1 of admission. - Will complete course of Ceftriaxone today. (6) Symptomatic anemia: - Transfusion dependent, in setting of MDS. Has been receiving frequent PRBCs and Plt transfusions, every 1-2 weeks. - Hgb 7.1 on admission, responded well to 2 units pRBCs. - Monitor CBC daily -- does not require transfusion support today. (7) Severe thrombocytopenia: - In setting of transfusion dependent MDS. - Plt count trended back down to 7 -- will discuss with his daughter if she would like to proceed with transfusion this afternoon. (8) Leukocytosis: - In setting of MDS; may be acutely elevated in setting of ?infection. - Monitor CBC daily - did trend down after starting IV abx. (9) Metabolic acidosis: - May be related to acute renal failure vs. normal saline infusion. - Resolved after converting to LR solution. - Monitor labs qAM. (10) Chronic diastolic HF (heart failure): - Most recent echo in September 2018 showed preserved EF, mild LVH and valvular abnormalities. - Monitor I/Os and daily weights. - Caution with volume overload in setting of IV fluids - d/c IV fluids this morning. - Holding home beta sandra. (11) Atrial fibrillation with RVR: - Currently in SR with 1st degree AV block on monitor; hold home Amiodarone. - Hold beta sandra in setting of hypotension. - Not on anticoagulation due to thrombocytopenia. (12) Iron deficiency anemia: - Hold home ferrous sulfate. (13) Metabolic encephalopathy: - Has developed increased confusion and agitation over last 2 days -- re lated to hospital delirium vs. infection. - Haldol 1 mg PO 6hr prn agitation. (14) Dementia: - Hold home Aricept. (15) Thoracic aortic aneurysm without rupture: - Noted on previous CTA, measures up to 5 cm. - Monitored as outpatient. (16) Pancreatic lesion: - CT A/P in August showed cystic lesion at pancreatic head; has not been evaluated -- consider IPMN vs. neoplasm. 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 (18) GERD (gastroesophageal reflux disease): - Holding home PPI. (19) Electrolyte abnormality: - Monitor levels daily, replace as needed. (20) DVT prophylaxis: - SCDs; hold pharmacologic ppx due to thrombocytopenia. Dispo: Continue to address goals of care with his family. Subjective Pt. is responsive to verbal stimuli today but is very agitated - would not allow me to perform a physical exam. He complains of diffuse pain all over. Review of Systems Review of Systems: Other (Limited review of systems) Constitutional: + body aches, + fatigue, + weakness and + anorexia Musculoskeletal: + myalgia and + body aches Physical Exam Physical Exam: Limited physical exam per patient due to discomfort. General: Chronically ill appearing male, in moderate distress secondary to pain. Cardiac: RRR Lungs: could not complete lung exam. Extremities: Bilat LE extremely tender to palpation. No edema noted. Neuro: Is alert but very agitated; could not complete full neuro exam. Results & Data Vital Signs (Past 12 Hours) Vital Signs Temp Pulse Resp BP Pulse Ox 01/01/19 07:00 36.7 C 75 18 116/76 97 01/01/19 04:00 36.4 C L 75 20 101/69 98 Laboratory Results 01/01/19 01/01/19 12/29/18 Range/Units 05:47 05:47 08:20 WBC 12.00 H (4.8-10.8) K/uL RBC 2.67 L (4.7-6.1) M/uL Hgb 7.8 L (14.0-18.0) g/dL Hct 23.9 L (42-52) % MCV 89.5 (80-100) fL MCH 29.2 (25-34) pg MCHC 32.6 (32-36) g/dL RDW Std Deviation 55.5 H (36.4-46.3) fL RDW Coeff of Eunice 17.0 H (11.5-14.5) % Plt Count 7 L* (130-400) K/uL MPV 8.7 (7.4-10.4) fL Platelet Estimate SIGNIFIC DECREASED (Normal) Sodium 143 (136-145) mmol/L Potassium 3.6 (3.5-5.1) mmol/L Chloride 116 H (98-107) mmol/L Carbon Dioxide 22 (21-32) mmol/L Anion Gap 5.0 (3-11) BUN 19 H (7-18) mg/dl Creatinine 0.58 L (0.6-1.4) mg/dl Est Cr Clr Drug Dosing 99.6 ml/min Est GFR ( Amer) 109.3 Est GFR (Non-Af Amer) 94.3 BUN/Creatinine Ratio 31.9 H (10-20) Glucose 80 (70-99) mg/dl Calcium 7.6 L (8.5-10.1) mg/dl Magnesium 1.8 (1.8-2.4) mg/dl Crossmatch See Detail PG Care Time/CCT Total # of Minutes Spent Total Time Spent with Patient: Total time spent is greater than 50% in coordination of care (as documented) at patient's floor/unit and/or counseling patient: (1) Acute kidney failure Acute renal failure type: unspecified Qualified Code(s): N17.9 - Acute kidney failure, unspecified (2) Dementia Dementia behavioral disturbance: without behavioral disturbance Dementia type: unspecified type Qualified Code(s): F03.90 - Unspecified dementia without behavioral disturbance (3) Iron deficiency anemia Iron deficiency anemia type: unspecified iron deficiency Qualified Code(s): D50.9 - Iron deficiency anemia, unspecified (4) Hypotension Hypotension type: unspecified hypotension type Qualified Code(s): I95.9 - Hypotension, unspecified
[2019-01-01] MEDS: cefTRIAXone SODIUM 1,000 MG in DEXTROSE 5% 50 ML IV SCH (11:19)
[2019-01-01] MEDS ORDERED: SODIUM CHLORIDE 0.9% 250 ML IV PRN (13:56)
[2019-01-02] MEDS: ACETAMINOPHEN 65 ML IV SCH ×3 (04:07→21:11)
[2019-01-02 07:07] LABS: BUN Creatinine Ratio 26.9 (10-20); Calcium 7.4 mg/dl (8.5-10.1); Creatinine Clr Calc Pharmacy 99.6 ml/min; Est GFR (African American) 109.3; Est GFR (Non-African American) 94.3; Potassium 3.3 mmol/L (3.5-5.1)
[2019-01-02 07:47] LABS: Hematocrit (blood only) 24.7 % (42-52); Hemoglobin 7.9 g/dL (14.0-18.0); Mean Corpuscular Hemoglobin 28.7 pg (25-34); Mean Corpuscular Volume 89.8 fL (80-100); Mean Platelet Volume 9.6 fL (7.4-10.4); Nucleated RBC # (auto) 0.04 K/uL (0-0); Nucleated RBC % (auto) 0.3 %; Platelet Count 19 K/uL (130-400); RDW Coefficient of Variation 16.9 % (11.5-14.5); RDW Standard Deviation 55.1 fL (36.4-46.3); Red Blood Count 2.75 M/uL (4.7-6.1); White Blood Count 12.39 K/uL (4.8-10.8)
[2019-01-02] MEDS ORDERED: POTASSIUM CHLORIDE 20 MEQ TABCR PO STA (07:52)
--- NOTE | 2019-01-02 10:17 | Hospitalist Progress Note ---
Date of Service January 02, 2019 Assessment & Plan (1) Hypotension: - Presented with severe hypotension; SBP is now relatively stable, 90- 100's following aggressive IV fluids over first 72 hours of admission. D/c'ed fluids on 01/01. - Likely related to hypovolemic shock vs. underlying infection. - Palliative consulted, appreciate input. (2) Acute kidney failure: - Creatinine increased to 2.0 on admission; baseline ~0.4-0.5. - Creatinine improved to baseline with IV fluids. - Hold nephrotoxic meds. (3) Melena: - Developed melena over last 12 hours in setting of severe thrombocytopenia -- likely related to GI bleed. - FOBT is pending collection. - Will need to start Protonix IV BID pending results of FOBT. - Received platelet transfusion on 01/01, plt count 19K this morning; will hold further transfusion support at this time and discuss goals of care with his daughter. - No indication for GI consult - he would not be a candidate for EGD or colonoscopy. (4) Pressure sore on buttocks: - Pt. is refusing to be turned/re-positioned per bedside nurses. - Continue wound care as tolerated by patient. (5) MDS (myelodysplastic syndrome): - Transfusion dependent MDS; has not received recent chemotherapy for MDS. - Palliative consulted; continue to discuss transitioning to comfort care with his daughter. - Tylenol 650 mg IV q8hr scheduled for pain; avoid narcotics in setting of hypotension. (6) Positive blood culture: - 1/2 blood cultures positive for gram positive cocci -- is likely a contaminant. - No indication for gram positive coverage. (7) UTI (urinary tract infection): - U/a positive, UC +E. coli. - Did have low grade fevers & leukocytosis noted on day 1 of admission. - Completed course of Ceftriaxone. (8) Symptomatic anemia: - Transfusion dependent, in setting of MDS. Has been receiving frequent PRBCs and Plt transfusions, every 1-2 weeks. - Hgb 7.1 on admission, responded well to 2 units pRBCs. - Monitor CBC daily -- no indication for transfusion support today. Concern for acute GI bleed in setting of melena -- see above. (9) Severe thrombocytopenia: - In setting of transfusion dependent MDS. - Most recent plt transfusion on 01/01, plt count 19K today. Did develop melena this morning, concern for GI bleed. Will hold further platelet transfusions pending goals of care discussion with his daughter. (10) Chronic diastolic HF (heart failure): - Most recent echo in September 2018 showed preserved EF, mild LVH and valvular abnormalities. - Monitor I/Os and daily weights. - Caution with volume overload; does have bibasilar crackles on exam, IV fluids now d/c'ed. Cannot tolerate Lasix due to hypotension. - Hold home beta sandra. (11) Atrial fibrillation with RVR: - Currently in SR; hold home Amiodarone. - Hold beta sandra in setting of hypotension. - Not on anticoagulation due to thrombocytopenia. (12) Iron deficiency anemia: - Hold home ferrous sulfate. (13) Metabolic encephalopathy: - Related to hospital delirium vs. infection; confusion now improving, alert and oriented on exam. - Haldol 1 mg PO 6hr prn agitation. (14) Dementia: - Hold home Aricept. (15) Thoracic aortic aneurysm without rupture: - Noted on previous CTA, measures up to 5 cm. - Monitored as outpatient. (16) Pancreatic lesion: - CT A/P in August showed cystic lesion at pancreatic head; has not been evaluated -- consider IPMN vs. neoplasm. 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 (18) GERD (gastroesophageal reflux disease): - Holding home PPI; may need to start PPI IV if FOBT is positive. (19) Electrolyte abnormality: - K level 3.3 -- ordered KCl 40 mEq PO. - Monitor levels daily. (20) DVT prophylaxis: - SCDs; hold pharmacologic ppx due to thrombocytopenia. Dispo: Continue to address goals of care with his family. Subjective BP has been steady -- SBP 90-100's without IV fluids. Morning labs showed good response to platelet transfusion, stable H/H. Pt. is alert and oriented, held a full conversation during rounds. He states diffuse pain/myalgias now improving. Per bedside nurse, he developed black tarry stool overnight and has had 2 BMs this morning. FOBT is pending collection, will likely be positive in setting of severe thrombocytopenia. He has a wound on his buttocks area but is refusing to be re-positioned due to pain. Did not discuss goals of care with his daughter yesterday; will plan to meet with her today if she is present at bedside. Review of Systems Review of Systems: All systems reviewed & are unremarkable except as noted in HPI & below Constitutional: + fatigue, + weakness and + anorexia; no fever and no chills Respiratory: no cough, no dyspnea, no dyspnea on exertion and no wheezing Cardiovascular: + edema; no chest pain and no palpitations Gastrointestinal: + diarrhea/loose stools, + blood in stools and + melena; no abdominal pain, no nausea and no constipation Genitourinary: no difficulty urinating Musculoskeletal: + myalgia and + body aches; no back pain and no joint pain Integumentary: + non-healing lesions and + sores Physical Exam Physical Exam: General: Resting comfortably, no acute distress. HEENT: NC/AT; PERRLA with EOMI; [place] conjunctiva, MMM. No erythema of posterior pharynx Neck: Supple and nontender Cardiac: RRR Lungs: on room air; crackles in bilat lower lung bases, very mild. Abdomen: Bowel normoactive X 4; Nontender to palpation Extremities: Warm. +1-2 bilat LE non pitting edema noted. Neuro: No focal weakness; alert and oriented, held a full conversation. Skin: No rash; did not examine buttocks wound. Results & Data Vital Signs (Past 12 Hours) Vital Signs Temp Pulse Resp BP Pulse Ox 01/02/19 07:33 36.4 C L 89 17 105/67 95 01/02/19 04:00 36.7 C 96 H 20 96/64 L 96 01/01/19 23:00 36.7 C 84 20 93/59 L 94 Laboratory Results 01/02/19 01/02/19 12/29/18 Range/Units 05:54 05:54 08:20 WBC 12.39 H (4.8-10.8) K/uL RBC 2.75 L (4.7-6.1) M/uL Hgb 7.9 L (14.0-18.0) g/dL Hct 24.7 L (42-52) % MCV 89.8 (80-100) fL MCH 28.7 (25-34) pg MCHC 32.0 (32-36) g/dL RDW Std Deviation 55.1 H (36.4-46.3) fL RDW Coeff of Eunice 16.9 H (11.5-14.5) % Plt Count 19 L* D (130-400) K/uL MPV 9.6 (7.4-10.4) fL Absolute Nucleated RBC 0.04 H (0-0) K/uL Nucleated RBC % (auto) 0.3 % Sodium 143 (136-145) mmol/L Potassium 3.3 L (3.5-5.1) mmol/L Chloride 115 H (98-107) mmol/L Carbon Dioxide 22 (21-32) mmol/L Anion Gap 6.0 (3-11) BUN 16 (7-18) mg/dl Creatinine 0.58 L (0.6-1.4) mg/dl Est Cr Clr Drug Dosing 99.6 ml/min Est GFR ( Amer) 109.3 Est GFR (Non-Af Amer) 94.3 BUN/Creatinine Ratio 26.9 H (10-20) Glucose 79 (70-99) mg/dl Calcium 7.4 L (8.5-10.1) mg/dl Crossmatch See Detail PG Care Time/CCT Total # of Minutes Spent Total Time Spent with Patient: Total time spent is greater than 50% in coordination of care (as documented) at patient's floor/unit and/or counseling patient: (1) Acute kidney failure Acute renal failure type: unspecified Qualified Code(s): N17.9 - Acute kidney failure, unspecified (2) Dementia Dementia behavioral disturbance: without behavioral disturbance Dementia type: unspecified type Qualified Code(s): F03.90 - Unspecified dementia without behavioral disturbance (3) Iron deficiency anemia Iron deficiency anemia type: unspecified iron deficiency Qualified Code(s): D50.9 - Iron deficiency anemia, unspecified (4) Hypotension Hypotension type: unspecified hypotension type Qualified Code(s): I95.9 - Hypotension, unspecified
[2019-01-02 17:41] LABS: Hematocrit (blood only) 23.8 % (42-52); Hemoglobin 7.7 g/dL (14.0-18.0); Mean Corpuscular Hemoglobin 28.9 pg (25-34); Mean Corpuscular Hgb Conc 32.4 g/dL (32-36); Mean Corpuscular Volume 89.5 fL (80-100); Mean Platelet Volume 10.1 fL (7.4-10.4); Platelet Count 14 K/uL (130-400); Platelet Estimate SIGNIFIC DECREASED (Normal); RDW Standard Deviation 54.4 fL (36.4-46.3); Red Blood Count 2.66 M/uL (4.7-6.1); White Blood Count 12.71 K/uL (4.8-10.8)
[2019-01-03] MEDS: ACETAMINOPHEN 65 ML IV SCH ×3 (04:18→20:04)
[2019-01-03 06:41] LABS: BUN Creatinine Ratio 28.3 (10-20); Calcium 7.3 mg/dl (8.5-10.1); Creatinine Clr Calc Pharmacy 125.6 ml/min; Est GFR (African American) 120.2; Est GFR (Non-African American) 103.7; Magnesium 1.7 mg/dl (1.8-2.4); Potassium 3.4 mmol/L (3.5-5.1)
[2019-01-03 06:42] LABS: Mean Corpuscular Hgb Conc 32.4 g/dL (32-36); Mean Platelet Volume 10.2 fL (7.4-10.4); Nucleated RBC # (auto) 0.04 K/uL (0-0); Nucleated RBC % (auto) 0.3 %; Platelet Count 12 K/uL (130-400)
[2019-01-03 06:44] LABS: Hematocrit (blood only) 22.2 % (42-52); Hemoglobin 7.2 g/dL (14.0-18.0); Mean Corpuscular Hemoglobin 29.1 pg (25-34); Mean Corpuscular Volume 89.9 fL (80-100); RDW Coefficient of Variation 16.6 % (11.5-14.5); RDW Standard Deviation 53.5 fL (36.4-46.3); Red Blood Count 2.47 M/uL (4.7-6.1); White Blood Count 12.81 K/uL (4.8-10.8)
[2019-01-03] MEDS ORDERED: POTASSIUM CHLORIDE 20 MEQ TABCR PO STA (08:01)
[2019-01-03] MEDS ORDERED: MAGNESIUM OXIDE 400 MG TAB PO ONE (08:02)
--- NOTE | 2019-01-03 14:32 | Palliative Care Progress Note ---
Date of Service January 03, 2019 Assessment & Plan (1) Goals of care, counseling/discussion: Patient is an 83-year-old male previously known to our service from an admission from 10/04-10/08. Past medical history is significant for MDS-clinically diagnosed in September of this year, CHF, dementia, COPD, and paroxysmal A. fib. Patient has been transfusion dependent since August of this year. Since his discharge from the hospital on 10/08 he has required 10 units of platelets and 10 units of packed cells. Patient was sent to the emergency room on 12/29 from [facility] for hypotension. Blood pressures were 60s/40s. Patient was given a fluid bolus in the emergency room and again on the floor-he had IV fluids running at 200 cc an hour for approximately 48 hours. Fluids discontinued on 01/01-creatinine has returned to his prior baseline. Patient's blood pressures are adequate after aggressive hydration. Patient treated with a course of Rocephin for UTI-culture identification is E. coli, . He was transfused 2 units of blood and 2 units of platelets on this admission. Patient is having i ncreased confusion-this may be multifactorial-patient has a history of dementia, MDS, as well as hypo tension contributing. Have not heard back from patient's daughter-she has my cell phone number to call me when they make a decision. There is no family at bedside during today's visit On exam patient is pale, becomes agitated and yells for people to leave him alone and get away when disturbed. -Hypotension-minimal improvement with aggressive fluid resuscitation. Along with patient's wishes there is no plan for pressors or further aggressive treatment -MDS-transfusion dependent. Patient requiring blood and platelets every 2 weeks with minimal improvement in hemoglobin and platelet count-daughter leaning towards no further transfusions. Awaiting to hear her final decision -CHF-BPs improved with aggressive fluid resuscitation, blood pressures acceptable off IV fluids -Encephalopathy-multifactorial -MDS, thrombocytopenia, hypotension, and history of dementia all contributing -A. fib-rate controlled off amiodarone -GI bleed-due to thrombocytopenia. Collaborated with attending team,. Awaiting decision from daughter on whether to transition to comfort care. (2) Hypotension: (3) MDS (myelodysplastic syndrome): (4) Chronic diastolic HF (heart failure): (5) Encephalopathy: (6) Atrial fibrillation with RVR: Subjective Patient seen and examined, no family at bedside. Patient initially asleep, appears comfortable but very pale. Patient becomes agitated when disturbed at all. Had plan to meet with family for decision regarding goals of care on Thursday-daughter did not come to the hospital by 3 PM. Daughter was given my cell phone to contact me regarding decisions-I did not receive a call. Did call patient's daughter Dunia, at [phone]. Patient stated she would call me back later after initiating discussion regarding goals of care. Patient continues to have some mild confusion, becomes very agitated with care, does not want to be turned or touched. Appears comfortable at rest. Since admission patient has received 2 units of packed cells for hemoglobin 6.4, hemoglobin radha to 8.9, now 7.2 this a.m. Patient is also received 2 increased units of platelets one on the and one on the . On the his platelet count went from 7-10, dropped to 7 quickly and was transfused again, platelets radha to 19, were 12 this a.m. Patient did have an episode of GI bleeding over the weekend likely due to low platelet count. Patient's aggressive hydration was discontinued as his creatinine returned to baseline-had been as high as 2.0, was 0.46 this a.m. Patient is receiving IV Tylenol every 8 hours for pain, avoiding narcotics due to hypotension. Blood pressure this a.m. was 101/69. Patient was found to have an E. coli UTI and completed a course of Rocephin. Awaiting a return call from daughter, nursing to notify myself and attending team if family shows up at bedside. Review of Systems Review of Systems: Unobtainable due to cognitive status Physical Exam Physical Exam: PE: Patient comfortable at rest HEENT: EOMI, hearing within normal limits Respiratory: Increased respiratory rate at rest, but unlabored CV: Regular rate Abdomen: Unable to exam patient became agitated when disturbed Neuro: Patient alert, oriented to person and place Results & Data Vital Signs (Past 12 Hours) Vital Signs Temp Pulse Resp BP Pulse Ox 01/03/19 12:00 98.4 F 88 25 H 101/69 94 01/03/19 07:23 98.2 F 92 H 17 106/70 96 PG Care Time/CCT Total # of Minutes Spent Total Time Spent with Patient: Total time spent is greater than 50% in coordination of care (as documented) at patient's floor/unit and/or counseling patient: Time Spent Attending Total time spent 35 minutes with greater than 50% of the time spent at bedside assessing patient's current level of comfort, speaking with daughter on phone and collaborating with attending team (1) Hypotension Hypotension type: unspecified hypotension type Qualified Code(s): I95.9 - Hypotension, unspecified
[2019-01-03] MEDS ORDERED: SODIUM CHLORIDE 0.9% 250 ML IV PRN (16:45)
--- NOTE | 2019-01-03 16:53 | Hospitalist Progress Note ---
Date of Service January 03, 2019 Assessment & Plan (1) Hypotension: - Presented with severe hypotension; SBP is now relatively stable, 90- 100's following aggressive IV fluids over first 72 hours of admission. D/c'ed fluids on 01/01. - Likely related to hypovolemic shock vs. underlying infection. - Palliative consulted, appreciate input. (2) Acute kidney failure: - Creatinine increased to 2.0 on admission; baseline ~0.4-0.5. - Creatinine improved to baseline with IV fluids. - Hold nephrotoxic meds. (3) Melena: - Developed melena over last 12 hours in setting of severe thrombocytopenia -- likely related to GI bleed. - FOBT has been negative - famotidine 20 mg bid IV - Received platelet transfusion on 01/01, plts 12,000 today - will give 1 unit platelets - No indication for GI consult - he would not be a candidate for EGD or colonoscopy. (4) Pressure sore on buttocks: - Pt. is refusing to be turned/re-positioned per bedside nurses. - Continue wound care as tolerated by patient. (5) MDS (myelodysplastic syndrome): - Transfusion dependent MDS; has not received recent chemotherapy for MDS. - Palliative consulted; continue to discuss transitioning to comfort care with his daughter - discussed with daughter Dunia today. She would like to continue with treatments (ie blood product infusions) as long as her father tells her he continues to want them. She would prefer decisions for any transition to hospice be made once he is back at [facility] in his usual environment. - Tylenol 650 mg IV q8hr scheduled for pain; avoid narcotics in setting of hypotension. (6) Positive blood culture: - 1/2 blood cultures positive for gram positive cocci -- is likely a contaminant. - No indication for gram positive coverage. (7) UTI (urinary tract infection): - U/a positive, UC +E. coli. - Did have low grade fevers & leukocytosis noted on day 1 of admission. - Completed course of Ceftriaxone. - continues to have low grade leukocytosis which has remained around 12 - unclear if this represents a true infection as UTI treated, CXR on admission was clear, anterior auscultation of lungs clear, patient is refusing to allow examination of his pressure ulcer and did not allow me to further assess his skin/abdomen or posterior lung singletary (8) Symptomatic anemia: - Transfusion dependent, in setting of MDS. Has been receiving frequent PRBCs and Plt transfusions, every 1-2 weeks. - Hgb 7.1 on admission - Monitor CBC daily -- will give 1 unit prbcs 01/03 for hgb 7.2 (9) Severe thrombocytopenia: - In setting of transfusion dependent MDS. - Most recent plt transfusion on 01/01, plt count 19K today. Did develop melena this morning, concern for GI bleed. Will hold further platelet transfusions pending goals of care discussion with his daughter. (10) Chronic diastolic HF (heart failure): - Most recent echo in September 2018 showed preserved EF, mild LVH and valvular abnormalities. - Monitor I/Os and daily weights. - Caution with volume overload; does have bibasilar crackles on exam, IV fluids now d/c'ed. Cannot tolerate Lasix due to hypotension. - Hold home beta sandra. (11) Atrial fibrillation with RVR: - Currently in SR; hold home Amiodarone. - Hold beta sandra in setting of hypotension. - Not on anticoagulation due to thrombocytopenia. (12) Iron deficiency anemia: - Hold home ferrous sulfate. (13) Metabolic encephalopathy: - Related to hospital delirium vs. infection; confusion waxing and waning - Haldol 1 mg PO 6hr prn agitation. (14) Dementia: - Hold home Aricept. (15) Thoracic aortic aneurysm without rupture: - Noted on previous CTA, measures up to 5 cm. - Monitored as outpatient. (16) Pancreatic lesion: - CT A/P in August showed cystic lesion at pancreatic head; has not been evaluated -- consider IPMN vs. neoplasm. 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 (18) GERD (gastroesophageal reflux disease): - Holding home PPI; will give IV famotidine (19) Electrolyte abnormality: - K level 3.4 -- ordered KCl 40 mEq PO. - Monitor levels daily. (20) DVT prophylaxis: - SCDs; hold pharmacologic ppx due to thrombocytopenia. Dispo: Continue to address goals of care with his family. At this time his daughter would like to continue to treat the low blood counts. Subjective Mr. Gale was initially calm during my assessment and denied any discomfort, able to answer some orientation questions but quickly became agitated and yelled to stop touching him when I tried to auscultate his abdomen. Review of Systems Review of Systems: All systems reviewed & are unremarkable except as noted in HPI & below Physical Exam Physical Exam: General: no distress Eyes: normal inspection, PERLL Respiratory: chest non tender, clear to auscultation, normal breath sounds, no respiratory distress, no accessory muscle use Cardiac: regular rate and rhythm, no rub or gallop, no murmur, no edema, no jvd GI/: active bowel sounds, no abd pain or tenderness, soft, non distended Extremities: unable to assess Neuro/Psych: alert and oriented to person and place, agitated Skin: normal color, dry, dry mucous membranes Results & Data Vital Signs (Past 12 Hours) Vital Signs Temp Pulse Resp BP Pulse Ox 01/03/19 15:53 37.1 C 92 H 22 102/69 94 01/03/19 12:00 36.9 C 88 25 H 101/69 94 01/03/19 07:23 36.8 C 92 H 17 106/70 96 PG Care Time/CCT Total # of Minutes Spent Total Time Spent with Patient: Total time spent is greater than 50% in coordination of care (as documented) at patient's floor/unit and/or counseling patient: (1) Hypotension Hypotension type: unspecified hypotension type Qualified Code(s): I95.9 - Hypotension, unspecified (2) Acute kidney failure Acute renal failure type: unspecified Qualified Code(s): N17.9 - Acute kidney failure, unspecified (3) Iron deficiency anemia Iron deficiency anemia type: unspecified iron deficiency Qualified Code(s): D50.9 - Iron deficiency anemia, unspecified (4) Dementia Dementia type: unspecified type Dementia behavioral disturbance: without behavioral disturbance Qualified Code(s): F03.90 - Unspecified dementia without behavioral disturbance
[2019-01-03] MEDS: FAMOTIDINE 20 MG in SYRINGE 3 ML IV SCH (20:56)
[2019-01-03] MEDS ORDERED: FAMOTIDINE 20MG/5ML IV PUSH IV SCH (21:00)
[2019-01-04] MEDS: ACETAMINOPHEN 65 ML IV SCH ×3 (04:27→20:01)
[2019-01-04] MEDS: MoRPHine SULFATE 2 MG/ML CARP IV PRN (08:55)
[2019-01-04] MEDS: FAMOTIDINE 20 MG in SYRINGE 3 ML IV SCH ×2 (08:56→21:56)
[2019-01-04 09:22] LABS: Nucleated RBC # (auto) 0.04 K/uL (0-0); Nucleated RBC % (auto) 0.3 %
[2019-01-04 09:49] LABS: Hematocrit (blood only) 26.3 % (42-52); Hemoglobin 8.7 g/dL (14.0-18.0); Mean Corpuscular Hemoglobin 29.4 pg (25-34); Mean Corpuscular Hgb Conc 33.1 g/dL (32-36); Mean Corpuscular Volume 88.9 fL (80-100); Mean Platelet Volume 10.5 fL (7.4-10.4); Platelet Count 32 K/uL (130-400); RDW Coefficient of Variation 16.3 % (11.5-14.5); RDW Standard Deviation 52.1 fL (36.4-46.3); Red Blood Count 2.96 M/uL (4.7-6.1); White Blood Count 14.02 K/uL (4.8-10.8)
[2019-01-04 09:50] LABS: BUN Creatinine Ratio 26.4 (10-20); Basophils # (auto) 0.02 K/uL (0-0.2); Basophils % (auto) 0.1 %; Calcium 7.7 mg/dl (8.5-10.1); Creatinine Clr Calc Pharmacy 144.5 ml/min; Eosinophils # (auto) 0.04 K/uL (0-0.5); Eosinophils % (auto) 0.3 %; Est GFR (African American) 127.3; Est GFR (Non-African American) 109.8; Immature Granulocytes # (auto) 1.34 K/uL (0.00-0.02); Immature Granulocytes % (auto) 9.6 %; Lymphocytes # (auto) 1.46 K/uL (1.2-3.4); Lymphocytes % (auto) 10.4 %; Monocytes # (auto) 1.14 K/uL (0.11-0.59); Monocytes % (auto) 8.1 %; Neutrophils # (auto) 10.02 K/uL (1.4-6.5); Neutrophils % (auto) 71.5 %; Platelet Estimate Decreased (Normal); Potassium 3.6 mmol/L (3.5-5.1)
[2019-01-04] MEDS: haloperidoL 1 MG TAB PO PRN (11:09)
--- NOTE | 2019-01-04 16:07 | Hospitalist Progress Note ---
Date of Service January 04, 2019 Assessment & Plan (1) MDS (myelodysplastic syndrome): - Transfusion dependent MDS; has not received recent chemotherapy for MDS. - Palliative consulted; continue to discuss transitioning to comfort care with his daughter - discussed with daughter Dunia today. She would like to continue with treatments (ie blood product infusions) as long as her father tells her he continues to want them. She would prefer decisions for any transition to hospice be made once he is back at [facility] in his usual environment. - Tylenol 650 mg IV q8hr scheduled for pain, added morphine 2mg q4h for leg pain (2) Severe thrombocytopenia: - In setting of transfusion dependent MDS. - Most recent plt transfusion on 01/03, plts 32,000 today (3) Hypotension: resolved - Presented with severe hypotension; SBP is now stable, D/c'ed fluids on 01/01. - Palliative consulted, appreciate input. (4) Acute kidney failure: - Creatinine increased to 2.0 on admission; baseline ~0.4-0.5. - Creatinine improved to baseline with IV fluids. - Hold nephrotoxic meds. (5) Melena: - Developed melena in setting of severe thrombocytopenia -- likely related to GI bleed. - FOBT has been negative - continue famotidine 20 mg bid IV - Received platelet transfusion on 01/01 and 01/03 - No indication for GI consult - he would not be a candidate for EGD or colonoscopy. (6) Pressure sore on buttocks: - Pt. is refusing to be turned/re-positioned per bedside nurses. - Continue wound care as tolerated by patient. - Yusuf catheter to help protect skin as he is incontinent and refusing to be turned. Per nursing, condom catheter was causing excoriation around his penis (7) Positive blood culture: - 1/2 blood cultures positive for gram positive cocci -- is likely a contaminant. - No indication for gram positive coverage. (8) UTI (urinary tract infection): - U/a positive, UC +E. coli. - Did have low grade fevers & leukocytosis noted on day 1 of admission. - Completed course of Ceftriaxone. - continues to have low grade leukocytosis which increased today to 14 - unclear if this represents a true infection as UTI was treated, CXR on admission was clear, lungs clear to auscultation patient is refusing to allow examination of his pressure ulcer although per nursing he has yeast/excoriation and wound care documented concern for Regino ulceration. Repeat urine culture pending (9) Symptomatic anemia: - Transfusion dependent, in setting of MDS. Has been receiving frequent PRBCs and Plt transfusions, every 1-2 weeks. - Hgb 7.1 on admission - Monitor CBC daily -- 1 unit prbcs 01/03 for hgb 7.2 - hgb 8.7 today (10) Chronic diastolic HF (heart failure): - Most recent echo in September 2018 showed preserved EF, mild LVH and valvular abnormalities. - Monitor I/Os and daily weights. - Caution with volume overload; does have bibasilar crackles on exam, IV fluids now d/c'ed. Cannot tolerate Lasix due to hypotension. - resume home beta sandra. (11) Atrial fibrillation with RVR: - Currently in SR;resume home Amiodarone tomorrow - resume beta sandra - Not on anticoagulation due to thrombocytopenia. - heart rates/ blood pressure well controlled (12) Iron deficiency anemia: - Hold home ferrous sulfate. (13) Metabolic encephalopathy: - Related to hospital delirium vs. infection; confusion waxing and waning - dc Haldol 1 mg PO 6hr prn agitation for resumption of amiodarone (14) Dementia: - Hold home Aricept. (15) Thoracic aortic aneurysm without rupture: - Noted on previous CTA, measures up to 5 cm. - Monitored as outpatient. (16) Pancreatic lesion: - CT A/P in August showed cystic lesion at pancreatic head; has not been evaluated -- consider IPMN vs. neoplasm. 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 (18) GERD (gastroesophageal reflux disease): - Holding home PPI; will give IV famotidine (19) Electrolyte abnormality: -replaced (20) DVT prophylaxis: - SCDs; hold pharmacologic ppx due to thrombocytopenia. Dispo: Continue to address goals of care with his family. At this time his daughter would like to continue to treat Subjective Mr. Gale is quite agitated when I saw him this morning, yelling at nursing staff that he wanted "out of this [expletive] nuthouse!". His legs are very painful. Unable to answer further ROS. I did speak to Mr. Gale's daughter last night. She does not want to make a decision on hospice until he is back at [facility] and asked how long I thought he would be here to which I was unable to give an answer as he is unable to stabilize given the progression of his disease. She did express that she understood he was was very unwell and that we cannot reverse his illness however she is very hesitant to transition away from full treatment as he has at varying times told her he wants to continue to be treated. She did want him to continue to be transfused. Physical Exam Physical Exam: General: no distress Eyes: normal inspection, PERLL Respiratory: chest non tender, clear to auscultation, normal breath sounds, no respiratory distress, no accessory muscle use Cardiac: regular rate and rhythm, no rub or gallop, no murmur, no edema, no jvd GI/: active bowel sounds, no abd pain or tenderness, soft, non distended Extremities: normal range of motion, normal strength, non tender Neuro/Psych: alert and oriented x 3, normal mood and affect Skin: normal color, dry Results & Data Vital Signs (Past 12 Hours) Vital Signs Temp Pulse Pulse Resp BP Pulse Ox 01/04/19 15:23 36.3 C L 89 20 130/86 94 01/04/19 07:52 36.3 C L 83 20 109/69 95 PG Care Time/CCT Total # of Minutes Spent Total Time Spent with Patient: Total time spent is greater than 50% in coordination of care (as documented) at patient's floor/unit and/or counseling patient: (1) Acute kidney failure Acute renal failure type: unspecified Qualified Code(s): N17.9 - Acute kidney failure, unspecified (2) Dementia Dementia behavioral disturbance: without behavioral disturbance Dementia type: unspecified type Qualified Code(s): F03.90 - Unspecified dementia without behavioral disturbance (3) Iron deficiency anemia Iron deficiency anemia type: unspecified iron deficiency Qualified Code(s): D50.9 - Iron deficiency anemia, unspecified (4) Hypotension Hypotension type: unspecified hypotension type Qualified Code(s): I95.9 - Hypotension, unspecified
[2019-01-04] MEDS: METOPROLOL TARTRATE 50 MG TAB PO SCH (22:15)
[2019-01-05] MEDS: ACETAMINOPHEN 65 ML IV SCH ×3 (03:38→19:42)
[2019-01-05] MEDS: AMIODARONE 200 MG TAB PO SCH ×2 (07:40→16:57)
[2019-01-05] MEDS: METOPROLOL TARTRATE 50 MG TAB PO SCH ×2 (07:40→20:04)
[2019-01-05] MEDS: FAMOTIDINE 20 MG in SYRINGE 3 ML IV SCH ×2 (08:14→20:04)
[2019-01-05 09:29] LABS: BUN Creatinine Ratio 20.5 (10-20); Calcium 7.6 mg/dl (8.5-10.1); Est GFR (Non-African American) 108.7; Potassium 3.3 mmol/L (3.5-5.1)
[2019-01-05 09:40] LABS: Hematocrit (blood only) 26.2 % (42-52); Hemoglobin 8.3 g/dL (14.0-18.0); Mean Corpuscular Hemoglobin 28.3 pg (25-34); Mean Corpuscular Hgb Conc 31.7 g/dL (32-36); Mean Corpuscular Volume 89.4 fL (80-100); RDW Coefficient of Variation 16.4 % (11.5-14.5); RDW Standard Deviation 52.7 fL (36.4-46.3); Red Blood Count 2.93 M/uL (4.7-6.1); White Blood Count 12.04 K/uL (4.8-10.8)
[2019-01-05 09:49] LABS: Platelet Count 26 K/uL (130-400)
[2019-01-05 09:50] LABS: ALC (manual) 1.66 K/uL (1.2-3.4); ANC (manual) 9.75 K/uL (1.4-6.5); Basophils # (manual) 0.11 K/uL (0-0.2); Basophils % (manual) 0.9 %; Dohle Bodies 1+; Lymphocytes # (manual) 1.66 K/uL (1.2-3.4); Lymphocytes % (manual) 13.8 %; Metamyelocytes # (manual) 0.41 K/uL (0-0); Metamyelocytes % (manual) 3.4 %; Monocytes # (manual) 0.11 K/uL (0.11-0.59); Monocytes % (manual) 0.9 %; Neutrophils # (manual) 9.75 K/uL (1.4-6.5); Platelet Estimate SIGNIFIC DECREASED (Normal)
[2019-01-05] MEDS ORDERED: POTASSIUM CHLORIDE 20 MEQ TABCR PO STA (10:38)
[2019-01-05] MEDS: CALCIUM CARBONATE 1,250 MG/5 ML UDC PO SCH ×2 (12:01→19:43)
--- NOTE | 2019-01-05 15:57 | Hospitalist Progress Note ---
Date of Service January 05, 2019 Assessment & Plan (1) MDS (myelodysplastic syndrome): - Transfusion dependent MDS; has not received recent chemotherapy for MDS. - Palliative consulted; continue to discuss transitioning to comfort care with his daughter - Daughter Dunia would like to continue with treatments (ie blood product infusions) as long as her father tells her he continues to want them. She would prefer decisions for any transition to hospice be made once he is back at [facility] in his usual environment. - Tylenol 650 mg IV q8hr scheduled for pain, added morphine 2mg q4h for leg pain (2) Severe thrombocytopenia: - In setting of transfusion dependent MDS. - Most recent plt transfusion on 01/03, plts decreased to 26,000 today (3) Hypotension: resolved - Presented with severe hypotension; SBP is now stable, D/c'ed fluids on 01/01. - Palliative consulted (4) Acute kidney failure: - Creatinine increased to 2.0 on admission; baseline ~0.4-0.5. - Creatinine improved to baseline with IV fluids. - Hold nephrotoxic meds. (5) Melena: - Developed melena in setting of severe thrombocytopenia -- likely related to GI bleed. - FOBT has been negative - continue famotidine 20 mg bid IV - Received platelet transfusion on 01/01 and 01/03 - No indication for GI consult - he would not be a candidate for EGD or colonoscopy. (6) Pressure sore on buttocks: - Pt. frequently refuses turning and repositioning - Continue wound care as tolerated by patient. - Yusuf catheter to help protect skin as he is incontinent and refusing to be turned. Per nursing, condom catheter was causing excoriation around his penis (7) Positive blood culture: - 1/2 blood cultures positive for gram positive cocci -- is likely a contaminant. - No indication for gram positive coverage. (8) UTI (urinary tract infection): - U/a positive, UC +E. coli. - Did have low grade fevers & leukocytosis noted on day 1 of admission. - Completed course of Ceftriaxone. - continues to have low grade leukocytosis - unclear if this represents a true infection as UTI was treated, repeat UC no growth, CXR on admission was clear, lungs clear to auscultation (9) Symptomatic anemia: - Transfusion dependent, in setting of MDS. Has been receiving frequent PRBCs and Plt transfusions, every 1-2 weeks. - Hgb 7.1 on admission - Monitor CBC daily -- 1 unit prbcs 01/03 for hgb 7.2 (10) Chronic diastolic HF (heart failure): - Most recent echo in September 2018 showed preserved EF, mild LVH and valvular abnormalities. - Monitor I/Os and daily weights. - continue home beta sandra. (11) Atrial fibrillation with RVR: - Currently in SR;continue home Amiodarone - continue beta sandra - Not on anticoagulation due to thrombocytopenia. - heart rates/ blood pressure well controlled (12) Iron deficiency anemia: - Hold home ferrous sulfate. (13) Metabolic encephalopathy: - Related to hospital delirium vs. infection; confusion waxing and waning - dc Haldol 1 mg PO 6hr prn agitation for resumption of amiodarone (14) Dementia: - Hold home Aricept. (15) Thoracic aortic aneurysm without rupture: - Noted on previous CTA, measures up to 5 cm. - Monitored as outpatient. (16) Pancreatic lesion: - CT A/P in August showed cystic lesion at pancreatic head; has not been evaluated -- consider IPMN vs. neoplasm. 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 (18) GERD (gastroesophageal reflux disease): - Holding home PPI; will give IV famotidine (19) Electrolyte abnormality: -replaced (20) DVT prophylaxis: - SCDs; hold pharmacologic ppx due to thrombocytopenia. Dispo: Continue to address goals of care with his family. At this time his daughter would like to continue to treat Subjective Mr. Gale is more calm and relaxed today. He denies any discomfort. Review of Systems Review of Systems: All systems reviewed & are unremarkable except as noted in HPI & below Physical Exam Physical Exam: General: no distress Eyes: normal inspection, PERLL Respiratory: chest non tender, clear to auscultation, normal breath sounds, no respiratory distress, no accessory muscle use Cardiac: regular rate and rhythm, no rub or gallop, no murmur, no edema, no jvd GI/: active bowel sounds, no abd pain or tenderness, soft, non distended Extremities: normal range of motion, normal strength, non tender Neuro/Psych: alert and oriented x2, flat affect Skin: pale, dry Results & Data Vital Signs (Past 12 Hours) Vital Signs Temp Pulse Resp BP BP Pulse Ox 01/05/19 15:39 36.7 C 69 20 103/70 94 01/05/19 07:14 36.4 C L 70 20 107/70 94 PG Care Time/CCT Total # of Minutes Spent Total Time Spent with Patient: Total time spent is greater than 50% in coordination of care (as documented) at patient's floor/unit and/or counseling patient: (1) Hypotension Hypotension type: unspecified hypotension type Qualified Code(s): I95.9 - Hypotension, unspecified (2) Acute kidney failure Acute renal failure type: unspecified Qualified Code(s): N17.9 - Acute kidney failure, unspecified (3) Iron deficiency anemia Iron deficiency anemia type: unspecified iron deficiency Qualified Code(s): D50.9 - Iron deficiency anemia, unspecified (4) Dementia Dementia type: unspecified type Dementia behavioral disturbance: without behavioral disturbance Qualified Code(s): F03.90 - Unspecified dementia without behavioral disturbance
[2019-01-06] MEDS: ACETAMINOPHEN 65 ML IV SCH ×3 (03:29→20:09)
[2019-01-06] MEDS: MoRPHine SULFATE 2 MG/ML CARP IV PRN (05:34)
[2019-01-06 06:12] LABS: Albumin Globulin Ratio 0.5 (0.9-2); Albumin Level 1.9 gm/dl (3.4-5.0); BUN Creatinine Ratio 17.9 (10-20); Bilirubin,Total 0.6 mg/dl (0.2-1); Calcium 7.3 mg/dl (8.5-10.1); Creatinine Clr Calc Pharmacy 120.4 ml/min; Est GFR (African American) 118.1; Est GFR (Non-African American) 101.9; Globulin 3.5 gm/dl (2.5-4.0); Potassium 3.8 mmol/L (3.5-5.1); Total Protein 5.4 gm/dl (6.4-8.2)
[2019-01-06 06:16] LABS: Hematocrit (blood only) 27.3 % (42-52); Hemoglobin 8.8 g/dL (14.0-18.0); Mean Corpuscular Hgb Conc 32.2 g/dL (32-36); Mean Corpuscular Volume 90.1 fL (80-100); Mean Platelet Volume 10.4 fL (7.4-10.4); Nucleated RBC # (auto) 0.04 K/uL (0-0); Nucleated RBC % (auto) 0.3 %; Platelet Count 17 K/uL (130-400); RDW Coefficient of Variation 16.3 % (11.5-14.5); RDW Standard Deviation 52.7 fL (36.4-46.3); Red Blood Count 3.03 M/uL (4.7-6.1); White Blood Count 13.47 K/uL (4.8-10.8)
[2019-01-06] MEDS: AMIODARONE 200 MG TAB PO SCH ×2 (08:02→16:46)
[2019-01-06] MEDS: CALCIUM CARBONATE 1,250 MG/5 ML UDC PO SCH ×2 (08:02→19:24)
[2019-01-06] MEDS: METOPROLOL TARTRATE 50 MG TAB PO SCH ×2 (08:03→19:23)
[2019-01-06] MEDS: FAMOTIDINE 20 MG in SYRINGE 3 ML IV SCH (08:03)
--- NOTE | 2019-01-06 14:23 | Palliative Care Progress Note ---
Date of Service January 06, 2019 Assessment & Plan (1) Goals of care, counseling/discussion: Patient is an 83-year-old male previously known to our service from an admission from 10/04-10/08. Past medical history is significant for MDS-clinically diagnosed in September of this year, CHF, dementia, COPD, and paroxysmal A. fib. Patient has been transfusion dependent since August of this year. Since his discharge from the hospital on 10/08 he has required 10 units of platelets and 10 units of packed cells. Patient was sent to the emergency room on 12/29 from [facility] for hypotension. Blood pressures were 60s/40s. Patient was given a fluid bolus in the emergency room and again on the floor-he had IV fluids running at 200 cc an hour for approximately 48 hours. Fluids discontinued on 01/01-creatinine has returned to his prior baseline. Patient's blood pressures are adequate after aggressive hydration. Patient treated with a course of Rocephin for UTI-culture identification is E. coli, . He was transfused 3 units of blood and 3 units of platelets on this admission so far. Have not heard back from patient's daughter-she has my cell phone number to call me when they make a decision. There is no family at bedside during today's visit On exam patient is pale, less agitated today. -Hypotension- improvement with aggressive fluid resuscitation. Along with patient's wishes there is no plan for pressors or aggressive treatment -MDS-transfusion dependent. Patient requiring blood and platelets every 2 weeks with minimal improvement in hemoglobin and platelet count-patient states he would want to continue with platelet and blood transfusions -CHF-BPs improved with aggressive fluid resuscitation, blood pressures acceptable off IV fluids -Encephalopathy-multifactorial -MDS, thrombocytopenia, hypotension, and history of dementia all contributing -A. fib-rate controlled -with blood pressures improving-amiodarone and metoprolol were restarted Will continue to follow and assist patient and family with medical decision making. Patient to return to [facility] when stable enough for transfer-further decisions regarding blood and platelet transfusions will be made by patient and daughter once he returns to his residence (2) Hypotension: (3) MDS (myelodysplastic syndrome): (4) Chronic diastolic HF (heart failure): (5) Encephalopathy: (6) Atrial fibrillation with RVR: Subjective Patient awake, alert, calm during exam No family or friends at bedside Asked patient if he would like to continue blood and platelet transfusions-he replied yes. Discussed trying to get him back to [facility]-patient agreeable Review of Systems Review of Systems: Patient denies fever, chills, chest pain, increased shortness of breath, or abdominal pain Physical Exam Physical Exam: PE: Awake, alert, no acute distress HEENT: EOMI, hearing within normal limits Respirations: Unlabored CV: Regular rate Abdomen: Not distended Results & Data Vital Signs (Past 12 Hours) Vital Signs Temp Pulse Resp BP Pulse Ox 01/06/19 10:56 96.3 F L 70 26 H 126/82 96 01/06/19 07:46 94.8 F L 78 20 104/74 95 PG Care Time/CCT Total # of Minutes Spent Total Time Spent with Patient: Total time spent is greater than 50% in coordination of care (as documented) at patient's floor/unit and/or counseling patient: Time Spent Attending Total time spent 25 minutes with greater than 50% of the time at bedside d iscussing patient's wishes. (1) Hypotension Hypotension type: unspecified hypotension type Qualified Code(s): I95.9 - Hypotension, unspecified
--- NOTE | 2019-01-06 15:21 | Hospitalist Progress Note ---
Date of Service January 06, 2019 Assessment & Plan (1) MDS (myelodysplastic syndrome): - Transfusion dependent MDS; has not received recent chemotherapy for MDS. - Palliative consulted; continue to discuss transitioning to comfort care with his daughter - Daughter Dunia would like to continue with treatments (ie blood product infusions) as long as her father tells her he continues to want them. She would prefer decisions for any transition to hospice be made once he is back at [facility] in his usual environment. - Tylenol 650 mg IV q8hr scheduled for pain, added morphine 2mg q4h for leg pain (2) Severe thrombocytopenia: - In setting of transfusion dependent MDS. - Most recent plt transfusion on 01/03, plts decreased to 17,000 today (3) Hypotension: resolved - Presented with severe hypotension; SBP is now stable, D/c'ed fluids on 01/01. - Palliative consulted (4) Acute kidney failure: - Creatinine increased to 2.0 on admission; baseline ~0.4-0.5. - Creatinine improved to baseline with IV fluids. - Hold nephrotoxic meds. (5) Melena: - Developed melena in setting of severe thrombocytopenia -- likely related to GI bleed. - FOBT has been negative - continue famotidine 20 mg bid IV - Received platelet transfusion on 01/01 and 01/03 - No indication for GI consult - he would not be a candidate for EGD or colonoscopy. (6) Pressure sore on buttocks: - Pt. frequently refuses turning and repositioning - Continue wound care as tolerated by patient. - Yusuf catheter to help protect skin as he is incontinent and refusing to be turned. Per nursing, condom catheter was causing excoriation around his penis (7) Positive blood culture: - 1/2 blood cultures positive for gram positive cocci -- is likely a contaminant. - No indication for gram positive coverage. (8) UTI (urinary tract infection): - U/a positive, UC +E. coli. - Did have low grade fevers & leukocytosis noted on day 1 of admission. - Completed course of Ceftriaxone. - continues to have low grade leukocytosis - unclear if this represents a true infection as UTI was treated, repeat UC no growth, CXR on admission was clear, lungs clear to auscultation (9) Symptomatic anemia: - Transfusion dependent, in setting of MDS. Has been receiving frequent PRBCs and Plt transfusions, every 1-2 weeks. - Hgb 7.1 on admission - Monitor CBC daily -- 1 unit prbcs 01/03 for hgb 7.2 (10) Chronic diastolic HF (heart failure): - Most recent echo in September 2018 showed preserved EF, mild LVH and valvular abnormalities. - Monitor I/Os and daily weights. - continue home beta sandra. (11) Atrial fibrillation with RVR: - Currently in SR;continue home Amiodarone - continue beta sandra - Not on anticoagulation due to thrombocytopenia. - heart rates/ blood pressure well controlled (12) Iron deficiency anemia: - resume home ferrous sulfate. (13) Metabolic encephalopathy: - Related to hospital delirium, baseline dementia - confusion waxing and waning (14) Dementia: - resume home Aricept. (15) Thoracic aortic aneurysm without rupture: - Noted on previous CTA, measures up to 5 cm. - Monitored as outpatient. (16) Pancreatic lesion: - CT A/P in August showed cystic lesion at pancreatic head; has not been evaluated -- consider IPMN vs. neoplasm. 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 (18) GERD (gastroesophageal reflux disease): - continue po famotidine (19) Electrolyte abnormality: -replaced (20) DVT prophylaxis: - SCDs; hold pharmacologic ppx due to thrombocytopenia. Dispo: Continue to address goals of care with his family. At this time his daughter would like to continue to treat. Unclear when patient will be ready to transfer back to [facility] given his unstable hgb and platelets, his platelets became critically low again within a day of transfusion. Subjective Mr. Gale is calm, keeps eyes closed while I am in the room. Denies pain, tells me not to move him at all. Physical Exam Physical Exam: General: no distress Eyes: normal inspection, PERLL Respiratory: chest non tender, clear to auscultation, normal breath sounds, no respiratory distress, no accessory muscle use Cardiac: regular rate and rhythm, no rub or gallop, no murmur, no edema, no jvd GI/: active bowel sounds, no abd pain or tenderness, soft, non distended Neuro/Psych: alert and oriented to person and place, normal mood and affect Skin: normal color, dry Results & Data Vital Signs (Past 12 Hours) Vital Signs Temp Pulse Resp BP Pulse Ox 01/06/19 10:56 35.7 C L 70 26 H 126/82 96 01/06/19 07:46 34.9 C L 78 20 104/74 95 PG Care Time/CCT Total # of Minutes Spent Total Time Spent with Patient: Total time spent is greater than 50% in coordination of care (as documented) at patient's floor/unit and/or counseling patient: (1) Acute kidney failure Acute renal failure type: unspecified Qualified Code(s): N17.9 - Acute kidney failure, unspecified (2) Dementia Dementia behavioral disturbance: without behavioral disturbance Dementia type: unspecified type Qualified Code(s): F03.90 - Unspecified dementia without behavioral disturbance (3) Iron deficiency anemia Iron deficiency anemia type: unspecified iron deficiency Qualified Code(s): D50.9 - Iron deficiency anemia, unspecified (4) Hypotension Hypotension type: unspecified hypotension type Qualified Code(s): I95.9 - Hypotension, unspecified
[2019-01-06] MEDS: FAMOTIDINE 20 MG TAB PO SCH (19:24)
[2019-01-07] MEDS: ACETAMINOPHEN 65 ML IV SCH ×2 (04:26→12:39)
[2019-01-07 05:42] LABS: Alanine Aminotransferase < 6 U/L (12-78); Albumin Level 1.9 gm/dl (3.4-5.0); Aspartate Aminotransferase 4 U/L (15-37); BUN Creatinine Ratio 21.9 (10-20); Blood Urea Nitrogen 10 mg/dl (7-18); Calcium 7.5 mg/dl (8.5-10.1); Carbon Dioxide 24 mmol/L (21-32); Chloride 111 mmol/L (98-107); Creatinine Clr Calc Pharmacy 125.6 ml/min; Est GFR (African American) 120.2; Est GFR (Non-African American) 103.7; Glucose 85 mg/dl (70-99); Potassium 3.6 mmol/L (3.5-5.1); Sodium 141 mmol/L (136-145)
[2019-01-07 05:45] LABS: Albumin Globulin Ratio 0.6 (0.9-2); Alkaline Phosphatase 66 U/L (45-117); Bilirubin,Total 0.5 mg/dl (0.2-1); Globulin 3.4 gm/dl (2.5-4.0); Hematocrit (blood only) 25.5 % (42-52); Hemoglobin 8.1 g/dL (14.0-18.0); Mean Corpuscular Hemoglobin 28.9 pg (25-34); Mean Corpuscular Hgb Conc 31.8 g/dL (32-36); Mean Corpuscular Volume 91.1 fL (80-100); Nucleated RBC # (auto) 0.02 K/uL (0-0); Nucleated RBC % (auto) 0.2 %; Platelet Count 11 K/uL (130-400); RDW Coefficient of Variation 16.4 % (11.5-14.5); RDW Standard Deviation 53.9 fL (36.4-46.3); Total Protein 5.3 gm/dl (6.4-8.2); White Blood Count 12.65 K/uL (4.8-10.8)
[2019-01-07 05:49] LABS: ALC (manual) 0.76 K/uL (1.2-3.4); ANC (manual) 10.36 K/uL (1.4-6.5); Basophils # (manual) 0.11 K/uL (0-0.2); Basophils % (manual) 0.9 %; Lymphocytes # (manual) 0.76 K/uL (1.2-3.4); Metamyelocytes # (manual) 0.22 K/uL (0-0); Metamyelocytes % (manual) 1.7 %; Monocytes % (manual) 9.5 %; Neutrophils # (manual) 10.36 K/uL (1.4-6.5); Neutrophils % (manual) 81.9 %; RBC Morphology Unremarkable
[2019-01-07] MEDS ORDERED: SODIUM CHLORIDE 0.9% 250 ML IV PRN (08:52)
[2019-01-07] MEDS: METOPROLOL TARTRATE 50 MG TAB PO SCH (08:53)
[2019-01-07] MEDS ORDERED: FERROUS SULFATE 325 MG TAB PO SCH (09:00)
--- NOTE | 2019-01-07 12:25 | Discharge Summary ---
Date of Service January 07, 2019 Admission HPI Per Admitting Provider Mr. Gale is an 83 year old male with past medical history of transfusion dependent MDS, dementia, A. fib, iron deficiency anemia, HTN who presented from [facility] with hypotension. Pt. has been receiving frequent transfusions at [facility] for MDS; he was scheduled to receive a platelet transfusion this morning. BP was noted to be low and he was transferred to the ER. Pt. complains of pain with movement but is otherwise comfortable. Denies chest pain, SOB, headache, URI symptoms, nausea/vomiting, abd pain, constipation or diarrhea, nausea or vomiting. He was hypotensive at presentation in the ER; BP slightly responded to 750 cc IV fluids -- increased to SBP 80's. Lab work showed acute renal failure with Cr of 2.0 (baseline ~0.4-0.5); Plt count 10K and Hgb 7.1. His daughter was present at bedside and requested comfort care measures; Morphine drip was started. During our discussion, the daughter voiced her concerns that he is likely dehydrated due to very limited PO intake at [facility] and would like to attempt further IV fluid resuscitation prior to transitioning to comfort measures. Pt. will be DNR/DNI; no aggressive measures will be completed but she would like to monitor response to IV fluid resuscitation. Morphine drip was discontinued in the ER and NS 1L bolus was initiated. Will continue to address goals of care as inpatient. Principal Diagnosis Hypotension Discharge Exam Constitutional WD/WN, vitals as above Respiratory normal respiratory effort, lungs clear to auscultation Cardiovascular RRR, no murmur, no edema Gastrointestinal (Abdomen) normal bowel sounds, soft, nontender, no hepatosplenomegaly Musculoskeletal generalized weakness Skin + pallor breakdown sacrum Neurologic awake and + confused Psychiatric Orientation: alert, oriented to person and oriented to place Discharge Data Allergies Allergy/AdvReac Type Severity Reaction Status Date / Time No Known Allergies Allergy Unknown Verified 12/29/18 08:34 Consultations 12/29/18 09:24 ED Decision to Admit Stat 12/29/18 11:27 Consult Case Management - Discharge Planning Routine 12/30/18 12:33 Consult Palliative Care Routine Hospital Course (1) MDS (myelodysplastic syndrome): - Transfusion dependent MDS; has not received recent chemotherapy for MDS. - Palliative consulted; - Tylenol 650 mg IV q8hr scheduled for pain, added morphine 2mg q4h for leg pain - I did discuss with Dr. Nash today who has cared for this patient in the past for assistance in discharge planning. We will increase the frequency of CBC monitoring to every 2-3 days with transfusions for Hgb <7.5 and Plts < 15,000. - I discussed with Mr. Gale's daughter Dunia that he seemed to be as stable at this point as we can get him given his progressive disease and frailty. We will continue to transfuse outpatient as long as he and his daughter continue to want the treatment. Additionally he has been quite combative at times and frequently refuses care from nursing so hopefully when he is back in his home environment he will be more comfortable and allow for more nursing care. Dunia was in agreement with this plan. She is very aware that her father has a poor prognosis and thinks return to [facility] at this time is in his best interest as well. (2) Severe thrombocytopenia: - In setting of transfusion dependent MDS. - Most recent plt transfusion on 01/07, plts decreased to 11,000 today (3) Hypotension: resolved - Presented with severe hypotension; SBP is now stable, D/c'ed fluids on 01/01. - Palliative consulted (4) Acute kidney failure: resolved - Creatinine increased to 2.0 on admission; baseline ~0.4-0.5. - Creatinine improved to baseline with IV fluids. (5) Melena: - Developed melena in setting of severe thrombocytopenia -- likely related to GI bleed. - FOBT has been negative -given famotidine 20 mg bid IV - Received platelet transfusion on 01/01, 01/03, and 01/07, - No indication for GI consult - he would not be a candidate for EGD or colonoscopy. (6) Pressure sore on buttocks: - Pt. frequently refuses turning and repositioning - Continue wound care as tolerated by patient. - Yusuf catheter placed while inpatient to help protect skin as he is incontinent and frequently refusing to be turned. Per nursing, condom catheter was causing excoriation around his penis (7) Positive blood culture: - 1/2 blood cultures positive for gram positive cocci -- is likely a contaminant. - No indication for gram positive coverage. (8) UTI (urinary tract infection): - U/a positive, UC +E. coli. - Did have low grade fevers & leukocytosis noted on day 1 of admission - Completed course of Ceftriaxone. - continues to have low grade leukocytosis which appears to be chronic - UTI was treated, repeat UC no growth, CXR on admission was clear, lungs clear to auscultation (9) Symptomatic anemia: - Transfusion dependent, in setting of MDS. Has been receiving frequent PRBCs and Plt transfusions, every 1-2 weeks - necessity of transfusion frequency increasing - Hgb 7.1 on admission - Monitor CBC daily -- 2 units PRBCs 12/30, 1 unit prbcs 01/03 for hgb (10) Chronic diastolic HF (heart failure): - Most recent echo in September 2018 showed preserved EF, mild LVH and valvular abnormalities. - Monitor I/Os and daily weights. - continue home beta sandra. (11) Atrial fibrillation with RVR: - Currently in SR;continue home Amiodarone - continue beta sandra - Not on anticoagulation due to thrombocytopenia. - heart rates/ blood pressure well controlled (12) Iron deficiency anemia: - resume home ferrous sulfate. (13) Metabolic encephalopathy: - Related to hospital delirium, baseline dementia - confusion waxing and waning (14) Dementia: - resume home Aricept. (15) Thoracic aortic aneurysm without rupture: - Noted on previous CTA, measures up to 5 cm. - Monitored as outpatient. (16) Pancreatic lesion: - CT A/P in August showed cystic lesion at pancreatic head; has not been evaluated -- consider IPMN vs. neoplasm. 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 (18) GERD (gastroesophageal reflux disease): - continue po famotidine (19) Electrolyte abnormality: -replaced (20) DVT prophylaxis: - SCDs; hold pharmacologic ppx due to thrombocytopenia. Dispo: return to [facility] Total Time Total Time Spent Total Time Spent (In Minutes): greater than 30 minutes Discharge Plan Discharge Items Patient Disposition: Transfer Residential Fac Reason For Visit: HYPOTENSION Discharge Diagnosis: Hypotension Activity: Resume your previous activity Non-emergency contact: Primary Care Provider Call non-emergency contact if: you have any medication questions Follow-up/Referrals: Rosy Moore DO [Primary Care Provider] - Diet: Regular Addtl Attending Provider Instructions: Mr. Gale will require more frequent blood count monitoring. He will need a complete blood count every 2-3 days with transfusions for platelets below 15,000 and hemoglobin below 7.5. Last platelet transfusion was today 01/07 for a platelet count of 11,000, hemoglobin is 8.1. Pending Studies at Discharge: No Stand-Alone Forms: My [facility] Skilled Items Patient informed of condition?: Yes (limited understanding due to advanced dementia) DNR: Yes Discharge Level of Care: Skilled Communicable Disease: No Discharge Prognosis: Deteriorating Lines: None Urinary Catheter: No Medications and DC Order Prescriptions: New calcium carbonate 500 mg/5 mL (1,250 mg/5 mL) Suspension 5 ml PO BID Qty: 1500 RF: 0 Continued acetaminophen [Tylenol Extra Strength] 500 mg Tablet 1,000 mg PO TID RF: 0 donepezil 10 mg tablet 10 mg PO HS RF: 0 Santyl 250 unit/gram Ointment 1 applic TOPICAL BID PRN (Reason: decubitus on coccyx) RF: 0 Calmoseptine 0.44-20.6 % Ointment 1 applic TOPICAL DAILY PRN (Reason: DECUBITUS ULCER COCCYX) RF: 0 hydrocodone-acetaminophen 5-325 mg Tablet 1 tab PO Q6H PRN (Reason: Pain) RF: 0 amiodarone 200 mg tablet 200 mg PO BID RF: 0 pantoprazole 40 mg tablet,delayed release (DR/EC) 40 mg PO BID RF: 0 metoprolol tartrate 50 mg tablet 50 mg PO BID RF: 0 ferrous sulfate 325 mg (65 mg iron) tablet,delayed release (DR/EC) 325 mg PO DAILY RF: 0 polyethylene glycol 3350 [Miralax] 17 gram Powder In Packet 17 g PO DAILY Qty: 1 RF: 0 potassium chloride 10 mEq capsule, extended release 10 meq PO DAILY Qty: 30 RF: 2 mirtazapine 7.5 mg tablet 7.5 mg PO DIRECTED RF: 0 Discharge Orders: Discharge Order (Routine); Ordered 01/07/19 Ordered By: Marianela Flores Admission Data Admit Date/Time: 12/29/18 11:20 Attending Provider: Martin Rodriguez Admit Provider: Herve Shen Primary Care Provider: Rosy Moore Other Providers: Sherry Holloway ; Martin Rodriguez.
[2019-01-07] MEDS: CALCIUM CARBONATE 1,250 MG/5 ML UDC PO SCH (12:29)
[2019-01-07] MEDS: AMIODARONE 200 MG TAB PO SCH (12:29)
[2019-01-07] MEDS: FAMOTIDINE 20 MG TAB PO SCH (12:30)
--- NOTE | 2019-01-12 09:10 | Coding Query ---
CODING QUERY To promote full compliance with coding requirements relating to patient care, provider participation is requested in all cases of recyclable materials sorter uncertainty. Please assist us with the question(s) below: Coding Question: Hypotension likely related to hypovolemic shock vs underlying infection was documented in progress notes until 01/03 and then subsequently fell off the chart. Please clarify if the patient was treated for hypovolemic shock. Thank you so much for your help! ( x) Hypovolemic Shock, POA - added to discharge summary ( ) Hypovolemic Shock, ruled-out ( ) Other, explain Thank you! Johanna Aldana Principal Diagnosis: "that condition established after study, to be chiefly responsible for occasioning the admission of the patient to the hospital for care." Co-Existing Principal Diagnosis: "when two or more diagnoses equally meet the criteria for principal diagnosis as determined by the circumstances of admission, diagnostic work up, and/or therapy provided, and the Alphabetic Index, Tabular List, or another coding guideline does not provide sequencing direction, any one of the diagnoses may be sequenced first." "When the physician has documented what appears to be a current diagnosis in the body of the record, but has not included the diagnosis in the final diagnostic statement, the physician should be asked whether the diagnosis should be added." (Source Coding [facility] 2 QTR90. p3-4) MARYAM
== END 2019-01-07 14:00 | DRG 871 ==
LOC: ED 07:38 → 2N 10:46 → SUATTDRO 11:20 → 4W 01-03 18:40